=== PATIENT | female | born 1945 | race Hispanic/Latino ===

== ENCOUNTER 2020-03-24 08:03 | Inpatient (IN) | payer MEDICARE, OTHER ==
[~2020-03-24] VITALS: Ht 154.9 cm; Wt 83.5 kg
[2020-03-24 08:32] LABS: BASOPHILS % 0.2 % (0.0-1.0); HEMATOCRIT 39.6 % (34.2-44.1); HEMOGLOBIN 13.4 g/dL (12.0-16.0); LYMPHOCYTES # (AUTO) 0.8 (1.0-3.2); MEAN CORPUSCULAR HEMOGLOBIN 28.6 pg (28-32); MEAN CORPUSCULAR HGB CONC 33.8 g/dL (31-35); MEAN CORPUSCULAR VOLUME 84.6 fL (81-99); MONOCYTES # (AUTO) 0.4 (0.2-0.8); MONOCYTES % 4.3 % (4.4-11.3); NEUTROPHILS # (AUTO) 7.2 (2.1-6.9); NEUTROPHILS % 85.5 % (38.7-80.0); PLATELET COUNT 304 x10e3/uL (140-360); RED BLOOD COUNT 4.68 x10e6/uL (3.6-5.1); RED CELL DISTRIBUTION WIDTH 14.4 % (11.7-14.4)
[2020-03-24 08:50] LABS: ALBUMIN 2.6 g/dL (3.5-5.0); ALBUMIN/GLOBULIN RATIO 0.5 (0.8-2.0); ANION GAP 22.3 mmol/L (8-16); CREATININE, SERUM 1.17 mg/dL (0.57-1.11); POTASSIUM 4.3 mmol/L (3.5-5.1)
[2020-03-24 08:56] LABS: CREATINE KINASE MB 1.5 ng/mL (0-5.0)
--- NOTE | 2020-03-24 09:05 | Diagnostic Imaging Report ---
EXAMINATION: CHEST SINGLE (PORTABLE) INDICATION: Chest pain COMPARISON: None FINDINGS: LINES/TUBES:EKG leads overlie the chest. LUNGS:The lungs are moderately inflated. Mild hazy bibasilar opacities PLEURA:No pleural effusion or pneumothorax. MEDIASTINUM:The cardiomediastinal silhouette appears normal in size and shape. BONES/SOFT TISSUES:No acute osseous injury. ABDOMEN:No free air under the diaphragm. IMPRESSION: Mild hazy bibasilar opacities. Atypical pneumonia should be excluded clinically. Signed by: Hernan Chew MD on 03/24/2020 9:02 AM
--- NOTE | 2020-03-24 09:40 | Emergency Department Note ---
History of Present Illnes History of Present Illness Chief Complaint: COVID PUI History of Present Illness This is a 74 year old female arrived to the ED with complaints of confusion and high blood sugar, tested + for covid . Chief Complaint Comment PER EMS, PATIENT IN FROM HOME FOR ALTERED MENTAL STATUS AND HIGH BLOOD SUGAR; PATIENT O2 SATS *90% ON 4 L/MIN NASAL CANNULA. PATIENT WITH DIFFICULTY ANSWERING QUESTIONS WITH THE CULTURAL LINK. 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 Any updates have been documented here. Past Medical History Recent Fever: No Clinical Suspicion of Infectio: Yes New/Unexplained Change in Ment: No Past Medical History: Hypertension, Diabetes, Hypothyroidism, Hyperlipedemia Past Surgical History: Cholecysctectomy Other Surgery: PATIENT UNABLE TO ANSWER Social History Smoking Cessation: Unknown if ever smoked Alcohol Use: None Any Illegal Drug Use: No Physically hurt or threatened: No Other Any Pre-Existing Lines (PICC,: No Review of Systems Review of Systems Constitutional: Reports no symptoms EENTM: Reports no symptoms Cardiovascular: Reports no symptoms Respiratory: Reports as per HPI Gastrointestinal: Reports no symptoms Genitourinary: Reports no symptoms Musculoskeletal: Reports no symptoms Integumentary: Reports no symptoms Neurological: Reports no symptoms Psychological: Reports no symptoms Endocrine: Reports as per HPI Hematological/Lymphatic: Reports no symptoms Review of other systems: All other systems negative Physical Exam Related Data Allergies: Coded Allergies: Penicillins (Verified Allergy, Severe, 03/24/20) Triage Vital Signs Vital Signs Date Time Temp Pulse Resp B/P (MAP) Pulse Ox O2 Delivery O2 Flow Rate FiO2 03/24/20 08:10 98.8 110 20 142/69 90 Nasal Cannula 5.0 Vital signs reviewed: Yes Physical Exam CONSTITUTIONAL Constitutional: Present well-developed, Present ill appearing HENT HENT: Present normocephalic, Present atraumatic, Present oropharynx clear/moist, Present nose normal HENT L/R: Present left ext ear normal, Present right ext ear normal EYES Eyes: Reports PERRL, Reports conjunctivae normal NECK Neck: Present ROM normal PULMONARY Pulmonary: Present effort normal, Present respiratory distress CARDIOVASCULAR Cardiovascular: Present regular rhythm, Present heart sounds normal, Present capillary refill normal, Present normal rate GASTROINTESTINAL Abdominal: Present soft, Present nontender, Present bowel sounds normal GENITOURINARY Genitourinary: Present exam deferred SKIN Skin: Present warm, Present dry MUSCULOSKELETAL Musculoskeletal: Present ROM normal NEUROLOGICAL Neurological: Present alert, Present no gross motor or sensory deficits PSYCHOLOGICAL Psychological: Present mood/affect normal, Present judgement normal Results Laboratory Result Diagram: 03/24/20 0810 03/24/20 0810 Laboratory Laboratory Tests Test 03/24/20 08:30 03/24/20 08:10 Lactic Acid Level 2.1 mmol/L (0.5-2.0) White Blood Count 8.40 x10e3/uL (4.8-10.8) Red Blood Count 4.68 x10e6/uL (3.6-5.1) Hemoglobin 13.4 g/dL (12.0-16.0) Hematocrit 39.6 % (34.2-44.1) Mean Corpuscular Volume 84.6 fL (81-99) Mean Corpuscular Hemoglobin 28.6 pg (28-32) Mean Corpuscular Hemoglobin Concent 33.8 g/dL (31-35) Red Cell Distribution Width 14.4 % (11.7-14.4) Platelet Count 304 x10e3/uL (140-360) Neutrophils (%) (Auto) 85.5 % (38.7-80.0) Lymphocytes (%) (Auto) 9.0 % (18.0-39.1) Monocytes (%) (Auto) 4.3 % (4.4-11.3) Eosinophils (%) (Auto) 0.0 % (0.0-6.0) Basophils (%) (Auto) 0.2 % (0.0-1.0) Neutrophils # (Auto) 7.2 (2.1-6.9) Lymphocytes # (Auto) 0.8 (1.0-3.2) Monocytes # (Auto) 0.4 (0.2-0.8) Eosinophils # (Auto) 0.0 (0.0-0.4) Basophils # (Auto) 0.0 (0.0-0.1) Absolute Immature Granulocyte (auto 0.08 x10e3/uL (0-0.1) Sodium Level 136 mmol/L (136-145) Potassium Level 4.3 mmol/L (3.5-5.1) Chloride Level 97 mmol/L (98-107) Carbon Dioxide Level 21 mmol/L (22-29) Anion Gap 22.3 mmol/L (8-16) Blood Urea Nitrogen 34 mg/dL (7-26) Creatinine 1.17 mg/dL (0.57-1.11) Estimat Glomerular Filtration Rate 45 ML/MIN (60-) BUN/Creatinine Ratio 29 (6-25) Glucose Level 405 mg/dL (74-118) Calcium Level 10.0 mg/dL (8.4-10.2) Total Bilirubin 0.6 mg/dL (0.2-1.2) Aspartate Amino Transf (AST/SGOT) 105 IU/L (5-34) Alanine Aminotransferase (ALT/SGPT) 88 IU/L (0-55) Alkaline Phosphatase 52 IU/L (40-150) Creatine Kinase 120 IU/L (29-168) Creatine Kinase MB 1.50 ng/mL (0-5.0) Troponin I 0.006 ng/mL (0-0.300) Total Protein 8.0 g/dL (6.5-8.1) Albumin 2.6 g/dL (3.5-5.0) Globulin 5.4 g/dL (2.3-3.5) Albumin/Globulin Ratio 0.5 (0.8-2.0) Lab results reviewed: Yes Imaging Imaging results reviewed: Yes Impressions IMPRESSION: Mild hazy bibasilar opacities. Atypical pneumonia should be excluded clinically. Critical Care Time Total Critical Care Time (min): 65 Critical care time exclusive o: separately billable procedures Critcal care necessary due to: endocrine crisis, respiratory failure Assessment & Plan Medical Decision Making MDM 74-year-old female arrived to the ED with change in mental status, recently tested positive for the coronavirus. Patient noted to be markedly hypoxic and required supplemental oxygen with a Vapotherm. Patient also noted to have an anion gap metabolic acidosis secondary to hyperglycemia due to diabetes. Patient given aggressive fluid resuscitation with IV insulin improvement of anion gap noted. Patient admitted to the inpatient unit on supplemental oxygen and tight hyperglycem hyperglycemic control. Patient stable at time of admission. Assessment & Plan Final Impression: (1) DKA (diabetic ketoacidoses) (2) COVID-19 (3) Acute respiratory distress Depart Disposition: ADMITTED Last Vital Signs Date Time Temp Pulse Resp B/P (MAP) Pulse Ox O2 Delivery O2 Flow Rate FiO2 03/24/20 08:18 15.0 03/24/20 08:10 98.8 110 20 142/69 90 Nasal Cannula Home Meds Reported Medications [No Stated Home Meds] No Conflict Check 03/24/20 Medications in the ED Insulin Human Regular 10 unit ONCE ONCE IV ; Start 03/24/20 at 09:45; Stop 03/24/20 at 09:46; Status UNV THALIA GOODMAN DO Mar 24, 2020 09:40
[2020-03-24] MEDS ORDERED: INSULIN REGULAR, HUMAN 100 UNIT/1 ML 3ML VIAL IV ONE (09:45)
[2020-03-24] MEDS ORDERED: SODIUM CHLORIDE 0.9% 1000ML 2,000 ML ONE (09:57)
[2020-03-24] MEDS ORDERED: SODIUM CHLORIDE 0.9% 1000ML 2,000 ML IV SCH (10:00)
[2020-03-24 12:38] LABS: ANION GAP 16.3 mmol/L (8-16); BLOOD UREA NITROGEN 27 mg/dL (7-26); BUN/CREATININE RATIO 33 (6-25); CALCIUM 7.2 mg/dL (8.4-10.2); CARBON DIOXIDE 17 mmol/L (22-29); CHLORIDE 111 mmol/L (98-107); CREATININE, SERUM 0.82 mg/dL (0.57-1.11); EST GLOMERULAR FILTRATION RATE > 60 ML/MIN (60-); GLUCOSE 255 mg/dL (74-118); POTASSIUM 3.3 mmol/L (3.5-5.1); SODIUM 141 mmol/L (136-145)
[2020-03-24] MEDS ORDERED: WATER STERILE 10 ML VIAL ONE (13:02)
[2020-03-24] MEDS ORDERED: VECURONIUM BROMIDE FOR INJ 20 MG VIAL ONE (13:02)
[2020-03-24] MEDS ORDERED: MIDAZOLAM HCL 2 MG/2 ML VIAL ONE (13:02)
[2020-03-24] MEDS ORDERED: SUCCINYLCHOLINE CHLORIDE 20 MG/ML 10ML VIAL ONE (13:02)
[2020-03-24] MEDS ORDERED: ETOMIDATE 2 MG/ML 10 ML INJ IV ONE (13:02)
--- NOTE | 2020-03-24 15:00 | NUR ---
PT TO THE FLOOR FROM ER. VITALS WNL. PT DENIES NEEDS AT THIS TIME.
[2020-03-24 15:14] VITALS: BP 132/82
[2020-03-24 15:15] VITALS: BP 132/82
[2020-03-24] MEDS ORDERED: ONDANSETRON HCL INJ 2MG/ML 2ML 2 MG/ML VIAL IV PRN (16:15)
[2020-03-24] MEDS ORDERED: DOCUSATE SODIUM 100 MG CAP PO PRN (16:15)
[2020-03-24] MEDS ORDERED: GUAIFENESIN/DEXTROMETHORPHAN LIQD 5 ML UDC NG PRN (16:15)
[2020-03-24] MEDS ORDERED: DEXTROSE 50% SYRINGE 50 ML IV PRN (16:15)
--- NOTE | 2020-03-24 16:20 | NUR ---
H&P cc: sob HIP: 74yoF, PCP , developed sob/cough for 1 week, suspected to have COVID19, test obtained. Pt required O2 support in ED. Pt denies positive COVID testing in past and denies family members testing positive.' PMH: DM2 PSHx; none Allergies; see emr FH/SH; no illicits; no cigs meds; see MAR ROS: no f/c/s/N/V/D/LING/cp/skin rash/confusion/dizziness/leg pain v/s revd PE tired appearing anicteric Oxygen canula in place ns1s2 reduced bs soft nt nd no e/t skin dry flat affect labs/med revd A/P: 74yoF Multifocal PNA- IV abx; O2; COVID testing Acute resp failure- O2 DKA- insulin; hab1c/lipids; insulin CHERI- f/u Obesity- 1/2 portion sizes; outpt BMI 37- as above Physical deconditioning- PT consult Prop; scd; lovenox Dispo: f/u COVID testing Gen TRAYLOR MD, PHD
[2020-03-24] MEDS: INSULIN REGULAR, HUMAN 100 UNIT/1 ML 3ML VIAL SQ SCH ×2 (16:58→21:00)
[2020-03-24] MEDS: FAMOTIDINE 20 MG TAB PO SCH (16:58)
[2020-03-24 17:02] LABS: CHOL/HDL RATIO 6.5 (3.0-3.6)
[2020-03-24] MEDS: ENOXAPARIN SOD INJ 40 MG/0.4 ML SYR SC SCH (17:16)
[2020-03-24] MEDS: ASCORBIC ACID 500 MG TAB PO SCH (17:16)
[2020-03-24] MEDS ORDERED: [UNRECOGNIZED DRUG - REMARK] (18:13)
--- NOTE | 2020-03-24 18:30 | NUR ---
PT HAS REMOVED OXYGEN TUBING 4 TIME IN THE LAST 3 HOURS AND FOUND WITH LOW O2. AT THIS TIME PT SET OFF BED ALARM AND WAS CAUGHT BEFORE FALLING, CONFUSED AND LOW O2 STATS AFTER PULLING O2 OFF AGAIN. PT SOILED, CLEANED AND CHANGED. PT WILL NEED A SITTER TO PREVENT POTENTIAL FALL.
[2020-03-24] MEDS ORDERED: CEFTRIAXONE SOD 1 GM/NS 50 ML 50 ML IV SCH (19:30)
[2020-03-24 20:00] VITALS: BP 124/77
[2020-03-24] MEDS ORDERED: SODIUM CHLORIDE 0.9% 250ML 250 ML ONE (20:33)
[2020-03-24] MEDS ORDERED: ZOLPIDEM TARTRATE 5 MG TAB PO PRN (21:00)
[2020-03-24] MEDS: BENZONATATE 100 MG CAP PO SCH (21:00)
[2020-03-24] MEDS: AZITHROMYCIN 500MG/NS 250 ML 250 ML IV SCH (21:10)
[2020-03-24 23:49] VITALS: BP 114/69
[2020-03-25] VITALS (7 sets, daily range): BP systolic 114–140; BP diastolic 57–74
[2020-03-25 05:26] LABS: BASOPHILS % 0.1 % (0.0-1.0); EOSINOPHILS % 0.1 % (0.0-6.0); HEMATOCRIT 35.7 % (34.2-44.1); HEMOGLOBIN 11.9 g/dL (12.0-16.0); LYMPHOCYTES # (AUTO) 0.8 (1.0-3.2); LYMPHOCYTES % 10.8 % (18.0-39.1); MEAN CORPUSCULAR HGB CONC 33.3 g/dL (31-35); MEAN CORPUSCULAR VOLUME 86.9 fL (81-99); MONOCYTES # (AUTO) 0.3 (0.2-0.8); NEUTROPHILS # (AUTO) 6.5 (2.1-6.9); NEUTROPHILS % 83.7 % (38.7-80.0); PLATELET COUNT 302 x10e3/uL (140-360); RED BLOOD COUNT 4.11 x10e6/uL (3.6-5.1); RED CELL DISTRIBUTION WIDTH 14.2 % (11.7-14.4)
[2020-03-25 05:54] LABS: ALANINE AMINOTRANSFERASE 100 IU/L (0-55); ALBUMIN 2.3 g/dL (3.5-5.0); ALBUMIN/GLOBULIN RATIO 0.5 (0.8-2.0); ALKALINE PHOSPHATASE 53 IU/L (40-150); ANION GAP 14.6 mmol/L (8-16); BLOOD UREA NITROGEN 24 mg/dL (7-26); BUN/CREATININE RATIO 30 (6-25); CALCIUM 8.9 mg/dL (8.4-10.2); CARBON DIOXIDE 25 mmol/L (22-29); CHLORIDE 104 mmol/L (98-107); EST GLOMERULAR FILTRATION RATE > 60 ML/MIN (60-); GLUCOSE 108 mg/dL (74-118); POTASSIUM 3.6 mmol/L (3.5-5.1); SODIUM 140 mmol/L (136-145)
--- NOTE | 2020-03-25 05:59 | NUR ---
IM- progress note O/N see below ROS: no f/c/s/N/V/D/LING/cp/skin rash/confusion/dizziness/leg pain v/s revd PE tired appearing anicteric Oxygen canula in place ns1s2 reduced bs soft nt nd no e/t skin dry flat affect labs/med revd A/P: 74yoF Multifocal PNA- IV abx; O2; COVID testing Acute resp failure- O2 DKA- insulin; hab1c/lipids; insulin CHERI- f/u Obesity- 1/2 portion sizes; outpt BMI 37- as above Physical deconditioning- PT consult Prop; scd; lovenox Dispo: f/u COVID testing 03-25-20 Hba1c/LDL .; f/u COVID tesing; Gen TRAYLOR MD, PHD
[2020-03-25 06:56] LABS: PLATELET ESTIMATE ADEQUATE; PLATELET MORPHOLOGY COMMENT NORMAL; RBC MORPHOLOGY COMMENT NORMAL
[2020-03-25] MEDS: INSULIN REGULAR, HUMAN 100 UNIT/1 ML 3ML VIAL SQ SCH ×4 (07:30→21:06)
[2020-03-25] MEDS: FAMOTIDINE 20 MG TAB PO SCH ×2 (08:52→16:14)
[2020-03-25] MEDS: ASCORBIC ACID 500 MG TAB PO SCH ×2 (08:52→16:14)
[2020-03-25] MEDS: LORATADINE 10 MG TAB PO SCH (08:52)
[2020-03-25] MEDS: BENZONATATE 100 MG CAP PO SCH ×3 (08:52→20:40)
[2020-03-25] MEDS: ZINC SULFATE 220 MG CAP PO SCH (08:52)
[2020-03-25] MEDS ORDERED: ZINC SULFATE 50 MG CAP PO SCH (09:00)
--- NOTE | 2020-03-25 10:14 | Consultation ---
DATE OF CONSULTATION: 03/25/2020 PULMONARY CRITICAL CARE CONSULTATION: CHIEF COMPLAINT: Dyspnea and shortness of breath for one week. HISTORY OF PRESENT ILLNESS: The patient is a 74-year-old woman. She is noted to have cough and difficulty breathing for one week. There is no report of chest pain. She seems unsure about fevers. There has been some intermittent confusion. PAST SURGICAL HISTORY: Status post cholecystectomy. PAST MEDICAL HISTORY: 1. Hypertension. 2. Type 2 diabetes. 3. Hypothyroidism. SOCIAL HISTORY: The patient is not an active smoker. She is not an active drinker. FAMILY HISTORY: Noncontributory. REVIEW OF SYSTEMS: The patient has had some intermittent confusion. She has no headache. She is not complaining of any fevers. She has some chest pain. She does have some dyspnea and cough. She has no abdominal pain. There is no nausea or vomiting. She has no leg edema. PHYSICAL EXAMINATION: VITAL SIGNS: Blood pressure is 118/57, saturation is 98% on an Airvo at 50 L with 85%. HEENT: No facial swelling or erythema. LYMPHATIC: No submandibular, cervical, or supraclavicular adenopathy. CARDIAC: Regular rate and rhythm with normal S1, S2. LUNGS: Auscultation of lungs reveals rhonchorous breath sounds bilaterally. There is no wheezing. ABDOMEN: Soft, nontender. There is no rebound or guarding. EXTREMITIES: No leg edema or calf tenderness. There is no cyanosis or clubbing. SKIN: No rashes. LABORATORY DATA: BUN to creatinine ratio is 24 to 0.8. The other electrolytes are within normal limits. The AST is 146 and the ALT is 100. Albumin is 2.3. White blood cell count is 7.78, and the hemoglobin is 11.9. The platelet count is 302. RADIOGRAPHIC DATA: Chest x-ray shows bibasilar opacities. IMPRESSION: 1. Coronavirus disease-19 and viral pneumonia. 2. Acute respiratory failure. 3. Diabetes. 4. Hypertension. PLAN: 1. Judicious use of IV fluids. 2. Continue antibiotics. 3. Continue Lovenox for DVT prophylaxis. 4. Monitor blood sugars and adjust insulin. 5. The patient would probably be a candidate for remdesivir. We discussed this with Infectious Disease. MD SEA Salomon/JOSIANEL /[id number]
[2020-03-25] MEDS: INSULIN GLARGINE 100 UNITS/ML VIAL SQ SCH (11:45)
[2020-03-25] MEDS: ACETAMINOPHEN 325 MG TAB PO PRN (11:56)
[2020-03-25] MEDS: ENOXAPARIN SOD INJ 40 MG/0.4 ML SYR SC SCH (16:14)
[2020-03-25] MEDS ORDERED: ASCORBIC ACID 500 MG TAB PO SCH (17:00)
[2020-03-25] MEDS: DEXAMETHASONE SOD PHOS INJ 4 MG/ML VIAL IV SCH (17:00)
[2020-03-25] MEDS ORDERED: REMDESIVIR 200MG/NS 100ML 200 MG IV ONE (18:00)
--- NOTE | 2020-03-25 19:02 | Consultation ---
DATE OF CONSULTATION: 03/25/2020 REASON FOR CONSULTATION: Pneumonia. HISTORY OF PRESENT ILLNESS: This patient who is a 74-year-old female comes in with shortness of breath. The patient tells me she has been sick for 7 to 8 days. She does have history of hypertension, diabetes mellitus, hypothyroidism. She is currently on nasal BiPAP. The patient apparently has been sick for at least a week ago with shortness of breath and cough. The patient came to the emergency room, where she was evaluated and admitted. PAST MEDICAL HISTORY: Diabetes mellitus and hypertension. PAST SURGICAL HISTORY: Denies. SOCIAL HISTORY: There is no smoking, drug abuse, or alcohol abuse. FAMILY HISTORY: Hypertension. ALLERGIES: PENICILLIN, BUT SHE DID WELL WITH CEPHALOSPORIN. LABORATORY DATA: COVID-19 is still pending. Her sodium 140, potassium 3.6 creatinine 0.8. Lactic acid 2.1. White count 7.78. MEDICATIONS: The patient is currently on vitamin C. She is on Tessalon Perles, Pepcid, Lovenox, Tylenol, Claritin, azithromycin, and Rocephin. PHYSICAL EXAMINATION: GENERAL: She is currently alert, oriented, does not seem in acute distress. VITAL SIGNS: Stable, currently afebrile. HEENT: She is not icteric. NECK: Supple. CHEST: Crackles bilateral. HEART: S1 and S2. ABDOMEN: Soft. Bowel sounds present. EXTREMITIES: No edema. SKIN: No rash. IMPRESSION: Respiratory failure, community-acquired pneumonia, concerned about coronavirus disease 2019, PCR is still pending. We will give her dexamethasone 6 mg daily, azithromycin for 3 days, ceftriaxone for 5 days, Lovenox for deep venous thrombosis prophylaxis. If her PCR comes back positive, we will give her remdesivir. The patient did agree to it. She is aware that it is still investigational, but it was approved recently. She knows she can stop it at any time. We also discussed the plasma. The patient is also interested. She is aware of the risk. We will follow. MD JONY Ramirez/NENA /[id number]
--- NOTE | 2020-03-25 19:25 | NUR ---
Bedside shift report received from day nurse. Pt semi fowlers in bed with eyes closed. Pt responds to verbal commands and responds appropriately. Pt has high flow O2 on via nasal cannula. O2 sats 94% at this time. Pt does not appear SOB and denies SOB at this time. Pt denies pain or discomfort at this time. Sitter at bedside. Instructed both sitter and pt to call for assistance. Call light within reach.
[2020-03-25] MEDS: AZITHROMYCIN 500MG/NS 250 ML 250 ML IV SCH (20:00)
[2020-03-25] MEDS: CEFTRIAXONE SOD 2 GM/NS 100 ML 100 ML IV SCH (20:00)
[2020-03-26] VITALS (17 sets, daily range): BP systolic 110–155; BP diastolic 73–126
--- NOTE | 2020-03-26 04:50 | NUR ---
Entered pt's room for hourly rounds. Pt had IV clenched in her right hand. Pt pulled IV from her left AC-Catheter intact. Left AC IV site was not bleeding. Covered Left AC IV site with gauze and bandaid. Pt remains confused and is alert and oriented only to self. Pt denies pain or discomfort.
[2020-03-26 05:15] LABS: BASOPHILS % 0.2 % (0.0-1.0); HEMATOCRIT 38.8 % (34.2-44.1); HEMOGLOBIN 12.9 g/dL (12.0-16.0); LYMPHOCYTES # (AUTO) 0.8 (1.0-3.2); LYMPHOCYTES % 8.2 % (18.0-39.1); MEAN CORPUSCULAR HEMOGLOBIN 28.7 pg (28-32); MEAN CORPUSCULAR HGB CONC 33.2 g/dL (31-35); MEAN CORPUSCULAR VOLUME 86.2 fL (81-99); MONOCYTES # (AUTO) 0.3 (0.2-0.8); MONOCYTES % 2.8 % (4.4-11.3); NEUTROPHILS # (AUTO) 8.8 (2.1-6.9); NEUTROPHILS % 87.9 % (38.7-80.0); PLATELET COUNT 324 x10e3/uL (140-360); RED CELL DISTRIBUTION WIDTH 14.3 % (11.7-14.4)
[2020-03-26 05:41] LABS: ALANINE AMINOTRANSFERASE 92 IU/L (0-55); ALBUMIN 2.3 g/dL (3.5-5.0); ALBUMIN/GLOBULIN RATIO 0.4 (0.8-2.0); ALKALINE PHOSPHATASE 65 IU/L (40-150); ANION GAP 19.1 mmol/L (8-16); BLOOD UREA NITROGEN 19 mg/dL (7-26); BUN/CREATININE RATIO 24 (6-25); CALCIUM 9.3 mg/dL (8.4-10.2); CARBON DIOXIDE 20 mmol/L (22-29); CHLORIDE 103 mmol/L (98-107); EST GLOMERULAR FILTRATION RATE > 60 ML/MIN (60-); GLUCOSE 282 mg/dL (74-118); POTASSIUM 4.1 mmol/L (3.5-5.1); SODIUM 138 mmol/L (136-145)
--- NOTE | 2020-03-26 06:40 | NUR ---
Attempt to start 22g IV to left wrist was unsuccessful. Pressure held to site until bleeding stopped. Left wrist puncture site covered with gauze and bandaid.
--- NOTE | 2020-03-26 07:30 | NUR ---
RECEIVED PATIENT RESTING IN BED. RESPIRATIONS EVEN AND BREATHING UNLABORED. NO DISTRESS NOTED. NO C/O PAIN VERBALIZED AT THIS TIME. TELE APPLIED. BED ALARM APPLIED. CALL LIGHT WITHIN REACH. WILL CONTINUE TO MONITOR.
[2020-03-26] MEDS: FAMOTIDINE 20 MG TAB PO SCH ×2 (08:25→16:05)
[2020-03-26] MEDS: LORATADINE 10 MG TAB PO SCH (08:30)
[2020-03-26] MEDS: BENZONATATE 100 MG CAP PO SCH ×3 (08:30→21:04)
[2020-03-26] MEDS: ASCORBIC ACID 500 MG TAB PO SCH ×2 (08:30→16:42)
--- NOTE | 2020-03-26 08:55 | NUR ---
IM- progress note O/N see below ROS: no f/c/s/N/V/D/LING/cp/skin rash/confusion/dizziness/leg pain v/s revd PE tired appearing anicteric Oxygen canula in place ns1s2 reduced bs soft nt nd no e/t skin dry flat affect labs/med revd A/P: 74yoF Multifocal PNA- IV abx; O2; COVID testing Acute resp failure- O2 DKA- insulin; hab1c/lipids; insulin CHERI- f/u Obesity- 1/2 portion sizes; outpt BMI 37- as above Physical deconditioning- PT consult Prop; scd; lovenox Dispo: f/u COVID testing 03-25-20 Hba1c/LDL .; f/u COVID tesing; 03-26-20 cont care; Gen TRAYLOR MD, PHD
[2020-03-26] MEDS ORDERED: ZINC SULFATE 50 MG CAP PO SCH (09:00)
[2020-03-26] MEDS: INSULIN GLARGINE 100 UNITS/ML VIAL SQ SCH (09:00)
[2020-03-26] MEDS ORDERED: AZITHROMYCIN 500MG/NS 250 ML 250 ML IV SCH (09:00)
[2020-03-26] MEDS: ZINC SULFATE 220 MG CAP PO SCH (09:14)
[2020-03-26] MEDS: INSULIN REGULAR, HUMAN 100 UNIT/1 ML 3ML VIAL SQ SCH ×4 (09:23→20:16)
--- NOTE | 2020-03-26 09:30 | Progress Note ---
DATE: 03/26/2020 SUBJECTIVE: The patient is currently afebrile. She remains on the Airvo with 55 L and 85%. PHYSICAL EXAMINATION: VITAL SIGNS: The blood pressure is 127/73 and the pulse is 93. The respiratory rate is 24. Saturation is 92%. HEENT: Shows no facial swelling or erythema. LYMPHATIC: Shows no submandibular, cervical, or supraclavicular adenopathy. CARDIAC: Reveals a regular rate and rhythm with normal S1 and S2. LUNGS: Auscultation of lungs reveals crackles at the bases. There is no wheezing. ABDOMEN: Soft and nontender. There is no rebound or guarding. EXTREMITIES: Show no leg edema or calf tenderness. There is no cyanosis or clubbing. SKIN: Shows no rashes. NEUROLOGICAL: Shows no focal abnormalities. LABORATORY DATA: White blood cell count is 10.04 and the hemoglobin is 12.9. The platelet count is 324. The BUN to creatinine ratio is 19 to 0.8 and the carbon dioxide is 20. The chloride is 103. The glucose is 282. AST is 89 and the ALT is 92. The albumin is 2.3. IMPRESSION: 1. Acute respiratory failure. 2. COVID-19 and viral pneumonia. 3. Diabetes. 4. Hypertension. PLAN: 1. Continue Airvo. 2. Monitor and control blood sugars. 3. The patient should be a candidate for remdesivir. 4. Continue azithromycin and Rocephin. 5. Complete course of dexamethasone. 6. Place PICC line. 7. Consider transfer to ICU if the patient continues to require high liter flow with Airvo. Pete Walsh MD [facility]/MODL /[id number]
--- NOTE | 2020-03-26 10:15 | NUR ---
CALLED AND SPOKE WITH DAUGHTER DAVE ON [employer], SHE STATES SHE HAS COVID AND TO CALL HER SISTER AND THE NURSE HAS THE NUMBER. CALLED KAREN MAC [phone] WHOM IS THE DECISION MAKER FOR THIS PATIENT, ASKED HER ABOUT PLACEMENT OPTIONS FOR THIS PATIENT. SPOKE WITH DOCTOR ABOUT PLAN, SNF IS THE PLAN AT [facility] IN [place], DAUGHTER GAVE PERMISSION TO SHARE CLINICALS. WILL FAX TO FACILITY.
--- NOTE | 2020-03-26 12:47 | Diagnostic Imaging Report ---
EXAMINATION: CHEST XRAY LINE PLACEMENT INDICATION: Line placement COMPARISON: Chest radiograph 03/24/2020 FINDINGS: LINES/TUBES:Interval placement of right PICC line which terminates at the superior cavoatrial junction. LUNGS:The lung volumes are low. Interval increase in bilateral interstitial and airspace opacities. PLEURA:No pleural effusion or pneumothorax. MEDIASTINUM:The cardiomediastinal silhouette appears normal in size and shape. BONES/SOFT TISSUES:No acute osseous injury. ABDOMEN:No free air under the diaphragm. IMPRESSION: Right PICC line terminates at the superior cavoatrial junction. Interval increase in bilateral interstitial and airspace opacities concerning for atypical pneumonia. Signed by: Hernan Chew MD on 03/26/2020 12:43 PM
--- NOTE | 2020-03-26 14:30 | NUR ---
PATIENT TRANSFERRED OFF OF UNIT BY WHEELCHAIR TO ICU ROOM 194 @ 1412. PT ACCOMPANIED BY NURSES AND RESPIRATORY. PT IN STABLE CONDITION.
[2020-03-26] MEDS: REMDESIVIR 100MG/NS 100ML 100 MG IV SCH (14:31)
--- NOTE | 2020-03-26 15:00 | NUR ---
Patient pull off oxygen and trying to get out of bed very confused and desats to 71% quickly placed back on airvo and in bed patient 02 sats recovered 88 to 90% reoriented patient placed on bedpan did not void.
--- NOTE | 2020-03-26 15:16 | NUR ---
REASON FOR CONSULTATION: Pneumonia. HISTORY OF PRESENT ILLNESS: This patient who is a 74-year-old female comes in with shortness of breath. The patient tells me she has been sick for 7 to 8 days. She does have history of hypertension, diabetes mellitus, hypothyroidism. She is currently on nasal BiPAP. The patient apparently has been sick for at least a week ago with shortness of breath and cough. The patient came to the emergency room, where she was evaluated and admitted. PAST MEDICAL HISTORY: Diabetes mellitus and hypertension. PAST SURGICAL HISTORY: Denies. SOCIAL HISTORY: There is no smoking, drug abuse, or alcohol abuse. FAMILY HISTORY: Hypertension. ALLERGIES: PENICILLIN, BUT SHE DID WELL WITH CEPHALOSPORIN. LABORATORY DATA: COVID-19 is still pending. Her sodium 140, potassium 3.6 creatinine 0.8. Lactic acid 2.1. White count 7.78. MEDICATIONS: The patient is currently on vitamin C. She is on Tessalon Perles, Pepcid, Lovenox, Tylenol, Claritin, azithromycin, and Rocephin. PHYSICAL EXAMINATION: GENERAL: She is currently alert, oriented, does not seem in acute distress. VITAL SIGNS: Stable, currently afebrile. HEENT: She is not icteric. NECK: Supple. no JVD CHEST: Crackles bilateral. HEART: S1 and S2. ABDOMEN: Soft. Bowel sounds present. EXTREMITIES: No edema. SKIN: No rash. IMPRESSION: Respiratory failure community-acquired pneumonia COVID 19 PLAN: COVID protocol on NRB RMSV get CTA guarded prognosis Tata Lino MSN, [employer] PRO[employer] MANAGER, AGACNP-BC d/w Fei Hernandez M.D.
[2020-03-26] MEDS ORDERED: DEXMEDETOMIDINE 200MCG/NS 50ML 50 ML IV PRN (16:15)
[2020-03-26] MEDS: DEXAMETHASONE SOD PHOS INJ 4 MG/ML VIAL IV SCH (16:42)
[2020-03-26] MEDS: ENOXAPARIN SOD INJ 40 MG/0.4 ML SYR SC SCH (16:42)
[2020-03-26] MEDS: CEFTRIAXONE SOD 2 GM/NS 100 ML 100 ML IV SCH (20:16)
[2020-03-26] MEDS ORDERED: SODIUM CHLORIDE 0.9% 250ML 250 ML ONE (20:42)
[2020-03-26] MEDS: AZITHROMYCIN 500MG/NS 250 ML 250 ML IV SCH (21:04)
[2020-03-27] VITALS (24 sets, daily range): BP systolic 103–173; BP diastolic 66–99
[2020-03-27 04:44] LABS: BASOPHILS % 0.1 % (0.0-1.0); HEMATOCRIT 32.5 % (34.2-44.1); HEMOGLOBIN 10.8 g/dL (12.0-16.0); LYMPHOCYTES # (AUTO) 0.6 (1.0-3.2); LYMPHOCYTES % 7.1 % (18.0-39.1); MEAN CORPUSCULAR HEMOGLOBIN 28.6 pg (28-32); MEAN CORPUSCULAR HGB CONC 33.2 g/dL (31-35); MEAN CORPUSCULAR VOLUME 86.2 fL (81-99); MONOCYTES # (AUTO) 0.2 (0.2-0.8); MONOCYTES % 2.4 % (4.4-11.3); NEUTROPHILS % 89.8 % (38.7-80.0); PLATELET COUNT 199 x10e3/uL (140-360); RED BLOOD COUNT 3.77 x10e6/uL (3.6-5.1); RED CELL DISTRIBUTION WIDTH 14.3 % (11.7-14.4)
[2020-03-27 05:03] LABS: ALANINE AMINOTRANSFERASE 59 IU/L (0-55); ALBUMIN 1.8 g/dL (3.5-5.0); ALBUMIN/GLOBULIN RATIO 0.4 (0.8-2.0); ALKALINE PHOSPHATASE 60 IU/L (40-150); ANION GAP 15.6 mmol/L (8-16); BLOOD UREA NITROGEN 25 mg/dL (7-26); BUN/CREATININE RATIO 32 (6-25); CALCIUM 8.4 mg/dL (8.4-10.2); CARBON DIOXIDE 23 mmol/L (22-29); CHLORIDE 107 mmol/L (98-107); CREATININE, SERUM 0.77 mg/dL (0.57-1.11); EST GLOMERULAR FILTRATION RATE > 60 ML/MIN (60-); GLUCOSE 259 mg/dL (74-118); POTASSIUM 3.6 mmol/L (3.5-5.1); SODIUM 142 mmol/L (136-145)
--- NOTE | 2020-03-27 06:30 | NUR ---
IM- progress note O/N see below ROS: no f/c/s/N/V/D/LING/cp/skin rash/confusion/dizziness/leg pain v/s revd PE tired appearing anicteric Oxygen canula in place ns1s2 reduced bs soft nt nd no e/t skin dry flat affect labs/med revd A/P: 74yoF Multifocal PNA- IV abx; O2; COVID testing Acute resp failure- O2 DKA- insulin; hab1c/lipids; insulin CHERI- f/u Obesity- 1/2 portion sizes; outpt BMI 37- as above Physical deconditioning- PT consult Prop; scd; lovenox Dispo: f/u COVID testing 03-25-20 Hba1c/LDL 10.; f/u COVID tesing; 03-26-20 cont care; - cont care in ICU; needing more O2; Continue decadron and remdesivir. Gen TRAYLOR MD, PHD
--- NOTE | 2020-03-27 07:11 | Progress Note ---
DATE: 03/27/2020 PULMONARY CRITICAL CARE PROGRESS NOTE: SUBJECTIVE: The patient was transferred to the intensive care unit last night. The patient remains on Airvo with 60 L and 95%. She also has a non-rebreather. The patient has some confusion. PHYSICAL EXAMINATION: VITAL SIGNS: The blood pressure is 134/70, saturation is 94%. She is currently on an Airvo at 60 L with 95% and a non-rebreather. She is also on Precedex. HEENT: Shows no facial swelling or erythema. LYMPHATIC: Shows no submandibular, cervical, or supraclavicular adenopathy. CARDIAC: Reveals regular rate and rhythm with normal S1, S2. There is a PICC line in place. ABDOMEN: Soft and nontender. There is no rebound or guarding. EXTREMITIES: Shows 1 to 2+ leg edema. LABORATORY DATA: White blood cell count is 7.8, hemoglobin is 10.8, and the platelet count is 199. The VNY-gx-kbvvpzkxij ratio is 25 to 0.77. The other electrolytes within normal limits, and the albumin is 1.8. The blood sugar is 260. IMPRESSION: 1. Acute respiratory failure. 2. Viral pneumonia and COVID-19 infection. 3. Diabetes. 4. Hypertension. 5. Metabolic encephalopathy. PLAN: 1. Continue Airvo and non-rebreather. 2. Place the patient in prone position if possible. 3. Echocardiogram pending today. 4. Continue remdesivir. 5. Continue dexamethasone. 6. DVT prophylaxis. 7. Continue to monitor and adjust insulin. Greater than 35 minutes in direct critical care time. Pete Walsh MD [facility]/MODL /[id number]
[2020-03-27] MEDS: INSULIN REGULAR, HUMAN 100 UNIT/1 ML 3ML VIAL SQ SCH ×4 (07:30→21:48)
[2020-03-27] MEDS: FAMOTIDINE 20 MG TAB PO SCH ×2 (07:30→16:30)
[2020-03-27] MEDS: BENZONATATE 100 MG CAP PO SCH ×3 (09:00→20:05)
[2020-03-27] MEDS: ZINC SULFATE 220 MG CAP PO SCH (09:00)
[2020-03-27] MEDS ORDERED: INSULIN GLARGINE 100 UNITS/ML VIAL SQ SCH (09:00)
[2020-03-27] MEDS: ASCORBIC ACID 500 MG TAB PO SCH ×2 (09:00→17:00)
--- NOTE | 2020-03-27 09:31 | NUR ---
Holding skilled PT services since patient is moved to higher level of care ( ICU). Please write new PT orders when appropriate. Thank you Addendum: 03/27/20 at 0931 by Praveen gibbs PT Amended: Links added.
--- NOTE | 2020-03-27 10:22 | NUR ---
ST NOTE: Order acknowledged for BSE. Pt currently on 60 L AIRVO with 95% FIO2 and NRB. Pt refusing PO medication, orders for prone position. RN stated pt not appropriate for ST evaluation at this time, re-attempt 03/28/20. Consider NG tube feeds for nutrition/hydration. Handoff to JOAN Ramires
[2020-03-27] MEDS ORDERED: ZIPRASIDONE 20 MG VIAL IM NR (12:00)
[2020-03-27] MEDS ORDERED: ZIPRASIDONE 20 MG VIAL IM ONE (12:08)
[2020-03-27] MEDS ORDERED: SODIUM CHLORIDE 0.9% 250ML 250 ML ONE (13:29)
[2020-03-27] MEDS: REMDESIVIR 100MG/NS 100ML 100 MG IV SCH (13:33)
[2020-03-27] MEDS: ENOXAPARIN SOD INJ 40 MG/0.4 ML SYR SC SCH (17:48)
[2020-03-27] MEDS: DEXAMETHASONE SOD PHOS INJ 4 MG/ML VIAL IV SCH (17:48)
--- OUTSIDE RECORDS SUMMARY | 2020-03-27 18:39 | XMS REPORT | Continuity of Care Document ---
Author Author [facility] t Organization [facility] Address [address] [place] [address] Phone Unavailable Care Team Providers Care Equipment Engineering Technician Name Role Phone AILYN GRANT Attphys Unavailable AILYN GRANT Admmaximinos Unavailable Payers Payer Name Policy Type Policy Number Effective Date Expiration Date S ource Problems This patient has no known problems. Allergies, Adverse Reactions, Alerts Allergy Name Allergy Type Status Severity Reaction(s) Onset Date Inacti ve Date Treating Clinician Comments Source Penicillins DA Active U 2018-05-21 00:00:00 [facility] Penicillins DA Active U 2014-12-12 00:00:00 [facility] Medications This patient has no known medications. Procedures This patient has no known procedures. Results Test Description Test Time Test Comments Results Result Comments Source CHEST XRAY LINE PLACEMENT 2020-03-26 12:42:00 [facility] : 1945 Sex: F [facility] [address] [address] Patient Name: ISAURO LE MR #: [id number] : 1945 Age/Sex: 74/F Req #: [id number] Adm Physician: AILYN GRANT MD Ordered by: TED MOSS MD Report #: [id number] Location: [facility] Room/Bed: [address] [address] Procedure: [id number] DX/CHEST XRAY LINE PLACEMENT Exam Date: Exam Time: REPORT STATUS: Signed EXAMINATION: CHEST XRAY LINE PLACEMENT INDICATION: Line placement COMPARISON: Chest radiograph 03/24/2020 FINDINGS: LINES/TUBES:Interval placement of right PICC line which terminates at the superior cavoatrial junction. LUNGS:The lung volumes are low. Interval increase in bilateral interstitial and airspace opacities. PLEURA:No pleural effusion or pneumothorax. MEDIASTINUM:The cardiomediastinal silhouette appears normal in size and shape. BONES/SOFT TISSUES:No acute osseous injury. ABDOMEN:No free air under the diaphragm. IMPRESSION: Right PICC line terminates at the superior cavoatrial junc tion. Interval increase in bilateral interstitial and airspace opacities concerning for atypical pneumonia. Signed by: Denisha Wilde MD on 03/26/2020 12:43 PM Dictated By: DENISHA WILDE MD 1243 Transcribed By: MATTHEW on 03/26/20 1243 COPY TO: TED MOSS MD CHEST SINGLE (PORTABLE) 2020-03-24 09:01:00 [facility] 1945 Sex: F [facility] [address] [address] Patient Name: ISAURO LE MR #: [id number] : 1945 Age/Sex: 74/F Req #: [id number] [facility] Physician: Ordered by: THALIA GOODMAN DO Report #: [id number] Location: ER Room/Bed: Procedure: [id number] DX/CHEST SINGLE (PORTABLE) Exam Date: 03/24/20 Exam Time: 0842 REPORT STATUS: Signed EXAMINATION: CHEST SINGLE (PORTABLE) INDICATION: Chest pain COMPARISON: None FINDINGS: LINES/TUBES:EKG leads overlie the chest. LUNGS:The lungs are moderately inflated. Mild hazy bibasilar opacities PLEURA:No pleural effusion or pneumothorax. MEDIASTINUM:The cardiomediastinal silhouette appears normal in size and shape. BONES/SOFT TISSUES:No acute osseous injury. ABDOMEN:No free air under the diaphragm. IMPRESSION: Mild hazy bibasilar opacities. Atypical pneumonia should be excluded clinically. Signed by: Denisha Wilde MD on 03/24/2020 9:02 AM Dictated By: DENISHA WILDE MD 0902 Transcribed By: MATTHEW on 03/24/20901 COPY TO: THALIA GOODMAN DO COMPREHENSIVE METABOLIC PANEL 2020-03-18 15:44:00 Test Item SODIUM (test code = NA) 131 mmol/L 134-147 L POTASSIUM (test code = K) 4.1 mmol/L 3.4-5.0 N CHLORIDE (test code = CL) 99 mmol/L 100-108 L CARBON DIOXIDE (test code = CO2) 27 mmol/L 21-32 N ANION GAP (test code = GAP) 5.0 GAP calc 4.0-15.0 N GLUCOSE (test code = GLU) 332 MG/DL 70-110 H BLOOD UREA NITROGEN (test code = BUN) 41 MG/DL 7-18 H GLOMERULAR FILTRATION RATE (test code = GFR) 39 estGFR >60 L CREATININE (test code = CREAT) 1.4 MG/DL 0.6-1.0 H TOTAL PROTEIN (test code = PROT) 7.8 G/DL 6.4-8.2 N ALBUMIN (test code = ALB) 3.3 G/DL 3.4-5.0 L GLOBULIN (test code = GLOB) 4.5 GM/dL ALBUMIN/GLOBULIN RATIO (test code = A/G) 0.7 RATIO 1.2-2.2 L CALCIUM (test code = CA) 8.7 MG/DL 8.5-10.1 N BILIRUBIN TOTAL (test code = BILT) 0.30 MG/DL 0.2-1.2 N SGOT/AST (test code = AST) 47 Unit/L 15-37 H SGPT/ALT (test code = ALT) 67 Unit/L 12-78 N ALKALINE PHOSPHATASE TOTAL (test code = ALKP) 43 Unit/L 45-117 L COVID 19 INHOUSE [id number] 15:31:00* Test Item Value Reference Range Interpretation Comments COVID 19 INHOUSE AG (test code = [id number]) POSITIVE Negative A UA RFLX MICR CULT IF [id number] 15:16:00* Test Item Value Reference Range Interpretation Comments UA COLOR (test code = COLU) YELLOW discript YEL/STRAW UA APPEARANCE (test code = APPU) CLEAR discript CLEAR UA GLUCOSE DIPSTICK (test code = DGLUU) 3+ mg/dL NEG UA BILIRUBIN DIPSTICK (test code = BILU) NEGATIVE mg/dL NEG UA KETONE DIPSTICK (test code = KETU) NEGATIVE mg/dL NEG UA SPECIFIC GRAVITY (test code = SGU) 1.020 SG 1.005-1.030 UA BLOOD DIPSTICK (test code = LINDA) TRACE mg/DL NEG A UA PH DIPSTICK (test code = MARYA) <=5.0 pH UNITS 5.0-7.0 UA PROTEIN DIPSTICK (test code = PROU) TRACE mg/dL NEG A UA UROBILINIOGEN DIPSTICK (test code = URO) 0.2 mg/dL <2.0 UA NITRITE DIPSTICK (test code = GLENIS) POSITIVE SCREEN NEG A UA LEUKOCYTE ESTERASE DIPSTICK (test code = LEUU) NEGATIVE Leuk/mcL NEGATIVE UA CULTURE NEEDED? (test code = UACULT) Criteria Culture CHK Indication for culture: RiskForSepsis-no oth srcUA RFLX MICR CULT IF [id number] 15:16:00* Test Item Value Reference Range Interpretation Comments UA COLOR (test code = COLU) YELLOW discript YEL/STRAW UA APPEARANCE (test code = APPU) CLEAR discript CLEAR UA GLUCOSE DIPSTICK (test code = DGLUU) 3+ mg/dL NEG UA BILIRUBIN DIPSTICK (test code = BILU) NEGATIVE mg/dL NEG UA KETONE DIPSTICK (test code = KETU) NEGATIVE mg/dL NEG UA SPECIFIC GRAVITY (test code = SGU) 1.020 SG 1.005-1.030 UA BLOOD DIPSTICK (test code = LINDA) TRACE mg/DL NEG A UA PH DIPSTICK (test code = MARYA) <=5.0 pH UNITS 5.0-7.0 UA PROTEIN DIPSTICK (test code = PROU) TRACE mg/dL NEG A UA UROBILINIOGEN DIPSTICK (test code = URO) 0.2 mg/dL <2.0 UA NITRITE DIPSTICK (test code = GLENIS) POSITIVE SCREEN NEG A UA LEUKOCYTE ESTERASE DIPSTICK (test code = LEUU) NEGATIVE Leuk/mcL NEGATIVE UA WBC (test code = WBCU) 0-1 #WBC/HPF 0-3 UA RBC (test code = RBCU) 1-3 #RBC/HPF 0-3 UA BACTERIA (test code = BACU) TRACE /HPF NONE-TRACE UA SQUAMOUS CELLS (test code = SQU) TRACE /HPF NONE UA CULTURE NEEDED? (test code = UACULT) NO, WBC<10 Criteria Culture CHK Indication for culture: RiskForSepsis-no oth src- XR CHEST 1 [id number] 15:12:00[facility] 1945 Sex: F Name: ISAURO HARO [facility] : 1945 Age/S: 74 / F [address] Unit #: [id number] Loc: [place] [address] Phys: Delano Hernandez MD Acct: [id number] Dis Date: Status: REG ER PHONE #: [phone] Exam Date: 03/18/2020 1500 FAX #: Reason: fever EXAMS: CPT: [id number] XR CHEST 1 V 79858 Fluoro Time: DAP (Gy m2): Air Kerma (mGy): EXAMINATION: - XR CHEST 1 V. LOCATION: S17. HISTORY: Fever. COMPARISON: 12/12/2014. FINDINGS: Examination is limited due to portable technique and patient body habitus. Cardiac silhouette/Mediastinal contour: Prominence of cardiac silhouette. Atherosclerotic calcification of aortic arch. Lungs: No focal consolidation. No large pleural effusion. Osseous Structures: Degenerative changes of thoracic spine. IMPRESSION: No focal consolidation. at 1512 Reported and signed by: Alexei Toney M.D. CC: Delano Hernandez MD PAGE 1 Signed Report Name: ISAURO HARO [facility] : 1945 Age/S: 74 / F [address] Unit #: [id number] Loc: [place] [address] Phys: Delano Hernandez MD Acct: [id number] Dis Date: Status: REG ER PHONE #: [phone] Exam Date: 03/18/2020 1500 FAX #: Reason: fever EXAMS: CPT: [id number] XR CHEST 1 V [id number] Fluoro Time: DAP (Gy m2): Air Kerma (mGy): <Continued> Technologist: Trupti Zurita, RT(R)(CT)(MRI) Trnscb Date/Time: 03/18/2020 (1511) [email or web address] Orig Print D/T: S: 03/18/2020 (759) PAGE 2 Signed Report CBC W/AUTO [id number] 15:07:00* Test Item Value Reference Range Interpretation Comments WHITE BLOOD CELL (test code = WBC) 4.4 K/mm3 3.5-11.0 N RED BLOOD CELL (test code = RBC) 4.02 M/mm3 4.70-6.10 L HEMOGLOBIN (test code = HGB) 11.8 G/DL 10.4-14.9 N HEMATOCRIT (test code = HCT) 34.9 % 31.5-44.1 N MEAN CELL VOLUME (test code = MCV) 86.8 Fl 84.5-98.6 N MEAN CELL HGB (test code = MCH) 29.4 pg 27.0-34.2 N MEAN CELL HGB CONCETRATION (test code = MCHC) 33.8 G/DL 31.5-34. 0 N RED CELL DISTRIBUTION WIDTH (test code = RDW) 14.5 SD 11.5-14. 5 N PLATELET COUNT (test code = PLT) 133 K/mm3 150-450 L MEAN PLATELET VOLUME (test code = MPV) 11.20 fL 7.0-10.5 H NEUTROPHIL % (test code = NT%) 61.6 % 40-76 N IMMATURE GRANULOCYTE % (test code = IG%) 0.5 % 0.0-5.0 N LYMPHOCYTE % (test code = LY%) 30.4 % 20.5-51.1 N MONOCYTE % (test code = MO%) 7.3 % 1.7-9.3 N EOSINOPHIL % (test code = EO%) 0.0 % 0.0-6.0 N BASOPHIL % (test code = BA%) 0.2 % 0.0-2.0 N NUCLEATED RBC % (test code = NRBC%) 0.0 /100WBC% 0.0-1.0 N NEUTROPHIL # (test code = NT#) 2.7 K/mm3 1.8-7.6 N IMMATURE GRANULOCYTE # (test code = IG#) 0.02 x10 3/uL 0.00-0.03 N LYMPHOCYTE # (test code = LY#) 1.3 K/mm3 0.6-3.2 N MONOCYTE # (test code = MO#) 0.3 K/mm3 0.3-1.1 N EOSINOPHIL # (test code = EO#) 0.0 K/mm3 0.0-0.4 N BASOPHIL # (test code = BA#) 0.0 K/mm3 0.0-0.1 N NUCLEATED RBC # (test code = NRBC#) 0.0 K/mm3 0.0-0.1 N MANUAL DIFF REQUIRED (test code = MDIFF) NO DIFF/SCN CRITERIA
--- OUTSIDE RECORDS SUMMARY | 2020-03-27 18:42 | XMS REPORT | Continuity of Care Document ---
Author Author [facility] t Organization [facility] Address [address] [place] [address] Phone Unavailable Care Team Providers Care Compounder Sterile Products Name Role Phone AILYN GRANT Attphys Unavailable AILYN GRANT Admmaximinos Unavailable Payers Payer Name Policy Type Policy Number Effective Date Expiration Date S ource Problems This patient has no known problems. Allergies, Adverse Reactions, Alerts Allergy Name Allergy Type Status Severity Reaction(s) Onset Date Inacti ve Date Treating Clinician Comments Source Penicillins DA Active U 2018-05-21 00:00:00 [facility] Penicillins DA Active U 2014-12-12 00:00:[address] [facility] Medications This patient has no known medications. Procedures This patient has no known procedures. Results Test Description Test Time Test Comments Results Result Comments Source CHEST XRAY LINE PLACEMENT 2020-03-26 12:42:00 [facility] : 1945 Sex: F [facility] [address] [address] Patient Name: ISAURO LE MR #: [id number] : 1945 Age/Sex: 74/F Req #: [id number] Adm Physician: AILYN GRANT MD Ordered by: TED MOSS MD Report #: [id number] Location: [facility] Room/Bed: [address] [address] Procedure: [id number] DX/CHEST XRAY LINE PLACEMENT Exam Date: Exam [...] MD CHEST SINGLE (PORTABLE) 2020-03-24 09:01:00 [facility] : 1945 Sex: F [facility] [address] [address] Patient Name: ISAURO LE MR #: [id number] : 1945 Age/Sex: 74/F Req #: [id number] [facility] Physician: Ordered by: THALIA GOODMAN DO Report #: [id number] Location: ER Room/Bed: Procedure: [id number] DX/CHEST SINGLE (PORTABLE) Exam Date: 03/24/20 Exam [...] 43 Unit/L 45-117 L COVID 19 INHOUSE [id number] 15:31:00* Test Item Value Reference Range Interpretation Comments COVID 19 INHOUSE AG (test code = [id number]) POSITIVE Negative A UA RFLX MICR CULT IF [id number] 15:16:00* Test Item Value Reference Range Interpretation [...] RiskForSepsis-no oth srcUA RFLX MICR CULT IF [id number] 15:16:00* Test Item Value Reference Range Interpretation [...] culture: RiskForSepsis-no oth src- XR CHEST 1 [id number] 15:12:00[facility] 1945 Sex: F Name: ISAURO HARO [facility] : 1945 Age/S: 74 / F [address] Unit #: [id number] Loc: [place] [address] Phys: Delano Hernandez MD Acct: [id number] Dis Date: Status: REG ER PHONE #: [phone] Exam Date: 03/18/2020 1500 FAX #: Reason: fever EXAMS: CPT: [id number] XR CHEST 1 V 95181 Fluoro Time: DAP (Gy m2): Air Kerma [...] PAGE 1 Signed Report Name: ISAURO HARO [facility] : 1945 Age/S: 74 / F [address] Unit #: [id number] Loc: [place] [address] Phys: Delano Hernandez MD Acct: [id number] Dis Date: Status: REG ER PHONE #: [phone] Exam Date: 03/18/2020 1500 FAX #: Reason: fever EXAMS: CPT: [id number] XR CHEST 1 V 58414 Fluoro Time: DAP (Gy m2): Air Kerma (mGy): <Continued> Technologist: Trupti Zurita, RT(R)(CT)(MRI) Trnscb Date/Time: 03/18/2020 (1511) [email or web address] Orig Print D/T: S: 03/18/2020 (391) PAGE 2 Signed Report CBC W/AUTO [id number] 15:07:00* Test Item Value Reference Range Interpretation [...]
[2020-03-27] MEDS: DEXMEDETOMIDINE 200MCG/NS 50ML 50 ML IV PRN (19:00)
[2020-03-27] MEDS: CEFTRIAXONE SOD 2 GM/NS 100 ML 100 ML IV SCH (20:05)
[2020-03-27] MEDS: AZITHROMYCIN 500MG/NS 250 ML 250 ML IV SCH (20:05)
[2020-03-27] MEDS ORDERED: ZIPRASIDONE 20 MG VIAL IM STA (22:46)
[2020-03-28] VITALS (26 sets, daily range): BP systolic 76–159; BP diastolic 52–109
[2020-03-28] MEDS: DEXMEDETOMIDINE 200MCG/NS 50ML 50 ML IV PRN (01:15)
--- NOTE | 2020-03-28 02:51 | Progress Note ---
DATE: 03/27/2020 SUBJECTIVE: Ms. Paz transferred to intensive care unit. She is currently on Airvo at 60 L and 95% oxygen. She is also on nonrebreather, confused. REVIEW OF SYSTEMS: Shortness of breath. PHYSICAL EXAMINATION: VITAL SIGNS: Blood pressure 134/70, heart rate 80. HEENT: She is not icteric. NECK: Supple. CHEST: Few crackles bilaterally. HEART: S1-S2. ABDOMEN: Soft. Bowel sounds present. EXTREMITIES: No edema. SKIN: No rash. LABORATORY DATA: Her white cell count is 7.8, hemoglobin 10.8, platelet 199,000. Blood glucose 160. MEDICATION LIST: She is on azithromycin, Rocephin, dexamethasone, Lovenox, remdesivir and vitamin C. IMPRESSION AND PLAN: COVID-19 respiratory failure, to finish course of antibiotic and to finish course of remdesivir. Continue with supportive care. Continue with DVT prophylaxis. Insulin as ordered. We will follow. MD JONY Ramirez/MODL /[id number]
[2020-03-28 05:28] LABS: BASOPHILS % 0.1 % (0.0-1.0); HEMATOCRIT 38.4 % (34.2-44.1); HEMOGLOBIN 12.9 g/dL (12.0-16.0); LYMPHOCYTES # (AUTO) 0.8 (1.0-3.2); LYMPHOCYTES % 5.7 % (18.0-39.1); MEAN CORPUSCULAR HEMOGLOBIN 29.5 pg (28-32); MEAN CORPUSCULAR HGB CONC 33.6 g/dL (31-35); MEAN CORPUSCULAR VOLUME 87.9 fL (81-99); MONOCYTES # (AUTO) 0.3 (0.2-0.8); MONOCYTES % 1.8 % (4.4-11.3); NEUTROPHILS % 91.4 % (38.7-80.0); PLATELET COUNT 137 x10e3/uL (140-360); RED BLOOD COUNT 4.37 x10e6/uL (3.6-5.1); RED CELL DISTRIBUTION WIDTH 14.6 % (11.7-14.4)
[2020-03-28 06:03] LABS: ALANINE AMINOTRANSFERASE 51 IU/L (0-55); ALBUMIN/GLOBULIN RATIO 0.4 (0.8-2.0); ALKALINE PHOSPHATASE 100 IU/L (40-150); ANION GAP 16.5 mmol/L (8-16); BLOOD UREA NITROGEN 37 mg/dL (7-26); BUN/CREATININE RATIO 45 (6-25); CALCIUM 8.8 mg/dL (8.4-10.2); CARBON DIOXIDE 23 mmol/L (22-29); CHLORIDE 112 mmol/L (98-107); CREATININE, SERUM 0.83 mg/dL (0.57-1.11); EST GLOMERULAR FILTRATION RATE > 60 ML/MIN (60-); GLUCOSE 201 mg/dL (74-118); POTASSIUM 3.5 mmol/L (3.5-5.1); SODIUM 148 mmol/L (136-145)
--- NOTE | 2020-03-28 06:23 | NUR ---
IM- progress note O/N see below ROS: no f/c/s/N/V/D/LING/cp/skin rash/confusion/dizziness/leg pain v/s revd PE tired appearing anicteric Oxygen canula in place ns1s2 reduced bs soft nt nd no e/t skin dry flat affect labs/med revd A/P: 74yoF Multifocal PNA- IV abx; O2; COVID testing Acute resp failure- O2 DKA- insulin; hab1c/lipids; insulin CHERI- f/u Obesity- 1/2 portion sizes; outpt BMI 37- as above Physical deconditioning- PT consult Prop; scd; lovenox Dispo: f/u COVID testing 03-25-20 Hba1c/LDL 10.; f/u COVID tesing; 03-26-20 cont care; - cont care in ICU; needing more O2; Continue decadron and remdesivir. -6 f/u echo; cont care in ICU Gen TRAYLOR MD, PHD
[2020-03-28] MEDS: FAMOTIDINE 20 MG TAB PO SCH ×2 (07:30→17:21)
[2020-03-28] MEDS: INSULIN REGULAR, HUMAN 100 UNIT/1 ML 3ML VIAL SQ SCH ×4 (07:30→21:00)
[2020-03-28] MEDS: FENTANYL 2000MCG/NS 250 250 ML IV PRN ×2 (08:45→22:26)
[2020-03-28] MEDS: MIDAZOLAM HCL 5MG/ML 10ML VIAL 100 ML IV PRN ×2 (08:45→22:25)
--- NOTE | 2020-03-28 08:55 | Diagnostic Imaging Report ---
EXAMINATION: CHEST SINGLE (PORTABLE) INDICATION: Respiratory failure COMPARISON: Chest radiograph of 03/26/2020 FINDINGS: LINES/TUBES:Right PICC line unchanged. EKG leads overlie the chest. LUNGS:The lung volumes remain low. Unchanged bilateral airspace and interstitial opacities. PLEURA:No pleural effusion or pneumothorax. MEDIASTINUM:The cardiomediastinal silhouette appears unchanged in size and shape. Atherosclerotic calcifications of the thoracic aorta. BONES/SOFT TISSUES:No acute osseous injury. ABDOMEN:No free air under the diaphragm. IMPRESSION: No significant interval change. Signed by: Hernan Chew MD on 03/28/2020 8:51 AM
[2020-03-28] MEDS: ASCORBIC ACID 500 MG TAB PO SCH ×2 (09:00→17:21)
[2020-03-28] MEDS: ZINC SULFATE 220 MG CAP PO SCH (09:00)
[2020-03-28] MEDS ORDERED: INSULIN GLARGINE 100 UNITS/ML VIAL SQ SCH (09:00)
--- NOTE | 2020-03-28 09:21 | Diagnostic Imaging Report ---
EXAMINATION: CHEST SINGLE (PORTABLE), ABDOMEN-1VIEW (KUB) INDICATION: Intubation COMPARISON: Multiple prior chest radiographs, most recently of 03/28/2020 FINDINGS: LINES/TUBES:Interval intubation. Tracheal tube terminates 2 cm above the km. Enteric tube projects below the diaphragm with tip and side-port in the stomach.. Right PICC line terminates in the SVC. EKG leads overlie the chest. LUNGS:The lungs are moderately inflated. Slight improvement in bilateral lower lung opacities. PLEURA:No pleural effusion or pneumothorax. MEDIASTINUM:The cardiomediastinal silhouette appears unchanged in size and shape. BONES/SOFT TISSUES:No acute osseous injury. ABDOMEN:No free air under the diaphragm. IMPRESSION: Endotracheal tube terminates 2 cm above the km. NG tube with tip and side-port in the stomach. Slight improvement in bilateral lower lung opacities. Signed by: Hernan Chew MD on 03/28/2020 9:18 AM
[2020-03-28] MEDS ORDERED: ALBUMIN 25% 25GM 100ML 0.25 GM/ML BTL IV STA (09:33)
[2020-03-28] MEDS: INSULIN GLARGINE 100 UNITS/ML VIAL SQ SCH (09:45)
[2020-03-28] MEDS ORDERED: NOREPINEPHRINE 8 MG/D5W 250 ML 250 ML ONE (09:46)
--- NOTE | 2020-03-28 09:57 | Operative Report ---
DATE OF PROCEDURE: 03/28/2020 SURGEON: Pete Walsh MD PROCEDURE: Endotracheal intubation with GlideScope. PREOPERATIVE DIAGNOSIS: Acute respiratory failure. POSTOPERATIVE DIAGNOSIS: Acute respiratory failure. CONSENT: Consent was deemed emergent due to low oxygen saturations and respiratory instability. MEDICATIONS: Versed 2 mg, etomidate 20 mg and succinylcholine 100 mg. DESCRIPTION OF PROCEDURE: The patient was placed in supine position. The patient was preoxygenated with 100% non-rebreather as well as Airvo set at liter flow of 60 with 95%. Despite this, she had saturations in the low 80s. The patient received Versed followed by etomidate and succinylcholine. A 3-0 Mac blade and GlideScope were used to visualize the glottis. A 7.5 endotracheal tube was passed on the first attempt. There was good CO2 return and equal breath sounds bilaterally. COMPLICATIONS: None. ESTIMATED BLOOD LOSS: None. Pete Walsh MD [facility]/JOSIANEL /[id number]
--- NOTE | 2020-03-28 10:02 | NUR ---
ST NOTE: Pt now requiring ventilation, will continue to follow pt status and re-request orders when clinically indicated.
[2020-03-28] MEDS: NOREPINEPHRINE 8 MG/D5W 250 ML 250 ML IV SCH (10:04)
--- NOTE | 2020-03-28 10:18 | Progress Note ---
DATE: 03/28/2020 PULMONARY CRITICAL CARE PROGRESS NOTE: SUBJECTIVE: The patient was agitated last night and required Geodon. This morning, she was still restless and had low oxygen saturations in the high 70s and low 80s despite being on Airvo at 60 L with 95% and a superimposed non-rebreather. She subsequently required mechanical ventilation. She is now intubated on a PRVC mode of ventilation. She is also on Versed at 5 mg and fentanyl at 150 mcg. OBJECTIVE: VITAL SIGNS: The blood pressure is 152/74 and the pulse is 57. The patient is afebrile. HEENT: Shows no facial swelling or erythema. LYMPHATIC: Shows no submandibular, cervical, or supraclavicular adenopathy. CARDIAC: Reveals regular rate and rhythm with normal S1 and S2. LUNGS: Auscultation of lungs reveals crackles at the bases. There is no wheezing. ABDOMEN: Soft and nontender. There is no rebound or guarding. EXTREMITIES: Show no leg edema or calf tenderness. LABORATORY DATA: Sodium is 148 and potassium is 3.8. The carbon dioxide is 23 and the chloride is 112. The BUN to creatinine ratio is 37 to 0.83. The glucose is 201. The AST is 37 and the albumin is 2.0. IMPRESSION: 1. Acute respiratory failure. 2. Viral pneumonia COVID-19 infection. 3. Diabetes. 4. Hypertension. 5. Metabolic encephalopathy. PLAN: 1. Continue mechanical ventilation and repeat ABG. 2. Versed and fentanyl for sedation. 3. Complete remdesivir. 4. Complete dexamethasone. 5. Continue to monitor and adjust insulin. 6. DVT prophylaxis. 7. Begin enteral feedings. Greater than 35 minutes in direct critical care time apart from any procedures performed. Pete Walsh MD [facility]/MODL /[id number]
[2020-03-28] MEDS ORDERED: SODIUM CHLORIDE 0.9% 1000ML 1,000 ML IV ONE (11:15)
--- NOTE | 2020-03-28 11:32 | Progress Note ---
DATE: 03/28/2020 SUBJECTIVE: Ms. Buitrago is currently in the Intensive Care Unit. She was agitated. She was given Geodon this morning, was restless, hypoxemic in the 70s while she is on Airvo at 60 L with 95%, on non-rebreather, so she was transferred to Intensive Care Unit, where she was intubated. She is currently on PRVC mode of ventilation. She is on Versed drip and fentanyl drip. OBJECTIVE: GENERAL: She is currently intubated, sedated. VITAL SIGNS: Her blood pressure 152/74 and afebrile. HEENT: Normocephalic. NECK: Supple. There is no lymphadenopathy. CHEST: Few crackles bilateral. HEART: S1, S2. ABDOMEN: Soft. Bowel sounds present. EXTREMITIES: No edema. SKIN: There is no rash. LABORATORY DATA: Her white count 14.18 today and hemoglobin 12.9. Sodium 148, potassium 3.8, and creatinine 0.83. IMPRESSION: 1. Respiratory failure, getting worse. 2. Hypernatremia. 3. COVID-19, concerned about superimposed bacterial pneumonia aspiration, diabetes mellitus, hypertension, and encephalopathy. PLAN: The patient is status post on remdesivir. We will put her on Zosyn to finish 10 days of dexamethasone. Continue anticoagulation. Obtain sputum for cultures. We will follow. MD JONY Ramirez/NENA /[id number]
[2020-03-28] MEDS: PIPER-TAZ 3.375 GM 50 ML IV SCH ×3 (12:19→22:24)
[2020-03-28] MEDS: REMDESIVIR 100MG/NS 100ML 100 MG IV SCH (14:05)
--- NOTE | 2020-03-28 16:34 | NUR ---
Nutrition Intervention Note RD Recommendation(s) for Physician: -Recommend modifying formula to Vital AF 1.2 @ goal rate of 40 mL/hr (provides 1152 kcal and 72 g protein) -Water/fluid management per MD Plan of Care: RD following, monitoring for tolerance and adequacy Nutrition reason for involvement: enteral nutrition RD Assessment (03/28/20) Pt is a 74 year old female admitted with acute respiratory distress and COVID-19. Pt was intubated this morning and tube feed order was placed. There are no reports of recent weight loss without trying and no reports of decreased appetite upon admission. Tube feed recommendations provided. RD to manage TF order per Dr. Walsh. Will continue to monitor. Principal Problems/Diagnoses: acute respiratory distress, COVID-19 PMH: type 2 diabetes I/O: 750/450 GI: flat/soft/non-tender abdomen, last recorded BM 03/26 Skin: intact Labs: (03/28/20) Na 148, K 3.5, BUN 37, Glu 201, Ca 8.8, AST 37 Meds: norepinpehrine, insulin,fentanyl, dexmethasone, zinc sulfate, vitamin C, pepcid, antibiotic, zofran Ht: 61 in Wt: 201.56 lbs BMI: 38.1 kg/m2 IBW: 105 lbs Malnutrition Evaluation (03/28/20) The patient does not meet criteria for a specified degree of malnutrition at this time. Will re-evaluate at follow-up as appropriate. Nutrition Prescription (Diet Order): Glucerna 1.2 @ 20 mL/hr Estimated Nutritional Needs: 7670-2640 calories/day (22-25 kcal/kg IBW) 70- 95 g protein/day (1.5-2 g pro/kg IBW) Diet Adequacy: unable to assess Tolerance: N/A Diet Education Needs Assessment: Diet education not indicated Nutrition Care Level: moderate Nutrition Diagnosis: Inadequate oral intake related to mechanical ventilation as evidenced by need for enteral nutrition. Goal: Patient will meet 75-100% of estimated needs by follow up Progress: N/A Interventions: - Composition, Rate, Route, Recommended Modifications, Collaboration with other providers Monitoring/Evaluation: -Total energy intake, Total protein intake, Formula/Solution, Weight change Signed: Angela Ackerman RD, LD
[2020-03-28 16:57] LABS: ABG HCO3 25 mmol/L (22-26); ABG PCO2 41 mmHg (35-45); ABG PO2 377 mmHg (80-105); ABG TCO2 27
[2020-03-28] MEDS: ENOXAPARIN SOD INJ 40 MG/0.4 ML SYR SC SCH (17:21)
[2020-03-28] MEDS: DEXAMETHASONE SOD PHOS INJ 4 MG/ML VIAL IV SCH (17:21)
[2020-03-28] MEDS ORDERED: HEPARIN SOD/SOD CHLORIDE 1,000 ML IV PRN (20:45)
[2020-03-28] MEDS ORDERED: HEPARIN SOD/SOD CHLORIDE 1,000 ML ONE (21:43)
[2020-03-28] MEDS: ACETAMINOPHEN 325 MG TAB PO PRN (22:26)
[2020-03-29] VITALS (24 sets, daily range): BP systolic 97–110; BP diastolic 46–70
--- NOTE | 2020-03-29 00:51 | NUR ---
Specialty bed ordered from [employer] as ordered per physician, low air rotation therapy bed Confirmation # [id number]
[2020-03-29 04:25] LABS: BASOPHILS % 0.1 % (0.0-1.0); HEMATOCRIT 34.3 % (34.2-44.1); HEMOGLOBIN 10.9 g/dL (12.0-16.0); LYMPHOCYTES # (AUTO) 0.5 (1.0-3.2); LYMPHOCYTES % 3.7 % (18.0-39.1); MEAN CORPUSCULAR HGB CONC 31.8 g/dL (31-35); MEAN CORPUSCULAR VOLUME 88.2 fL (81-99); MONOCYTES # (AUTO) 0.2 (0.2-0.8); MONOCYTES % 1.2 % (4.4-11.3); NEUTROPHILS # (AUTO) 12.1 (2.1-6.9); NEUTROPHILS % 94.3 % (38.7-80.0); PLATELET COUNT 107 x10e3/uL (140-360); RED BLOOD COUNT 3.89 x10e6/uL (3.6-5.1); RED CELL DISTRIBUTION WIDTH 15.3 % (11.7-14.4)
[2020-03-29 04:48] LABS: ALBUMIN 2.3 g/dL (3.5-5.0); ALBUMIN/GLOBULIN RATIO 0.6 (0.8-2.0); ANION GAP 15.4 mmol/L (8-16); CALCIUM 8.5 mg/dL (8.4-10.2); CREATININE, SERUM 1.12 mg/dL (0.57-1.11); POTASSIUM 3.4 mmol/L (3.5-5.1)
[2020-03-29] MEDS: PIPER-TAZ 3.375 GM 50 ML IV SCH ×4 (05:49→23:13)
--- NOTE | 2020-03-29 05:55 | Diagnostic Imaging Report ---
ADDENDUM #[address] with tip projecting over inferior SVC. Signed by: Dr. Connor Han MD on 03/29/2020 6:32 AM ORIGINAL REPORT EXAM: CT Chest WITH contrast (PE Protocol) INDICATION: ^[id number] ^0430 COMPARISON: Chest x-ray dated 03/28/2020 TECHNIQUE: Chest was scanned utilizing a multidetector helical scanner from the lung apex through the level of the diaphragm after administration of IV contrast. Thin section reconstructions were obtained with special concentration on the pulmonary arteries. Coronal and sagittal reformations were obtained. Dose modulation, iterative reconstruction, and/or weight based adjustment of the mA/kV was utilized to reduce the radiation dose to as low as reasonably achievable. Pulmonary embolism protocol was performed. IV CONTRAST: 100 mL of Isovue-370 COMPLICATIONS: None RADIATION DOSE: Total DLP: 501.6 mGy*cm Estimated effective dose: (DLP x 0.014 x size factor) mSv CTDIvol has been reviewed. It is below the limits set by the Radiation Protocol Committee (RPC). FINDINGS: LINES/ TUBES: Endotracheal tube with tip within mid trachea. Enteric tube with tip within first portion of duodenum. LUNGS AND AIRWAYS: Filling defect is visualized within left upper lobe pulmonary artery (series 2, image 39). Diffuse bilateral groundglass opacities with mild bronchiectasis. Mild dependent bilateral lower lobe atelectasis. Airways are normal. PLEURA: The pleural spaces are clear. HEART AND MEDIASTINUM: The thyroid gland is normal. No mediastinal, hilar or axillary lymphadenopathy. The heart is normal in size.. There is no pericardial effusion. . Main pulmonary artery measures 3 cm in diameter. UPPER ABDOMEN: Cholecystectomy. Partially seen right renal scarring. BONES: No acute osseous abnormalities. SOFT TISSUES: Unremarkable. IMPRESSION: Pulmonary embolism within left upper lobe segmental branches. Diffuse bilateral airspace opacities, consistent with history of atypical pneumonia. Findings discussed with in charge ICU nurse Zenobia at 5:49 AM, on 03/29/2020. Signed by: Dr. Connor Han MD on 03/29/2020 5:52 AM
[2020-03-29] MEDS: ENOXAPARIN SOD INJ 60 MG/0.6 ML SYR SC SCH ×3 (06:15→20:00)
--- NOTE | 2020-03-29 06:36 | Diagnostic Imaging Report ---
EXAMINATION: CHEST SINGLE (PORTABLE) INDICATION: ^resp failure ^[id number] ^0450 COMPARISON: Same day chest CT and x-ray dated 03/28/2020 FINDINGS: AP view TUBES and LINES: Stable endotracheal and enteric tubes. Stable right PICC. LUNGS: Lungs are well inflated. Redemonstration of diffuse bilateral airspace opacities. PLEURA: No pleural effusion or pneumothorax. HEART AND MEDIASTINUM: The cardiomediastinal silhouette is unremarkable. BONES AND SOFT TISSUES: No acute osseous lesion. Soft tissues are unremarkable. UPPER ABDOMEN: No free air under the diaphragm. IMPRESSION: Unchanged diffuse bilateral airspace opacities. Signed by: Dr. Connor Han MD on 03/29/2020 6:33 AM
[2020-03-29] MEDS ORDERED: IOPAMIDOL 370 MG/ML 200 ML INFUS..BTL INJ ONE (07:29)
[2020-03-29] MEDS ORDERED: SODIUM CHLORIDE 0.9% 50ML 50 ML ONE (07:29)
--- NOTE | 2020-03-29 07:41 | NUR ---
IM- progress note O/N see below ROS: no f/c/s/N/V/D/LING/cp/skin rash/confusion/dizziness/leg pain v/s revd PE tired appearing anicteric Oxygen canula in place ns1s2 reduced bs soft nt nd no e/t skin dry flat affect labs/med revd A/P: 74yoF Multifocal PNA- IV abx; O2; COVID testing Acute resp failure- O2 DKA- insulin; hab1c/lipids; insulin CHERI- f/u Obesity- 1/2 portion sizes; outpt BMI 37- as above Physical deconditioning- PT consult Prop; scd; lovenox Dispo: f/u COVID testing 03-25-20 Hba1c/LDL 10.; f/u COVID tesing; 03-26-20 cont care; - cont care in ICU; needing more O2; Continue decadron and remdesivir. 11-6 f/u echo; cont care in ICU 11-7 Hypernaremia and CHERI- give free water; Intubated overnight;cont vent support; monitor closely. d/w daughter by Telephone. Gen TRAYLOR MD, PHD
[2020-03-29] MEDS: INSULIN REGULAR, HUMAN 100 UNIT/1 ML 3ML VIAL SQ SCH ×4 (08:00→20:34)
[2020-03-29 08:20] LABS: ABG HCO3 22 mmol/L (22-26); ABG PCO2 35 mmHg (35-45); ABG PO2 99 mmHg (80-105); ABG TCO2 23
[2020-03-29] MEDS: ZINC SULFATE 220 MG CAP PO SCH (08:28)
[2020-03-29] MEDS: ASCORBIC ACID 500 MG TAB PO SCH ×2 (08:28→18:09)
[2020-03-29] MEDS: EYE LUBRICANT OPTH OINT 3.5GM TUBE OP SCH ×2 (08:28→18:09)
[2020-03-29] MEDS: FAMOTIDINE 20 MG TAB PO SCH ×2 (08:28→17:00)
[2020-03-29] MEDS: INSULIN GLARGINE 100 UNITS/ML VIAL SQ SCH (09:18)
[2020-03-29] MEDS: FENTANYL 2000MCG/NS 250 250 ML IV PRN (09:19)
[2020-03-29] MEDS: NOREPINEPHRINE 8 MG/D5W 250 ML 250 ML IV SCH (09:33)
[2020-03-29] MEDS: MIDAZOLAM HCL 5MG/ML 10ML VIAL 100 ML IV PRN ×2 (10:24→20:01)
--- NOTE | 2020-03-29 11:12 | Progress Note ---
DATE: 03/29/2020 SUBJECTIVE: The patient is currently on mechanical ventilation. She is on a PRVC at a rate of 28 with a tidal volume of 400 and PEEP of 10 and FiO2 of 55%. She remains on Versed and fentanyl. PHYSICAL EXAMINATION: VITAL SIGNS: The blood pressure is 102/64, saturation is 96%, and the pulse is 82. HEENT: Shows no facial swelling or erythema. LYMPHATIC: Shows no submandibular, cervical, supraclavicular adenopathy. CARDIAC: Reveals regular rate and rhythm. Normal S1, S2. LUNGS: Auscultation of lungs reveals crackles at the bases. There is no wheezing. ABDOMEN: Soft and nontender. There is no rebound or guarding. EXTREMITIES: Shows no leg edema or calf tenderness. There is no cyanosis or clubbing. SKIN: Shows no rashes. LABORATORY DATA: BUN to creatinine ratio is 52 to 1.12. Sodium is 150 and the potassium is 3.4. The chloride is 115. Carbon dioxide is 23 and the albumin is 2.3. The platelet count is 107. The white blood cell count is 12.8, hemoglobin is 10.9. IMPRESSION: 1. Acute respiratory failure. 2. Pulmonary embolism in the segmental left upper lobe branches. 3. COVID-19 and viral pneumonia. 4. Hypernatremia. 5. Diabetes. 6. Hypertension. 7. Metabolic encephalopathy. PLAN: 1. Continue current mechanical ventilation and repeat ABG. 2. Lovenox 1 mg/kg subcu q.12 for PE. 3. Remdesivir. 4. Complete dexamethasone. 5. Continue to monitor and adjust insulin. 6. Continue enteral feedings. 7. Greater than 35 minutes in direct critical care time apart from any procedures performed. Pete Walsh MD [facility]/MODL /[id number]
--- NOTE | 2020-03-29 11:27 | Operative Report ---
DATE OF PROCEDURE: 03/29/2020 SURGEON: Pete Walsh MD Arterial line placement under ultrasound guidance. The patient was prepped sterilely with chlorhexidine on the left wrist. Sterile drapes and sterile gowns were used. An ultrasound was used to locate the radial artery. The radial artery was cannulated under direct visualization. The wire did not thread well. The catheter was removed and pressure was applied. The patient was redraped on the right side. A sterile drape, gloves, and face mask were used. Ultrasound machine was then used to locate the cranial artery. The radial artery cannulated under direct visualization with a 20-gauge needle. A wire was passed through the needle and the catheter was passed over the wire by the Seldinger technique. COMPLICATIONS: None. ESTIMATED BLOOD LOSS: None. Pete Walsh MD [facility]/MODL /[id number]
[2020-03-29] MEDS: REMDESIVIR 100MG/NS 100ML 100 MG IV SCH (14:00)
[2020-03-29 15:45] LABS: ABG HCO3 24 mmol/L (22-26); ABG PCO2 36 mmHg (35-45); ABG PH 7.44 (7.35-7.45); ABG PO2 77 mmHg (80-105); ABG TCO2 26
[2020-03-29] MEDS: DEXAMETHASONE SOD PHOS INJ 4 MG/ML VIAL IV SCH (18:09)
--- NOTE | 2020-03-29 19:02 | NUR ---
INFECTIOUS DISEASE PROGRESS NOTE DR. LORIE KENNEY CC: COVID ROS: unable to obtain/intubated PAST MEDICAL HISTORY: Diabetes mellitus and hypertension. ALLERGIES: PENICILLIN, BUT SHE DID WELL WITH CEPHALOSPORIN. LABORATORY DATA: per chart MEDICATIONS: per chart PHYSICAL EXAMINATION: GENERAL: intubated sedated VITAL SIGNS: per chart HEENT: She is not icteric. NECK: Supple. no JVD CHEST: Crackles bilateral. HEART: S1 and S2. ABDOMEN: Soft. Bowel sounds present. EXTREMITIES: No edema. SKIN: No rash. IMPRESSION: Respiratory failure community-acquired pneumonia COVID 19 PLAN: supportive care vent support full dose lovenox guarded prognosis Tata Lino MSN, VP TREASURER, AGACNP-BC d/w Lorie Kenney M.D.
[2020-03-29] MEDS ORDERED: SODIUM CHLORIDE 0.9% 250ML 250 ML ONE (20:13)
[2020-03-30] VITALS (25 sets, daily range): BP systolic 103–142; BP diastolic 37–65
[2020-03-30] MEDS: PIPER-TAZ 3.375 GM 50 ML IV SCH ×3 (06:11→17:27)
[2020-03-30 06:13] LABS: BASOPHILS % 0.1 % (0.0-1.0); HEMATOCRIT 32.8 % (34.2-44.1); HEMOGLOBIN 10.2 g/dL (12.0-16.0); LYMPHOCYTES # (AUTO) 0.5 (1.0-3.2); LYMPHOCYTES % 3.9 % (18.0-39.1); MEAN CORPUSCULAR HEMOGLOBIN 28.1 pg (28-32); MEAN CORPUSCULAR HGB CONC 31.1 g/dL (31-35); MEAN CORPUSCULAR VOLUME 90.4 fL (81-99); MONOCYTES # (AUTO) 0.2 (0.2-0.8); MONOCYTES % 1.6 % (4.4-11.3); NEUTROPHILS # (AUTO) 11.5 (2.1-6.9); NEUTROPHILS % 93.3 % (38.7-80.0); PLATELET COUNT 128 x10e3/uL (140-360); RED BLOOD COUNT 3.63 x10e6/uL (3.6-5.1); RED CELL DISTRIBUTION WIDTH 15.6 % (11.7-14.4)
--- NOTE | 2020-03-30 06:21 | NUR ---
IM- progress note O/N see below ROS: no f/c/s/N/V/D/LING/cp/skin rash/confusion/dizziness/leg pain v/s revd PE tired appearing anicteric Oxygen canula in place ns1s2 reduced bs soft nt nd no e/t skin dry flat affect labs/med revd A/P: 74yoF Multifocal PNA- IV abx; O2; COVID testing Acute resp failure- O2 DKA- insulin; hab1c/lipids; insulin CHERI- f/u Obesity- 1/2 portion sizes; outpt BMI 37- as above Physical deconditioning- PT consult Prop; scd; lovenox Dispo: f/u COVID testing 03-25- Hba1c/LDL 10.; f/u COVID tesing; 03-26- cont care; 11-5 cont care in ICU; needing more O2; Continue decadron and remdesivir. 11-6 f/u echo; cont care in ICU 11-7 Hypernaremia and CHERI- give free water; Intubated overnight;cont vent support; monitor closely. d/w daughter by Telephone. 11-8 labs pending; titrate insulin up Gen TRAYLOR MD, PHD
[2020-03-30 06:36] LABS: ALBUMIN/GLOBULIN RATIO 0.5 (0.8-2.0); ANION GAP 13.6 mmol/L (8-16); CALCIUM 8.1 mg/dL (8.4-10.2); CREATININE, SERUM 1.21 mg/dL (0.57-1.11); POTASSIUM 3.6 mmol/L (3.5-5.1)
--- NOTE | 2020-03-30 07:29 | Diagnostic Imaging Report ---
EXAMINATION: CHEST SINGLE (PORTABLE) COMPARISON: Chest x-ray 03/29/2020 INDICATION: ^resp failure ^[id number] ^0547 DISCUSSION: Frontal view of the chest obtained at 0552 hours. HEART AND MEDIASTINUM: The cardiomediastinal silhouette is stable. LINES: Endotracheal tube terminates at the km. Right PICC line terminates in the SVC. Enteric tube extends past the diaphragm LUNGS/PLEURA: Bilateral hazy groundglass airspace opacities are redemonstrated. Increased airspace opacities in the left lung base. No interstitial edema. No large effusions. No pneumothorax. BONES AND SOFT TISSUES: No focal osseous lesion. The soft tissues are normal. IMPRESSION: 1. Increasing airspace opacity at the base of the left lung, either atelectasis or progression of infiltrates. Diffuse airspace disease is similar. 2. Support devices as described above. Signed by: Dr. Ruben Tam MD on 03/30/2020 7:26 AM
--- NOTE | 2020-03-30 07:32 | NUR ---
INFECTIOUS DISEASE PROGRESS NOTE DR. LORIE KENNEY CC: COVID ROS: unable to obtain/intubated PAST MEDICAL HISTORY: Diabetes mellitus and hypertension. ALLERGIES: PENICILLIN, BUT SHE DID WELL WITH CEPHALOSPORIN. LABORATORY DATA: per chart MEDICATIONS: per chart PHYSICAL EXAMINATION: GENERAL: intubated sedated VITAL SIGNS: per chart HEENT: She is not icteric. normocephalic atraumatic NECK: Supple. no JVD CHEST: Crackles bilateral. HEART: S1 and S2. no s3, s4 ABDOMEN: Soft. Bowel sounds present. EXTREMITIES: no joint swelling, no rash SKIN: No rash. IMPRESSION: Respiratory failure community-acquired pneumonia COVID 19 Pulmonary embolism in the segmental left upper lobe branches. PLAN: supportive care vent support full dose lovenox dexamethasone x5 days guarded prognosis Tata Lino MSN, TOOL AND DIE MAKER, AGACNP-BC d/w Lorie Kenney M.D.
[2020-03-30 08:00] LABS: ABG HCO3 24 mmol/L (22-26); ABG PCO2 36 mmHg (35-45); ABG PH 7.43 (7.35-7.45); ABG PO2 77 mmHg (80-105); ABG TCO2 25
[2020-03-30] MEDS: FENTANYL 2000MCG/NS 250 250 ML IV PRN ×2 (08:16→17:39)
[2020-03-30] MEDS: INSULIN REGULAR, HUMAN 100 UNIT/1 ML 3ML VIAL SQ SCH ×4 (08:28→21:00)
[2020-03-30] MEDS: EYE LUBRICANT OPTH OINT 3.5GM TUBE OP SCH ×2 (08:28→17:27)
[2020-03-30] MEDS: ASCORBIC ACID 500 MG TAB PO SCH ×2 (08:28→17:27)
[2020-03-30] MEDS: FAMOTIDINE 20 MG TAB PO SCH ×2 (08:28→17:27)
[2020-03-30] MEDS: ENOXAPARIN SOD INJ 60 MG/0.6 ML SYR SC SCH ×2 (08:30→21:00)
[2020-03-30] MEDS: ZINC SULFATE 220 MG CAP PO SCH (08:30)
[2020-03-30] MEDS: MIDAZOLAM HCL 5MG/ML 10ML VIAL 100 ML IV PRN (08:39)
[2020-03-30] MEDS ORDERED: INSULIN GLARGINE 100 UNITS/ML VIAL SQ SCH ×2 (09:00→21:00)
[2020-03-30] MEDS: NOREPINEPHRINE 8 MG/D5W 250 ML 250 ML IV SCH (09:33)
--- NOTE | 2020-03-30 11:15 | Progress Note ---
DATE: 03/30/2020 SUBJECTIVE: The patient is currently on a mechanical ventilator. She is on Levophed at 0.5 mcg. She is also on Versed and fentanyl. She is receiving enteral feedings. PHYSICAL EXAMINATION: VITAL SIGNS: The ventilator is set at tidal volume of 400 with a rate of 28 and a PEEP of 10. FiO2 is set at 50%. The blood pressure is 115/46 and the pulse is 53, respiratory rate is 28 and saturation is 97%. HEENT: Shows no facial swelling or erythema. LYMPHATIC: Shows no submandibular, cervical, or supraclavicular adenopathy. CARDIAC: Reveals regular rate and rhythm. Normal S1, S2. LUNGS: Auscultation of lungs reveals rhonchorous breath sounds bilaterally. There is no wheezing. ABDOMEN: Soft, nontender. There is no rebound or guarding. EXTREMITIES: Shows no leg edema or calf tenderness. There is no cyanosis or clubbing. SKIN: Shows no rashes. NEUROLOGICAL: Shows no focal abnormalities. LABORATORY DATA: White blood cell count 12.28, hemoglobin is 10.2, and the platelet count is 128. The BUN to creatinine ratio is 56 to 1.21. The sodium is 151. Other electrolytes are within normal limits. Glucose is 433. RADIOGRAPHIC DATA: Chest x-ray shows bilateral airspace disease. IMPRESSION: 1. Acute respiratory failure. 2. Pulmonary embolism in the segmental left upper lobe bronchus. 3. COVID-19 and viral pneumonia. 4. Hyponatremia. 5. Diabetes. 6. Hypertension. 7. Metabolic encephalopathy. PLAN: 1. Continue current ventilation. 2. Wean off Levophed. 3. Complete dexamethasone. 4. Continue antibiotics. 5. Continue enteral feedings. 6. Case discussed with family. Greater than 35 minutes in direct critical care time. Pete Walsh MD [facility]/MODL /[id number]
[2020-03-30] MEDS: FUROSEMIDE INJ 10 MG/ML 4 ML VIAL IV SCH ×2 (12:08→21:00)
[2020-03-30] MEDS: ALBUMIN 25% 25GM 100ML 0.25 GM/ML BTL IV SCH ×2 (12:08→17:27)
[2020-03-30] MEDS: DEXAMETHASONE SOD PHOS INJ 4 MG/ML VIAL IV SCH (17:27)
[2020-03-30] MEDS ORDERED: ATROPINE SULFATE 0.1 MG/ML 10ML SYR IV ONE (17:45)
[2020-03-30] MEDS ORDERED: ATROPINE SULFATE 1 MG/ML VIAL IV STA (17:53)
[2020-03-30] MEDS ORDERED: ATROPINE SULFATE 0.1 MG/ML 10ML SYR ONE (18:07)
--- NOTE | 2020-03-30 18:14 | NUR ---
SPOKE TO NOTIFIED OF NEW CONSULT AND PT HR, NEW ORDERS RECEIVED
[2020-03-30] MEDS ORDERED: NOREPINEPHRINE 8 MG/D5W 250 ML 250 ML IV PRN (20:30)
[2020-03-30] MEDS: ATROPINE SULFATE 1 MG/ML VIAL IV PRN (22:45)
[2020-03-31] VITALS (14 sets, daily range): BP systolic 122–148; BP diastolic 36–74
[2020-03-31] MEDS ORDERED: INSULIN REGULAR, HUMAN 100 UNIT/1 ML 3ML VIAL SQ SCH
[2020-03-31] MEDS: ALBUMIN 25% 25GM 100ML 0.25 GM/ML BTL IV SCH (00:30)
[2020-03-31] MEDS: INSULIN REGULAR, HUMAN 100 UNIT/1 ML 3ML VIAL SQ SCH ×2 (00:30→06:16)
[2020-03-31] MEDS: PIPER-TAZ 3.375 GM 50 ML IV SCH ×4 (00:30→18:07)
[2020-03-31] MEDS: ATROPINE SULFATE 1 MG/ML VIAL IV PRN ×2 (00:45→02:45)
--- NOTE | 2020-03-31 03:19 | NUR ---
IM- progress note O/N see below ROS: no f/c/s/N/V/D/LING/cp/skin rash/confusion/dizziness/leg pain v/s revd PE tired appearing anicteric Oxygen canula in place ns1s2 reduced bs soft nt nd no e/t skin dry flat affect labs/med revd A/P: 74yoF Multifocal PNA- IV abx; O2; COVID testing Acute resp failure- O2 DKA- insulin; hab1c/lipids; insulin CHERI- f/u Obesity- 1/2 portion sizes; outpt BMI 37- as above Physical deconditioning- PT consult Prop; scd; lovenox Dispo: f/u COVID testing 03-25-20 Hba1c/LDL 10.; f/u COVID tesing; 03-26- cont care; 11-5 cont care in ICU; needing more O2; Continue decadron and remdesivir. 11-6 f/u echo; cont care in ICU 11-7 Hypernaremia and CHERI- give free water; Intubated overnight;cont vent support; monitor closely. d/w daughter by Telephone. 11-8 labs pending; titrate insulin up 11-9 titrate insulin up further; give free water for Hypernatremia/CHERI. Nephr consult; Left Upper lobe PE- lovenox BID Gen TRAYLOR MD, PHD
[2020-03-31] MEDS: MIDAZOLAM HCL 5MG/ML 10ML VIAL 100 ML IV PRN (03:30)
[2020-03-31 05:39] LABS: BASOPHILS % 0.1 % (0.0-1.0); HEMATOCRIT 27.4 % (34.2-44.1); HEMOGLOBIN 8.6 g/dL (12.0-16.0); LYMPHOCYTES # (AUTO) 0.5 (1.0-3.2); LYMPHOCYTES % 5.2 % (18.0-39.1); MEAN CORPUSCULAR HEMOGLOBIN 28.3 pg (28-32); MEAN CORPUSCULAR HGB CONC 31.4 g/dL (31-35); MEAN CORPUSCULAR VOLUME 90.1 fL (81-99); MONOCYTES # (AUTO) 0.3 (0.2-0.8); MONOCYTES % 2.8 % (4.4-11.3); NEUTROPHILS # (AUTO) 8.1 (2.1-6.9); PLATELET COUNT 112 x10e3/uL (140-360); RED BLOOD COUNT 3.04 x10e6/uL (3.6-5.1); RED CELL DISTRIBUTION WIDTH 15.8 % (11.7-14.4)
[2020-03-31 06:04] LABS: ALBUMIN 3.2 g/dL (3.5-5.0); ALBUMIN/GLOBULIN RATIO 1.2 (0.8-2.0); CALCIUM 8.2 mg/dL (8.4-10.2); CREATININE, SERUM 1.07 mg/dL (0.57-1.11)
[2020-03-31] MEDS ORDERED: ATROPINE SULFATE 0.1 MG/ML 10ML SYR ONE (07:23)
[2020-03-31] MEDS: FAMOTIDINE 20 MG TAB PO SCH ×2 (08:29→18:07)
[2020-03-31] MEDS: ENOXAPARIN SOD INJ 60 MG/0.6 ML SYR SC SCH ×2 (08:29→21:45)
[2020-03-31] MEDS: EYE LUBRICANT OPTH OINT 3.5GM TUBE OP SCH ×2 (08:29→18:07)
[2020-03-31] MEDS: ASCORBIC ACID 500 MG TAB PO SCH ×2 (08:29→18:07)
[2020-03-31] MEDS: ZINC SULFATE 220 MG CAP PO SCH (08:29)
--- NOTE | 2020-03-31 08:39 | Diagnostic Imaging Report ---
TECHNIQUE: Frontal view of the chest. INDICATION: ^resp failure ^[id number] ^0620 COMPARISON: Prior day. DISCUSSION: Limited evaluation due to portable technique. Lines and hardware: Stable. Heart and mediastinum: Stable. Lungs and pleura: Stable bilateral lower lobe predominant interstitial airspace opacities. Stable trace left pleural effusion. Soft tissues and bones: No acute abnormality. IMPRESSION: Stable exam. Signed by: Nitin Tabor MD on 03/31/2020 8:36 AM
[2020-03-31] MEDS ORDERED: POTASSIUM CHLORIDE 20MEQ/100ML 300 ML IV ONE (09:00)
[2020-03-31] MEDS ORDERED: INSULIN GLARGINE 100 UNITS/ML VIAL SQ SCH ×2 (09:00→21:00)
--- NOTE | 2020-03-31 09:19 | Consultation ---
DATE OF CONSULTATION: 03/31/2020 RENAL CONSULTATION.: HISTORY OF PRESENT ILLNESS: Thank you Dr. Whittington for the consultation. Mrs. Paz is a pleasant 74-year-old female with past medical history significant for prior history of diabetes mellitus, hypertension, came in with apparently diabetic ketoacidosis based on insulin drip per ICU protocol. Also, found to be COVID-[address] chest was positive for pulmonary embolus. The patient's sodium has gradually been rising, sat at 157 today, creatinine is around 1.07. Potassium is low at 3 and bicarb is 27. The patient's blood sugar is still running high at 306. Renal consultation has been asked in the management of the patient's hypernatremia, acute kidney injury. The patient has been intubated now. The patient is nonoliguric, intubated, sedated, much of the history is obtained from the chart. PAST MEDICAL HISTORY: As outlined above. ALLERGIES: PENICILLIN. SOCIAL HISTORY: No tobacco. No alcohol use. FAMILY HISTORY: Noncontributory. REVIEW OF SYSTEMS: See HPI. Otherwise, all systems negative or not obtainable. PHYSICAL EXAMINATION: VITAL SIGNS: Blood pressure is 129/36, respirations 28, afebrile, on 55% FiO2, O2 sats are 98%. HEENT: No cervical lymphadenopathy. NECK: Supple without masses. No obvious JVD. Moist appearing oral mucosa. SKIN: Moist with good skin turgor. CHEST WALL: Good expansion. No chest wall tenderness. LUNGS: Clear to auscultation bilaterally. CARDIOVASCULAR: S1 and S2. No obvious gallop, rub, or murmur. ABDOMEN: Soft. Positive bowel sounds. Nontender. No organomegaly. EXTREMITIES: No evidence of lower extremity edema. No clubbing. No cyanosis. NEUROLOGIC: The patient is intubated, sedated, difficult to do full neuro exam. LABORATORY DATA: Sodium 157, potassium 3, chloride 118, carbon 27, BUN 53, creatinine is 1.07, glucose 306. ASSESSMENT AND PLAN: 1. Hypernatremia, likely cause for hypernatremia is free water deficit. We will place the patient on D5 water at 125 mL/h. We will place the patient on D5 water at 125 mL/h. Monitor for improvement in the sodium level. Also, recommend to titrate up the insulin drip to better control blood sugars. Check urine osmolality, serum osmolality, urine sodium level and repeat labs in the morning including basic metabolic panel, Mag, phos, CBC, and make further recommendations. 2. Acute kidney injury/renal insufficiency, probably from prerenal state. Continue with D5 water as outlined above. Once the sodium is trending downward, can switch the fluids over to half NS or normal saline depending on what the sodium level is. 3. We will check urine electrolytes also and repeat labs in the morning. 4. Hypertension, blood pressure is controlled. Continue to monitor. 5. Hypokalemia, we will replace with IV potassium chloride and make further recommendations. Check a magnesium level also. Thank you once again for the consultation. We will follow the patient closely along with you to make further recommendations. Time spent in this consultation is about 35 minutes. Dillan Sheridan MD /MODL /[id number] cc: Jose Cruz Whittington MD
--- NOTE | 2020-03-31 09:49 | Progress Note ---
DATE: 03/31/2020 SUBJECTIVE: The patient is afebrile. She remains on mechanical ventilation. She is currently on a PRVC mode of ventilation at a rate of 26 with a tidal volume of 400 and a PEEP of 10. FiO2 is set at 55%. She is on Versed at 3 mg an hour and fentanyl at 50 mcg. PHYSICAL EXAMINATION: VITAL SIGNS: Blood pressure is 129/36, saturation is 98% on the above-mentioned settings, respiratory rate is 26 and pulse is 41. HEENT: Shows no facial swelling or erythema. LYMPHATIC: Shows no submandibular, cervical, or supraclavicular adenopathy. CARDIAC: Reveals regular rate and rhythm with normal S1 and S2. LUNGS: Auscultation of lungs reveals crackles at the bases. There is no wheezing. ABDOMEN: Soft, nontender. There is no rebound or guarding. EXTREMITIES: Shows no leg edema or calf tenderness. There is no cyanosis or clubbing. SKIN: Shows no rashes. NEUROLOGICAL: Shows no focal abnormalities. LABORATORY DATA: White blood cell count is 8.8, hemoglobin is 8.6. The platelet count is 112. The BUN to creatinine ratio is 53 to 1.07. Potassium is 3.0 and the sodium is 153. Glucose is 272. Albumin is 3.2. IMPRESSION: 1. Acute respiratory failure. 2. Hypernatremia. 3. Acute kidney injury. 4. Hypokalemia. 5. Hyperglycemia. 6. Viral pneumonia and coronavirus disease-2019 infection. 7. Metabolic encephalopathy. PLAN: 1. Hold sedation today for a sedation vacation. 2. Decrease respiratory rate to 26 and continue PRVC mode of ventilation. 3. Start insulin drip. 4. Increase free water through feeding tube and intravenously. 5. Continue to monitor electrolytes, BUN and creatinine. 6. Hold enteral feedings. 7. Echocardiogram. EKG and evaluation by Cardiology regarding bradycardia. Pete Walsh MD [facility]/MODL /[id number]
[2020-03-31 10:30] LABS: ABG HCO3 28 mmol/L (22-26); ABG PCO2 37 mmHg (35-45); ABG PH 7.49 (7.35-7.45); ABG PO2 86 mmHg (80-105); ABG TCO2 29
[2020-03-31] MEDS ORDERED: DEXTROSE 50% SYRINGE 50 ML IV PRN (10:45)
--- NOTE | 2020-03-31 11:00 | NUR ---
Telephone order from Dr. Castillo to initiate lidocaine drip should patient's heart drop below 40 or sustain in 40's and patient becomes symptomatic as evidenced by a decrease in BP. New order to chart for prn lidocaine drip for bradycardia with a map <60. Addendum: 03/31/20 at 1420 by Lamar Rivers RN Order for dopamine drip. Error in previous note. See mar for appropriate order.
[2020-03-31] MEDS: INSULIN REGULAR, HUMAN 3ML VL 100 UNIT in SODIUM CHLORIDE 0.9% 99 ML IV SCH ×4 (12:00→14:03)
--- NOTE | 2020-03-31 12:05 | Consultation ---
DATE OF CONSULTATION: 03/31/2020 Cardiology Consultation REASON FOR CONSULTATION: Bradycardia. HISTORY OF PRESENT ILLNESS: A 74-year-old woman with a history of diabetes, presents with acute respiratory distress, noted to have pulmonary infiltrates and tested positive for COVID-19. Required endotracheal intubation and ventilatory support and admission to intensive care unit. She had transient need for pressors, which have since been discontinued. She is also getting coverage with IV antibiotics and being followed by Infectious Disease. She is noted to have bradycardia over the last 24 to 36 hours. Bradycardia has been into the mid 40s with normal blood pressures. On telemetry, sinus bradycardia is observed, so on EKG. Atropine was administered with transient increase in heart rate, however, it did return to the 40s afterwards. When the patient is stimulated per nursing report, she also brings her heart rate up, however, it trends down to the 40s afterwards. Decreasing sedation dosing has been discussed and has been attempted too at this point. REVIEW OF SYSTEMS: A 12-system review unable to assess given the patient's intubated and sedated state. PAST MEDICAL HISTORY: As per HPI. SOCIAL HISTORY: Negative x3. FAMILY HISTORY: Noncontributory. ALLERGIES: TO PENICILLINS. PHYSICAL EXAMINATION: VITAL SIGNS: Temperature 98.9, heart rate 41, blood pressure 143/42, respiratory rate 28, and O2 saturation 98%. BMI 30.7. GENERAL: Intubated and sedated. NECK: Supple. CHEST: With decreased breath sounds. CARDIOVASCULAR: Regular rate and rhythm. Normal S1 and S2. ABDOMEN: Soft. Bowel sounds positive. EXTREMITIES: No edema. CARDIOVASCULAR MEDICATIONS: Reviewed, on fentanyl, Versed sedation, Lovenox 60 mg subcutaneous q.12 hours, atropine 0.5 mg q.2 hours p.r.n., and dexamethasone 6 mg daily. STUDIES: Reviewed. Sodium 157, potassium 3, chloride 118, bicarbonate 27, BUN 53, creatinine 1.07, and glucose 206. White blood cells 8.8, hemoglobin 8.6, and platelets 112. AST 21, ALT 21, and alkaline phosphatase 43. ASSESSMENT AND PLAN: 1. A 74-year-old woman presents with COVID-19 infection and community-acquired pneumonia, present on admission. 2. Acute respiratory failure. 3. Diabetes mellitus. 4. Sinus bradycardia, marked. RECOMMEND: 1. Atropine p.r.n. 2. Discussed with nursing staff. Use dopamine if the patient develops symptomatic bradycardia or heart rate list in 40s with associated hypotension. 3. Decrease sedation to RASS -1. 4. Echocardiogram with preserved ventricular systolic function. MD SHANELLE Olivo/NENA /[id number] MTDD
--- NOTE | 2020-03-31 12:22 | NUR ---
INFECTIOUS DISEASE PROGRESS NOTE DR. LORIE KENNEY CC: COVID ROS: unable to obtain/intubated PAST MEDICAL HISTORY: Diabetes mellitus and hypertension. ALLERGIES: PENICILLIN, BUT SHE DID WELL WITH CEPHALOSPORIN. LABORATORY DATA: per chart MEDICATIONS: per chart PHYSICAL EXAMINATION: GENERAL: intubated sedated VITAL SIGNS: per chart HEENT: She is not icteric. normocephalic atraumatic NECK: Supple. no JVD CHEST: Crackles bilateral. HEART: S1 and S2. no s3, s4 ABDOMEN: Soft. Bowel sounds present. EXTREMITIES: no joint swelling, no rash SKIN: No rash. no edema IMPRESSION: Respiratory failure community-acquired pneumonia COVID 19 Pulmonary embolism in the segmental left upper lobe branches. PLAN: supportive care vent support full dose lovenox dexamethasone x10 days guarded prognosis Tata Lino MSN, ARCHIVES SPECIALIST, AGACNP-BC d/w Lorie Kenney M.D.
[2020-03-31] MEDS: DEXTROSE 5% 1,000 ML IV SCH ×2 (12:42→18:07)
[2020-03-31 13:40] LABS: BLOOD UREA NITROGEN 53 mg/dL (7-26); GLUCOSE 306 mg/dL (74-118); OSMOLALITY,SERUM 337 mOsm/kg (278-305); SODIUM 157 mmol/L (136-145)
[2020-03-31 14:12] LABS: CREATININE,URINE RANDOM 56.01 mg/dL (47-110); TOTAL PROTEIN, URINE 45.2 mg/dL (1-14)
[2020-03-31 14:31] LABS: BLOOD UREA NITROGEN 58 mg/dL (7-26); GLUCOSE 296 mg/dL (74-118); OSMOLALITY,SERUM 338 mOsm/kg (278-305); SODIUM 157 mmol/L (136-145)
--- NOTE | 2020-03-31 15:02 | NUR ---
WOUND CARE INITIAL CONSULT FOR YO MALE ADMITTED TO [facility] WITH A PRESENT HX OF ACUTE RESPIRATORY DISTRESS, COVID-19, HYPERNATREMIA, ACUTE KIDNEY INJURY, HYPOKALEMIA, HYPERGLYCEMIA AND METABOLIC ENCEPHALOPATHY.AND VENT SUPPORT. KEE Montoya ON STRICT PUP STATUS AND INTERVENTIONS SURFACE: LOW AIR LOSS MATTRESS. LABS: WBC- 8.88 HGB- 8.6 ALBUMIN: 3.2 GLUCOSE-272 MAP- 67 MICRO: BLOOD CULTURE: NO GROWTH. MEDS: PIPERACILLIN SOD\TAZOBACTAM SOD SEE E MAR FOR DOSAGE. LEVOPHED- SEE E MAR FOR DOSAGE- STARTING DATE - END DATE March 30, 2020 - CONSULT WITH CARDIOLOGY IN REGARDS OF BRADYCARDIA. -RENAL CONSULT FOR MANAGEMENT OF HYPERNATREMIA AND ACUTE KIDNEY INJURY. IMAGING: SKIN ASSESSMENT COMPLETE, PATIENT PRESENTS WITH 1)ACUTE SKIN FAILURE NOTED TO SACRUM RELATED TO VASOPRESSOR USE; MEASURING 8 CM X 6 CM X 0.1. PARTIAL THICKNESS WOUND WITH 95 % PINK GRANULATION AND 5% SLOUGH; PERIWOUND WITH A RED PARTIALLY BLANCHABLE AREA AND PURPLE NON BLANCHABLE DISCOLORATION AREA WITH A SEROUS FLUID FILLED BLISTER, PARTIALLY RUPTURED DRAINING MINIMAL SEROSANGUINEOUS DRAINAGE. RECOMMENDATIONS: NURSING TO CLEAN ACUTE SKIN FAILURE TO SACRUM WITH NORMAL SALINE, PAT DRY WITH 4X4 GAUZE, APPLY VENELEX, MAXORB AG AND COVER WITH LARGE ALLEVYN FOAM DAILY AND PRN. NURSING TO MONITOR BILATERAL BUTTOCK AND SACRAL AREA DAILY. NURSING TO CONTINUE TO MONITOR PATIENT AND KEEP SKIN CLEAN AND FREE FROM STOOL OR IRRITATING MOISTURE AND CONTINUE TO FOLLOW CONSERVATIVE PUP INTERVENTIONS DAILY. NURSING TO CONTINUE REPOSITION PT SIDE TO SIDE EVERY TWO HOURS AND NEEDED. NURSING TO APPLY LOW AIR LOSS MATTRESS. NURSING TO CONTINUE TO OFFLOAD FEET AND HEELS AT ALL TIMES WITH PILLOW SUSPENSION WHEN IN BED. NURSING TO APPLY BILATERAL HEEL PROTECTORS DAILY. NURSING TO CONTINUE TO ASSIST WITH PT NUTRITIONAL SUPPLEMENTS TO ENSURE PROPER REQUIREMENTS FOR HEALING. NURSING TO RE- CONSULT WOUND CARE NEEDED. Addendum: 03/31/20 at 1509 by Josi Alvares RN Amended: Links added. Addendum: 03/31/20 at 1538 by Josi Alvares RN WOUND CARE INITIAL CONSULT FOR 74 YO FEMALE.
[2020-03-31] MEDS: DEXAMETHASONE SOD PHOS INJ 4 MG/ML VIAL IV SCH (18:07)
[2020-04-01] VITALS (24 sets, daily range): BP systolic 102–142; BP diastolic 39–69
[2020-04-01] MEDS: PIPER-TAZ 3.375 GM 50 ML IV SCH ×4 (00:15→17:50)
[2020-04-01] MEDS: MIDAZOLAM HCL 5MG/ML 10ML VIAL 100 ML IV PRN (01:30)
[2020-04-01] MEDS: FENTANYL 2000MCG/NS 250 250 ML IV PRN ×2 (01:30→21:35)
[2020-04-01] MEDS: DEXTROSE 5% 1,000 ML IV SCH (02:30)
[2020-04-01 04:56] LABS: BASOPHILS % 0.1 % (0.0-1.0); HEMATOCRIT 28.3 % (34.2-44.1); HEMOGLOBIN 8.8 g/dL (12.0-16.0); LYMPHOCYTES # (AUTO) 0.4 (1.0-3.2); LYMPHOCYTES % 4.4 % (18.0-39.1); MEAN CORPUSCULAR HEMOGLOBIN 28.3 pg (28-32); MEAN CORPUSCULAR HGB CONC 31.1 g/dL (31-35); MONOCYTES # (AUTO) 0.2 (0.2-0.8); NEUTROPHILS # (AUTO) 8.1 (2.1-6.9); NEUTROPHILS % 91.6 % (38.7-80.0); PLATELET COUNT 126 x10e3/uL (140-360); RED BLOOD COUNT 3.11 x10e6/uL (3.6-5.1); RED CELL DISTRIBUTION WIDTH 15.5 % (11.7-14.4)
[2020-04-01 05:22] LABS: ALANINE AMINOTRANSFERASE 21 IU/L (0-55); ALBUMIN 2.3 g/dL (3.5-5.0); ALBUMIN/GLOBULIN RATIO 0.8 (0.8-2.0); ALKALINE PHOSPHATASE 48 IU/L (40-150); BLOOD UREA NITROGEN 37 mg/dL (7-26); BUN/CREATININE RATIO 47 (6-25); CALCIUM 7.7 mg/dL (8.4-10.2); CARBON DIOXIDE 27 mmol/L (22-29); CHLORIDE 111 mmol/L (98-107); CREATININE, SERUM 0.78 mg/dL (0.57-1.11); EST GLOMERULAR FILTRATION RATE > 60 ML/MIN (60-); GLUCOSE 397 mg/dL (74-118); MAGNESIUM 1.9 MG/DL (1.3-2.1); PHOSPHORUS 2.4 MG/DL (2.3-4.7); SODIUM 145 mmol/L (136-145)
--- NOTE | 2020-04-01 06:34 | NUR ---
IM- progress note O/N see below ROS: no f/c/s/N/V/D/LING/cp/skin rash/confusion/dizziness/leg pain v/s revd PE tired appearing anicteric Oxygen canula in place ns1s2 reduced bs soft nt nd no e/t skin dry flat affect labs/med revd A/P: 74yoF Multifocal PNA- IV abx; O2; COVID testing Acute resp failure- O2 DKA- insulin; hab1c/lipids; insulin CHERI- f/u Obesity- 1/2 portion sizes; outpt BMI 37- as above Physical deconditioning- PT consult Prop; scd; lovenox Dispo: f/u COVID testing 03-25-20 Hba1c/LDL 10.; f/u COVID tesing; 03-26- cont care; 11- cont care in ICU; needing more O2; Continue decadron and remdesivir. 11-6 f/u echo; cont care in ICU 11-7 Hypernaremia and CHERI- give free water; Intubated overnight;cont vent support; monitor closely. d/w daughter by Telephone. 11-8 labs pending; titrate insulin up 11-9 titrate insulin up further; give free water for Hypernatremia/CHERI. Nephr consult; Left Upper lobe PE- lovenox BID 11-10 uncontrolled glucose- titrate insulin up. Gen TRAYLOR MD, PHD
[2020-04-01] MEDS: EYE LUBRICANT OPTH OINT 3.5GM TUBE OP SCH ×2 (08:20→17:50)
[2020-04-01] MEDS: FAMOTIDINE 20 MG TAB PO SCH ×2 (08:20→17:50)
[2020-04-01] MEDS: ASCORBIC ACID 500 MG TAB PO SCH ×2 (08:21→17:50)
[2020-04-01] MEDS: ENOXAPARIN SOD INJ 60 MG/0.6 ML SYR SC SCH ×2 (08:22→21:35)
[2020-04-01] MEDS: ZINC SULFATE 220 MG CAP PO SCH (08:22)
[2020-04-01] MEDS: BALSAM PERU/CASTOR OIL 60 GM OINT...G. TP SCH (08:22)
--- NOTE | 2020-04-01 08:28 | Diagnostic Imaging Report ---
TECHNIQUE: Frontal view of the chest. INDICATION: ^resp failure ^[id number] ^0550 COMPARISON: Prior day. DISCUSSION: Limited evaluation due to portable technique. Lines and hardware: Stable. Heart and mediastinum: Stable. Lungs and pleura: Interval mild worsening of the bilateral lower lobe predominant interstitial airspace opacities. Stable small left pleural effusion. Negative for pneumothorax. Soft tissues and bones: No acute abnormality. IMPRESSION: Interval mild worsening of the lower lobe peripheral interstitial airspace opacities. Stable support structures. Signed by: Nitin Tabor MD on 04/01/2020 8:25 AM
--- NOTE | 2020-04-01 08:28 | Progress Note ---
DATE: 04/01/2020 HISTORY: The patient is currently on mechanical ventilation with a PRVC mode of ventilation at a rate of 16, PEEP of 12 and an FiO2 of 60%. She is on low-dose Versed and low-dose fentanyl. She is off pressors. She remains on an insulin drip at 4 units an hour. She is receiving enteral feedings. PHYSICAL EXAMINATION: VITAL SIGNS: The blood pressure is 119/42, saturation is 95% and the pulse is 54. HEENT: Shows no facial swelling or erythema. LYMPHATIC: Shows no submandibular, cervical, or supraclavicular adenopathy. CARDIAC: Reveals regular, rate and rhythm with normal S1, S2. LUNGS: Auscultation of lungs show decreased breath sounds at the bases. There is no wheezing. ABDOMEN: Soft and nontender. There is no rebound or guarding. EXTREMITIES: Show no leg edema or calf tenderness. There is no cyanosis or clubbing. SKIN: Shows no rashes. NEUROLOGIC: Shows no focal abnormalities. LABORATORY DATA: White blood cell count is 8.85 and hemoglobin is 8.8. The platelet count is 126. The BUN to creatinine ratio is 37 to 0.78, and the other electrolytes are within normal limits. The blood sugar is 392. Albumin is 2.3. IMPRESSION: 1. Acute respiratory failure. 2. Viral pneumonia and COVID-19 infection. 3. Diabetes, out of control. 4. Metabolic encephalopathy. 5. Anemia secondary to chronic blood loss. 6. Hypoalbuminemia. PLAN: 1. Continue enteral feedings. 2. Continue Lovenox. 3. Continue to wean ventilator as tolerated. 4. Continue insulin drip. 5. Continue free water through feeding tube. 6. Atropine p.r.n. for bradycardia. Greater than 35 minutes in direct critical care time. Pete Walsh MD [facility]/MODL /[id number]
[2020-04-01] MEDS ORDERED: INSULIN GLARGINE 100 UNITS/ML VIAL SQ SCH ×3 (09:00→21:00)
[2020-04-01] MEDS ORDERED: CHLOROTHIAZIDE SODIUM 500 MG VIAL IV ONE (09:45)
--- NOTE | 2020-04-01 10:05 | Progress Note ---
DATE: 04/01/2020 Renal Progress Note SUBJECTIVE: Followed for hypernatremia as well as azotemia. The patient has responded well to D5 water. The patient's sodium is down to 145 now. Chest x-ray is however consistent with some increased infiltrates, maybe some vascular congestion developing. Remains on the vent. OBJECTIVE: VITAL SIGNS: Have been noted and are stable. LUNGS: Rales bilaterally. CARDIOVASCULAR: S1, S2. No rub ABDOMEN: Soft and nontender. EXTREMITIES: No edema. LABORATORY DATA: Sodium 145, potassium 4, chloride is 111, BUN 37, creatinine 0.78, and glucose is 397. IMPRESSION AND PLAN: 1. Hypernatremia, resolved now. We will discontinue the D5 water to avoid fluid overload. 2. Hypokalemia has been replaced and resolved now. 3. Azotemia. We will discontinue the IV fluids now. The patient is on tube feeds. Recommend to add free water flushes to the tube feeds. Recommend at least 200 mL q.6 hours. Dillan Sheridan MD [facility]/MODL /[id number]
[2020-04-01 10:42] LABS: ABG PH 7.43 (7.35-7.45)
[2020-04-01 10:43] LABS: ABG HCO3 27 mmol/L (22-26); ABG PCO2 40 mmHg (35-45); ABG PO2 72 mmHg (80-105); ABG TCO2 28
--- NOTE | 2020-04-01 13:13 | NUR ---
INFECTIOUS DISEASE PROGRESS NOTE DR. LORIE KENNEY CC: COVID ROS: unable to obtain/intubated PAST MEDICAL HISTORY: Diabetes mellitus and hypertension. ALLERGIES: PENICILLIN, BUT SHE DID WELL WITH CEPHALOSPORIN. LABORATORY DATA: per chart MEDICATIONS: per chart PHYSICAL EXAMINATION: GENERAL: intubated sedated VITAL SIGNS: per chart HEENT: She is not icteric. normocephalic atraumatic NECK: Supple. no JVD CHEST: Crackles bilateral. vent with 60% fi02 and PEEP of 10 HEART: S1 and S2. no s3, s4 ABDOMEN: Soft. Bowel sounds present. EXTREMITIES: no joint swelling, no rash SKIN: No rash. no edema IMPRESSION: Respiratory failure community-acquired pneumonia COVID 19 Pulmonary embolism in the segmental left upper lobe branches. PLAN: supportive care vent support full dose lovenox dexamethasone x10 days off antibiotics guarded to poor prognosis Tata Lino MSN, INDUSTRIAL MACHINE OPERATOR, AGACNP-BC d/w Lorie Kenney M.D.
[2020-04-01] MEDS: DEXAMETHASONE SOD PHOS INJ 4 MG/ML VIAL IV SCH (17:50)
[2020-04-01] MEDS: INSULIN REGULAR, HUMAN 3ML VL 100 UNIT in SODIUM CHLORIDE 0.9% 99 ML IV SCH ×2 (18:06)
[2020-04-01] MEDS ORDERED: FUROSEMIDE INJ 10 MG/ML 4 ML VIAL IV ONE (21:00)
[2020-04-02] VITALS (24 sets, daily range): BP systolic 91–161; BP diastolic 39–70
--- NOTE | 2020-04-02 00:28 | Progress Note ---
DATE: 04/01/2020 Cardiology Progress Note SUBJECTIVE: The patient remains on the vent. Her FiO2 is 60%, with a PEEP of 12. She is sedated with low-dose Versed and low-dose fentanyl. The patient is no longer on vasopressors. She is receiving insulin drip at 4 units/hour. The patient is also receiving enteral feedings. PHYSICAL EXAMINATION: VITAL SIGNS: The blood pressure is 111/40 with a heart rate of 52, regular, her respiratory rate is 26. She is on the ventilator and her oxygen saturation is 95%. HEAD AND NECK: Normocephalic and atraumatic. Anicteric conjunctiva. LUNGS: Showed decreased breath sounds both lung wesley. CARDIAC: Regular rate and rhythm with normal S1 and S2. No murmurs heard. ABDOMEN: Soft, nondistended and no rebound. EXTREMITIES: Show no leg edema, clubbing, or cyanosis. SKIN: Intact. No rashes. NEUROLOGIC: The patient is sedated. LABORATORY DATA: The patient's CBC shows a white blood cell count of 8.8K, hemoglobin is 8.8, hematocrit is 28.3, platelet count is 126K from 112K yesterday. The sodium is 145, potassium is 4.0, chloride is 111, carbon dioxide is 27. The anion gap is 11. The BUN is 37, creatinine is 0.78, glucose is 397, calcium is 7.7 with an albumin of 2.3, phosphorus 2.4, magnesium is 1.9, liver tests are within reference range. ASSESSMENT AND PLAN: 1. Bradycardia. The patient has not received atropine in the last 24 to 36 hours. Heart rates have been high 40s to low 50s. She is not requiring dopamine to maintain heart rate above 40 bpm. Echocardiogram shows preserved left ventricular systolic function. 2. Acute respiratory failure secondary to COVID-19 infection and associated pneumonia. The patient is on mechanical ventilation with high settings. She is being followed by Critical Care Pulmonary Service. 3. Diabetes mellitus, not well controlled. The patient is on an insulin drip. MD MARIANNE Nuñez/MODL /[id number] JIGAR
[2020-04-02] MEDS: PIPER-TAZ 3.375 GM 50 ML IV SCH ×4 (00:30→17:57)
[2020-04-02] MEDS: MIDAZOLAM HCL 5MG/ML 10ML VIAL 100 ML IV PRN ×2 (04:30→15:20)
[2020-04-02 04:55] LABS: BASOPHILS % 0.1 % (0.0-1.0); HEMATOCRIT 31.5 % (34.2-44.1); HEMOGLOBIN 9.8 g/dL (12.0-16.0); LYMPHOCYTES # (AUTO) 0.6 (1.0-3.2); LYMPHOCYTES % 6.5 % (18.0-39.1); MEAN CORPUSCULAR HEMOGLOBIN 28.3 pg (28-32); MEAN CORPUSCULAR HGB CONC 31.1 g/dL (31-35); MONOCYTES # (AUTO) 0.2 (0.2-0.8); MONOCYTES % 2.5 % (4.4-11.3); NEUTROPHILS % 89.2 % (38.7-80.0); PLATELET COUNT 130 x10e3/uL (140-360); RED BLOOD COUNT 3.46 x10e6/uL (3.6-5.1); RED CELL DISTRIBUTION WIDTH 15.3 % (11.7-14.4)
[2020-04-02 05:23] LABS: ALANINE AMINOTRANSFERASE 25 IU/L (0-55); ALBUMIN 2.2 g/dL (3.5-5.0); ALBUMIN/GLOBULIN RATIO 0.7 (0.8-2.0); ALKALINE PHOSPHATASE 51 IU/L (40-150); ANION GAP 10.2 mmol/L (8-16); BLOOD UREA NITROGEN 35 mg/dL (7-26); BUN/CREATININE RATIO 51 (6-25); CALCIUM 8.1 mg/dL (8.4-10.2); CARBON DIOXIDE 28 mmol/L (22-29); CHLORIDE 109 mmol/L (98-107); CREATININE, SERUM 0.69 mg/dL (0.57-1.11); EST GLOMERULAR FILTRATION RATE > 60 ML/MIN (60-); GLUCOSE 276 mg/dL (74-118); POTASSIUM 4.2 mmol/L (3.5-5.1); SODIUM 143 mmol/L (136-145)
[2020-04-02 05:42] LABS: PHOSPHORUS 3.6 MG/DL (2.3-4.7)
[2020-04-02 08:07] LABS: ABG PCO2 40 mmHg (35-45); ABG PH 7.45 (7.35-7.45); ABG PO2 81 mmHg (80-105)
[2020-04-02 08:08] LABS: ABG HCO3 28 mmol/L (22-26); ABG TCO2 29
[2020-04-02] MEDS: EYE LUBRICANT OPTH OINT 3.5GM TUBE OP SCH ×2 (08:34→16:28)
[2020-04-02] MEDS: ZINC SULFATE 220 MG CAP PO SCH (08:34)
[2020-04-02] MEDS: ENOXAPARIN SOD INJ 60 MG/0.6 ML SYR SC SCH ×2 (08:34→21:30)
[2020-04-02] MEDS: FAMOTIDINE 20 MG TAB PO SCH ×2 (08:34→16:28)
[2020-04-02] MEDS: ASCORBIC ACID 500 MG TAB PO SCH ×2 (08:34→16:28)
--- NOTE | 2020-04-02 08:47 | Diagnostic Imaging Report ---
Chest, 1 view, 04/02/2020. History: Pneumonia. Comparison: 04/01/2020. Findings: The cardiomediastinal silhouette and pulmonary vasculature are within normal limits for a portable exam. Bilateral airspace opacities are unchanged. ET and NG tubes are unchanged in position. There are no acute osseous or soft tissue abnormalities. Impression: Bilateral pneumonia without significant change. Signed by: Harry Ramírez on 04/02/2020 8:44 AM
[2020-04-02] MEDS ORDERED: INSULIN GLARGINE 100 UNITS/ML VIAL SQ SCH (09:00)
--- NOTE | 2020-04-02 09:14 | Progress Note ---
DATE: 04/02/2020 SUBJECTIVE: The patient remains on mechanical ventilation. She is currently on a PRVC mode of ventilation at a rate of 24 with a tidal volume of 400 and PEEP of 10. FiO2 is 60%. She is off Levophed. She is off dopamine. She is receiving enteral feedings. PHYSICAL EXAMINATION: VITAL SIGNS: The blood pressure is 161/70, saturation is 92%. HEENT: Shows no facial swelling or erythema. LYMPHATIC: Shows no submandibular, cervical or supraclavicular adenopathy. CARDIAC: Reveals regular rate and rhythm with a normal S1 and S2. LUNGS: Auscultation of lungs shows decreased breath sounds at the bases. There is no wheezing. ABDOMEN: Soft and nontender. There is no rebound or guarding. EXTREMITIES: Shows no leg edema or calf tenderness. There is no cyanosis or clubbing. SKIN: Shows no rashes. NEUROLOGICAL: Shows the patient to be sedated on Versed and fentanyl. LABORATORY DATA: White blood cell count is 8.93, and hemoglobin is 9.8. The platelet count is 130. The BUN to creatinine ratio is 35 to 0.69. Other electrolytes are within normal limits. Albumin is 2.2. IMPRESSION: 1. Acute respiratory failure. 2. Viral pneumonia and COVID-19 infection. 3. Diabetes out of control. 4. Metabolic encephalopathy. 5. Anemia secondary to chronic blood loss. 6. Hypoalbuminemia. PLAN: 1. Continue enteral feedings. 2. Continue Lovenox. 3. Place the patient in prone position. 4. Continue insulin drip. 5. Continue free water. 6. Case discussed with nursing, Respiratory and Internal Medicine. Greater than 35 minutes in direct critical care time. Pete Walsh MD [facility]/MODL /[id number]
--- NOTE | 2020-04-02 09:30 | NUR ---
[employer] called pt's daughter, Josi Fiore ([phone]), to offer emotional / spiritual support and inquire about family request for prayer outside pt's window. No answer - commanding officer traffic division left message. Will follow as able. ANDRES Sandoval [facility] Department O: [phone]
[2020-04-02] MEDS: BALSAM PERU/CASTOR OIL 60 GM OINT...G. TP SCH (09:31)
--- NOTE | 2020-04-02 10:19 | NUR ---
IM- progress note O/N see below ROS: no f/c/s/N/V/D/LING/cp/skin rash/confusion/dizziness/leg pain v/s revd PE tired appearing anicteric Oxygen canula in place ns1s2 reduced bs soft nt nd no e/t skin dry flat affect labs/med revd A/P: 74yoF Multifocal PNA- IV abx; O2; COVID testing Acute resp failure- O2 DKA- insulin; hab1c/lipids; insulin CHERI- f/u Obesity- 1/2 portion sizes; outpt BMI 37- as above Physical deconditioning- PT consult Prop; scd; lovenox Dispo: f/u COVID testing 03-25-20 Hba1c/LDL .; f/u COVID tesing; 03-26-20 cont care; - cont care in ICU; needing more O2; Continue decadron and remdesivir. 11-6 f/u echo; cont care in ICU - Hypernaremia and CHERI- give free water; Intubated overnight;cont vent support; monitor closely. d/w daughter by Telephone. 11-8 labs pending; titrate insulin up -9 titrate insulin up further; give free water for Hypernatremia/CHERI. Nephr consult; Left Upper lobe PE- lovenox BID - uncontrolled glucose- titrate insulin up. 11- adjust insulin Gen TRAYLOR MD, PHD
--- NOTE | 2020-04-02 10:50 | Progress Note ---
DATE: 04/02/2020 Renal Progress Note SUBJECTIVE: The patient is followed for hypernatremia, which has resolved now. Sodium is down to 143. The patient has COVID-19 pneumonia. The patient remains on the vent. The patient is nonoliguric. Does not have any acute kidney injury at this time. Creatinine appears to be normal. Remains on the vent, has COVID-19 pneumonia. OBJECTIVE: VITAL SIGNS: Have been noted. Blood pressure is 161/70, 22 respirations, 78 pulse. The patient is on FiO2 of 60%. LUNGS: Have rhonchi bilaterally. CARDIOVASCULAR: S1 and S2. No rub. ABDOMEN: Soft. Positive bowel sounds. EXTREMITIES: No edema. LABORATORY DATA: Potassium is 4.2, sodium is now 143, BUN is 35, and creatinine 0.7. IMPRESSION AND PLAN: 1. Hypernatremia has resolved now, off D5 water. Continue to monitor her electrolytes closely. 2. Hypertension. Blood pressure is controlled more or less. Continue to monitor closely on current medications. 3. Azotemia, appearing to resolve. If continues to have a rise in BUN, can place back on IV fluids. Dillan Sheridan MD [facility]/MODL /[id number]
--- NOTE | 2020-04-02 12:56 | Progress Note ---
DATE: 04/02/2020 SUBJECTIVE: The patient remains intubated and sedated. She is off Levophed, off dopamine, on enteral feeding. REVIEW OF SYSTEMS: Could not be obtained. PHYSICAL EXAMINATION: GENERAL: She is intubated and sedated. VITAL SIGNS: Stable. Temperature 97.1, heart rate 46, blood pressure 109/41, and O2 saturation 98 on 60%. HEENT: Normocephalic. NECK: Supple. CHEST: Crackles bilateral. HEART: S1 and S2. ABDOMEN: Soft. Bowel sounds present. EXTREMITIES: No edema. SKIN: No rash. MEDICATIONS: The patient, who is currently on Lovenox, zinc, vitamin C, Pepcid, Zosyn started on March 28. IMPRESSION: Respiratory failure, COVID-19, concern superimposed aspiration pneumonia, pulmonary embolism. To finish 7 days of antibiotic as ordered. Supportive care. To wean as tolerated. Anticoagulation. We will follow. MD JONY Ramirez/NENA /[id number]
[2020-04-02] MEDS: FENTANYL 2000MCG/NS 250 250 ML IV PRN (13:31)
[2020-04-02] MEDS ORDERED: ALBUMIN 25% 25GM 100ML 0.25 GM/ML BTL IV STA (15:51)
--- NOTE | 2020-04-02 16:06 | NUR ---
Nutrition Intervention Note RD Recommendation(s) for Physician: -Recommend modifying formula to Vital AF 1.2 @ goal rate of 40 mL/hr (provides 1152 kcal and 72 g protein). Vital AF is appropriate for diabetic pts on vent, less CHO/L than Glucerna and provides adequate protein. Pt may be fed at goal rate in reverse Trendelenburg with HOB elevated 25 degrees. -Water/fluid management per MD. Plan of Care: RD following, monitoring for tolerance and adequacy. TF rec's. Nutrition reason for involvement: follow up RD Assessment 04/02: Follow up. Pt remains intubated and sedated with Versed and Fentanyl, no pressors. Pt tolerating trickle feeds while proned, recommend advancing to goal rate as pt currently in reverse Trendelenburg with HOB elevated- discussed with RN on unit. TF rec's remain appropriate, Dr. Whittington changed order to Glucerna 1.2 today. Chart reviewed. Will continue to monitor. (03/28/20) Pt is a 74 year old female admitted with acute respiratory distress and COVID-19. Pt was intubated this morning and tube feed order was placed. There are no reports of recent weight loss without trying and no reports of decreased appetite upon admission. Tube feed recommendations provided. RD to manage TF order per Dr. Walsh. Will continue to monitor. Principal Problems/Diagnoses: acute respiratory distress, COVID-19 PMH: type 2 diabetes GI: flat/soft/non-tender abdomen, last recorded BM 03/26 Skin: intact Labs: 04/02: Na 143, K 4.2, BUN 35, Cr 0.69, Gluc 276, Phos 3.6, Mg 2, POC Gluc 225-238 (03/28/20) Na 148, K 3.5, BUN 37, Glu 201, Ca 8.8, AST 37 Meds: abx, zinc sulfate, vitamin C, pepcid, decadron, lantus, zofran, colace Ht: 61 in Wt: 169.44 (04/02) 201.56 lbs BMI: 38.1 kg/m2 IBW: 105 lbs Malnutrition Evaluation (03/28/20) The patient does not meet criteria for a specified degree of malnutrition at this time. Will re-evaluate at follow-up as appropriate. Nutrition Prescription (Diet Order): Glucerna 1.2 at 40 ml/hr, trickle feeds Estimated Nutritional Needs: [id number] calories/day (22-25 kcal/kg IBW) 70- 95 g protein/day (1.5-2 g pro/kg IBW) Diet Adequacy: unable to assess Tolerance: tolerating TF Diet Education Needs Assessment: Diet education not indicated Nutrition Care Level: moderate Nutrition Diagnosis: Inadequate oral intake related to mechanical ventilation as evidenced by need for enteral nutrition. Goal: Patient will meet 75-100% of estimated needs by follow up Progress: progressing Interventions: - Composition, Rate, Route, Recommended Modifications, Collaboration with other providers Monitoring/Evaluation: -Total energy intake, Total protein intake, Formula/Solution, Weight change Signed: Verenice Rosenberg RD, LD, CNSC
[2020-04-02] MEDS: DEXAMETHASONE SOD PHOS INJ 4 MG/ML VIAL IV SCH (17:57)
[2020-04-02] MEDS: INSULIN GLARGINE 100 UNITS/ML VIAL SQ SCH (21:30)
[2020-04-02] MEDS: INSULIN REGULAR, HUMAN 3ML VL 100 UNIT in SODIUM CHLORIDE 0.9% 99 ML IV SCH ×2 (21:30)
--- NOTE | 2020-04-02 23:13 | Progress Note ---
DATE: 04/02/2020 Cardiology Progress Note SUBJECTIVE: No acute events overnight, in sinus rhythm on telemetry. OBJECTIVE: VITAL SIGNS: Temperature 97.8, heart rate 78, blood pressure 161/70, respiratory rate 22, and O2 saturation 92%, BMI 31. GENERAL: Intubated and sedated. NECK: Supple. CHEST: With decreased breath sounds. CARDIOVASCULAR: Regular rate and rhythm. Normal S1, S2. ABDOMEN: Soft. EXTREMITIES: With trace edema. CARDIOVASCULAR MEDICATIONS: Have been reviewed, on dexamethasone and Lovenox. STUDIES: Reviewed. Creatinine 0.8, hemoglobin 9.8, and platelets 130. ASSESSMENT AND PLAN: A 74-year-old patient with acute respiratory failure, bradycardia, COVID-19 infection, and pneumonia. RECOMMENDATIONS: Continue atropine p.r.n., heart rate recovering with tube man sedation. No hypotension reported so far. MD SHANELLE Olivo/NENA /[id number]
[2020-04-03] VITALS (22 sets, daily range): BP systolic 91–137; BP diastolic 37–58
[2020-04-03] MEDS: FENTANYL 2000MCG/NS 250 250 ML IV PRN (02:30)
[2020-04-03 04:50] LABS: BASOPHILS % 0.1 % (0.0-1.0); HEMATOCRIT 30.1 % (34.2-44.1); HEMOGLOBIN 9.2 g/dL (12.0-16.0); LYMPHOCYTES # (AUTO) 0.7 (1.0-3.2); LYMPHOCYTES % 6.5 % (18.0-39.1); MEAN CORPUSCULAR HEMOGLOBIN 28.1 pg (28-32); MEAN CORPUSCULAR HGB CONC 30.6 g/dL (31-35); MONOCYTES # (AUTO) 0.3 (0.2-0.8); MONOCYTES % 2.8 % (4.4-11.3); NEUTROPHILS # (AUTO) 9.1 (2.1-6.9); NEUTROPHILS % 88.8 % (38.7-80.0); PLATELET COUNT 131 x10e3/uL (140-360); RED BLOOD COUNT 3.27 x10e6/uL (3.6-5.1); RED CELL DISTRIBUTION WIDTH 15.6 % (11.7-14.4)
--- NOTE | 2020-04-03 05:03 | NUR ---
IM- progress note O/N see below ROS: no f/c/s/N/V/D/LING/cp/skin rash/confusion/dizziness/leg pain v/s revd PE tired appearing anicteric Oxygen canula in place ns1s2 reduced bs soft nt nd no e/t skin dry flat affect labs/med revd A/P: 74yoF Multifocal PNA- IV abx; O2; COVID testing Acute resp failure- O2 DKA- insulin; hab1c/lipids; insulin CHERI- f/u Obesity- 1/2 portion sizes; outpt BMI 37- as above Physical deconditioning- PT consult Prop; scd; lovenox Dispo: f/u COVID testing 03-25-20 Hba1c/LDL 10.; f/u COVID tesing; 03-26-20 cont care; 03-27 cont care in ICU; needing more O2; Continue decadron and remdesivir. 11-6 f/u echo; cont care in ICU 03-29 Hypernaremia and CHERI- give free water; Intubated overnight;cont vent support; monitor closely. d/w daughter by Telephone. -8 labs pending; titrate insulin up 03-31 titrate insulin up further; give free water for Hypernatremia/CHERI. Nephr consult; Left Upper lobe PE- lovenox BID 04-01 uncontrolled glucose- titrate insulin up. 04-02 adjust insulin - CXR no change; cont support; remains on 60% FiO2; Called family- left message. Gen TRAYLOR MD, PHD
[2020-04-03 05:17] LABS: ALANINE AMINOTRANSFERASE 25 IU/L (0-55); ALBUMIN 2.4 g/dL (3.5-5.0); ALBUMIN/GLOBULIN RATIO 0.9 (0.8-2.0); ALKALINE PHOSPHATASE 42 IU/L (40-150); ANION GAP 11.5 mmol/L (8-16); BLOOD UREA NITROGEN 34 mg/dL (7-26); BUN/CREATININE RATIO 50 (6-25); CALCIUM 8.1 mg/dL (8.4-10.2); CARBON DIOXIDE 30 mmol/L (22-29); CHLORIDE 112 mmol/L (98-107); CREATININE, SERUM 0.68 mg/dL (0.57-1.11); EST GLOMERULAR FILTRATION RATE > 60 ML/MIN (60-); GLUCOSE 84 mg/dL (74-118); POTASSIUM 4.5 mmol/L (3.5-5.1); SODIUM 149 mmol/L (136-145)
[2020-04-03] MEDS: PIPER-TAZ 3.375 GM 50 ML IV SCH ×4 (06:00→18:04)
--- NOTE | 2020-04-03 06:43 | NUR ---
PATIENT REMAINED PRONED THROUGHOUT SHIFT
[2020-04-03 06:46] LABS: ABG HCO3 31 mmol/L (22-26); ABG PCO2 45 mmHg (35-45); ABG PH 7.44 (7.35-7.45); ABG PO2 85 mmHg (80-105); ABG TCO2 32
[2020-04-03] MEDS: ASCORBIC ACID 500 MG TAB PO SCH ×2 (08:26→16:25)
[2020-04-03] MEDS: ZINC SULFATE 220 MG CAP PO SCH (08:26)
[2020-04-03] MEDS: EYE LUBRICANT OPTH OINT 3.5GM TUBE OP SCH ×2 (08:26→16:25)
[2020-04-03] MEDS: ENOXAPARIN SOD INJ 60 MG/0.6 ML SYR SC SCH ×2 (08:26→21:15)
[2020-04-03] MEDS: FAMOTIDINE 20 MG TAB PO SCH ×2 (08:26→16:25)
[2020-04-03] MEDS: BALSAM PERU/CASTOR OIL 60 GM OINT...G. TP SCH (08:28)
[2020-04-03] MEDS: INSULIN GLARGINE 100 UNITS/ML VIAL SQ SCH ×2 (08:30→22:30)
--- NOTE | 2020-04-03 08:41 | Progress Note ---
DATE: 04/03/2020 SUBJECTIVE: The patient is now in the prone position. She remains on mechanical ventilation. She is currently on PRVC at a rate of 24 with a tidal volume of 400, PEEP of 10 and FiO2 of 60%. PHYSICAL EXAMINATION: VITAL SIGNS: T-max is 99.8. The blood pressure is 112/45, saturation is 100%. HEENT: Shows no facial swelling or erythema. LYMPHATIC: Shows no submandibular, cervical, or supraclavicular adenopathy. CARDIAC: Reveals regular rate and rhythm with normal S1 and S2. LUNGS: Auscultation of lungs reveals crackles in the bases. There is no wheezing. ABDOMEN: Soft and nontender. There is no rebound or guarding. EXTREMITIES: Shows no leg edema or calf tenderness. There is no cyanosis or clubbing. SKIN: Shows no rashes. NEUROLOGICAL: Shows no focal abnormalities. LABORATORY DATA: Sodium is 149. BUN to creatinine ratio is 34 to 0.68. Sodium is 149 and chloride is 112. Carbon dioxide is 30 and the potassium is 4.5. Albumin is 2.4. IMPRESSION: 1. Viral pneumonia and COVID-19 infection. 2. Diabetes, out of control. 3. Metabolic encephalopathy. 4. Anemia secondary to chronic blood loss. PLAN: 1. Continue enteral feedings. 2. Continue Lovenox. 3. Turn patient back to the supine position. 4. Continue insulin drip 1 unit. 5. Continue free water. 6. Continue to monitor sodium and other electrolytes. Greater than 35 minutes in direct critical care time. Pete Walsh MD [facility]/MODL /[id number]
--- NOTE | 2020-04-03 08:46 | Diagnostic Imaging Report ---
TECHNIQUE: Frontal view of the chest. INDICATION: ^resp failure ^20200403 ^0530 COMPARISON: Prior day. DISCUSSION: Limited evaluation due to portable technique. Lines and hardware: Stable. Heart and mediastinum: Stable. Lungs and pleura: Interval worsening of bilateral airspace opacities and decrease in aeration. No large effusion or pneumothorax. Soft tissues and bones: No acute abnormality. IMPRESSION: Mild worsening of bilateral diffuse airspace opacities. Signed by: Nitin Tabor MD on 04/03/2020 8:42 AM
[2020-04-03] MEDS: DEXTROSE 5% 1,000 ML IV SCH (11:29)
--- NOTE | 2020-04-03 12:45 | NUR ---
INFECTIOUS DISEASE PROGRESS NOTE DR. LORIE KENNEY CC: COVID ROS: unable to obtain/intubated PAST MEDICAL HISTORY: Diabetes mellitus and hypertension. ALLERGIES: PENICILLIN, BUT SHE DID WELL WITH CEPHALOSPORIN. LABORATORY DATA: per chart MEDICATIONS: per chart PHYSICAL EXAMINATION: GENERAL: intubated sedated VITAL SIGNS: per chart HEENT: She is not icteric. normocephalic atraumatic NECK: Supple. no JVD CHEST: Crackles bilateral. vent with 60% fi02 and PEEP of 10 HEART: S1 and S2. no s3, s4 ABDOMEN: Soft. Bowel sounds present. EXTREMITIES: no joint swelling, no rash SKIN: No rash. no edema IMPRESSION: Respiratory failure community-acquired pneumonia COVID 19 Pulmonary embolism in the segmental left upper lobe branches. PLAN: supportive care vent support full dose lovenox dexamethasone x10 days Zosyn x7 days guarded to poor prognosis Tata Lino MSN, COSMETICIAN, AGACNP-BC d/w Lorie Kenney M.D.
--- NOTE | 2020-04-03 14:02 | Progress Note ---
DATE: 04/03/2020 Renal Progress Note. SUBJECTIVE: Followed for hypernatremia and azotemia. Sodium has gone up to 149. Patient is also slightly more azotemic today. Has COVID-19 pneumonia, on prone positioning. Remains on the vent. Overall prognosis is grim. OBJECTIVE: VITAL SIGNS: Have been noted and are stable. LUNGS: Rhonchi bilaterally. CARDIOVASCULAR: S1, S2. No rub. ABDOMEN: Soft and nontender. EXTREMITIES: No edema. LABORATORY DATA: Sodium 149. BUN is in the 37 range. Creatinine is normal. Her electrolytes are within range. IMPRESSION AND PLAN: 1. Hypernatremia, we will resume D5 water at 75 mL/h. If tube feeds are on board, we will also recommend to replace with free water flushes at least 150-200 mL q.6 hours. 2. Azotemia, continue D5 water at 75 mL/hour. 3. Hypertension, blood pressure is stable. 4. COVID-19 pneumonia, plan would be as per critical care. Dillan Sheridan MD [facility]/MODL /[id number]
[2020-04-03] MEDS: DEXAMETHASONE SOD PHOS INJ 4 MG/ML VIAL IV SCH (18:04)
--- NOTE | 2020-04-03 19:23 | Progress Note ---
DATE: 04/03/2020 Cardiology Progress Note SUBJECTIVE: Ms. Paz is in prone position, intubated and sedated. OBJECTIVE: VITAL SIGNS: Temperature 99.4, heart rate 48 and telemetry in sinus bradycardia, blood pressure 116/48, respiratory rate 24, O2 saturation 100%. GENERAL: Intubated and sedated, prone position. NECK: Supple. CHEST: With decreased breath sounds. CARDIOVASCULAR: Distant heart sounds. Regular rate and rhythm. ABDOMEN: Soft. Bowel sounds positive. EXTREMITIES: With trace edema. CARDIOVASCULAR MEDICATIONS: Reviewed. Lovenox 60 mg q.12 hours, atropine 0.5 mg q.12 hours. STUDIES: Reviewed. Sodium 149, potassium 4.5, chloride 112, bicarbonate 30, BUN 34, creatinine 0.68, glucose 84. White blood cells 10, hemoglobin 9.2, platelets 131, AST 27, ALT 25, alkaline phosphatase 42. ASSESSMENT AND PLAN: 1. A 74-year-old woman presents with COVID-19 infection, community-acquired pneumonia; sinus bradycardia, asymptomatic. 2. Acute respiratory failure. 3. Diabetes. RECOMMEND: 1. Continue current vent weaning as per Pulmonary Critical Care expertise. Remains in critical state on dexamethasone treatment. 2. On Lovenox, continue. 3. Atropine p.r.n., continue. 4. Continue telemetry monitoring. MD SHANELLE Olivo/NENA /[id number]
--- NOTE | 2020-04-03 23:56 | NUR ---
Notified Dr. Rain of patient O2 sats 83%. New orders received. Prone patient.
[2020-04-04] VITALS (19 sets, daily range): BP systolic 40–158; BP diastolic 26–56
[2020-04-04] MEDS: PIPER-TAZ 3.375 GM 50 ML IV SCH ×4 (00:52→17:49)
[2020-04-04] MEDS: DEXTROSE 5% 1,000 ML IV SCH ×2 (00:52→17:49)
[2020-04-04] MEDS: ATROPINE SULFATE 1 MG/ML VIAL IV PRN (02:37)
--- NOTE | 2020-04-04 02:38 | NUR ---
0.5mg Atropine given for sustained HR 38
[2020-04-04 05:00] LABS: BASOPHILS % 0.1 % (0.0-1.0); EOSINOPHILS % 0.1 % (0.0-6.0); HEMATOCRIT 28.7 % (34.2-44.1); LYMPHOCYTES # (AUTO) 0.4 (1.0-3.2); LYMPHOCYTES % 4.6 % (18.0-39.1); MEAN CORPUSCULAR HEMOGLOBIN 29.3 pg (28-32); MEAN CORPUSCULAR HGB CONC 31.4 g/dL (31-35); MEAN CORPUSCULAR VOLUME 93.5 fL (81-99); MONOCYTES # (AUTO) 0.2 (0.2-0.8); MONOCYTES % 1.9 % (4.4-11.3); NEUTROPHILS # (AUTO) 7.9 (2.1-6.9); NEUTROPHILS % 91.8 % (38.7-80.0); PLATELET COUNT 118 x10e3/uL (140-360); RED BLOOD COUNT 3.07 x10e6/uL (3.6-5.1); RED CELL DISTRIBUTION WIDTH 15.7 % (11.7-14.4)
[2020-04-04 05:29] LABS: ALANINE AMINOTRANSFERASE 28 IU/L (0-55); ALBUMIN/GLOBULIN RATIO 0.7 (0.8-2.0); ALKALINE PHOSPHATASE 47 IU/L (40-150); ANION GAP 10.2 mmol/L (8-16); BLOOD UREA NITROGEN 31 mg/dL (7-26); BUN/CREATININE RATIO 45 (6-25); CALCIUM 7.6 mg/dL (8.4-10.2); CARBON DIOXIDE 29 mmol/L (22-29); CHLORIDE 106 mmol/L (98-107); CREATININE, SERUM 0.69 mg/dL (0.57-1.11); EST GLOMERULAR FILTRATION RATE > 60 ML/MIN (60-); GLUCOSE 251 mg/dL (74-118); POTASSIUM 4.2 mmol/L (3.5-5.1); SODIUM 141 mmol/L (136-145)
[2020-04-04 05:48] LABS: MAGNESIUM 1.9 MG/DL (1.3-2.1)
[2020-04-04 07:17] LABS: ANISOCYTOSIS SLIGHT; LYMPHOCYTES % (MANUAL) 9 % (19-48); PLATELET ESTIMATE SLIGHTLY DECREASED; PLATELET MORPHOLOGY COMMENT NORMAL; RBC MORPHOLOGY COMMENT NORMAL
[2020-04-04 07:18] LABS: BAND NEUTROPHILS % (MANUAL) 1 %; NEUTROPHILS % (MANUAL) 90 % (40-74)
--- NOTE | 2020-04-04 07:44 | Diagnostic Imaging Report ---
EXAMINATION: CHEST SINGLE (PORTABLE) INDICATION: ^resp failure ^[id number] ^[id number] COMPARISON: Prior day chest x-ray FINDINGS: TUBES and LINES: ET tube tip 4.1 cm above km. Right upper extremity PICC tip terminates in the superior cavoatrial junction. Enteric tube courses into abdomen, tip at a field of view. LUNGS/PLEURA: Persistent reticular and hazy/consolidative opacities predominantly in the mid to lower lungs with obscured hemidiaphragms. Possible small bilateral pleural effusions. No pneumothorax. HEART AND MEDIASTINUM: The cardiomediastinal silhouette is within normal size limits. Aortic calcifications. BONES AND SOFT TISSUES: No acute osseous lesion. Soft tissues are unremarkable. UPPER ABDOMEN: No free air under the diaphragm. Cholecystectomy clips. IMPRESSION: Stable lines and tubes. Persistent diffuse airspace disease. Signed by: Romain Tejeda DO on 04/04/2020 7:41 AM
--- NOTE | 2020-04-04 08:22 | NUR ---
IM- progress note O/N see below ROS: no f/c/s/N/V/D/LING/cp/skin rash/confusion/dizziness/leg pain v/s revd PE tired appearing anicteric Oxygen canula in place ns1s2 reduced bs soft nt nd no e/t skin dry flat affect labs/med revd A/P: 74yoF Multifocal PNA- IV abx; O2; COVID testing Acute resp failure- O2 DKA- insulin; hab1c/lipids; insulin CHERI- f/u Obesity- 1/2 portion sizes; outpt BMI 37- as above Physical deconditioning- PT consult Prop; scd; lovenox Dispo: f/u COVID testing 03-25-20 Hba1c/LDL 10.; f/u COVID tesing; 03-26-20 cont care; 11- cont care in ICU; needing more O2; Continue decadron and remdesivir. 11-6 f/u echo; cont care in ICU 11- Hypernaremia and CHERI- give free water; Intubated overnight;cont vent support; monitor closely. d/w daughter by Telephone. 11-8 labs pending; titrate insulin up -9 titrate insulin up further; give free water for Hypernatremia/CHERI. Nephr consult; Left Upper lobe PE- lovenox BID - uncontrolled glucose- titrate insulin up. 11- adjust insulin 11-12 CXR no change; cont support; remains on 60% FiO2; Called family- left message. 11-13 No change; 60% FiO2; Left message for family at [phone] Gen TRAYLOR MD, PHD
[2020-04-04] MEDS: ENOXAPARIN SOD INJ 60 MG/0.6 ML SYR SC SCH ×2 (10:00→20:36)
[2020-04-04] MEDS: ZINC SULFATE 220 MG CAP PO SCH (10:00)
[2020-04-04] MEDS: ASCORBIC ACID 500 MG TAB PO SCH ×2 (10:00→17:49)
[2020-04-04] MEDS: FAMOTIDINE 20 MG TAB PO SCH ×2 (10:00→17:49)
[2020-04-04] MEDS: EYE LUBRICANT OPTH OINT 3.5GM TUBE OP SCH ×2 (10:00→17:49)
[2020-04-04] MEDS: INSULIN GLARGINE 100 UNITS/ML VIAL SQ SCH ×2 (10:03→20:36)
[2020-04-04] MEDS: BALSAM PERU/CASTOR OIL 60 GM OINT...G. TP SCH (10:03)
--- NOTE | 2020-04-04 11:36 | Progress Note ---
DATE: 04/04/2020 RENAL PROGRESS NOTE: SUBJECTIVE: Followed for azotemia, hypernatremia. The patient also has COVID-19 pneumonia. Remains on the vent in the ICU, nonoliguric. OBJECTIVE: VITAL SIGNS: As noted, blood pressure is 111/39, 41 pulse, 97.6 temperature, 96% on FiO2 of 60%, 96% O2 saturations. LUNGS: Rhonchi bilaterally. CARDIOVASCULAR: S1, S2. Bradycardic. ABDOMEN: Soft. Positive bowel sounds. EXTREMITIES: No edema. LABORATORY DATA: H and H 9 and 28.7. Chemistry; sodium 141, potassium is 4.2, chloride 106, carbon 29, BUN 31, creatinine is 0.6, and glucose is 251. IMPRESSION AND PLAN: 1. Azotemia is resolving. We will decrease D5 water to 50 mL/h, perhaps can discontinue the D5 water. 2. Hypernatremia, resolving with free water replacement. We will place on free water replacement of 150 mL q.6 hours with tube feeding and will decrease D5 water rate to 50 mL/h. May eventually stop the D5 water since the sodium is down to 141 now. 3. Hypertension. Blood pressure stable. 4. COVID-19 pneumonia. Plan would be as per critical care. Dillan Sheridan MD /MODL /[id number]
--- NOTE | 2020-04-04 14:53 | Progress Note ---
DATE: 04/04/2020 SUBJECTIVE: The patient remains on Versed 6 mg and fentanyl 150 mcg. The patient continued on mechanical ventilation with a PRVC mode of ventilation at a rate of 24. The FiO2 is 60% and the PEEP is 10. The tidal volume is 400. PHYSICAL EXAMINATION: HEENT: Shows no facial swelling or erythema. There is an oral endotracheal tube in place. CARDIAC: Reveals regular rate and rhythm with normal S1 and S2. LUNGS: Auscultation of lungs reveals decreased breath sounds at the bases. There is no wheezing. ABDOMEN: Soft and nontender. There is no rebound or guarding. EXTREMITIES: Show no leg edema or calf tenderness. LABORATORY DATA: White blood cell count is 8.63, hemoglobin is 9, and platelet count is 118. BUN to creatinine ratio is 31 to 0.69. Other electrolytes are within normal limits. Albumin is 2.0. Blood gases; 7.44, 45, 85, and 31. RADIOGRAPHIC DATA: Chest x-ray shows persistent bilateral airspace opacities. IMPRESSION: 1. Viral pneumonia and COVID-19 infection. 2. Diabetes out of control. 3. Metabolic encephalopathy. 4. Anemia secondary to chronic blood loss. PLAN: 1. Continue enteral feedings. 2. Lovenox. 3. Continue fentanyl and Versed. 4. Continue free water. 5. Complete antibiotics. Greater than 35 minutes in direct critical care time. Pete Walsh MD [facility]/MODL /[id number]
--- NOTE | 2020-04-04 19:44 | Progress Note ---
DATE: 04/04/2020 SUBJECTIVE: Ms. Paz remains on Versed and fentanyl, on a ventilator, FiO2 60%, PEEP of 10, tidal volume of 400. PHYSICAL EXAMINATION: GENERAL: The patient, who is intubated and sedated. HEENT: Not pale. Not icteric. NECK: Supple. CHEST: Crackles bilateral. HEART: S1 and S2. ABDOMEN: Soft. Bowel sounds present. EXTREMITIES: No edema. SKIN: No rash. LABORATORY DATA: White count 8.6 and hemoglobin of 9. MEDICATIONS: The patient, who is currently on Zosyn, Lovenox, and dexamethasone. IMPRESSION: COVID-19, respiratory failure, superimposed bacterial pneumonia, diabetes mellitus, metabolic encephalopathy, and anemia. The plan is to finish 10 days of dexamethasone and 7 days of Zosyn. Supportive care. Anticoagulation. Pulmonary embolism anticoagulation. We will follow. MD JONY Ramirez/MODL /[id number]
[2020-04-04] MEDS: INSULIN REGULAR, HUMAN 3ML VL 100 UNIT in SODIUM CHLORIDE 0.9% 99 ML IV SCH ×2 (20:26)
--- NOTE | 2020-04-04 21:15 | Progress Note ---
DATE: 04/04/2020 Cardiology Progress Note SUBJECTIVE: Remains intubated and sedated. OBJECTIVE: VITAL SIGNS: Telemetry, sinus bradycardia, 40s to 50s. Temperature 98.4, heart rate 49, blood pressure 91/41, respiratory rate 24, and O2 saturation 96%. GENERAL: Intubated and sedated. NECK: Supple. CHEST: With decreased breath sounds. CARDIOVASCULAR: Regular rate and rhythm. Bradycardic. ABDOMEN: Soft. EXTREMITIES: Trace edema. CARDIOVASCULAR MEDICATIONS: Reviewed. Dexamethasone 6 mg daily, fentanyl and Versed for sedation, and atropine 0.5 mg every 2 hours p.r.n. STUDIES: Reviewed. Creatinine 0.69 and glucose 251. White blood cells 8.6, hemoglobin 9, and platelets 118. AST 22, ALT 28, and alkaline phosphatase 47. ASSESSMENT AND PLAN: A 74-year-old woman presents with acute respiratory failure secondary to COVID-19 infection, community-acquired pneumonia, anemia, sinus bradycardia, and asymptomatic. RECOMMEND: Continue p.r.n. atropine. If hypotension ensues, can add dopamine. Continue telemetry monitoring while in-house. Alejandro Larkin MD [facility]/MODL /[id number]
[2020-04-05] VITALS (24 sets, daily range): BP systolic 97–203; BP diastolic 40–80
[2020-04-05] MEDS: PIPER-TAZ 3.375 GM 50 ML IV SCH ×3 (00:20→12:01)
[2020-04-05] MEDS: FENTANYL 2000MCG/NS 250 250 ML IV PRN (02:12)
[2020-04-05] MEDS: MIDAZOLAM HCL 5MG/ML 10ML VIAL 100 ML IV PRN ×2 (02:13→14:51)
--- NOTE | 2020-04-05 04:09 | NUR ---
IM- progress note O/N see below ROS: no f/c/s/N/V/D/LING/cp/skin rash/confusion/dizziness/leg pain v/s revd PE tired appearing anicteric Oxygen canula in place ns1s2 reduced bs soft nt nd no e/t skin dry flat affect labs/med revd A/P: 74yoF Multifocal PNA- IV abx; O2; COVID testing Acute resp failure- O2 DKA- insulin; hab1c/lipids; insulin CHERI- f/u Obesity- 1/2 portion sizes; outpt BMI 37- as above Physical deconditioning- PT consult Prop; scd; lovenox Dispo: f/u COVID testing 03-25-20 Hba1c/LDL .; f/u COVID tesing; 03-26-20 cont care; 11- cont care in ICU; needing more O2; Continue decadron and remdesivir. 11-6 f/u echo; cont care in ICU 03-29 Hypernaremia and CHERI- give free water; Intubated overnight;cont vent support; monitor closely. d/w daughter by Telephone. 11-8 labs pending; titrate insulin up -9 titrate insulin up further; give free water for Hypernatremia/CHERI. Nephr consult; Left Upper lobe PE- lovenox BID - uncontrolled glucose- titrate insulin up. 11 adjust insulin -12 CXR no change; cont support; remains on 60% FiO2; Called family- left message. -13 No change; 60% FiO2; Left message for family at [phone] -14 low grade fever overnight; Thrombocytopenia on AC; monitor; Remains on 60% FiO2; Gen TRAYLOR MD, PHD
[2020-04-05 05:05] LABS: BASOPHILS % 0.1 % (0.0-1.0); EOSINOPHILS # (AUTO) 0.1 (0.0-0.4); EOSINOPHILS % 0.9 % (0.0-6.0); HEMATOCRIT 31.1 % (34.2-44.1); HEMOGLOBIN 9.9 g/dL (12.0-16.0); LYMPHOCYTES # (AUTO) 0.6 (1.0-3.2); LYMPHOCYTES % 6.3 % (18.0-39.1); MEAN CORPUSCULAR HEMOGLOBIN 28.8 pg (28-32); MEAN CORPUSCULAR HGB CONC 31.8 g/dL (31-35); MEAN CORPUSCULAR VOLUME 90.4 fL (81-99); MONOCYTES # (AUTO) 0.2 (0.2-0.8); MONOCYTES % 2.4 % (4.4-11.3); NEUTROPHILS % 88.3 % (38.7-80.0); PLATELET COUNT 126 x10e3/uL (140-360); RED BLOOD COUNT 3.44 x10e6/uL (3.6-5.1); RED CELL DISTRIBUTION WIDTH 15.9 % (11.7-14.4)
[2020-04-05 05:27] LABS: ALANINE AMINOTRANSFERASE 31 IU/L (0-55); ALBUMIN 1.8 g/dL (3.5-5.0); ALBUMIN/GLOBULIN RATIO 0.5 (0.8-2.0); ALKALINE PHOSPHATASE 56 IU/L (40-150); BLOOD UREA NITROGEN 24 mg/dL (7-26); BUN/CREATININE RATIO 37 (6-25); CARBON DIOXIDE 27 mmol/L (22-29); CHLORIDE 103 mmol/L (98-107); CREATININE, SERUM 0.65 mg/dL (0.57-1.11); EST GLOMERULAR FILTRATION RATE > 60 ML/MIN (60-); GLUCOSE 121 mg/dL (74-118); SODIUM 138 mmol/L (136-145)
[2020-04-05] MEDS: ZINC SULFATE 220 MG CAP PO SCH (08:45)
[2020-04-05] MEDS: EYE LUBRICANT OPTH OINT 3.5GM TUBE OP SCH ×2 (08:45→17:30)
[2020-04-05] MEDS: FAMOTIDINE 20 MG TAB PO SCH ×2 (08:45→17:30)
[2020-04-05] MEDS: ASCORBIC ACID 500 MG TAB PO SCH ×2 (08:45→17:30)
[2020-04-05] MEDS: BALSAM PERU/CASTOR OIL 60 GM OINT...G. TP SCH (08:46)
[2020-04-05] MEDS: INSULIN GLARGINE 100 UNITS/ML VIAL SQ SCH ×2 (08:46→20:23)
[2020-04-05 09:20] LABS: ABG HCO3 28 mmol/L (22-26); ABG PCO2 38 mmHg (35-45); ABG PH 7.48 (7.35-7.45); ABG PO2 73 mmHg (80-105); ABG TCO2 29
--- NOTE | 2020-04-05 10:57 | Progress Note ---
DATE: 04/05/2020 SUBJECTIVE: The patient is still on mechanical ventilation. She remains on Levophed and Versed. She is receiving enteral feedings. PHYSICAL EXAMINATION: VITAL SIGNS: The blood pressure is 115/46, saturation is 97%. HEENT: Shows no facial swelling or erythema. LYMPHATIC: Shows no submandibular, cervical or supraclavicular adenopathy. CARDIAC: Reveals regular rate and rhythm with normal S1 and S2. LUNGS: Auscultation of lungs reveals crackles and rhonchi bilaterally. There is no wheezing. ABDOMEN: Soft and nontender. There is no rebound or guarding. EXTREMITIES: Shows no leg edema or calf tenderness. There is no cyanosis or clubbing. LABORATORY DATA: White blood cell count is 10.2, hemoglobin is 9.9. Platelet count is 126. BUN to creatinine ratio is 24 to 0.65. Other electrolytes are within normal limits. Albumin is 1.8. RADIOGRAPHIC DATA: Chest x-ray shows bilateral airspace disease. IMPRESSION: 1. Viral pneumonia and COVID-19 infection. 2. Acute respiratory failure. 3. Diabetes, out of control. 4. Metabolic encephalopathy. 5. Anemia secondary to chronic blood loss. PLAN: 1. Continue current ventilator settings and monitor ABG. 2. Continue Lovenox. 3. Continue fentanyl and Versed. 4. Complete antibiotics. Greater than 35 minutes in direct critical care time. Pete Walsh MD [facility]/MODL /[id number]
[2020-04-05] MEDS ORDERED: FUROSEMIDE INJ 10 MG/ML 2 ML VIAL IV NR (11:45)
--- NOTE | 2020-04-05 12:37 | Progress Note ---
DATE: 04/05/2020 Renal Progress Note SUBJECTIVE: Followed for azotemia, which is improving now with adequate hydration, also hypernatremia, which is resolved now. Sodium is now 138. BUN is 24 now. The patient is nonoliguric. The patient has COVID-19 pneumonia, remains on the vent. OBJECTIVE: VITAL SIGNS: Noted. Blood pressure is 115/46, pulse 74, 26 respirations, FiO2 60%. LUNGS: Bilateral rhonchi. CARDIOVASCULAR: S1 and S2. No rub. ABDOMEN: Soft and nontender. EXTREMITIES: 1+ edema. LABORATORY DATA: Potassium is 4, BUN is 24, and creatinine 0.65. IMPRESSION AND PLAN: 1. Azotemia has largely resolved now. We will discontinue D5 water. 2. Hypernatremia, resolved now. Discontinue D5 water. Continue free water flushes 150 mL q.6 hours along with the tube feeds. 3. Slight fluid overload. We will give one dose of Lasix. There are small bilateral effusions on chest x-ray. 4. Pneumonia. Plan would be as per Critical Care recommendation. Dillan Sheridan MD [facility]/MODL /[id number]
[2020-04-05] MEDS: ENOXAPARIN SOD INJ 60 MG/0.6 ML SYR SC SCH (17:30)
--- NOTE | 2020-04-05 17:32 | Progress Note ---
DATE: 04/05/2020 Ms. Paz is not on Lovenox. We will start her on Lovenox 40 q. 24h MD JONY Ramirez/NENA /[id number]
--- NOTE | 2020-04-05 18:02 | Progress Note ---
DATE: 04/05/2020 SUBJECTIVE: The patient remains in intensive care unit. The patient is on vasopressors, on ventilator. OBJECTIVE: VITAL SIGNS: Blood pressure 111/46 and saturation 97%. HEENT: Normocephalic. Not pale. Not icteric. NECK: Supple. CHEST: Few crackles. HEART: S1 and S2 normal. ABDOMEN: Soft. Bowel sounds present. EXTREMITIES: No edema. SKIN: No rash. LABORATORY DATA: Her blood cultures are negative. Her white count is 10. Her sodium 138, potassium 4.0, and creatinine 0.65. IMPRESSION: Respiratory failure, COVID-19, superimposed bacterial pneumonia, and metabolic encephalopathy. Currently on Zosyn, started on the . We will discontinue. Continue diabetic control. The patient to finish dexamethasone. Continue with Lovenox. We will follow. Fei Hernandez MD [facility]/MODL /[id number]
--- NOTE | 2020-04-05 19:49 | Progress Note ---
DATE: 04/05/2020 Cardiology Progress Note SUBJECTIVE: Ms. Paz remains intubated and sedated, on telemetry. With increased sedation, she remains in sinus rhythm with a heart rate in the 90s. OBJECTIVE: VITAL SIGNS: Temperature 100.1, heart rate 93, blood pressure 130/51, respiratory rate 21, O2 saturation 97%. GENERAL: Intubated and sedated. NECK: Supple. CHEST: With decreased breath sounds. CARDIOVASCULAR: Regular rate and rhythm. Normal S1 and S2. ABDOMEN: Soft. EXTREMITIES: Trace edema. CARDIOVASCULAR MEDICATIONS: Reviewed. Lovenox 40 mg subcu daily, atropine 0.5 mg q.2 hours p.r.n. bradycardia and heart rate less than 40. LABORATORY WORK: Potassium 4, bicarbonate 27, creatinine 0.8, glucose 121. White blood cells 10, hemoglobin 9.9, and platelets 126. ASSESSMENT: A 74-year-old woman with coronavirus disease 2019 infection, community-acquired pneumonia, acute respiratory failure, asymptomatic intermittent sinus bradycardia. RECOMMEND: 1. 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 2. Atropine p.r.n. 3. Keep on telemetry. MD SHANELLE Olivo/NENA /[id number]
[2020-04-05] MEDS: INSULIN REGULAR, HUMAN 3ML VL 100 UNIT in SODIUM CHLORIDE 0.9% 99 ML IV SCH ×2 (20:00)
[2020-04-06] VITALS (24 sets, daily range): BP systolic 86–185; BP diastolic 40–82
[2020-04-06] MEDS: INSULIN REGULAR, HUMAN 3ML VL 100 UNIT in SODIUM CHLORIDE 0.9% 99 ML IV SCH ×2
[2020-04-06] MEDS: MIDAZOLAM HCL 5MG/ML 10ML VIAL 100 ML IV PRN ×3 (01:13→19:49)
[2020-04-06] MEDS: FENTANYL 2000MCG/NS 250 250 ML IV PRN ×2 (01:15→13:51)
[2020-04-06 05:31] LABS: BASOPHILS % 0.1 % (0.0-1.0); EOSINOPHILS # (AUTO) 0.1 (0.0-0.4); EOSINOPHILS % 1.2 % (0.0-6.0); HEMATOCRIT 31.6 % (34.2-44.1); HEMOGLOBIN 10.3 g/dL (12.0-16.0); LYMPHOCYTES # (AUTO) 0.7 (1.0-3.2); LYMPHOCYTES % 7.6 % (18.0-39.1); MEAN CORPUSCULAR HEMOGLOBIN 29.3 pg (28-32); MEAN CORPUSCULAR HGB CONC 32.6 g/dL (31-35); MONOCYTES # (AUTO) 0.2 (0.2-0.8); MONOCYTES % 2.3 % (4.4-11.3); NEUTROPHILS # (AUTO) 7.8 (2.1-6.9); NEUTROPHILS % 86.5 % (38.7-80.0); PLATELET COUNT 128 x10e3/uL (140-360); RED BLOOD COUNT 3.51 x10e6/uL (3.6-5.1); RED CELL DISTRIBUTION WIDTH 15.9 % (11.7-14.4)
[2020-04-06 05:38] LABS: ALANINE AMINOTRANSFERASE 26 IU/L (0-55); ALBUMIN 1.7 g/dL (3.5-5.0); ALBUMIN/GLOBULIN RATIO 0.4 (0.8-2.0); ALKALINE PHOSPHATASE 53 IU/L (40-150); BLOOD UREA NITROGEN 17 mg/dL (7-26); BUN/CREATININE RATIO 30 (6-25); CALCIUM 8.5 mg/dL (8.4-10.2); CARBON DIOXIDE 29 mmol/L (22-29); CHLORIDE 102 mmol/L (98-107); CREATININE, SERUM 0.57 mg/dL (0.57-1.11); EST GLOMERULAR FILTRATION RATE > 60 ML/MIN (60-); GLUCOSE 103 mg/dL (74-118); MAGNESIUM 1.6 MG/DL (1.3-2.1); PHOSPHORUS 3.6 MG/DL (2.3-4.7); SODIUM 138 mmol/L (136-145)
--- NOTE | 2020-04-06 08:09 | Diagnostic Imaging Report ---
EXAMINATION: CHEST SINGLE (PORTABLE) INDICATION: resp failure COMPARISON: Multiple prior x-rays including most recent on 04/04/2020. FINDINGS: TUBES and LINES: ET tube tip 5.5 cm above km. Right upper extremity PICC tip terminates in the distal SVC. Subdiaphragmatic enteric tube courses into abdomen, tip at a field of view. LUNGS/PLEURA: Persistent reticular and hazy/consolidative opacities predominantly in the mid to lower lungs. Probable small bilateral pleural effusions. No pneumothorax. HEART AND MEDIASTINUM: The cardiomediastinal silhouette is within normal size limits. There are atherosclerotic calcifications within the aorta. BONES AND SOFT TISSUES: No acute osseous lesion. Soft tissues are unchanged. UPPER ABDOMEN: No free air under the diaphragm. Cholecystectomy clips. IMPRESSION: 1. Stable lines and tubes as above. 2. No interval changes in radiographic appearance of the lungs. Signed by: Stefania Murcia MD on 04/06/2020 8:06 AM
--- NOTE | 2020-04-06 08:35 | NUR ---
Assumed care report from Maryellen
[2020-04-06] MEDS: EYE LUBRICANT OPTH OINT 3.5GM TUBE OP SCH ×2 (08:43→17:10)
[2020-04-06] MEDS: ASCORBIC ACID 500 MG TAB PO SCH ×2 (08:43→17:10)
[2020-04-06] MEDS: ZINC SULFATE 220 MG CAP PO SCH (08:43)
[2020-04-06] MEDS: FAMOTIDINE 20 MG TAB PO SCH ×2 (08:43→17:10)
[2020-04-06] MEDS: INSULIN GLARGINE 100 UNITS/ML VIAL SQ SCH ×2 (08:44→20:51)
--- NOTE | 2020-04-06 09:03 | NUR ---
IM- progress note O/N see below ROS: no f/c/s/N/V/D/LING/cp/skin rash/confusion/dizziness/leg pain v/s revd PE tired appearing anicteric Oxygen canula in place ns1s2 reduced bs soft nt nd no e/t skin dry flat affect labs/med revd A/P: 74yoF Multifocal PNA- IV abx; O2; COVID testing Acute resp failure- O2 DKA- insulin; hab1c/lipids; insulin CHERI- f/u Obesity- 1/2 portion sizes; outpt BMI 37- as above Physical deconditioning- PT consult Prop; scd; lovenox Dispo: f/u COVID testing 03-25-20 Hba1c/LDL 10.; f/u COVID tesing; 03-26- cont care; - cont care in ICU; needing more O2; Continue decadron and remdesivir. 11-6 f/u echo; cont care in ICU 11-7 Hypernaremia and CHERI- give free water; Intubated overnight;cont vent support; monitor closely. d/w daughter by Telephone. 11-8 labs pending; titrate insulin up -9 titrate insulin up further; give free water for Hypernatremia/CHERI. Nephr consult; Left Upper lobe PE- lovenox BID - uncontrolled glucose- titrate insulin up. 11-11 adjust insulin 11-12 CXR no change; cont support; remains on 60% FiO2; Called family- left message. 11-13 No change; 60% FiO2; Left message for family at [phone] 11-14 low grade fever overnight; Thrombocytopenia on AC; monitor; Remains on 60% FiO2; 11-15 stable; cont vent support. continue free water; Hypernatremia- recheck BMP at 2pm; Gen TRAYLOR MD, PHD
--- NOTE | 2020-04-06 09:19 | NUR ---
Dr Whittington here phoned Daughter [phone] updated and questions answered
[2020-04-06] MEDS: BALSAM PERU/CASTOR OIL 60 GM OINT...G. TP SCH (09:24)
--- NOTE | 2020-04-06 10:40 | NUR ---
Dr Walsh at bedside update given see notes and new orders
--- NOTE | 2020-04-06 11:35 | Progress Note ---
DATE: 04/06/2020 SUBJECTIVE: The patient remains on mechanical ventilation. She is on Versed at 5 mg and fentanyl. The patient is currently on a mechanical ventilator. PHYSICAL EXAMINATION: VITAL SIGNS: On a PRVC mode ventilation, rate of 24 with a tidal volume of 400. PEEP is 10, and FiO2 of 60%. HEENT: No facial swelling or erythema. LYMPHATIC: No submandibular, cervical, or supraclavicular adenopathy. CARDIAC: Regular rate and rhythm with normal S1, S2. LUNGS: Auscultation of lungs reveals decreased breath sounds at the bases. There is no wheezing. ABDOMEN: Soft, nontender. There is no rebound or guarding. EXTREMITIES: No leg edema or calf tenderness. There is no cyanosis or clubbing. SKIN: No rashes. NEUROLOGICAL: No focal abnormalities. LABORATORY DATA: White blood cell count is 9, hemoglobin is 10.3, and the platelet count is 128. The BUN to creatinine ratio is 17 to 0.57. Other electrolytes are within normal limits and the albumin are 1.7. IMPRESSION: 1. Viral pneumonia and coronavirus disease-19 infection. 2. Acute respiratory failure. 3. Diabetes, out of control. 4. Metabolic encephalopathy. 5. Anemia secondary to chronic blood loss. PLAN: 1. Continue current ventilator settings and repeat ABG. 2. Continue Versed and fentanyl. 3. Continue Lovenox. 4. Complete antibiotics. 5. Continue to monitor and adjust blood sugars and insulin. Greater than 35 minutes in direct critical care time. Pete Walsh MD [facility]/MODL /[id number]
--- NOTE | 2020-04-06 11:52 | NUR ---
Dr Walsh in unit informed patient remains on insulin drip BS 103-110 today ok to dc drip now
[2020-04-06] MEDS: ENOXAPARIN SOD INJ 60 MG/0.6 ML SYR SC SCH (17:10)
--- NOTE | 2020-04-06 17:30 | NUR ---
Phoned Dr Whittington informed him rudd clogged or leaking ok to replace.
[2020-04-06 18:12] LABS: ABG HCO3 33 mmol/L (22-26); ABG PCO2 46 mmHg (35-45); ABG PH 7.47 (7.35-7.45); ABG PO2 70 mmHg (80-105); ABG TCO2 35
[2020-04-06] MEDS ORDERED: SODIUM CHLORIDE 0.9% 1000ML 1,000 ML ONE (18:38)
[2020-04-06] MEDS ORDERED: ALBUMIN 25% 25GM 100ML 0.25 GM/ML BTL IV ONE (18:45)
--- NOTE | 2020-04-06 18:45 | NUR ---
Phoned Dr Walsh informed I replaced patient rudd output 1L in 30min, placed Fent and Versed on hold blood pressure sbp 83/48 . Give 50gm Albumin IV now
[2020-04-06] MEDS ORDERED: ALBUMIN 25% 12.5GM 0.25 GM/ML BTL IV STA (19:12)
--- NOTE | 2020-04-06 22:03 | Progress Note ---
DATE: 04/06/2020 Cardiology Progress Note SUBJECTIVE: Remains intubated and sedated, on telemetry in sinus rhythm. OBJECTIVE: VITAL SIGNS: Temperature 99.4, heart rate 101, blood pressure 164/70, respiratory rate 24, O2 saturation 94%. GENERAL: Intubated and sedated. NECK: Supple. CHEST: With decreased breath sounds bilaterally. CARDIOVASCULAR: Regular rate and rhythm. Normal S1 and S2. No S3 or S4. ABDOMEN: Soft. Bowel sounds positive. EXTREMITIES: Trace edema. SKIN: Dry and intact. Normothermic CARDIOVASCULAR MEDICATIONS: Reviewed. Lovenox 40 mg subcu daily, atropine 0.5 mg every 2 hours p.r.n. STUDIES: Reviewed. Sodium 138, potassium 4, chloride 102, bicarbonate 29, BUN 17, creatinine 0.57, glucose 103. White blood cells 9.02, hemoglobin 10.3 platelets 128, AST 25, ALT 26, alkaline phosphatase 53, total bilirubin 0.4. ASSESSMENT AND PLAN: A 74-year-old woman presents with: 1. Acute respiratory failure in the setting of COVID-19 infection and community-acquired pneumonia. Sinus bradycardia, now improving with decreased sedation. 2. Diabetes mellitus. RECOMMEND: 1. Continue Lovenox. 2. Continue p.r.n. atropine. 3. Wean vent support as tolerated. Alejandro Larkin MD [facility]/MODL /[id number]
[2020-04-07] VITALS (25 sets, daily range): BP systolic 90–186; BP diastolic 37–67
[2020-04-07] MEDS ORDERED: INSULIN LISPRO 100 UNIT/1 ML 3ML VIAL SQ SCH
[2020-04-07] MEDS: FENTANYL 2000MCG/NS 250 250 ML IV PRN ×2 (02:14→15:47)
[2020-04-07] MEDS ORDERED: ROCURONIUM BROMIDE 10 MG/ML 5ML VIAL IV STA (02:24)
[2020-04-07] MEDS ORDERED: ROCURONIUM BROMIDE 1,250 MG in SODIUM CHLORIDE 0.9% 250ML 125 ML IV STA (02:24)
[2020-04-07] MEDS ORDERED: ROCURONIUM BROMIDE 2 ML IV ONE (02:35)
--- NOTE | 2020-04-07 03:30 | Diagnostic Imaging Report ---
EXAMINATION: CHEST SINGLE (PORTABLE) INDICATION: ^resp failure COMPARISON: Multiple prior x-rays including most recent on 04/04/2020. FINDINGS: TUBES and LINES: ET tube tip 3.9 cm above km. Right upper extremity PICC tip terminates in the distal SVC. Subdiaphragmatic enteric tube courses into abdomen, tip out of field of view. LUNGS/PLEURA: Persistent reticular and hazy/consolidative opacities predominantly in the mid to lower lungs. Probable small bilateral pleural effusions. No pneumothorax. HEART AND MEDIASTINUM: The cardiomediastinal silhouette is within normal size limits. There are atherosclerotic calcifications within the aorta. BONES AND SOFT TISSUES: No acute osseous lesion. Soft tissues are unchanged. UPPER ABDOMEN: No free air under the diaphragm. Cholecystectomy clips. IMPRESSION: 1. Stable lines and tubes as above. 2. Persistent extensive pulmonary disease. Signed by: Romain Tejeda DO on 04/07/2020 3:27 AM
[2020-04-07 03:47] LABS: BASOPHILS % 0.1 % (0.0-1.0); EOSINOPHILS # (AUTO) 0.2 (0.0-0.4); EOSINOPHILS % 1.8 % (0.0-6.0); HEMATOCRIT 28.9 % (34.2-44.1); HEMOGLOBIN 9.1 g/dL (12.0-16.0); LYMPHOCYTES # (AUTO) 0.5 (1.0-3.2); LYMPHOCYTES % 5.6 % (18.0-39.1); MEAN CORPUSCULAR HEMOGLOBIN 28.7 pg (28-32); MEAN CORPUSCULAR HGB CONC 31.5 g/dL (31-35); MEAN CORPUSCULAR VOLUME 91.2 fL (81-99); MONOCYTES # (AUTO) 0.2 (0.2-0.8); MONOCYTES % 2.5 % (4.4-11.3); NEUTROPHILS # (AUTO) 7.9 (2.1-6.9); NEUTROPHILS % 89.1 % (38.7-80.0); PLATELET COUNT 115 x10e3/uL (140-360); RED BLOOD COUNT 3.17 x10e6/uL (3.6-5.1); RED CELL DISTRIBUTION WIDTH 15.9 % (11.7-14.4)
[2020-04-07 03:59] LABS: ALANINE AMINOTRANSFERASE 17 IU/L (0-55); ALBUMIN 2.5 g/dL (3.5-5.0); ALBUMIN/GLOBULIN RATIO 0.8 (0.8-2.0); ALKALINE PHOSPHATASE 44 IU/L (40-150); ANION GAP 10.8 mmol/L (8-16); BLOOD UREA NITROGEN 16 mg/dL (7-26); BUN/CREATININE RATIO 27 (6-25); CALCIUM 8.8 mg/dL (8.4-10.2); CARBON DIOXIDE 33 mmol/L (22-29); CHLORIDE 107 mmol/L (98-107); EST GLOMERULAR FILTRATION RATE > 60 ML/MIN (60-); GLUCOSE 150 mg/dL (74-118); POTASSIUM 3.8 mmol/L (3.5-5.1); SODIUM 147 mmol/L (136-145)
--- NOTE | 2020-04-07 04:00 | NUR ---
Pt suddenly hypertensive and tachypneic at just after midnight. Respiratory at bedside to suction pt and do oral care. Afterward, pt continued with same pattern. Additional attempts made to suction pt and further sedate unsuccessful. Pt evaluated for possible mucous plug or pneumothorax, radiology called for stat chest x-ray as pt's saturations began to decline. No obvious pneumothorax on xray, no secretions to suction from ETT, minute ventilation more than adequate at 14-15L, insp/exp volumes equal. Pt breathing 45-50/min, SBP 190-200s HR 110s. MD Walsh called to request paralytic. Pt now synchronous with ventilator, NSR, no longer hypertensive.
[2020-04-07 04:18] LABS: MAGNESIUM 1.7 MG/DL (1.3-2.1); PHOSPHORUS 3.8 MG/DL (2.3-4.7)
[2020-04-07] MEDS ORDERED: SODIUM CHLORIDE 0.9% 1000ML 1,000 ML ONE (04:59)
[2020-04-07] MEDS: MIDAZOLAM HCL 5MG/ML 10ML VIAL 100 ML IV PRN ×2 (06:00→17:50)
[2020-04-07] MEDS: INSULIN GLARGINE 100 UNITS/ML VIAL SQ SCH ×2 (08:14→20:12)
[2020-04-07] MEDS: FAMOTIDINE 20 MG TAB PO SCH ×2 (08:14→16:02)
[2020-04-07] MEDS: ZINC SULFATE 220 MG CAP PO SCH (08:14)
[2020-04-07] MEDS: ASCORBIC ACID 500 MG TAB PO SCH ×2 (08:14→16:02)
[2020-04-07] MEDS: EYE LUBRICANT OPTH OINT 3.5GM TUBE OP SCH ×2 (08:14→16:02)
[2020-04-07] MEDS: BALSAM PERU/CASTOR OIL 60 GM OINT...G. TP SCH (08:15)
[2020-04-07 08:47] LABS: ABG PCO2 46 mmHg (35-45); ABG PH 7.45 (7.35-7.45)
[2020-04-07 08:48] LABS: ABG HCO3 32 mmol/L (22-26); ABG PO2 59 mmHg (80-105); ABG TCO2 34
--- NOTE | 2020-04-07 11:22 | NUR ---
INFECTIOUS DISEASE PROGRESS NOTE DR. LORIE KENNEY CC: COVID ROS: unable to obtain/intubated PAST MEDICAL HISTORY: Diabetes mellitus and hypertension. ALLERGIES: PENICILLIN, BUT SHE DID WELL WITH CEPHALOSPORIN. LABORATORY DATA: per chart MEDICATIONS: per chart PHYSICAL EXAMINATION: GENERAL: intubated sedated VITAL SIGNS: per chart HEENT: She is not icteric. normocephalic atraumatic NECK: Supple. no JVD CHEST: Crackles bilateral. vent with 60% fi02 and PEEP of 10 HEART: S1 and S2. no s3, s4 ABDOMEN: Soft. Bowel sounds present. EXTREMITIES: no joint swelling, no rash SKIN: No rash. no edema IMPRESSION: Respiratory failure community-acquired pneumonia COVID 19 Pulmonary embolism in the segmental left upper lobe branches. PLAN: supportive care vent support lovenox dexamethasone x10 days s/p IV ABT Guarded to poor prognosis Tata Lino MSN, BROADCAST NEWS PRODUCER, AGACNP-BC d/w Lorie Kenney M.D.
[2020-04-07] MEDS: INSULIN REGULAR, HUMAN 100 UNIT/1 ML 3ML VIAL SQ SCH ×3 (11:30→20:11)
[2020-04-07] MEDS: FUROSEMIDE INJ 10 MG/ML 4 ML VIAL IV SCH ×2 (12:19→21:17)
--- NOTE | 2020-04-07 12:32 | Progress Note ---
DATE: 04/07/2020 SUBJECTIVE: The patient had more tachypnea and low blood pressure. Her sedation was held in the middle of night and she required brief paralysis. Her Versed and fentanyl were subsequently restarted. PHYSICAL EXAMINATION: VITAL SIGNS: The blood pressure is 90/56, saturation is 94%. She is currently on a PRVC mode of ventilation, tidal volume of 400 with a rate of 24, PEEP of 10, and FiO2 of 60%. HEENT: No facial swelling or erythema. LYMPHATIC: No submandibular, cervical, or supraclavicular adenopathy. CARDIAC: Regular rate and rhythm with normal S1, S2. LUNGS: Auscultation of lungs reveals decreased breath sounds at the bases. There is no wheezing. ABDOMEN: Soft, nontender. There is no rebound or guarding. EXTREMITIES: 1 to 2+ leg edema. LABORATORY DATA: White blood cell count is 8.87, hemoglobin is 9.1, and the platelet count is 150. The BUN to creatinine ratio is 16 to 0.6. Sodium is 147. Albumin is 2.5. IMPRESSION: 1. Viral pneumonia and coronavirus disease-19 infection. 2. Acute respiratory failure. 3. Diabetes, out of control. 4. Metabolic encephalopathy. 5. Anemia secondary to chronic blood loss. PLAN: 1. Continue current ventilator settings. 2. Stop rocuronium. 3. Continue Versed and fentanyl. 4. Continue Lovenox. 5. Continue antibiotics. 6. Continue to monitor and adjust insulin. Greater than 35 minutes in direct critical care time. Pete Walsh MD [facility]/MODL /[id number]
--- NOTE | 2020-04-07 13:52 | Progress Note ---
DATE: 04/07/2020 Cardiology Progress Note SUBJECTIVE: Remains intubated and sedated. OBJECTIVE: VITAL SIGNS: Temperature 98.7, heart rate 63, blood pressure 90/56, respiratory rate 25, O2 saturation 94%. GENERAL: Intubated and sedated. NECK: Supple. CHEST: With decreased breath sounds. CARDIOVASCULAR: Regular rate and rhythm. Normal S1, S2. ABDOMEN: Soft. Bowel sounds positive. EXTREMITIES: Trace edema. CARDIOVASCULAR MEDICATIONS: Reviewed. Lovenox 40 mg subcu daily, atropine 0.5 mg every 2 hours p.r.n. LABORATORY DATA: Studies reviewed. Sodium 147, potassium 4.8, chloride 107, bicarbonate 33, BUN 16, creatinine 0.6, glucose 150. White blood cells 8.8, hemoglobin 9.1, platelet count 115. Telemetry in sinus rhythm. ASSESSMENT AND PLAN: 1. A 74-year-old woman with coronavirus disease-2019 infection, community acquired pneumonia, acute respiratory failure, sinus bradycardia. Recommend continue p.r.n. atropine. 2. Continue deep vein thrombosis prophylaxis. 3. Wean vent support as tolerated. 4. Keep on telemetry while in-house, maintain light sedation where as possible. Alejandro Larkin MD [facility]/NENA /[id number]
[2020-04-07 14:35] LABS: ANION GAP 10.7 mmol/L (8-16); BLOOD UREA NITROGEN 18 mg/dL (7-26); BUN/CREATININE RATIO 30 (6-25); CALCIUM 8.9 mg/dL (8.4-10.2); CARBON DIOXIDE 36 mmol/L (22-29); CHLORIDE 104 mmol/L (98-107); CREATININE, SERUM 0.61 mg/dL (0.57-1.11); EST GLOMERULAR FILTRATION RATE > 60 ML/MIN (60-); GLUCOSE 63 mg/dL (74-118); POTASSIUM 3.7 mmol/L (3.5-5.1); SODIUM 147 mmol/L (136-145)
[2020-04-07] MEDS: ENOXAPARIN SOD INJ 60 MG/0.6 ML SYR SC SCH (16:02)
--- NOTE | 2020-04-07 16:08 | Progress Note ---
DATE: 04/07/2020 Nephrology Progress Note SUBJECTIVE: Followup for azotemia secondary to dehydration and hypernatremia. The patient remains on ventilator. Sodium crept up to 147 this morning. On IV Lasix twice a day for pulmonary edema. OBJECTIVE: VITAL SIGNS: Blood pressure 92/48, pulse 61 per minute, afebrile. FiO2 60%. NECK: Without JVP. RESPIRATION: Bilateral air entry to ventilated breaths. CARDIOVASCULAR: Regular rate and rhythm. ABDOMEN: Soft, nondistended. EXTREMITIES: There is some pitting edema in the upper extremities. Chest x-ray reviewed showing persistent extensive pulmonary disease with possibility of some cardiogenic pulmonary edema. IMPRESSION: 1. Azotemia secondary to dehydration. Now resolved. 2. Hypernatremia, secondary to loop diuretics. On free water through NG tube. We will increase rate from 150-250 every 6 hours and monitor sodium level. 3. COVID-19 infection and pneumonitis, on IV Lasix for suspected cardiogenic pulmonary edema. Cristobal Valenzuela MD [facility]/MODL /[id number]
[2020-04-07] MEDS: DEXTROSE 50% SYRINGE 50 ML IV PRN (16:29)
--- NOTE | 2020-04-07 18:07 | NUR ---
Nutrition Intervention Note RD Recommendation(s) for Physician: -Recommend modifying formula to Vital AF 1.2 @ goal rate of 40 mL/hr (provides 1152 kcal and 72 g protein). Vital AF is appropriate for diabetic pts on vent, less CHO/L than Glucerna and provides adequate protein. Pt may be fed at goal rate in reverse Trendelenburg with HOB elevated 25 degrees. -Water/fluid management per MD. Plan of Care: RD following, monitoring for tolerance and adequacy. TF rec's. Nutrition reason for involvement: follow up RD Assessment 04/07: Follow up. Chart reviewed. Pt remains intubated and sedated. Pt is tolerating Glucerna TF @ 40 mL/hr at this time per RN. Recommend modifying TF to Vital AF 1.2 to better meet nutritional needs. Will continue to monitor 04/02: Follow up. Pt remains intubated and sedated with Versed and Fentanyl, no pressors. Pt tolerating trickle feeds while proned, recommend advancing to goal rate as pt currently in reverse Trendelenburg with HOB elevated- discussed with RN on unit. TF rec's remain appropriate, Dr. Whittington changed order to Glucerna 1.2 today. Chart reviewed. Will continue to monitor. (03/28/20) Pt is a 74 year old female admitted with acute respiratory distress and COVID-19. Pt was intubated this morning and tube feed order was placed. There are no reports of recent weight loss without trying and no reports of decreased appetite upon admission. Tube feed recommendations provided. RD to manage TF order per Dr. Walsh. Will continue to monitor. Principal Problems/Diagnoses: acute respiratory distress, COVID-19 PMH: type 2 diabetes GI: soft abdomen, last recorded BM 04/05 Skin: stage 3 sacral pressure ulcer documented 04/07 Labs: 04/07: Na 147, K 3.8, BUN 16, Cr 0.60, Glu 150, Ca 8.8 04/02: Na 143, K 4.2, BUN 35, Cr 0.69, Gluc 276, Phos 3.6, Mg 2, POC Gluc 225-238 (03/28/20) Na 148, K 3.5, BUN 37, Glu 201, Ca 8.8, AST 37 Meds: insulin, zinc sulfate, vitamin C, pepcid, fentanyl, insulin, zofran, colace Ht: 61 in Wt: 184 lbs (04/07) 169.44 (04/02) 201.56 lbs (03/24) weight fluctuations, Suspect possible weight error BMI: 38.1 kg/m2 - using wt of 201.56 lbs upon admisison IBW: 105 lbs Malnutrition Evaluation (03/28/20) The patient does not meet criteria for a specified degree of malnutrition at this time. Will re-evaluate at follow-up as appropriate. Nutrition Prescription (Diet Order): Glucerna 1.2 at 40 ml/hr (provides 1152 kcal and 58 g protein) Estimated Nutritional Needs: 2886-5303 calories/day (22-25 kcal/kg IBW) 70- 95 g protein/day (1.5-2 g pro/kg IBW) Diet Adequacy: meeting calorie needs, not meeting protein needs Tolerance: tolerating TF Diet Education Needs Assessment: Diet education not indicated Nutrition Care Level: moderate Nutrition Diagnosis: Inadequate oral intake related to mechanical ventilation as evidenced by need for enteral nutrition. Goal: Patient will meet 75-100% of estimated needs by follow up Progress: progressing Interventions: - Composition, Rate, Route, Recommended Modifications Monitoring/Evaluation: -Total energy intake, Total protein intake, Formula/Solution, Weight change Signed: Angela Ackerman RD, SUN
[2020-04-07] MEDS: ACETAMINOPHEN 325 MG TAB PO PRN (22:00)
[2020-04-08] VITALS (23 sets, daily range): BP systolic 85–203; BP diastolic 38–73
--- NOTE | 2020-04-08 02:40 | NUR ---
ARRANGED FOR CURRENT BED [id number] TO BE ASSIGNED TO PATIENT. CONFIRMATION#[id number] SPOKE TO ANDREW WITH [facility].
[2020-04-08 04:40] LABS: BASOPHILS % 0.1 % (0.0-1.0); EOSINOPHILS # (AUTO) 0.3 (0.0-0.4); EOSINOPHILS % 3.3 % (0.0-6.0); HEMATOCRIT 26.8 % (34.2-44.1); HEMOGLOBIN 8.4 g/dL (12.0-16.0); LYMPHOCYTES # (AUTO) 0.7 (1.0-3.2); LYMPHOCYTES % 9.3 % (18.0-39.1); MEAN CORPUSCULAR HEMOGLOBIN 29.1 pg (28-32); MEAN CORPUSCULAR HGB CONC 31.3 g/dL (31-35); MEAN CORPUSCULAR VOLUME 92.7 fL (81-99); MONOCYTES # (AUTO) 0.3 (0.2-0.8); MONOCYTES % 3.3 % (4.4-11.3); NEUTROPHILS # (AUTO) 6.3 (2.1-6.9); NEUTROPHILS % 83.2 % (38.7-80.0); PLATELET COUNT 130 x10e3/uL (140-360); RED BLOOD COUNT 2.89 x10e6/uL (3.6-5.1)
[2020-04-08 05:03] LABS: ALANINE AMINOTRANSFERASE 15 IU/L (0-55); ALBUMIN 2.1 g/dL (3.5-5.0); ALBUMIN/GLOBULIN RATIO 0.6 (0.8-2.0); ALKALINE PHOSPHATASE 47 IU/L (40-150); ANION GAP 10.5 mmol/L (8-16); BLOOD UREA NITROGEN 20 mg/dL (7-26); BUN/CREATININE RATIO 30 (6-25); CALCIUM 8.9 mg/dL (8.4-10.2); CARBON DIOXIDE 38 mmol/L (22-29); CHLORIDE 98 mmol/L (98-107); CREATININE, SERUM 0.67 mg/dL (0.57-1.11); EST GLOMERULAR FILTRATION RATE > 60 ML/MIN (60-); GLUCOSE 66 mg/dL (74-118); POTASSIUM 3.5 mmol/L (3.5-5.1); SODIUM 143 mmol/L (136-145)
--- NOTE | 2020-04-08 06:26 | NUR ---
IM- progress note O/N see below ROS: no f/c/s/N/V/D/LING/cp/skin rash/confusion/dizziness/leg pain v/s revd PE tired appearing anicteric Oxygen canula in place ns1s2 reduced bs soft nt nd no e/t skin dry flat affect labs/med revd A/P: 74yoF Multifocal PNA- IV abx; O2; COVID testing Acute resp failure- O2 DKA- insulin; hab1c/lipids; insulin CHERI- f/u Obesity- 1/2 portion sizes; outpt BMI 37- as above Physical deconditioning- PT consult Prop; scd; lovenox Dispo: f/u COVID testing 03-25-20 Hba1c/LDL 10.; f/u COVID tesing; 03-26- cont care; 11- cont care in ICU; needing more O2; Continue decadron and remdesivir. 11-6 f/u echo; cont care in ICU 11-7 Hypernaremia and CHERI- give free water; Intubated overnight;cont vent support; monitor closely. d/w daughter by Telephone. 11-8 labs pending; titrate insulin up 11-9 titrate insulin up further; give free water for Hypernatremia/CHERI. Nephr consult; Left Upper lobe PE- lovenox BID - uncontrolled glucose- titrate insulin up. 11-11 adjust insulin 11-12 CXR no change; cont support; remains on 60% FiO2; Called family- left message. 11-13 No change; 60% FiO2; Left message for family at [phone] 11-14 low grade fever overnight; Thrombocytopenia on AC; monitor; Remains on 60% FiO2; 11-15 stable; cont vent support. continue free water; Hypernatremia- recheck BMP at 2pm; 11-16 cont care; spoke with family Gen TRAYLOR MD, PHD
--- NOTE | 2020-04-08 06:27 | NUR ---
IM- progress note O/N see below ROS: no f/c/s/N/V/D/LING/cp/skin rash/confusion/dizziness/leg pain v/s revd PE tired appearing anicteric Oxygen canula in place ns1s2 reduced bs soft nt nd no e/t skin dry flat affect labs/med revd A/P: 74yoF Multifocal PNA- IV abx; O2; COVID testing Acute resp failure- O2 DKA- insulin; hab1c/lipids; insulin CHERI- f/u Obesity- 1/2 portion sizes; outpt BMI 37- as above Physical deconditioning- PT consult Prop; scd; lovenox Dispo: f/u COVID testing 03-25-20 Hba1c/LDL 10.; f/u COVID tesing; 03-26- cont care; 11- cont care in ICU; needing more O2; Continue decadron and remdesivir. 11-6 f/u echo; cont care in ICU -7 Hypernaremia and CHERI- give free water; Intubated overnight;cont vent support; monitor closely. d/w daughter by Telephone. 11-8 labs pending; titrate insulin up -9 titrate insulin up further; give free water for Hypernatremia/CHERI. Nephr consult; Left Upper lobe PE- lovenox BID - uncontrolled glucose- titrate insulin up. 11-11 adjust insulin 11-12 CXR no change; cont support; remains on 60% FiO2; Called family- left message. 11-13 No change; 60% FiO2; Left message for family at Ms Steven [phone] low grade fever overnight; Thrombocytopenia on AC; monitor; Remains on 60% FiO2; 11-15 stable; cont vent support. continue free water; Hypernatremia- recheck BMP at 2pm; 11-16 cont care; spoke with family 11-17 fever overnight; no leukocytosis or cultures positive; cont vent; cont support; renal fn stable; Spoke with Ms Steven, daughter. Gen TRAYLOR MD, PHD
[2020-04-08] MEDS: MIDAZOLAM HCL 5MG/ML 10ML VIAL 100 ML IV PRN ×2 (06:59→22:32)
[2020-04-08] MEDS: FENTANYL 2000MCG/NS 250 250 ML IV PRN ×2 (06:59→20:09)
[2020-04-08] MEDS: INSULIN REGULAR, HUMAN 100 UNIT/1 ML 3ML VIAL SQ SCH ×4 (07:30→20:20)
[2020-04-08] MEDS: ASCORBIC ACID 500 MG TAB PO SCH ×2 (07:53→16:34)
[2020-04-08] MEDS: FAMOTIDINE 20 MG TAB PO SCH ×2 (07:53→16:34)
[2020-04-08] MEDS: BALSAM PERU/CASTOR OIL 60 GM OINT...G. TP SCH (07:53)
[2020-04-08] MEDS: EYE LUBRICANT OPTH OINT 3.5GM TUBE OP SCH ×2 (07:53→16:34)
[2020-04-08] MEDS: FUROSEMIDE INJ 10 MG/ML 4 ML VIAL IV SCH (07:53)
[2020-04-08] MEDS: ZINC SULFATE 220 MG CAP PO SCH (07:53)
[2020-04-08] MEDS: INSULIN GLARGINE 100 UNITS/ML VIAL SQ SCH ×2 (08:09→20:20)
[2020-04-08 08:15] LABS: ABG HCO3 39 mmol/L (22-26); ABG PCO2 47 mmHg (35-45); ABG PH 7.51 (7.35-7.45); ABG PO2 68 mmHg (80-105)
[2020-04-08 08:16] LABS: ABG TCO2 40
--- NOTE | 2020-04-08 08:41 | Progress Note ---
DATE: 04/08/2020 SUBJECTIVE: The patient remains on mechanical ventilation. She had a temperature of 101.3. PHYSICAL EXAMINATION: VITAL SIGNS: Blood pressure is 103/51. The patient is currently on a PRVC at a rate of 20 with a tidal volume of 380. Her FiO2 is set at 70%, PEEP is set at 10. HEENT: Shows no facial, swelling, or erythema. LYMPHATIC: Shows no submandibular, cervical, or supraclavicular adenopathy. CARDIAC: Reveals regular rate and rhythm with normal S1, S2. LUNGS: Auscultation of lungs reveals rhonchorous breath sounds bilaterally. There is no wheezing. ABDOMEN: Soft, nontender. There is no rebound or guarding. EXTREMITIES: Shows no leg edema or calf tenderness. There is no cyanosis or clubbing. SKIN: Shows no rashes. NEUROLOGIC: Shows no focal abnormalities. LABORATORY DATA: White blood cell count is 7.56. The hemoglobin is 8.4. The platelet count is 130. BUN to creatinine ratio is normal. Other electrolytes are within normal limits. Albumin is 2.1. IMPRESSION: 1. Pneumonia and coronavirus disease -19 infection. 2. Acute respiratory failure. 3. Diabetes, out of control. 4. Metabolic encephalopathy. 5. Anemia secondary to chronic blood loss. PLAN: 1. Continue current ventilator settings. 2. Continue Versed and fentanyl. 3. Continue Lovenox. 4. Panculture the patient. 5. Escalate antibiotics to Merrem and vancomycin. 6. Continue to monitor and control blood sugars. Greater than 35 minutes in direct critical care time. Pete Walsh MD [facility]/MODL /[id number]
[2020-04-08] MEDS: VANCOMYCIN 1GM/NS 250 ML 250 ML IV SCH ×2 (09:31→20:08)
--- NOTE | 2020-04-08 09:53 | NUR ---
Clinical Partner called pt's daughter, Josi Fiore ([phone]), again to offer emotional / spiritual support and inquire about family request for prayer outside pt's window. No answer - left message. Will follow as able. ANDRES Sandoval Spiritual Care Department O: [phone]
[2020-04-08 09:58] LABS: BILIRUBIN,URINE NEGATIVE (NEGATIVE); CLARITY,URINE CLEAR (CLEAR); COLOR,URINE YELLOW (YELLOW); KETONES,URINE NEGATIVE (NEGATIVE); LEUKOCYTE ESTERASE ,URINE NEGATIVE (NEGATIVE); NITRITE,URINE NEGATIVE (NEGATIVE); PROTEIN,URINE DIPSTICK NEGATIVE (NEGATIVE); URINE UROBILINOGEN 0.2 mg/dL (0.2 - 1)
[2020-04-08 10:23] LABS: BACTERIA,URINE RARE /HPF; EPITHELIAL CELLS,URINE RARE /LPF; RBC,URINE 0-5 /HPF (0-5)
[2020-04-08 10:24] LABS: YEAST,URINE MANY
[2020-04-08] MEDS: MEROPENEM 1GM 100 ML IV SCH ×2 (11:00→18:04)
[2020-04-08] MEDS: ENOXAPARIN SOD INJ 60 MG/0.6 ML SYR SC SCH (16:34)
[2020-04-08] MEDS ORDERED: ACETAZOLAMIDE SODIUM 500 MG/VIAL IV ONE ×2 (16:45→17:45)
[2020-04-08 17:33] LABS: ABG HCO3 41 mmol/L (22-26); ABG PCO2 49 mmHg (35-45); ABG PH 7.53 (7.35-7.45); ABG PO2 66 mmHg (80-105); ABG TCO2 43
--- NOTE | 2020-04-08 18:25 | Progress Note ---
DATE: 04/08/2020 Nephrology Progress Note SUBJECTIVE: Followup for hypernatremia and dehydration on admission. The patient remains on ventilator, FiO2 70%. Receiving IV Lasix b.i.d., with urine output greater than 4 L. Blood pressure described as labile, but lowish at baseline. OBJECTIVE: VITAL SIGNS: Current blood pressure is high at 168/88, probably as a result of recent stimulation. NECK: Without JVP. RESPIRATION: Bilateral air entry to ventilator breaths. CARDIOVASCULAR: Regular rate and rhythm. ABDOMEN: Nondistended. EXTREMITIES: Edema, mostly in the upper extremities. LABORATORY DATA: Hemoglobin 8.4, normal white count. Platelet counts 130,000. Sodium was 143, which is improved since yesterday, bicarb 38 on IV Lasix. BUN and creatinine remain normal. Total calcium 8.9 with albumin of 2.1. IMPRESSION: 1. Dehydration and hypernatremia on admission, now staying resolved. 2. Hypernatremia, on IV Lasix. Corrected with free water administrations through NG tube. 3. Fluid overload, evidenced by chest x-ray findings. Continue IV Lasix as per pulmonary/ICU team. 4. Blood pressure, not on any vasopressors. Continue to monitor the patient. Cristobal Valenzuela MD [facility]/MODL /[id number]
--- NOTE | 2020-04-08 19:55 | Progress Note ---
DATE: 04/08/2020 Cardiology Progress Note CONSULTING PHYSICIAN: Dr. Danette Hightower. SUBJECTIVE: The patient remains intubated and sedated. REVIEW OF SYSTEMS: Cannot be obtained due to sedation and intubation. OBJECTIVE: VITAL SIGNS: Blood pressure 110/44, heart rate 87 beats per minute, temperature 100.8, and her oxygen saturation is 96% on FiO2 of 70%. NECK: Trachea midline. The patient has ET tube in good place. LUNGS: Decreased breath sounds in both lung wesley. CARDIOVASCULAR: Regular rate, rhythm, normal S1 and S2. No murmurs heard. ABDOMEN: Soft, without distention. EXTREMITIES: No pitting edema. CARDIOVASCULAR MEDICATIONS: Reviewed. LABORATORY DATA: Shows white blood cell count is 7.6, hemoglobin is 8.4, hematocrit is 26.8, and platelet count is 130,000. Sodium is 143, potassium is 3.5, chloride is 98, bicarb is 38, BUN is 20, creatinine 0.67, glucose is 66. The liver tests are all within normal reference range. Total protein is 5.6, albumin is 2.1. The patient is positive for coronavirus. The blood gas this afternoon showed a pH of 7.53, pCO2 of 49, PO2 of 66, the oxygen saturation is 94% on FiO2 of 70%. ASSESSMENT AND PLAN: A 74-year-old woman with Covid19 infection, associated pneumonia, acute respiratory failure, sinus bradycardia: 1. Sinus bradycardia resolved. Continue IV atropine as needed for heart rate less than 40. 2. Acute respiratory failure and coronavirus disease 2019 infection and associated pneumonia. The patient is being followed by the [facility]. 3. Continue deep vein thrombosis prophylaxis. 4. Keep on telemetry. MD MARIANNE Nuñez/NENA /[id number]
[2020-04-08] MEDS: ACETAMINOPHEN 325 MG TAB PO PRN (21:16)
[2020-04-09] VITALS (27 sets, daily range): BP systolic 74–180; BP diastolic 35–65
[2020-04-09] MEDS: MEROPENEM 1GM 100 ML IV SCH ×3 (01:12→17:01)
[2020-04-09 04:38] LABS: CALCIUM IONIZED 1.2 mmol/L (1.09-1.30)
[2020-04-09 04:40] LABS: BASOPHILS % 0.3 % (0.0-1.0); EOSINOPHILS # (AUTO) 0.3 (0.0-0.4); EOSINOPHILS % 3.9 % (0.0-6.0); HEMATOCRIT 27.2 % (34.2-44.1); HEMOGLOBIN 8.4 g/dL (12.0-16.0); LYMPHOCYTES # (AUTO) 0.7 (1.0-3.2); MEAN CORPUSCULAR HEMOGLOBIN 28.8 pg (28-32); MEAN CORPUSCULAR HGB CONC 30.9 g/dL (31-35); MEAN CORPUSCULAR VOLUME 93.2 fL (81-99); MONOCYTES # (AUTO) 0.3 (0.2-0.8); MONOCYTES % 3.9 % (4.4-11.3); NEUTROPHILS # (AUTO) 6.5 (2.1-6.9); NEUTROPHILS % 82.3 % (38.7-80.0); PLATELET COUNT 147 x10e3/uL (140-360); RED BLOOD COUNT 2.92 x10e6/uL (3.6-5.1); RED CELL DISTRIBUTION WIDTH 15.9 % (11.7-14.4)
[2020-04-09 05:04] LABS: ALANINE AMINOTRANSFERASE 14 IU/L (0-55); ALBUMIN 1.9 g/dL (3.5-5.0); ALBUMIN/GLOBULIN RATIO 0.5 (0.8-2.0); ALKALINE PHOSPHATASE 52 IU/L (40-150); ANION GAP 9.5 mmol/L (8-16); BLOOD UREA NITROGEN 19 mg/dL (7-26); BUN/CREATININE RATIO 28 (6-25); CALCIUM 8.7 mg/dL (8.4-10.2); CARBON DIOXIDE 35 mmol/L (22-29); CHLORIDE 100 mmol/L (98-107); CREATININE, SERUM 0.67 mg/dL (0.57-1.11); EST GLOMERULAR FILTRATION RATE > 60 ML/MIN (60-); GLUCOSE 97 mg/dL (74-118); POTASSIUM 3.5 mmol/L (3.5-5.1); SODIUM 141 mmol/L (136-145)
[2020-04-09 05:21] LABS: MAGNESIUM 1.5 MG/DL (1.3-2.1); PHOSPHORUS 4.3 MG/DL (2.3-4.7)
[2020-04-09] MEDS: FAMOTIDINE 20 MG TAB PO SCH ×2 (07:07→16:01)
[2020-04-09] MEDS: VANCOMYCIN 1GM/NS 250 ML 250 ML IV SCH ×2 (07:07→21:08)
[2020-04-09] MEDS: ACETAMINOPHEN 325 MG TAB PO PRN ×2 (07:12→16:11)
--- NOTE | 2020-04-09 08:18 | NUR ---
IM- progress note O/N see below ROS: no f/c/s/N/V/D/LING/cp/skin rash/confusion/dizziness/leg pain v/s revd PE tired appearing anicteric Oxygen canula in place ns1s2 reduced bs soft nt nd no e/t skin dry flat affect labs/med revd A/P: 74yoF Multifocal PNA- IV abx; O2; COVID testing Acute resp failure- O2 DKA- insulin; hab1c/lipids; insulin CHERI- f/u Obesity- 1/2 portion sizes; outpt BMI 37- as above Physical deconditioning- PT consult Prop; scd; lovenox Dispo: f/u COVID testing 03-25- Hba1c/LDL 10.; f/u COVID tesing; 03-26- cont care; 11- cont care in ICU; needing more O2; Continue decadron and remdesivir. 11-6 f/u echo; cont care in ICU 11-7 Hypernaremia and CHERI- give free water; Intubated overnight;cont vent support; monitor closely. d/w daughter by Telephone. 11-8 labs pending; titrate insulin up -9 titrate insulin up further; give free water for Hypernatremia/CHERI. Nephr consult; Left Upper lobe PE- lovenox BID - uncontrolled glucose- titrate insulin up. 11-11 adjust insulin 11-12 CXR no change; cont support; remains on 60% FiO2; Called family- left message. 11-13 No change; 60% FiO2; Left message for family at Ms Steven [phone] -[phone] low grade fever overnight; Thrombocytopenia on AC; monitor; Remains on 60% FiO2; 11-15 stable; cont vent support. continue free water; Hypernatremia- recheck BMP at 2pm; 11-16 cont care; spoke with family 11-17 fever overnight; no leukocytosis or cultures positive; cont vent; cont support; renal fn stable; Spoke with Ms Steven, daughter. -18 febrile overnight; left message for family; 600cc urine on dayshift; f/u I/O; Worsening resp status, not on 85% FiO2 vent suppport. Gen TRAYLOR MD, PHD
[2020-04-09] MEDS: EYE LUBRICANT OPTH OINT 3.5GM TUBE OP SCH ×2 (08:27→16:01)
[2020-04-09] MEDS: ZINC SULFATE 220 MG CAP PO SCH (08:27)
[2020-04-09] MEDS: ASCORBIC ACID 500 MG TAB PO SCH ×2 (08:27→16:01)
[2020-04-09] MEDS ORDERED: ACETAZOLAMIDE SODIUM 500 MG/VIAL IV ONE (08:30)
--- NOTE | 2020-04-09 08:48 | Diagnostic Imaging Report ---
X-ray chest frontal view History: Covid pneumonia Comparison: 04/07/2020 Findings: Lines and tubes: Endotracheal tube, nasogastric tube and right arm PICC line are stable. Central airways: Unremarkable Cardiac silhouette: No change Mediastinal silhouettes: No change Pleura: No pleural effusion, pneumothorax or thickening Diaphragms: No change Lungs: Possible slight worsening of the right lower left lower and mid lung infiltrates. Skeletal structures: No acute change Extrathoracic soft tissues: No acute change. Cholecystectomy clips in the right upper quadrant. Impression: Slight worsening of bilateral pulmonary infiltrates. Signed by: Larry Urbina MD on 04/09/2020 8:45 AM
[2020-04-09] MEDS ORDERED: SODIUM CHLORIDE 0.9% 500ML 500 ML IV ONE (09:00)
[2020-04-09] MEDS ORDERED: SODIUM CHLORIDE 0.9% 500ML 500 ML ONE (09:05)
--- NOTE | 2020-04-09 09:17 | Progress Note ---
DATE: 04/09/2020 PULMONARY CRITICAL CARE PROGRESS NOTE: SUBJECTIVE: The patient is having hemodynamic instability. She has low blood pressure at times and high blood pressure at other times. She remains on mechanical ventilator. PHYSICAL EXAMINATION: VITAL SIGNS: The blood pressure is now 84/37, saturation is 95% and the pulse is 84. T-max is 101.7. Her current ventilator settings are PRVC at a rate of 20 with a tidal volume of 380 and FiO2 of 70% and a PEEP of 10. Her respiratory rate is actually 23 slightly above the ventilator. HEENT: Shows no facial swelling or erythema. LYMPHATIC: Shows no submandibular, cervical, or supraclavicular adenopathy. CARDIAC: Reveals regular rate and rhythm with normal S1, S2. LUNGS: Auscultation of lungs reveals rhonchorous breath sounds bilaterally. There is no wheezing. ABDOMEN: Soft, nontender. There is no rebound or guarding. EXTREMITIES: Shows no leg edema or calf tenderness. There is no cyanosis or clubbing. SKIN: Shows no rashes. NEUROLOGICAL: Shows no focal abnormalities. LABORATORY DATA: White blood cell count is 7.93, hemoglobin is 8.4, and the platelet count is 147. BUN to creatinine ratio is 19 to 0.67 and the potassium is 3.5. Other electrolytes are within normal limits. The albumin is 1.9. IMPRESSION: 1. Pneumonia and coronavirus disease -19 infection. 2. Acute respiratory failure. 3. Diabetes, out of control. 4. Metabolic encephalopathy. 5. Anemia secondary to chronic blood loss. PLAN: 1. Continue current ventilator settings. 2. Continue Versed and fentanyl. 3. Continue Lovenox. 4. Monitor hemodynamics. Consider evaluation for autonomic neuropathy or some other cause of hemodynamic instability. 5. Check free cortisol level. 6. Continue Merrem and vancomycin. 7. Decrease the evening Lantus because of lower blood sugars. 8. Continue enteral feedings. Greater than 35 minutes in direct critical care time. Pete Walsh MD [facility]/MODL /[id number]
[2020-04-09 09:24] LABS: ABG HCO3 32 mmol/L (22-26); ABG PCO2 46 mmHg (35-45); ABG PH 7.45 (7.35-7.45); ABG PO2 74 mmHg (80-105); ABG TCO2 34
[2020-04-09] MEDS: BALSAM PERU/CASTOR OIL 60 GM OINT...G. TP SCH (09:32)
[2020-04-09] MEDS: INSULIN GLARGINE 100 UNITS/ML VIAL SQ SCH ×2 (09:58→21:09)
--- NOTE | 2020-04-09 10:07 | Progress Note ---
DATE: 04/09/2020 Cardiology Progress Note SUBJECTIVE: Ms. Paz remained intubated and sedated. OBJECTIVE: VITAL SIGNS: Temperature 101.5; heart rate 100; blood pressure 168/60, labile blood pressure fluctuated between systolics of 80s to 180s throughout the day; respiratory rate 31; and O2 saturation 94%. GENERAL: Intubated and sedated. NECK: Supple. CHEST: With decreased breath sounds. CARDIOVASCULAR: Regular rate and rhythm. Normal S1, S2. ABDOMEN: Soft. EXTREMITIES: Trace edema. CARDIOVASCULAR MEDICATIONS: Reviewed. Lovenox 40 mg subcu daily and atropine 0.5 mg every 2 hours p.r.n. LABORATORY STUDIES: Reviewed. Sodium 141, potassium 3.5, chloride 100, bicarbonate 35, BUN 19, creatinine 0.67, and glucose 97. White blood cell 7.9, hemoglobin 8.4, and platelets are 147. ASSESSMENT AND PLAN: A 74-year-old woman with COVID-19 infection, community-acquired pneumonia, acute respiratory failure, sinus bradycardia, labile blood pressure. Recommend continue atropine p.r.n. Given significant lability in blood pressure, limit treatment of hypertensive spells as they are usually follow with drops in blood pressure. Challenge of normal saline 250 this a.m., can repeat at x1 as needed if assist with improving blood pressure from the 80s to 90s when she drops. MD SHANELLE Olivo/JOSIANEL /[id number]
[2020-04-09] MEDS: FENTANYL 2000MCG/NS 250 250 ML IV PRN ×2 (10:22→21:09)
[2020-04-09] MEDS: INSULIN REGULAR, HUMAN 100 UNIT/1 ML 3ML VIAL SQ SCH ×3 (11:40→23:29)
--- NOTE | 2020-04-09 13:44 | Progress Note ---
DATE: 04/09/2020 Nephrology Progress Note SUBJECTIVE: Followup for dehydration and hypernatremia on admission, which has since resolved. Remains on ventilator, FiO2 70%. Output is 2.5 L negative, IV Lasix is on hold. She appears hypotensive with systolic blood pressure around 90. Received IV 500 mL normal saline for that. Excellent urine output. OBJECTIVE: VITAL SIGNS: Blood pressure currently is 93/49, pulse 68 per minute, FiO2 70%, and oxygen saturation 94%. PH is 7.45. NECK: Without JVP. RESPIRATION: Bilateral air entry to ventilator breaths. CARDIOVASCULAR: Shows normal regular rate and rhythm. ABDOMEN: Nondistended. EXTREMITIES: Some edema in the upper extremities. LABORATORY DATA: PH is 7.45, pCO2 46, and PO2 74. Sodium 143, potassium 3.5, bicarb 35, creatinine 0.6, BUN 28, calcium 8.7, and glucose 97. Albumin 1.9. IMPRESSION: 1. Hypernatremia, improved off IV Lasix. Also receiving free water through NG tube every 6 hours. May continue same for now, monitoring daily sodium levels. 2. Blood pressure, on the low side in the last 24 hours, possibly related to sepsis since she does have a fever of 102. The patient is sedated. 3. IV empiric antibiotics per primary team. Continue to hold loop diuretics. 4. Fluid status, although I could not actually see the film in the system, the report speaks of increased lower lobe infiltrates. Cristobal Valenzuela MD [facility]/MODL /[id number]
[2020-04-09] MEDS: MIDAZOLAM HCL 5MG/ML 10ML VIAL 100 ML IV PRN ×2 (15:23→21:10)
[2020-04-09] MEDS: ENOXAPARIN SOD INJ 60 MG/0.6 ML SYR SC SCH (16:03)
[2020-04-09] MEDS ORDERED: VECURONIUM BROMIDE FOR INJ 20 MG VIAL IV STA (16:49)
[2020-04-09] MEDS ORDERED: VECURONIUM BROMIDE FOR INJ 20 MG VIAL ONE (17:05)
--- NOTE | 2020-04-09 18:30 | NUR ---
Dr. Rom Walsh, Dr. Castillo and Dr. Valenzuela aware of patient's hypotensive and hypertensive episodes. 500ml bolus ordered for hypotension during shift. Patient does not withdraw to pain but does chew on ETT tube, have gag reflex and become hypertensive to stimuli. Dr. Rom walsh aware of ABG results. Patient breathing over ventilator 35-40 rpm, Dr. Rom Walsh made aware and gave orders for vecuronium one time order. Wound care done to sacral wound.
--- NOTE | 2020-04-09 18:45 | Progress Note ---
DATE: 04/09/2020 SUBJECTIVE: Ms. Paz remains in intensive care unit, not doing well. Discussed with the family, they are aware. They asked about convalescent plasma. She is not a candidate. OBJECTIVE: VITAL SIGNS: The patient with low blood pressure, O2 saturation 95%, heart rate 84, showing fever 101.7. HEENT: Normocephalic. NECK: Supple. CHEST: Few rhonchi. HEART: S1, S2. ABDOMEN: Soft. Bowel sounds present. EXTREMITIES: No edema. SKIN: No rash. IMPRESSION: Pneumonia, COVID-19, respiratory failure, diabetes mellitus, not controlled; metabolic encephalopathy, anemia. Her cultures are still negative. She is currently on Tylenol, Lovenox meropenem, and vancomycin. Prognosis is very poor. We will finish 5 days course of antibiotic. Continue with current choice. MD JONY Ramirez/MODRom /[id number]
[2020-04-09 19:50] LABS: ANION GAP 11.1 mmol/L (8-16); BLOOD UREA NITROGEN 21 mg/dL (7-26); BUN/CREATININE RATIO 31 (6-25); CALCIUM 8.5 mg/dL (8.4-10.2); CARBON DIOXIDE 30 mmol/L (22-29); CHLORIDE 102 mmol/L (98-107); CREATININE, SERUM 0.68 mg/dL (0.57-1.11); EST GLOMERULAR FILTRATION RATE > 60 ML/MIN (60-); GLUCOSE 196 mg/dL (74-118); POTASSIUM 4.1 mmol/L (3.5-5.1); SODIUM 139 mmol/L (136-145)
[2020-04-09] MEDS ORDERED: ALBUMIN 25% 25GM 100ML 0.25 GM/ML BTL IV ONE (22:15)
[2020-04-09] MEDS ORDERED: FUROSEMIDE INJ 10 MG/ML 4 ML VIAL IV ONE (22:15)
[2020-04-09] MEDS ORDERED: NOREPINEPHRINE 8 MG/D5W 250 ML 250 ML ONE (22:20)
[2020-04-09] MEDS: NOREPINEPHRINE INJ 4MG/4ML 8 MG in DEXTROSE 5% 250ML 250 ML IV SCH (22:26)
[2020-04-09] MEDS: ALBUMIN 25% 12.5GM 50ML 50 ML IV SCH ×2 (22:26→22:27)
[2020-04-10] VITALS (25 sets, daily range): BP systolic 90–156; BP diastolic 34–61
[2020-04-10] MEDS: MEROPENEM 1GM 100 ML IV SCH ×3 (01:20→17:10)
[2020-04-10 02:57] LABS: BASOPHILS % 0.3 % (0.0-1.0); EOSINOPHILS # (AUTO) 0.2 (0.0-0.4); EOSINOPHILS % 3.3 % (0.0-6.0); HEMATOCRIT 24.3 % (34.2-44.1); HEMOGLOBIN 7.7 g/dL (12.0-16.0); LYMPHOCYTES # (AUTO) 0.6 (1.0-3.2); LYMPHOCYTES % 8.7 % (18.0-39.1); MEAN CORPUSCULAR HEMOGLOBIN 29.3 pg (28-32); MEAN CORPUSCULAR HGB CONC 31.7 g/dL (31-35); MEAN CORPUSCULAR VOLUME 92.4 fL (81-99); MONOCYTES # (AUTO) 0.3 (0.2-0.8); MONOCYTES % 4.4 % (4.4-11.3); NEUTROPHILS % 82.6 % (38.7-80.0); PLATELET COUNT 150 x10e3/uL (140-360); RED BLOOD COUNT 2.63 x10e6/uL (3.6-5.1)
[2020-04-10 03:16] LABS: ALANINE AMINOTRANSFERASE 14 IU/L (0-55); ALBUMIN 2.4 g/dL (3.5-5.0); ALBUMIN/GLOBULIN RATIO 0.7 (0.8-2.0); ALKALINE PHOSPHATASE 59 IU/L (40-150); ANION GAP 10.7 mmol/L (8-16); BLOOD UREA NITROGEN 23 mg/dL (7-26); BUN/CREATININE RATIO 32 (6-25); CALCIUM 8.5 mg/dL (8.4-10.2); CARBON DIOXIDE 32 mmol/L (22-29); CHLORIDE 101 mmol/L (98-107); CREATININE, SERUM 0.73 mg/dL (0.57-1.11); EST GLOMERULAR FILTRATION RATE > 60 ML/MIN (60-); GLUCOSE 186 mg/dL (74-118); POTASSIUM 3.7 mmol/L (3.5-5.1); SODIUM 140 mmol/L (136-145)
--- NOTE | 2020-04-10 04:46 | NUR ---
IM- progress note O/N see below ROS: no f/c/s/N/V/D/LING/cp/skin rash/confusion/dizziness/leg pain v/s revd PE tired appearing anicteric Oxygen canula in place ns1s2 reduced bs soft nt nd no e/t skin dry flat affect labs/med revd A/P: 74yoF Multifocal PNA- IV abx; O2; COVID testing Acute resp failure- O2 DKA- insulin; hab1c/lipids; insulin CHERI- f/u Severe Sepsis- IV abx Septic shock- pressor PRN; abx Obesity- 1/2 portion sizes; outpt BMI 37- as above Physical deconditioning- PT consult Prop; scd; lovenox Dispo: f/u COVID testing 03-25-20 Hba1c/LDL 10.; f/u COVID tesing; 03-26- cont care; 11- cont care in ICU; needing more O2; Continue decadron and remdesivir. 11-6 f/u echo; cont care in ICU 11-7 Hypernaremia and CHERI- give free water; Intubated overnight;cont vent support; monitor closely. d/w daughter by Telephone. 11-8 labs pending; titrate insulin up 11-9 titrate insulin up further; give free water for Hypernatremia/CHERI. Nephr consult; Left Upper lobe PE- lovenox BID 11-10 uncontrolled glucose- titrate insulin up. 11-11 adjust insulin 11-12 CXR no change; cont support; remains on 60% FiO2; Called family- left message. 11-13 No change; 60% FiO2; Left message for family at Ms [facility] [phone] 11-14 low grade fever overnight; Thrombocytopenia on AC; monitor; Remains on 60% FiO2; 11-15 stable; cont vent support. continue free water; Hypernatremia- recheck BMP at 2pm; 11-16 cont care; spoke with family 11-17 fever overnight; no leukocytosis or cultures positive; cont vent; cont support; renal fn stable; Spoke with Ms Steven, daughter. 11-18 febrile overnight; left message for family; 600cc urine on dayshift; f/u I/O; Worsening resp status, not on 85% FiO2 vent suppport. 11-19 Septic shock- started on pressors; Anuric - treated with albumin/lasix, successful in getting 1500ml urine out; Worsened resp status- now on 1005 FiO2 vent support; vanco therapeutic; D/w both daughters by telephone; both aware of current status. Gen TRAYLOR MD, PHD
[2020-04-10] MEDS: INSULIN REGULAR, HUMAN 100 UNIT/1 ML 3ML VIAL SQ SCH ×3 (05:51→18:19)
[2020-04-10] MEDS: FAMOTIDINE 20 MG TAB PO SCH ×2 (07:30→16:21)
[2020-04-10] MEDS: VANCOMYCIN 1GM/NS 250 ML 250 ML IV SCH ×2 (07:30→21:25)
[2020-04-10] MEDS: BALSAM PERU/CASTOR OIL 60 GM OINT...G. TP SCH (08:00)
[2020-04-10] MEDS: EYE LUBRICANT OPTH OINT 3.5GM TUBE OP SCH ×2 (08:00→16:21)
[2020-04-10] MEDS: ZINC SULFATE 220 MG CAP PO SCH (08:00)
[2020-04-10] MEDS: ASCORBIC ACID 500 MG TAB PO SCH ×2 (08:00→16:21)
--- NOTE | 2020-04-10 08:38 | Diagnostic Imaging Report ---
TECHNIQUE: Frontal view of the chest. INDICATION: ^resp failure ^[id number] ^[id number] COMPARISON: Prior day. DISCUSSION: Limited evaluation due to portable technique. Lines and hardware: Stable. Heart and mediastinum: Stable. Lungs and pleura: Interval worsening of bilateral interstitial airspace opacities. Interval worsening in aeration. Soft tissues and bones: No acute abnormality. IMPRESSION: Interval worsening of aeration and bilateral diffuse interstitial airspace opacities. Signed by: Nitin Tabor MD on 04/10/2020 8:34 AM
--- NOTE | 2020-04-10 08:57 | Progress Note ---
DATE: 04/10/2020 SUBJECTIVE: The patient remains on Levophed at 1 mcg. She is currently on assist-control mode of ventilation at a rate of 20 with a tidal volume of 380 and FiO2 of 100%. Her PEEP is set at 12. PHYSICAL EXAMINATION: HEENT: Shows no facial swelling or erythema. LYMPHATIC: Shows no submandibular, cervical, or supraclavicular adenopathy. CARDIAC: Reveals regular rate and rhythm with normal S1 and S2. LUNGS: Auscultation of lungs reveals crackles at the bases. There is no wheezing. ABDOMEN: Soft and nontender. There is no rebound or guarding. EXTREMITIES: Shows 1 to 2+ leg edema. LABORATORY DATA: BUN to creatinine ratio is 23 to 0.73. Other electrolytes are within normal limits. Albumin is 2.7. IMPRESSION: 1. Pneumonia and COVID-19 infection. 2. Acute respiratory failure. 3. Diabetes, out of control. 4. Metabolic encephalopathy. 5. Anemia secondary to chronic blood loss. PLAN: 1. Continue current ventilator settings. 2. Continue Versed and fentanyl. 3. Continue Lovenox. 4. Continue Merrem and vancomycin. 5. Adjust insulin as needed. 6. Continue enteral feedings. Greater than 35 minutes in direct critical care time. Pete Walsh MD [facility]/MODL /[id number]
[2020-04-10] MEDS: MIDAZOLAM HCL 5MG/ML 10ML VIAL 100 ML IV PRN ×2 (09:00→15:10)
[2020-04-10 09:26] LABS: ABG HCO3 31 mmol/L (22-26); ABG PCO2 47 mmHg (35-45); ABG PH 7.43 (7.35-7.45); ABG PO2 55 mmHg (80-105); ABG TCO2 32
[2020-04-10] MEDS: INSULIN GLARGINE 100 UNITS/ML VIAL SQ SCH ×2 (09:54→21:25)
[2020-04-10] MEDS: ACETAMINOPHEN 325 MG TAB PO PRN (09:57)
[2020-04-10] MEDS ORDERED: VECURONIUM BROMIDE FOR INJ 20 MG VIAL IV STA (10:22)
[2020-04-10] MEDS ORDERED: VECURONIUM BROMIDE FOR INJ 20 MG VIAL ONE (10:32)
--- NOTE | 2020-04-10 10:38 | Progress Note ---
DATE: 04/10/2020 Cardiology Progress Note SUBJECTIVE: Remains intubated and sedated. Decrease in vent requirement with several episodes. Labile blood pressure rate continue to occur. Blood pressure ranging from 80 systolic to 180s systolic. OBJECTIVE: VITAL SIGNS: Temperature 103, heart rate 90, blood pressure 122/34, respiratory rate 20, O2 saturation 90% on 100% FiO2, Levophed 1 mcg/kg/minute. GENERAL: Intubated, sedated, chronically ill-appearing. NECK: Supple. CHEST: With decreased breath sounds at bilateral bases. CARDIOVASCULAR: Regular rate and rhythm. Normal S1 and S2. ABDOMEN: Soft. Bowel sounds positive. EXTREMITIES: Trace edema. CARDIOVASCULAR MEDICATIONS: Reviewed. Atropine 0.5 mg every 2 hours p.r.n. STUDIES: Reviewed. White blood cells 7.2, hemoglobin 7.7, and platelets 150. Sodium 140, potassium 3.7, chloride 101, bicarbonate 32, BUN 23, creatinine 0.7, glucose 110, and calcium 8.5. Total bilirubin 0.5, AST 17, ALT is 14, and alkaline phosphatase 59. Total protein 6 and albumin 2.4. Vancomycin 11.2. ASSESSMENT/PLAN: A 74-year-old woman with COVID-19 infection, community-acquired pneumonia, respiratory failure, episodes of sinus bradycardia, and labile blood pressure, now with recurrent fevers and increasing FiO2 requirements. RECOMMEND: Continue Lovenox for thromboembolic treatment. P.r.n. atropine. Wean Levophed for MAP 65 to 75. Antibiotics per ID. MD SHANELLE Olivo/NENA /[id number]
[2020-04-10] MEDS: ROCURONIUM BROMIDE 1,250 MG in SODIUM CHLORIDE 0.9% 250ML 125 ML IV SCH (11:59)
[2020-04-10] MEDS: FENTANYL 2000MCG/NS 250 250 ML IV PRN ×2 (12:01→18:32)
--- NOTE | 2020-04-10 15:34 | Progress Note ---
DATE: 04/10/2020 Nephrology Progress Note. SUBJECTIVE: Followed up for hypernatremia. Remains on free water per NG tube q.6 hours. Heavily sedated. Blood pressure, currently on no vasopressors. FiO2 increased to 100%. Intake and output about 2 L negative. Lasix on hold. OBJECTIVE: VITAL SIGNS: Blood pressure 99/49, pulse 100 per minute, afebrile. NECK: Without JVP. Respirations bilateral air entry to ventilator breaths. CARDIOVASCULAR: Regular rate and rhythm. ABDOMEN: Nondistended. EXTREMITIES: Without cyanosis. IMAGING: Chest x-ray today per report showed interval worsening of aeration and bilateral diffuse interstitial airspace opacities. IMPRESSION: 1. Hypernatremia, staying corrected with free water administration at 250 mL every 6 hours by NG tube. 2. We will continue the same for now. 3. Volume status, pulmonary infiltrates are worse, FiO2 need up to 100%. Difficult to assess contribution from cardiogenic pulmonary edema. We will defer use of Lasix to primary/ICU team. 4. Preserved renal function with good urine output. Continue to monitor. 5. Nutrition, on tube feedings, which seems to be tolerating. 6. Discussed with RN. Cristobal Valenzuela MD [facility]/MODL /[id number]
--- NOTE | 2020-04-10 15:51 | NUR ---
Nutrition Intervention Note RD Recommendation(s) for Physician: -Recommend modifying formula to Vital AF 1.2 @ goal rate of 40 mL/hr (provides 1152 kcal and 72 g protein). Vital AF is appropriate for diabetic pts on vent, less CHO/L than Glucerna and provides adequate protein -Water/fluid management per MD Pt may be fed at goal rate in reverse Trendelenburg with HOB elevated 25 degrees. Plan of Care: RD following, monitoring for tolerance and adequacy. TF rec's. Nutrition reason for involvement: follow up RD Assessment 04/10: Follow up. Chart reviewed. Pt remains intubated and sedated. Pt is on Levophed at 1 mcg per MD note. Pt was tolerating TF @ 40 mL/hr, but RN mentioned pts tube feeding is at 20 mL/hr at this time since pt was just proned. Informed RN of tube feed recommendations. Will continue to monitor. 04/07: Follow up. Chart reviewed. Pt remains intubated and sedated. Pt is tolerating Glucerna TF @ 40 mL/hr at this time per RN. Recommend modifying TF to Vital AF 1.2 to better meet nutritional needs. Will continue to monitor 04/02: Follow up. Pt remains intubated and sedated with Versed and Fentanyl, no pressors. Pt tolerating trickle feeds while proned, recommend advancing to goal rate as pt currently in reverse Trendelenburg with HOB elevated- discussed with RN on unit. TF rec's remain appropriate, Dr. Whittington changed order to Glucerna 1.2 today. Chart reviewed. Will continue to monitor. (03/28/20) Pt is a 74 year old female admitted with acute respiratory distress and COVID-19. Pt was intubated this morning and tube feed order was placed. There are no reports of recent weight loss without trying and no reports of decreased appetite upon admission. Tube feed recommendations provided. RD to manage TF order per Dr. Walsh. Will continue to monitor. Principal Problems/Diagnoses: acute respiratory distress, COVID-19 PMH: type 2 diabetes GI: soft abdomen, last recorded BM 04/05 Skin: stage 3 sacral pressure ulcer documented 04/07 Labs: 04/10: Na 140, K 3.7, BUN 23, Cr 0.73, Glu 186, Ca 8.5 04/07: Na 147, K 3.8, BUN 16, Cr 0.60, Glu 150, Ca 8.8 04/02: Na 143, K 4.2, BUN 35, Cr 0.69, Gluc 276, Phos 3.6, Mg 2, POC Gluc 225-238 (03/28/20) Na 148, K 3.5, BUN 37, Glu 201, Ca 8.8, AST 37 Meds: insulin, antibiotics, zinc sulfate, vitamin C, norepinephrine, fentanyl, zofran, colace Ht: 61 in Wt: 181 lbs (04/09) 184 lbs (04/07) 169.44 (04/02) 201.56 lbs (03/24) weight fluctuations, Suspect possible weight error BMI: 34.2 kg/m2 IBW: 105 lbs Malnutrition Evaluation (04/10/20) The patient does not meet criteria for a specified degree of malnutrition at this time. Will re-evaluate at follow-up as appropriate. Energy intake: TF was meeting energy needs prior to being proned today Weight loss: weight fluctuates noted Fat loss: unable to evaluate due to isolation precautions Muscle loss: unable to evaluate due to isolation precautions Supporting Evidence: Fluid accumulation: 1 to 2+ leg edema per MD note (04/10) Functional Status: unable to assess Nutrition Prescription (Diet Order): Glucerna 1.2 at 40 ml/hr (provides 1152 kcal and 58 g protein) currently infusing at 20 mL/hr, previously at 40 mL/hr prior to being proned today Estimated Nutritional Needs: 0952-6049 calories/day (22-25 kcal/kg IBW) 70- 95 g protein/day (1.5-2 g pro/kg IBW) Diet Adequacy: meeting calorie needs, not meeting protein needs Tolerance: tolerating TF Diet Education Needs Assessment: Diet education not indicated Nutrition Care Level: moderate Nutrition Diagnosis: Inadequate oral intake related to mechanical ventilation as evidenced by need for enteral nutrition. Goal: Patient will meet 75-100% of estimated needs by follow up Progress: progressing Interventions: - Composition, Rate, Route, Recommended Modifications Monitoring/Evaluation: -Total energy intake, Total protein intake, Formula/Solution, Weight change Signed: Angela Ackerman RD, LD
[2020-04-10] MEDS: ENOXAPARIN SOD INJ 60 MG/0.6 ML SYR SC SCH (16:22)
[2020-04-10 17:48] LABS: ABG HCO3 32 mmol/L (22-26); ABG PCO2 83 mmHg (35-45); ABG PH 7.19 (7.35-7.45); ABG PO2 118 mmHg (80-105); ABG TCO2 34
--- NOTE | 2020-04-10 18:43 | NUR ---
Levophed drip turned off this morning. Dr. Rom walsh informed of morning ABG results, MD gave orders to prone patient. Patient spiked [address] in prone position at 1030 and placed on cooling blanket, tylenol administered. Patient desaturating and breathing over ventilator settings, Dr. Rom Walsh aware and gave orders for rocuronium drip. ABG repeated later in shift, Dr. Rom Walsh aware of results and made ventilator changes. Wound care done to sacral wound as ordered by wound care.
--- NOTE | 2020-04-10 21:56 | NUR ---
INFECTIOUS DISEASE PROGRESS NOTE DR. LORIE KENNEY CC: COVID ROS: unable to obtain/intubated PAST MEDICAL HISTORY: Diabetes mellitus and hypertension. ALLERGIES: PENICILLIN, BUT SHE DID WELL WITH CEPHALOSPORIN. LABORATORY DATA: per chart MEDICATIONS: per chart PHYSICAL EXAMINATION: GENERAL: intubated sedated VITAL SIGNS: per chart HEENT: She is not icteric. normocephalic atraumatic NECK: Supple. no JVD CHEST: Crackles bilateral. vent with 60% fi02 and PEEP of 10 HEART: S1 and S2. no s3, s4 ABDOMEN: Soft. Bowel sounds present. EXTREMITIES: no joint swelling, no rash SKIN: No rash. no edema IMPRESSION: Respiratory failure community-acquired pneumonia COVID 19 Pulmonary embolism in the segmental left upper lobe branches. PLAN: supportive care vent support lovenox dexamethasone x10 days Vanc and Merrem x7 days Goals of care were discussed with family poor prognosis Tata Lino MSN, BANKING MANAGEMENT CONSULTING MANAGER, AGACNP-BC d/w Lorie Kenney M.D.
[2020-04-10] MEDS: NOREPINEPHRINE INJ 4MG/4ML 8 MG in DEXTROSE 5% 250ML 250 ML IV SCH (22:15)
[2020-04-10 23:49] LABS: ABG HCO3 32 mmol/L (22-26); ABG PCO2 69 mmHg (35-45); ABG PH 7.27 (7.35-7.45); ABG PO2 92 mmHg (80-105); ABG TCO2 33
[2020-04-11] VITALS (24 sets, daily range): BP systolic 79–165; BP diastolic 42–64
[2020-04-11] MEDS: INSULIN REGULAR, HUMAN 100 UNIT/1 ML 3ML VIAL SQ SCH ×4 (00:54→17:19)
[2020-04-11] MEDS: MEROPENEM 1GM 100 ML IV SCH ×3 (02:07→17:18)
[2020-04-11] MEDS: FENTANYL 2000MCG/NS 250 250 ML IV PRN ×3 (02:08→18:07)
[2020-04-11] MEDS: MIDAZOLAM HCL 5MG/ML 10ML VIAL 100 ML IV PRN ×4 (03:30→22:25)
[2020-04-11 06:06] LABS: BASOPHILS % 0.1 % (0.0-1.0); EOSINOPHILS # (AUTO) 0.1 (0.0-0.4); HEMATOCRIT 24.5 % (34.2-44.1); HEMOGLOBIN 7.6 g/dL (12.0-16.0); LYMPHOCYTES # (AUTO) 0.4 (1.0-3.2); MEAN CORPUSCULAR HEMOGLOBIN 28.8 pg (28-32); MEAN CORPUSCULAR VOLUME 92.8 fL (81-99); MONOCYTES # (AUTO) 0.3 (0.2-0.8); MONOCYTES % 4.1 % (4.4-11.3); NEUTROPHILS # (AUTO) 7.2 (2.1-6.9); NEUTROPHILS % 89.1 % (38.7-80.0); PLATELET COUNT 172 x10e3/uL (140-360); RED BLOOD COUNT 2.64 x10e6/uL (3.6-5.1); RED CELL DISTRIBUTION WIDTH 15.9 % (11.7-14.4)
[2020-04-11 06:28] LABS: ALANINE AMINOTRANSFERASE 16 IU/L (0-55); ALBUMIN 1.7 g/dL (3.5-5.0); ALBUMIN/GLOBULIN RATIO 0.4 (0.8-2.0); ALKALINE PHOSPHATASE 56 IU/L (40-150); ANION GAP 8.1 mmol/L (8-16); BLOOD UREA NITROGEN 26 mg/dL (7-26); BUN/CREATININE RATIO 40 (6-25); CALCIUM 7.9 mg/dL (8.4-10.2); CARBON DIOXIDE 31 mmol/L (22-29); CHLORIDE 104 mmol/L (98-107); CREATININE, SERUM 0.65 mg/dL (0.57-1.11); EST GLOMERULAR FILTRATION RATE > 60 ML/MIN (60-); GLUCOSE 170 mg/dL (74-118); POTASSIUM 4.1 mmol/L (3.5-5.1); SODIUM 139 mmol/L (136-145)
--- NOTE | 2020-04-11 06:33 | NUR ---
IM- progress note O/N see below ROS: no f/c/s/N/V/D/LING/cp/skin rash/confusion/dizziness/leg pain v/s revd PE tired appearing anicteric Oxygen canula in place ns1s2 reduced bs soft nt nd no e/t skin dry flat affect labs/med revd A/P: 74yoF Multifocal PNA- IV abx; O2; COVID testing Acute resp failure- O2 DKA- insulin; hab1c/lipids; insulin CHERI- f/u Severe Sepsis- IV abx Septic shock- pressor PRN; abx Obesity- 1/2 portion sizes; outpt BMI 37- as above Physical deconditioning- PT consult Prop; scd; lovenox Dispo: f/u COVID testing 03-25-20 Hba1c/LDL 10.; f/u COVID tesing; 03-26- cont care; 11- cont care in ICU; needing more O2; Continue decadron and remdesivir. 11-6 f/u echo; cont care in ICU 11-7 Hypernaremia and CHERI- give free water; Intubated overnight;cont vent support; monitor closely. d/w daughter by Telephone. 11-8 labs pending; titrate insulin up 11-9 titrate insulin up further; give free water for Hypernatremia/CHERI. Nephr consult; Left Upper lobe PE- lovenox BID 11-10 uncontrolled glucose- titrate insulin up. 11-11 adjust insulin 11-12 CXR no change; cont support; remains on 60% FiO2; Called family- left message. 11-13 No change; 60% FiO2; Left message for family at Ms [facility] [phone] 11-14 low grade fever overnight; Thrombocytopenia on AC; monitor; Remains on 60% FiO2; 11-15 stable; cont vent support. continue free water; Hypernatremia- recheck BMP at 2pm; 11-16 cont care; spoke with family 11-17 fever overnight; no leukocytosis or cultures positive; cont vent; cont support; renal fn stable; Spoke with Ms Steven, daughter. 11-18 febrile overnight; left message for family; 600cc urine on dayshift; f/u I/O; Worsening resp status, not on 85% FiO2 vent suppport. 11-19 Septic shock- started on pressors; Anuric - treated with albumin/lasix, successful in getting 1500ml urine out; Worsened resp status- now on 1005 FiO2 vent support; vanco therapeutic; D/w both daughters by telephone; both aware of current status. 11-20 Unstageable Sacral ulcer; Febrile; Septic shock; Prognosis poor; f/u labs; On Levophed pressor; cont care. Gen TRAYLOR MD, PHD
[2020-04-11] MEDS: NOREPINEPHRINE INJ 4MG/4ML 8 MG in DEXTROSE 5% 250ML 250 ML IV SCH (06:52)
--- NOTE | 2020-04-11 07:56 | Progress Note ---
DATE: 04/11/2020 SUBJECTIVE: The patient is currently on Levophed at 2 mcg. She is also on Versed and fentanyl as well as rocuronium at 0.07 mcg. PHYSICAL EXAMINATION: VITAL SIGNS: The blood pressure is 119/47 on low-dose Levophed. The pulse is 81 and the saturation is 96%. The patient is currently on a PRVC mode of ventilation at a rate of 26 with FiO2 of 80% and a PEEP of 12. Tidal volume is set at 360. HEENT: Shows no facial swelling or erythema. There is an oral endotracheal tube. LYMPHATIC: Shows no submandibular, cervical, or supraclavicular adenopathy. CARDIAC: Reveals regular rate and rhythm with normal S1 and S2. LUNGS: Auscultation of lungs reveals rhonchorous breath sounds bilaterally. There is no wheezing. ABDOMEN: Soft and nontender. There is no rebound or guarding. EXTREMITIES: Shows no leg edema or calf tenderness. There is no cyanosis or clubbing. SKIN: Shows no rashes. NEUROLOGICAL: Shows no focal abnormalities. LABORATORY DATA: BUN to creatinine ratio is 26 to 0.65. Other electrolytes are within normal limits. Albumin is 1.7, hemoglobin is 7.6, and the white blood cell count is 8.12. The platelet count is 172. IMPRESSION: 1. Acute respiratory failure. 2. Viral pneumonia and COVID-19 infection. 3. Diabetes, out of control. 4. Metabolic encephalopathy. 5. Anemia secondary to chronic blood loss. PLAN: 1. Continue current ventilator settings and repeat ABG. 2. Wean Levophed as tolerated. 3. Continue Versed, fentanyl and rocuronium. 4. Continue Lovenox. 5. Monitor and control of blood sugars. 6. Enteral feedings. Greater than 35 minutes in direct critical care time. Pete Walsh MD [facility]/MODL /[id number]
[2020-04-11] MEDS: FAMOTIDINE 20 MG TAB PO SCH ×2 (08:00→17:18)
--- NOTE | 2020-04-11 08:28 | Diagnostic Imaging Report ---
X-ray chest frontal view History: Pneumonia Comparison: 04/10/2020 Findings: Lines and tubes: There is no change to the endotracheal tube, nasogastric tube and right arm PICC line. Central airways: Unremarkable Cardiac silhouette: Partially obscured Mediastinal silhouettes: No change Pleura: No pleural effusion, pneumothorax or thickening Diaphragms: Unremarkable Lungs: Diffuse bilateral airspace and interstitial opacities especially dense consolidation in the left retrocardiac area. No change. Skeletal structures: No change Extrathoracic soft tissues: No change Impression: No significant change in the diffuse airspace and interstitial pulmonary infiltrates. Signed by: Larry Urbina MD on 04/11/2020 8:24 AM
[2020-04-11] MEDS: ASCORBIC ACID 500 MG TAB PO SCH ×2 (09:23→17:18)
[2020-04-11] MEDS: BALSAM PERU/CASTOR OIL 60 GM OINT...G. TP SCH (09:23)
[2020-04-11] MEDS: EYE LUBRICANT OPTH OINT 3.5GM TUBE OP SCH ×2 (09:23→17:18)
[2020-04-11] MEDS: VANCOMYCIN 1GM/NS 250 ML 250 ML IV SCH ×2 (09:23→21:45)
[2020-04-11] MEDS: ZINC SULFATE 220 MG CAP PO SCH (09:23)
[2020-04-11] MEDS ORDERED: FENTANYL 2000MCG/NS 250 250 ML ONE (09:25)
[2020-04-11] MEDS ORDERED: MIDAZOLAM HCL 5MG/ML 10ML VIAL 100 ML IV ONE (09:25)
[2020-04-11] MEDS: INSULIN GLARGINE 100 UNITS/ML VIAL SQ SCH ×2 (09:38→22:00)
[2020-04-11] MEDS ORDERED: FUROSEMIDE INJ 10 MG/ML 4 ML VIAL IV ONE (11:05)
[2020-04-11 11:38] LABS: ABG HCO3 30 mmol/L (22-26); ABG PCO2 52 mmHg (35-45); ABG PH 7.37 (7.35-7.45); ABG PO2 90 mmHg (80-105); ABG TCO2 31
[2020-04-11] MEDS: ACETAMINOPHEN 325 MG TAB PO PRN (15:59)
--- NOTE | 2020-04-11 16:44 | Progress Note ---
DATE: 04/11/2020 SUBJECTIVE: Ms. Paz remains in intensive care unit, intubated. She is on Levophed at 2 mcg, Versed, and rocuronium. The patient, who is intubated and sedated. OBJECTIVE: VITAL SIGNS: Stable, afebrile. HEENT: She is not icteric. NECK: Supple. CHEST: Few rhonchi. HEART: S1 and S2. ABDOMEN: Soft. Bowel sounds present. EXTREMITIES: No edema. The patient, who is on ventilator. PRVC mode, PEEP of 12, FiO2 80%, tidal volume 360. LABORATORY DATA: Reviewed. White count 8.1 and hemoglobin 7. Her sodium 139, potassium 4.1 with a creatinine 0.65. IMPRESSION: Respiratory failure and COVID-19. Continue supportive care as ordered. To finish 10 days of dexamethasone and 7 days of vancomycin and meropenem. MD JONY Ramirez/MODL /[id number]
[2020-04-11] MEDS: ENOXAPARIN SOD INJ 60 MG/0.6 ML SYR SC SCH (17:18)
[2020-04-12] VITALS (26 sets, daily range): BP systolic 82–118; BP diastolic 45–84
[2020-04-12] MEDS: ACETAMINOPHEN 325 MG TAB PO PRN (01:00)
[2020-04-12] MEDS: INSULIN REGULAR, HUMAN 100 UNIT/1 ML 3ML VIAL SQ SCH ×5 (01:08→23:44)
[2020-04-12] MEDS: MEROPENEM 1GM 100 ML IV SCH ×3 (02:02→18:14)
--- NOTE | 2020-04-12 02:10 | Progress Note ---
DATE: 04/11/2020 Cardiology Progress Note SUBJECTIVE: The patient remains intubated, sedated and also paralyzed. She had Levophed infusion turned off this morning. She has been prone part of the day. Her Tmax is 103 F. She received Tylenol and cooling blanket for high fever. The patient had wound care done to sacral wound. PHYSICAL EXAMINATION: VITAL SIGNS: Maximum temperature today was 103 F. The blood pressure 94/53 mmHg with a heart rate of 84 beats per minute. Her oxygen saturation was 99% on FiO2 of 80%. GENERAL: She is intubated, sedated and paralyzed. NECK: ET tube in place. CHEST: Decreased breath sounds anteriorly. CARDIOVASCULAR: Regular rate and rhythm, no murmurs herd. Normal S1 and, S2. No murmurs heard. ABDOMEN: Soft, not distended. EXTREMITIES: Trace leg edema. MEDICATIONS: Reviewed. LABORATORY DATA: Shows a white blood cell count of 8.1, hemoglobin is 7.6, hematocrit is 24.5, platelet count is 172,000. The basic metabolic profile shows a sodium of 139, potassium of 4.1, chloride of 104, bicarb 31, BUN is 26, creatinine is 0.65, glucose 170. Her liver tests are within reference range. Her albumin is 1.7 with a total protein of 5.6. Chest x-ray today: diffuse airspace and interstitial pulmonary infiltrates, no change from previous x-rays. ASSESSMENT AND PLAN: 74-year-old woman with COVID-19 infection and associated pneumonia, acute respiratory failure requiring mechanical ventilation, episodes of sinus bradycardia, persistent fever and and increasing FiO2 requirements: 1. No bradycardia 2. No vasopressors 3. Anemia: monitor closely 4. Sacral wound: wound care 5. Vent management as per Pulmonary service. 6. Antibiotics as per Infectious Disease service. MD MARIANNE Nuñez/NENA /[id number]
[2020-04-12] MEDS: ROCURONIUM BROMIDE 1,250 MG in SODIUM CHLORIDE 0.9% 250ML 125 ML IV SCH ×2 (02:32→10:30)
[2020-04-12] MEDS: FENTANYL 2000MCG/NS 250 250 ML IV PRN ×3 (02:45→18:20)
[2020-04-12] MEDS: MIDAZOLAM HCL 5MG/ML 10ML VIAL 100 ML IV PRN ×2 (04:32→11:31)
--- NOTE | 2020-04-12 05:13 | NUR ---
IM- progress note O/N see below ROS: no f/c/s/N/V/D/LING/cp/skin rash/confusion/dizziness/leg pain v/s revd PE tired appearing anicteric Oxygen canula in place ns1s2 reduced bs soft nt nd no e/t skin dry flat affect labs/med revd A/P: 74yoF Multifocal PNA- IV abx; O2; COVID testing Acute resp failure- O2 DKA- insulin; hab1c/lipids; insulin CHERI- f/u Severe Sepsis- IV abx Septic shock- pressor PRN; abx Obesity- 1/2 portion sizes; outpt BMI 37- as above Physical deconditioning- PT consult Prop; scd; lovenox Dispo: f/u COVID testing 03-25-20 Hba1c/LDL 10.; f/u COVID tesing; 03-26- cont care; 11- cont care in ICU; needing more O2; Continue decadron and remdesivir. 11-6 f/u echo; cont care in ICU 11-7 Hypernaremia and CHERI- give free water; Intubated overnight;cont vent support; monitor closely. d/w daughter by Telephone. 11-8 labs pending; titrate insulin up 11-9 titrate insulin up further; give free water for Hypernatremia/CHERI. Nephr consult; Left Upper lobe PE- lovenox BID 11-10 uncontrolled glucose- titrate insulin up. 11-11 adjust insulin 11-12 CXR no change; cont support; remains on 60% FiO2; Called family- left message. 11-13 No change; 60% FiO2; Left message for family at [facility] [phone] 11-14 low grade fever overnight; Thrombocytopenia on AC; monitor; Remains on 60% FiO2; 11-15 stable; cont vent support. continue free water; Hypernatremia- recheck BMP at 2pm; 11-16 cont care; spoke with family 11-17 fever overnight; no leukocytosis or cultures positive; cont vent; cont support; renal fn stable; Spoke with Ms Steven, daughter. 11-18 febrile overnight; left message for family; 600cc urine on dayshift; f/u I/O; Worsening resp status, not on 85% FiO2 vent suppport. 11-19 Septic shock- started on pressors; Anuric - treated with albumin/lasix, successful in getting 1500ml urine out; Worsened resp status- now on 1005 FiO2 vent support; vanco therapeutic; D/w both daughters by telephone; both aware of current status. 11-20 Unstageable Sacral ulcer; Febrile; Septic shock; Prognosis poor; f/u labs; On Levophed pressor; cont care. 11-21 continue supportive care with vent and medications. Gen TRAYLOR MD, PHD
[2020-04-12 06:19] LABS: BASOPHILS % 0.2 % (0.0-1.0); EOSINOPHILS # (AUTO) 0.4 (0.0-0.4); EOSINOPHILS % 4.4 % (0.0-6.0); HEMOGLOBIN 7.2 g/dL (12.0-16.0); LYMPHOCYTES # (AUTO) 0.7 (1.0-3.2); LYMPHOCYTES % 8.2 % (18.0-39.1); MEAN CORPUSCULAR HEMOGLOBIN 27.8 pg (28-32); MEAN CORPUSCULAR VOLUME 92.7 fL (81-99); MONOCYTES # (AUTO) 0.5 (0.2-0.8); MONOCYTES % 6.5 % (4.4-11.3); NEUTROPHILS # (AUTO) 6.5 (2.1-6.9); NEUTROPHILS % 79.8 % (38.7-80.0); PLATELET COUNT 215 x10e3/uL (140-360); RED BLOOD COUNT 2.59 x10e6/uL (3.6-5.1); RED CELL DISTRIBUTION WIDTH 15.9 % (11.7-14.4)
[2020-04-12 06:35] LABS: ALANINE AMINOTRANSFERASE 22 IU/L (0-55); ALBUMIN 1.6 g/dL (3.5-5.0); ALBUMIN/GLOBULIN RATIO 0.4 (0.8-2.0); ALKALINE PHOSPHATASE 65 IU/L (40-150); ANION GAP 11.4 mmol/L (8-16); BLOOD UREA NITROGEN 28 mg/dL (7-26); BUN/CREATININE RATIO 41 (6-25); CALCIUM 7.9 mg/dL (8.4-10.2); CARBON DIOXIDE 31 mmol/L (22-29); CHLORIDE 102 mmol/L (98-107); CREATININE, SERUM 0.69 mg/dL (0.57-1.11); EST GLOMERULAR FILTRATION RATE > 60 ML/MIN (60-); GLUCOSE 157 mg/dL (74-118); POTASSIUM 4.4 mmol/L (3.5-5.1); SODIUM 140 mmol/L (136-145)
[2020-04-12] MEDS: FAMOTIDINE 20 MG TAB PO SCH ×2 (09:00→17:00)
--- NOTE | 2020-04-12 09:15 | NUR ---
INFECTIOUS DISEASE PROGRESS NOTE DR. LORIE KENNEY CC: COVID ROS: unable to obtain/intubated PAST MEDICAL HISTORY: Diabetes mellitus and hypertension. ALLERGIES: PENICILLIN, BUT SHE DID WELL WITH CEPHALOSPORIN. LABORATORY DATA: per chart MEDICATIONS: per chart PHYSICAL EXAMINATION: GENERAL: intubated sedated VITAL SIGNS: per chart HEENT: She is not icteric. normocephalic atraumatic NECK: Supple. no JVD CHEST: Crackles bilateral. vent with 60% fi02 and PEEP of 10 HEART: S1 and S2. no s3, s4 ABDOMEN: Soft. Bowel sounds present. EXTREMITIES: no joint swelling, no rash SKIN: No rash. no edema IMPRESSION: Respiratory failure community-acquired pneumonia COVID 19 Pulmonary embolism in the segmental left upper lobe branches. PLAN: supportive care vent support lovenox IV ABT Goals of care were discussed with family poor prognosis Tata Lino MSN, HIGH SCHOOL SOCIAL SCIENCE TEACHER, AGACNP-BC d/w Lorie Keneny M.D.
[2020-04-12] MEDS: VANCOMYCIN 1GM/NS 250 ML 250 ML IV SCH ×3 (09:30→21:02)
[2020-04-12] MEDS: ZINC SULFATE 220 MG CAP PO SCH (10:32)
[2020-04-12] MEDS: EYE LUBRICANT OPTH OINT 3.5GM TUBE OP SCH ×2 (10:32→17:39)
[2020-04-12] MEDS: BALSAM PERU/CASTOR OIL 60 GM OINT...G. TP SCH (10:32)
[2020-04-12] MEDS: ASCORBIC ACID 500 MG TAB PO SCH ×2 (10:32→17:39)
[2020-04-12] MEDS: INSULIN GLARGINE 100 UNITS/ML VIAL SQ SCH ×2 (10:32→21:55)
--- NOTE | 2020-04-12 11:51 | Progress Note ---
DATE: 04/12/2020 Pulmonary Medicine Progress Note SUBJECTIVE: Ms. Paz was seen and examined at bedside. She continues on ventilator. 26/380/80/12. Minute ventilation 10, peak pressure 41, respiratory rate 26. Tube feeds at 35 mL/hour, water 250 mL every 6 hours. Chest x-ray noted slowly worsening over the last few days. Fentanyl 250, Versed 8. Urine output 450 mL over 12 hours, Rocuronium and Levophed drips. REVIEW OF SYSTEMS: Cannot get reliably, she is intubated, altered. LABORATORY DATA: A 31 bicarbonate, 0.7 creatinine. Eight white count, 24 hematocrit, 215 platelets. IMPRESSION: 1. Acute respiratory failure, hypoxemic. 2. Coronavirus disease pneumonia. 3. Diabetes. 4. Metabolic encephalopathy. 5. Anemia, partially due to chronic blood loss and chronic disease. PLAN: Continue ventilator state. Lung protective ventilation. sedation as needed. As her x-rays evolving in the last week, we will give a dose of steroids to see if there is steroid responsive component here. Continue tube feeds. Continue the patient, as her P/F ratio is 112 today. MD PEREZ Huber/MODL /[id number]
[2020-04-12] MEDS ORDERED: METHYLPREDNISOLONE SOD SUCC 125 MG/2ML VIAL IV SCH (12:00)
--- NOTE | 2020-04-12 15:18 | Progress Note ---
DATE: 04/12/2020 Nephrology Follow up Note. SUBJECTIVE: Followup for dehydration and hypernatremia, which has since resolved. Currently, she remains intubated and requiring high oxygen, and is sedated. OBJECTIVE: VITAL SIGNS: Blood pressure 99/55 on 2 mcg of Levophed, pulse 73 per minute, and afebrile. HEENT: Normocephalic and atraumatic. The patient is lying in a prone position. LUNGS: Bilateral air entry to ventilated breaths. EXTREMITIES: Have no significant edema or cyanosis. IMAGING: Chest x-ray from yesterday shows worsening of pulmonary infiltrates, more likely to be pneumonia than cardiogenic pulmonary edema. LABORATORY DATA: Most recent chemistry shows normal creatinine of 0.69, BUN of 28, sodium 140, bicarb 31, potassium 4.4, glucose 157, total calcium 7.9 with albumin of 1.6. Hemoglobin is 7.2 and normal white count and platelets. IMPRESSION: 1. Hypernatremia, remains corrected with administration of free water per NG tube. 2. Fluid status, looking at the chest x-ray, this is more pneumonic infiltrates than removal of fluid. Trial of IV Lasix 40 mg yesterday yielded not much output. 3. Nutrition, tolerating NG feeding. 4. COVID-19 pneumonia, treatment per ICU team. Cristobal Valenzuela MD [facility]/MODL /[id number]
[2020-04-12 17:14] LABS: ABG HCO3 32 mmol/L (22-26); ABG PCO2 61 mmHg (35-45); ABG PH 7.33 (7.35-7.45); ABG PO2 156 mmHg (80-105); ABG TCO2 34
--- NOTE | 2020-04-12 17:57 | Diagnostic Imaging Report ---
EXAMINATION: CHEST SINGLE (PORTABLE) INDICATION: ^resp failure ^20200412 ^1700 COMPARISON: Multiple prior x-rays including most recent on 04/11/2020. FINDINGS: TUBES and LINES: ET tube tip 4 cm above km. Right upper extremity PICC tip terminates in the distal SVC. Subdiaphragmatic enteric tube courses beyond the [id number]. LUNGS/PLEURA: No interval changes in diffuse interstitial and airspace opacities throughout both lungs. Probable small bilateral pleural effusions. No pneumothorax. HEART AND MEDIASTINUM: The cardiomediastinal silhouette is obscured and unchanged. There are atherosclerotic calcifications within the aorta. BONES AND SOFT TISSUES: No acute osseous lesion. Soft tissues are unchanged. UPPER ABDOMEN: No free air under the diaphragm. Cholecystectomy clips. IMPRESSION: 1. Stable lines and tubes as above. 2. No interval changes in diffuse interstitial and airspace opacity most compatible with multifocal pneumonia/ARDS. Signed by: Stefania Murcia MD on 04/12/2020 5:53 PM
--- NOTE | 2020-04-12 17:59 | Diagnostic Imaging Report ---
EXAM: Abdomen Radiograph 1 View(s) INDICATION: ^s/p ng tube placement ^20200412 ^1699 COMPARISON: Multiple prior chest radiographs including those obtained same day. FINDINGS: Enteric tube which terminates in the distal stomach, likely gastric pylorus. Nonobstructive bowel gas pattern. Status post cholecystectomy. Multilevel degenerative change of the thoracolumbar spine. Please see concurrently obtained chest radiograph for complete details. IMPRESSION: 1. Enteric tube terminates in the expected location of the gastric pylorus. 2. Nonobstructive bowel gas pattern. Signed by: Stefania Murcia MD on 04/12/2020 5:56 PM
--- NOTE | 2020-04-12 19:00 | NUR ---
Report received. Assumed care. Assessment done. See interventions. Orally intubated. Vent settings: TV 380, RR 26, Peep 12. OGT with glucerna @ 20ml/hr. IVs: Rocuronium @ .008 mg/kg/min or 7.7 ml/hr, levophed @ 2mg/min or 3.8ml/hr, Fentanyl @ 250 mcg/hr or 31.3 ml/hr, & Versed @ 8mg/hr or 16ml/hr. On Sizewise rotating bed.
[2020-04-12] MEDS ORDERED: SODIUM CHLORIDE 0.9% 1000ML 1,000 ML ONE (19:40)
[2020-04-12] MEDS ORDERED: HEPARIN SOD/SOD CHLORIDE 1,000 ML ONE (19:47)
--- NOTE | 2020-04-12 19:58 | NUR ---
Changed art line tubing & Heparin bag.
--- NOTE | 2020-04-12 21:18 | Progress Note ---
DATE: 04/12/2020 Cardiology Progress Note SUBJECTIVE: Remains on vent support in prone position. OBJECTIVE: VITAL SIGNS: Temperature 99.3, heart rate 81, blood pressure 102/47, respiratory rate 26, sat 100% on Levophed 10 mcg/minute and vent support, intubated, prone position. CHEST: With decreased breath sounds. CARDIOVASCULAR: Regular rate and rhythm. Normal S1, S2. ABDOMEN: With bowel sounds positive. EXTREMITIES: Trace edema. SKIN: Intact, normothermic. CARDIOVASCULAR MEDICATIONS: Reviewed Lovenox 40 mg subcu daily, atropine 0.5 mg 2 hours p.r.n. Levophed. LABORATORY DATA: Studies reviewed. Creatinine 0.6 glucose 157. White blood cells 8.1, hemoglobin 7.2, and platelets 215. ASSESSMENT AND PLAN: 1. A 74-year-old woman presents with coronavirus disease-19 infection, community acquired pneumonia, acute respiratory failure, severe sepsis with septic shock, sinus bradycardia, intermittent. Recommend continue DVT prophylaxis. 2. Continue pressors for MAP 65-75. 3. Atropine p.r.n. 4. Keep on telemetry. Alejandro Larkin MD [facility]/MODL /[id number]
--- NOTE | 2020-04-12 21:30 | NUR ---
Vanc trough 22.9. Attempts to call Dr. Hernandez without success. Vanc dose held.
[2020-04-13] VITALS (24 sets, daily range): BP systolic 93–158; BP diastolic 43–70
[2020-04-13] MEDS: MIDAZOLAM HCL 5MG/ML 10ML VIAL 100 ML IV PRN ×4 (00:27→20:49)
--- NOTE | 2020-04-13 00:54 | NUR ---
Increased Glucerna to 35 ml/hr. Tubing changed.
[2020-04-13] MEDS: FENTANYL 2000MCG/NS 250 250 ML IV PRN ×3 (02:19→18:30)
[2020-04-13] MEDS: MEROPENEM 1GM 100 ML IV SCH ×3 (02:37→17:48)
[2020-04-13] MEDS: NOREPINEPHRINE INJ 4MG/4ML 8 MG in DEXTROSE 5% 250ML 250 ML IV SCH ×2 (03:19→22:15)
[2020-04-13 06:09] LABS: ANION GAP 12.7 mmol/L (8-16); BLOOD UREA NITROGEN 30 mg/dL (7-26); BUN/CREATININE RATIO 42 (6-25); CALCIUM 8.2 mg/dL (8.4-10.2); CARBON DIOXIDE 29 mmol/L (22-29); CHLORIDE 102 mmol/L (98-107); CREATININE, SERUM 0.71 mg/dL (0.57-1.11); EST GLOMERULAR FILTRATION RATE > 60 ML/MIN (60-); GLUCOSE 236 mg/dL (74-118); MAGNESIUM 2.1 MG/DL (1.3-2.1); POTASSIUM 4.7 mmol/L (3.5-5.1); SODIUM 139 mmol/L (136-145)
[2020-04-13] MEDS: INSULIN REGULAR, HUMAN 100 UNIT/1 ML 3ML VIAL SQ SCH ×3 (06:29→17:48)
--- NOTE | 2020-04-13 06:39 | NUR ---
IM- progress note O/N see below ROS: no f/c/s/N/V/D/LING/cp/skin rash/confusion/dizziness/leg pain v/s revd PE tired appearing anicteric Oxygen canula in place ns1s2 reduced bs soft nt nd no e/t skin dry flat affect labs/med revd A/P: 74yoF Multifocal PNA- IV abx; O2; COVID testing Acute resp failure- O2 DKA- insulin; hab1c/lipids; insulin CHERI- f/u Severe Sepsis- IV abx Septic shock- pressor PRN; abx Obesity- 1/2 portion sizes; outpt BMI 37- as above Physical deconditioning- PT consult Prop; scd; lovenox Dispo: f/u COVID testing 03-25-20 Hba1c/LDL 10.; f/u COVID tesing; 03-26- cont care; 11- cont care in ICU; needing more O2; Continue decadron and remdesivir. 11-6 f/u echo; cont care in ICU 11-7 Hypernaremia and CHERI- give free water; Intubated overnight;cont vent support; monitor closely. d/w daughter by Telephone. 11-8 labs pending; titrate insulin up 11-9 titrate insulin up further; give free water for Hypernatremia/CHERI. Nephr consult; Left Upper lobe PE- lovenox BID 11-10 uncontrolled glucose- titrate insulin up. 11-11 adjust insulin 11-12 CXR no change; cont support; remains on 60% FiO2; Called family- left message. 11-13 No change; 60% FiO2; Left message for family at [facility] [phone] 11-14 low grade fever overnight; Thrombocytopenia on AC; monitor; Remains on 60% FiO2; 11-15 stable; cont vent support. continue free water; Hypernatremia- recheck BMP at 2pm; 11-16 cont care; spoke with family 11-17 fever overnight; no leukocytosis or cultures positive; cont vent; cont support; renal fn stable; Spoke with Ms Steven, daughter. 11-18 febrile overnight; left message for family; 600cc urine on dayshift; f/u I/O; Worsening resp status, not on 85% FiO2 vent suppport. 11-19 Septic shock- started on pressors; Anuric - treated with albumin/lasix, successful in getting 1500ml urine out; Worsened resp status- now on 1005 FiO2 vent support; vanco therapeutic; D/w both daughters by telephone; both aware of current status. 11-20 Unstageable Sacral ulcer; Febrile; Septic shock; Prognosis poor; f/u labs; On Levophed pressor; cont care. 11-21 continue supportive care with vent and medications. 11-22 Moderate ARDS; cont vent and pressors; vanco mildly supratherapeutic- hold dose. Gen TRAYLOR MD, PHD
--- NOTE | 2020-04-13 08:04 | Diagnostic Imaging Report ---
EXAMINATION: CHEST SINGLE (PORTABLE) INDICATION: ^covid pneumonia ^20200413 ^0537 COMPARISON: Multiple prior x-rays including most recent on 04/12/2020. FINDINGS: TUBES and LINES: ET tube tip 5 cm above km. Right upper extremity PICC tip terminates in the distal SVC. Subdiaphragmatic enteric tube terminates in the expected location of gastric pylorus. LUNGS/PLEURA: Accounting for lower lung volumes, no significant interval changes in diffuse interstitial and airspace opacities throughout both lungs. Probable small bilateral pleural effusions. No pneumothorax. HEART AND MEDIASTINUM: The cardiomediastinal silhouette is obscured and unchanged. There are atherosclerotic calcifications within the aorta. BONES AND SOFT TISSUES: No acute osseous lesion. Soft tissues are unchanged. UPPER ABDOMEN: No free air under the diaphragm. Cholecystectomy clips. IMPRESSION: 1. Accounting for differences in technique, no significant interval changes in diffuse interstitial and airspace opacity most compatible with multifocal pneumonia/ARDS. 2. Stable lines and tubes as above. Signed by: Stefania Murcia MD on 04/13/2020 8:01 AM
[2020-04-13 08:10] LABS: ABG PH 7.39 (7.35-7.45)
[2020-04-13 08:11] LABS: ABG HCO3 30 mmol/L (22-26); ABG PCO2 50 mmHg (35-45); ABG PO2 68 mmHg (80-105); ABG TCO2 31
[2020-04-13] MEDS: ASCORBIC ACID 500 MG TAB PO SCH ×2 (08:38→17:48)
[2020-04-13] MEDS: FAMOTIDINE 20 MG TAB PO SCH ×2 (08:38→17:48)
[2020-04-13] MEDS: EYE LUBRICANT OPTH OINT 3.5GM TUBE OP SCH ×2 (08:38→17:48)
[2020-04-13] MEDS: BALSAM PERU/CASTOR OIL 60 GM OINT...G. TP SCH (08:38)
[2020-04-13] MEDS: ZINC SULFATE 220 MG CAP PO SCH (08:38)
[2020-04-13] MEDS: INSULIN GLARGINE 100 UNITS/ML VIAL SQ SCH ×2 (08:38→20:43)
[2020-04-13] MEDS: ROCURONIUM BROMIDE 1,250 MG in SODIUM CHLORIDE 0.9% 250ML 125 ML IV SCH (10:27)
--- NOTE | 2020-04-13 10:32 | NUR ---
CC: COVID ROS: unable to obtain/intubated PAST MEDICAL HISTORY: Diabetes mellitus and hypertension. ALLERGIES: PENICILLIN, BUT SHE DID WELL WITH CEPHALOSPORIN. LABORATORY DATA: per chart MEDICATIONS: per chart PHYSICAL EXAMINATION: GENERAL: intubated sedated VITAL SIGNS: per chart HEENT: She is not icteric. normocephalic atraumatic NECK: Supple. no JVD CHEST: Crackles bilateral. vent with 60% fi02 and PEEP of 10 HEART: S1 and S2. no s3, s4 ABDOMEN: Soft. Bowel sounds present. EXTREMITIES: no joint swelling, no rash SKIN: No rash. no edema IMPRESSION: Respiratory failure community-acquired pneumonia COVID 19 Pulmonary embolism in the segmental left upper lobe branches. PLAN: supportive care vent support lovenox IV ABT Goals of care were discussed with family [phone]
[2020-04-13] MEDS: VANCOMYCIN 1GM/NS 250 ML 250 ML IV SCH ×2 (11:49→20:43)
--- NOTE | 2020-04-13 14:26 | Progress Note ---
DATE: 04/13/2020 Nephrology Progress Note SUBJECTIVE: Clinically, remains unimproved. On ventilator, FiO2 65%. Blood pressure the 90 systolic, on one mcg IV norepinephrine. Urine output remains adequate. OBJECTIVE: VITAL SIGNS: Blood pressure as above. Afebrile. Intake and output positive noted. NECK: Supple. RESPIRATION: Bilateral symmetrical air entry to mechanical breaths. CARDIOVASCULAR: Regular rate and rhythm. ABDOMEN: Nondistended. EXTREMITIES: Without significant edema. No cyanosis. NEUROLOGICAL: Sedated. LABORATORY DATA: Noted. Her serum chemistries are normal today. IMPRESSION: 1. Hypernatremia, treated with free water 250 every 6 hours through the feeding tube. Decreased amount to 150 q.6 of today. Continue to monitor sodium level. 2. Nutrition, tolerating tube feedings. We will continue same for now. 3. Blood pressure, remains tenuous, requiring IV Levophed. 4. Pulmonary status, being treated for COVID-19 pneumonia. Chest x-ray reflects pneumonic infiltrates more than cardiogenic pulmonary edema. 5. Her renal function remains preserved. Cristobal Valenzuela MD [facility]/MODL /[id number]
[2020-04-13] MEDS: FUROSEMIDE INJ 10 MG/ML 4 ML VIAL IV SCH ×2 (14:47→20:43)
--- NOTE | 2020-04-13 15:36 | Progress Note ---
DATE: 04/13/2020 SUBJECTIVE: Ms. Paz continued to be intubated. The patient does not really provide any meaningful information. OBJECTIVE: GENERAL: She is intubated, sedated. VITAL SIGNS: Stable, afebrile. She is on Levophed. HEENT: She is not icteric. NECK: Supple. CHEST: Crackles. HEART: S1, S2. ABDOMEN: Soft. Bowel sounds present. EXTREMITIES: No edema. SKIN: No rash. IMPRESSION: Respiratory failure, COVID-19. Prognosis remains very poor. Continue as ordered. MD JONY Ramirez/MODL /[id number]
--- NOTE | 2020-04-13 16:16 | Progress Note ---
DATE: 04/13/2020 Pulmonary Medicine Progress Note SUBJECTIVE: Ms. Paz was seen and examined at bedside. She continues to have critical state. 26/380/65/12 on ventilator. Respiratory rate 26, peak pressure 40, minute ventilation 10 L/minute. Rocuronium drip, fentanyl, Versed. Chest x-ray with bilateral ARDS slightly worse over the last few days. Feeds at 35 mL per hour, water at 250 mL q.6 hours. REVIEW OF SYSTEMS: Cannot get review of systems as the patient is intubated. OBJECTIVE: CBC stable, 7.39/50/68, PO2. Potassium 4.7, 30 BUN, and 0.7 creatinine. IMPRESSION AND PLAN: 1. Acute respiratory failure, intubated. 2. Coronavirus disease-19 pneumonitis, arterial line. 3. Diabetes. 4. Metabolic encephalopathy. 5. Anemia, mixed etiology. 6. Possible fluid overload component. 7. We will give more diuretics given the x-ray appearance. Decreased to free water. The patient to be slightly dry as tolerated. Continue intubated state with ventilator support. Lung protective settings. Continue paralysis and deep sedation. Nico Lovell MD [facility]/MODL /[id number]
--- NOTE | 2020-04-13 18:16 | Progress Note ---
DATE: 04/13/2020 Cardiology Progress Note SUBJECTIVE: Intubated, sedated, sinus rhythm on telemetry. OBJECTIVE: VITAL SIGNS: Temperature 97.8, heart rate 63, blood pressure 112/52, respiratory rate 26, O2 saturation 98% on vent support. GENERAL: Intubated, sedated. CHEST: Rales. Decreased breath sounds. CARDIOVASCULAR: Regular rate and rhythm. Normal S1, S2. ABDOMEN: Bowel sounds positive. EXTREMITIES: Trace edema. CARDIOVASCULAR MEDICATIONS: 1. Furosemide 40 mg IV every 12 hours. 2. Vancomycin. 3. Meropenem antibiotics. 4. Levophed. 5. Methylprednisolone 60 mg IV x1. 6. Atropine 0.5 mg q.2 hours p.r.n. STUDIES: Reviewed. White blood cells 8, hemoglobin 7.2, platelets 215. Sodium 139, potassium 4.7, chloride 102, bicarbonate 29, BUN 30, creatinine 0.7, glucose 217, calcium 8.2, and magnesium 2.1. ASSESSMENT/PLAN: 1. Acute respiratory failure, on vent support. 2. COVID-19 infection pneumonia. 3. Diabetes mellitus. 4. Anemia. 5. Sinus bradycardia, intermittent. 6. Volume overload. 7. Severe sepsis with septic shock, on pressors p.r.n. Recommend continue atropine p.r.n., continue telemetry monitoring, pressors as needed for MAP 65 to 75. Alejandro Larkin MD [facility]/MODL /[id number]
--- NOTE | 2020-04-13 22:00 | NUR ---
Morales catheter not draining, flushed multiple times. Bladder scan revealed 900+ mls. Upon removal, tip of catheter eroded and covered with sediment/yeast. Morales exchanged to [facility] with this RN and chargemaster analyst using sterile technique. 1100 mls drained upon insertion. Addendum: 04/13/20 at 2333 by Sherlyn Gonsales RN Rectal temp. probe inserted.
[2020-04-14] VITALS (25 sets, daily range): BP systolic 83–178; BP diastolic 34–60
[2020-04-14] MEDS: INSULIN REGULAR, HUMAN 100 UNIT/1 ML 3ML VIAL SQ SCH ×4 (00:59→17:16)
[2020-04-14] MEDS: MEROPENEM 1GM 100 ML IV SCH ×3 (01:58→17:15)
[2020-04-14] MEDS: MIDAZOLAM HCL 5MG/ML 10ML VIAL 100 ML IV PRN ×4 (02:57→22:40)
[2020-04-14] MEDS: FENTANYL 2000MCG/NS 250 250 ML IV PRN ×3 (02:57→17:17)
--- NOTE | 2020-04-14 05:00 | NUR ---
IM- progress note O/N see below ROS: no f/c/s/N/V/D/LING/cp/skin rash/confusion/dizziness/leg pain v/s revd PE tired appearing anicteric Oxygen canula in place ns1s2 reduced bs soft nt nd no e/t skin dry flat affect labs/med revd A/P: 74yoF Multifocal PNA- IV abx; O2; COVID testing Acute resp failure- O2 DKA- insulin; hab1c/lipids; insulin CHERI- f/u Severe Sepsis- IV abx Septic shock- pressor PRN; abx Obesity- 1/2 portion sizes; outpt BMI 37- as above Physical deconditioning- PT consult Prop; scd; lovenox Dispo: f/u COVID testing 03-25-20 Hba1c/LDL 10.; f/u COVID tesing; 03-26- cont care; 11- cont care in ICU; needing more O2; Continue decadron and remdesivir. 11-6 f/u echo; cont care in ICU 11-7 Hypernaremia and CHERI- give free water; Intubated overnight;cont vent support; monitor closely. d/w daughter by Telephone. 11-8 labs pending; titrate insulin up 11-9 titrate insulin up further; give free water for Hypernatremia/CHERI. Nephr consult; Left Upper lobe PE- lovenox BID 11-10 uncontrolled glucose- titrate insulin up. 11-11 adjust insulin 11-12 CXR no change; cont support; remains on 60% FiO2; Called family- left message. 11-13 No change; 60% FiO2; Left message for family at [facility] [phone] 11-14 low grade fever overnight; Thrombocytopenia on AC; monitor; Remains on 60% FiO2; 11-15 stable; cont vent support. continue free water; Hypernatremia- recheck BMP at 2pm; 11-16 cont care; spoke with family 11-17 fever overnight; no leukocytosis or cultures positive; cont vent; cont support; renal fn stable; Spoke with Ms Steven, daughter. 11-18 febrile overnight; left message for family; 600cc urine on dayshift; f/u I/O; Worsening resp status, not on 85% FiO2 vent suppport. 11-19 Septic shock- started on pressors; Anuric - treated with albumin/lasix, successful in getting 1500ml urine out; Worsened resp status- now on 1005 FiO2 vent support; vanco therapeutic; D/w both daughters by telephone; both aware of current status. 11-20 Unstageable Sacral ulcer; Febrile; Septic shock; Prognosis poor; f/u labs; On Levophed pressor; cont care. 11-21 continue supportive care with vent and medications. 11-22 Moderate ARDS; cont vent and pressors; vanco mildly supratherapeutic- hold dose. 11-23 cont care. I contacted family member; updated on status. AILYN GRANT. , PHD
[2020-04-14 06:00] LABS: BASOPHILS % 0.4 % (0.0-1.0); EOSINOPHILS # (AUTO) 0.4 (0.0-0.4); EOSINOPHILS % 5.2 % (0.0-6.0); HEMATOCRIT 23.7 % (34.2-44.1); HEMOGLOBIN 7.2 g/dL (12.0-16.0); LYMPHOCYTES # (AUTO) 1.1 (1.0-3.2); LYMPHOCYTES % 15.1 % (18.0-39.1); MEAN CORPUSCULAR HEMOGLOBIN 28.1 pg (28-32); MEAN CORPUSCULAR HGB CONC 30.4 g/dL (31-35); MEAN CORPUSCULAR VOLUME 92.6 fL (81-99); MONOCYTES # (AUTO) 0.6 (0.2-0.8); MONOCYTES % 8.7 % (4.4-11.3); NEUTROPHILS # (AUTO) 4.7 (2.1-6.9); NEUTROPHILS % 66.5 % (38.7-80.0); PLATELET COUNT 269 x10e3/uL (140-360); RED BLOOD COUNT 2.56 x10e6/uL (3.6-5.1); RED CELL DISTRIBUTION WIDTH 16.5 % (11.7-14.4)
[2020-04-14 06:18] LABS: ANION GAP 12.1 mmol/L (8-16); BLOOD UREA NITROGEN 33 mg/dL (7-26); BUN/CREATININE RATIO 48 (6-25); CALCIUM 7.6 mg/dL (8.4-10.2); CARBON DIOXIDE 30 mmol/L (22-29); CHLORIDE 103 mmol/L (98-107); CREATININE, SERUM 0.69 mg/dL (0.57-1.11); EST GLOMERULAR FILTRATION RATE > 60 ML/MIN (60-); GLUCOSE 156 mg/dL (74-118); MAGNESIUM 1.9 MG/DL (1.3-2.1); POTASSIUM 4.1 mmol/L (3.5-5.1); SODIUM 141 mmol/L (136-145)
--- NOTE | 2020-04-14 08:09 | Progress Note ---
DATE: 04/14/2020 PULMONARY CRITICAL CARE PROGRESS NOTE: SUBJECTIVE: The patient remains on Levophed at 1.5 mcg. She is also on Versed and fentanyl as well as rocuronium. She is currently on a PRVC mode of ventilation, rate of 26 with a tidal volume of 380. Her FiO2 is set at 65%, PEEP is set at 10. PHYSICAL EXAMINATION: VITAL SIGNS: Blood pressure is 111/46, saturation is 99%, pulse is 65. HEENT: Shows no facial swelling or erythema. LYMPHATIC: Shows no submandibular, cervical, supraclavicular adenopathy. CARDIAC: Reveals regular rate and rhythm. Normal S1, S2. LUNGS: Auscultation of lungs reveals crackles at the bases. There is no wheezing. ABDOMEN: Soft, nontender. There is no rebound or guarding. EXTREMITIES: Shows no leg edema or calf tenderness. There is no cyanosis or clubbing. SKIN: Shows no rashes. LABORATORY DATA: White blood cell count is 7.1, hemoglobin 7.2, and platelet count is 269. The BUN to creatinine ratio is 33 to 0.69 and the other electrolytes are within normal limits. Magnesium is 1.9. IMPRESSION: 1. Acute respiratory failure. 2. Viral pneumonia and COVID-19 infection. 3. Diabetes. 4. Anemia secondary to chronic blood loss. PLAN: 1. Await repeat ABG and adjust ventilator. 2. Stop rocuronium. 3. Wean Levophed as tolerated. 4. Continue Versed and fentanyl. 5. Lovenox. 6. Continue to monitor control blood sugars. 7. Continue enteral feedings. Greater than 35 minutes in direct critical care time. Pete Walsh MD [facility]/MODL /[id number]
[2020-04-14 08:23] LABS: ABG HCO3 32 mmol/L (22-26); ABG PCO2 52 mmHg (35-45); ABG PO2 91 mmHg (80-105); ABG TCO2 33
[2020-04-14] MEDS: ASCORBIC ACID 500 MG TAB PO SCH ×2 (08:33→16:20)
[2020-04-14] MEDS: ENOXAPARIN SOD INJ 40 MG/0.4 ML SYR SC SCH ×2 (08:33→21:40)
[2020-04-14] MEDS: FUROSEMIDE INJ 10 MG/ML 4 ML VIAL IV SCH ×2 (08:33→21:40)
[2020-04-14] MEDS: ZINC SULFATE 220 MG CAP PO SCH (08:33)
[2020-04-14] MEDS: BALSAM PERU/CASTOR OIL 60 GM OINT...G. TP SCH (08:33)
[2020-04-14] MEDS: EYE LUBRICANT OPTH OINT 3.5GM TUBE OP SCH ×2 (08:33→16:20)
[2020-04-14] MEDS: FAMOTIDINE 20 MG TAB PO SCH ×2 (08:33→16:20)
[2020-04-14] MEDS: VANCOMYCIN 1GM/NS 250 ML 250 ML IV SCH ×2 (08:34→21:40)
--- NOTE | 2020-04-14 08:37 | Diagnostic Imaging Report ---
X-ray chest frontal view History: Covid pneumonia Comparison: 04/13/2020 Findings: Lines and tubes: Endotracheal tube, right arm PICC line and nasogastric tube show no major change. The abdominal part of the nasogastric tube is not imaged entirely. Central airways: Unremarkable Cardiac silhouette: Unremarkable Mediastinal silhouettes: Unremarkable Pleura: No pleural effusion, pneumothorax or thickening Diaphragms: Unremarkable Lungs: Overall improved aeration of both lungs with decreased infiltrates noticeable in the right lung base in the left lung base. Skeletal structures: Unremarkable Extrathoracic soft tissues: Unremarkable Impression: Improved aeration of both lungs. Signed by: Larry Urbina MD on 04/14/2020 8:33 AM
[2020-04-14] MEDS: INSULIN GLARGINE 100 UNITS/ML VIAL SQ SCH ×2 (09:10→21:00)
--- NOTE | 2020-04-14 13:09 | NUR ---
called pt's daughter, Kristen Fiore ([phone]), again to offer emotional / spiritual support and inquire about family request for prayer outside pt's window. Still no answer - left message. Will follow as able. ANDRES Sandoval [facility] Department O: [phone]
--- NOTE | 2020-04-14 15:45 | Progress Note ---
DATE: 04/14/2020 Renal Progress Note SUBJECTIVE: Followed for hypernatremia, which is resolved. The patient also has COVID-19 pneumonia. The patient is intubated. OBJECTIVE: VITAL SIGNS: Have been noted and stable. LUNGS: Rhonchi bilaterally. CARDIOVASCULAR: S1 and S2. No rub. ABDOMEN: Soft. Positive bowel sounds. EXTREMITIES: No edema. LABORATORY DATA: Have been reviewed. Sodium is within range. IMPRESSION AND PLAN: 1. Hypernatremia, suspect resolved. 2. Hypertension, stable. 3. COVID-19 pneumonia, plan per primary MD. Dillan Sheridan MD [facility]/MODL /[id number]
--- NOTE | 2020-04-14 16:11 | NUR ---
Nutrition Intervention Note RD Recommendation(s) for Physician: -Recommend modifying formula to Vital AF 1.2 @ goal rate of 40 mL/hr (provides 1152 kcal and 72 g protein). Vital AF is appropriate for diabetic pts on vent, less CHO/L than Glucerna and provides adequate protein -Water/fluid management per MD Pt may be fed at goal rate in reverse Trendelenburg with HOB elevated 25 degrees. Plan of Care: RD following, monitoring for tolerance and adequacy. TF rec's. Nutrition reason for involvement: follow up RD Assessment 04/14: Follow up. Pt remains intubated and sedated. Pt is off paralytic per RN. Pt is tolerating TF @ 40 mL/hr. Current recommendations remain appropriate. Will continue to monitor. 04/10: Follow up. Chart reviewed. Pt remains intubated and sedated. Pt is on Levophed at 1 mcg per MD note. Pt was tolerating TF @ 40 mL/hr, but RN mentioned pts tube feeding is at 20 mL/hr at this time since pt was just proned. Informed RN of tube feed recommendations. Will continue to monitor. 04/07: Follow up. Chart reviewed. Pt remains intubated and sedated. Pt is tolerating Glucerna TF @ 40 mL/hr at this time per RN. Recommend modifying TF to Vital AF 1.2 to better meet nutritional needs. Will continue to monitor 04/02: Follow up. Pt remains intubated and sedated with Versed and Fentanyl, no pressors. Pt tolerating trickle feeds while proned, recommend advancing to goal rate as pt currently in reverse Trendelenburg with HOB elevated- discussed with RN on unit. TF rec's remain appropriate, Dr. Whittington changed order to Glucerna 1.2 today. Chart reviewed. Will continue to monitor. (03/28/20) Pt is a 74 year old female admitted with acute respiratory distress and COVID-19. Pt was intubated this morning and tube feed order was placed. There are no reports of recent weight loss without trying and no reports of decreased appetite upon admission. Tube feed recommendations provided. RD to manage TF order per Dr. Walsh. Will continue to monitor. Principal Problems/Diagnoses: acute respiratory distress, COVID-19 PMH: type 2 diabetes GI: soft abdomen, last recorded BM 04/05 Skin: stage 3 sacral pressure ulcer documented 11/16 Labs: 04/14: Na 141, K 4.1, BUN 33, Cr 0.69, Glu 156, Ca 7.6 04/10: Na 140, K 3.7, BUN 23, Cr 0.73, Glu 186, Ca 8.5 04/07: Na 147, K 3.8, BUN 16, Cr 0.60, Glu 150, Ca 8.8 04/02: Na 143, K 4.2, BUN 35, Cr 0.69, Gluc 276, Phos 3.6, Mg 2, POC Gluc 225-238 (03/28/20) Na 148, K 3.5, BUN 37, Glu 201, Ca 8.8, AST 37 Meds: insulin, fentanyl, antibiotics, lasix, zinc sulfate, vitamin C, pepcid, methylprrednisolone, norepinephrine, zofran, colace Ht: 61 in Wt: 195 lbs(04/13) 181 lbs (04/09) 184 lbs (04/07) 169.44 (04/02) 201.56 lbs (03/24) weight fluctuations noted, Suspect possible weight error BMI: 36.8 kg/m2 IBW: 105 lbs Malnutrition Evaluation (04/10/20) The patient does not meet criteria for a specified degree of malnutrition at this time. Will re-evaluate at follow-up as appropriate. Energy intake: TF was meeting energy needs prior to being proned today Weight loss: weight fluctuates noted Fat loss: unable to evaluate due to isolation precautions Muscle loss: unable to evaluate due to isolation precautions Supporting Evidence: Fluid accumulation: 1 to 2+ leg edema per MD note (04/10) Functional Status: unable to assess Nutrition Prescription (Diet Order): Glucerna 1.2 at 40 ml/hr (provides 1152 kcal and 58 g protein) currently infusing at 20 mL/hr, previously at 40 mL/hr prior to being proned today Estimated Nutritional Needs: 9223-8313 calories/day (22-25 kcal/kg IBW) 70- 95 g protein/day (1.5-2 g pro/kg IBW) Diet Adequacy: TF rate is meeting 100% of estimated calorie needs and 83% of estimated protein needs Tolerance: tolerating TF Diet Education Needs Assessment: Diet education not indicated Nutrition Care Level: moderate Nutrition Diagnosis: Inadequate oral intake related to mechanical ventilation as evidenced by need for enteral nutrition. Goal: Patient will meet 75-100% of estimated needs by follow up Progress: progressing Interventions: - Composition, Rate, Route, Recommended Modifications Monitoring/Evaluation: -Total energy intake, Total protein intake, Formula/Solution, Weight change Signed: Angela Ackerman RD, LD
--- NOTE | 2020-04-14 17:05 | NUR ---
INFECTIOUS DISEASE PROGRESS NOTE DR. LORIE KENNEY CC: COVID ROS: unable to obtain/intubated PAST MEDICAL HISTORY: Diabetes mellitus and hypertension. ALLERGIES: PENICILLIN, BUT SHE DID WELL WITH CEPHALOSPORIN. LABORATORY DATA: per chart MEDICATIONS: per chart PHYSICAL EXAMINATION: GENERAL: intubated sedated VITAL SIGNS: per chart HEENT: She is not icteric. normocephalic atraumatic NECK: Supple. no JVD CHEST: Crackles bilateral. vent with 60% fi02 and PEEP of 10 HEART: S1 and S2. no s3, s4 ABDOMEN: Soft. Bowel sounds present. EXTREMITIES: no joint swelling, no rash SKIN: No rash. no edema IMPRESSION: Respiratory failure community-acquired pneumonia COVID 19 Pulmonary embolism in the segmental left upper lobe branches. PLAN: supportive care vent support lovenox poor prognosis Tata Lino MSN, SENIOR SECURITY ARCHITECT, AGACNP-BC d/w Lorie Kenney M.D.
--- NOTE | 2020-04-14 18:11 | Consultation ---
DATE OF CONSULTATION: 04/14/2020 HISTORY OF PRESENT ILLNESS: The patient is a 74-year-old female, who is in the ICU on a ventilator secondary to COVID pneumonia and respiratory failure. Request is made for tracheostomy. The patient has been on the ventilator now for more than 2 weeks. PAST MEDICAL HISTORY: Significant for hypertension, type 2 diabetes, and hypothyroidism. PHYSICAL EXAMINATION: GENERAL: The patient is in the ICU on the ventilator. She is on tube feedings. HEENT: Unremarkable. NECK: Has no masses. LUNGS: Equal breath sounds are clear. CARDIAC: Regular rate and rhythm. ABDOMEN: Nontender. EXTREMITIES: Slight edema. ASSESSMENT: A 74-year-old female, respiratory failure secondary to COVID pneumonia. She may benefit from tracheostomy. Thank you for asking me to see Ms. Paz. MD SAJI Dill/MODL /[id number]
[2020-04-14] MEDS: NOREPINEPHRINE INJ 4MG/4ML 8 MG in DEXTROSE 5% 250ML 250 ML IV SCH (22:15)
[2020-04-15] VITALS (25 sets, daily range): BP systolic 84–190; BP diastolic 33–69
[2020-04-15] MEDS: FENTANYL 2000MCG/NS 250 250 ML IV PRN ×4 (00:07→19:30)
--- NOTE | 2020-04-15 01:38 | Progress Note ---
DATE: 04/14/2020 Cardiology Progress Note SUBJECTIVE: She remains intubated, sedated. OBJECTIVE: VITAL SIGNS: Temperature 97.9, heart rate 54, blood pressure 116/47, respiratory rate 26, O2 saturation 98%. GENERAL: Intubated, sedated. NECK: Supple. CHEST: With decreased breath sounds and rales. CARDIOVASCULAR: Regular rate and rhythm. Normal S1, S2. ABDOMEN: Soft. Bowel sounds positive. EXTREMITIES: Trace edema. CARDIOVASCULAR MEDICATIONS: Reviewed, Levophed IV, furosemide 40 mg IV every 12 hours, Lovenox 40 mg every 12 hours subcu, atropine 0.5 mg q.2 hours as needed, methylprednisolone 60 mg x1. STUDIES: Reviewed, creatinine 0.6. White blood cells 7, hemoglobin 7.2, platelets 269. ASSESSMENT AND PLAN: 1. A 74-year-old woman with acute respiratory failure, COVID-19 infection, community-acquired pneumonia, sinus bradycardia, intermittent. 2. Labile blood pressure with severe sepsis and septic shock, on Levophed. 3. Anemia. RECOMMENDATIONS: 1. Continue to monitor H and H, transfuse as needed for hemoglobin less than 7. 2. Continue atropine p.r.n. and telemetry monitoring. 3. Wean Levophed to maintain MAP 65 to 75. Alejandro Larkin MD [facility]/NENA /[id number]
[2020-04-15] MEDS: MEROPENEM 1GM 100 ML IV SCH (02:59)
[2020-04-15] MEDS: ACETAMINOPHEN 325 MG TAB PO PRN (03:50)
[2020-04-15] MEDS: MIDAZOLAM HCL 5MG/ML 10ML VIAL 100 ML IV PRN ×4 (04:15→23:26)
[2020-04-15 05:25] LABS: BASOPHILS % 0.4 % (0.0-1.0); EOSINOPHILS # (AUTO) 0.4 (0.0-0.4); HEMATOCRIT 25.7 % (34.2-44.1); LYMPHOCYTES # (AUTO) 0.8 (1.0-3.2); LYMPHOCYTES % 10.6 % (18.0-39.1); MEAN CORPUSCULAR HGB CONC 31.1 g/dL (31-35); MEAN CORPUSCULAR VOLUME 93.1 fL (81-99); MONOCYTES # (AUTO) 0.6 (0.2-0.8); MONOCYTES % 7.9 % (4.4-11.3); NEUTROPHILS # (AUTO) 5.3 (2.1-6.9); NEUTROPHILS % 71.9 % (38.7-80.0); PLATELET COUNT 276 x10e3/uL (140-360); RED BLOOD COUNT 2.76 x10e6/uL (3.6-5.1); RED CELL DISTRIBUTION WIDTH 16.8 % (11.7-14.4)
[2020-04-15 05:33] LABS: MAGNESIUM 1.6 MG/DL (1.3-2.1); PHOSPHORUS 2.8 MG/DL (2.3-4.7)
[2020-04-15] MEDS: INSULIN REGULAR, HUMAN 100 UNIT/1 ML 3ML VIAL SQ SCH ×5 (06:00→23:23)
[2020-04-15 06:11] LABS: ALANINE AMINOTRANSFERASE 46 IU/L (0-55); ALBUMIN 1.8 g/dL (3.5-5.0); ALBUMIN/GLOBULIN RATIO 0.4 (0.8-2.0); ALKALINE PHOSPHATASE 72 IU/L (40-150); ANION GAP 11.8 mmol/L (8-16); BLOOD UREA NITROGEN 30 mg/dL (7-26); BUN/CREATININE RATIO 48 (6-25); CALCIUM 8.2 mg/dL (8.4-10.2); CARBON DIOXIDE 35 mmol/L (22-29); CHLORIDE 100 mmol/L (98-107); CREATININE, SERUM 0.62 mg/dL (0.57-1.11); EST GLOMERULAR FILTRATION RATE > 60 ML/MIN (60-); GLUCOSE 110 mg/dL (74-118); POTASSIUM 3.8 mmol/L (3.5-5.1); SODIUM 143 mmol/L (136-145)
--- NOTE | 2020-04-15 06:37 | NUR ---
IM- progress note O/N see below ROS: no f/c/s/N/V/D/LING/cp/skin rash/confusion/dizziness/leg pain v/s revd PE tired appearing anicteric Oxygen canula in place ns1s2 reduced bs soft nt nd no e/t skin dry flat affect labs/med revd A/P: 74yoF Multifocal PNA- IV abx; O2; COVID testing Acute resp failure- O2 DKA- insulin; hab1c/lipids; insulin CHERI- f/u Severe Sepsis- IV abx Septic shock- pressor PRN; abx Obesity- 1/2 portion sizes; outpt BMI 37- as above Physical deconditioning- PT consult Prop; scd; lovenox Dispo: f/u COVID testing 03-25-20 Hba1c/LDL 10.; f/u COVID tesing; 03-26- cont care; 11- cont care in ICU; needing more O2; Continue decadron and remdesivir. 11-6 f/u echo; cont care in ICU 11-7 Hypernaremia and CHERI- give free water; Intubated overnight;cont vent support; monitor closely. d/w daughter by Telephone. 11-8 labs pending; titrate insulin up 11-9 titrate insulin up further; give free water for Hypernatremia/CHERI. Nephr consult; Left Upper lobe PE- lovenox BID 11-10 uncontrolled glucose- titrate insulin up. 11-11 adjust insulin 11-12 CXR no change; cont support; remains on 60% FiO2; Called family- left message. 11-13 No change; 60% FiO2; Left message for family at [facility] [phone] 11-14 low grade fever overnight; Thrombocytopenia on AC; monitor; Remains on 60% FiO2; 11-15 stable; cont vent support. continue free water; Hypernatremia- recheck BMP at 2pm; 11-16 cont care; spoke with family 11-17 fever overnight; no leukocytosis or cultures positive; cont vent; cont support; renal fn stable; Spoke with Ms Steven, daughter. 11-18 febrile overnight; left message for family; 600cc urine on dayshift; f/u I/O; Worsening resp status, not on 85% FiO2 vent suppport. 11-19 Septic shock- started on pressors; Anuric - treated with albumin/lasix, successful in getting 1500ml urine out; Worsened resp status- now on 1005 FiO2 vent support; vanco therapeutic; D/w both daughters by telephone; both aware of current status. 11-20 Unstageable Sacral ulcer; Febrile; Septic shock; Prognosis poor; f/u labs; On Levophed pressor; cont care. 11-21 continue supportive care with vent and medications. 11-22 Moderate ARDS; cont vent and pressors; vanco mildly supratherapeutic- hold dose. 11-23 cont care. I contacted family member; updated on status. 11-24 febrile overnight; discussed with daughter; remains intubated; will benefit from trach if remains off pressor; will discuss with pulmonary. Gen TRAYLOR MD, PHD
[2020-04-15] MEDS: VANCOMYCIN 1GM/NS 250 ML 250 ML IV SCH (08:10)
--- NOTE | 2020-04-15 08:24 | NUR ---
INFECTIOUS DISEASE PROGRESS NOTE CC: COVID ROS: unable to obtain/intubated PAST MEDICAL HISTORY: Diabetes mellitus and hypertension. ALLERGIES: PENICILLIN, BUT SHE DID WELL WITH CEPHALOSPORIN. LABORATORY DATA: per chart MEDICATIONS: per chart PHYSICAL EXAMINATION: GENERAL: intubated sedated VITAL SIGNS: per chart HEENT: She is not icteric. normocephalic atraumatic NECK: Supple. no JVD CHEST: Crackles bilateral. vent with 60% fi02 and PEEP of 10 HEART: S1 and S2. no s3, s4 ABDOMEN: Soft. Bowel sounds present. EXTREMITIES: no joint swelling, no rash SKIN: No rash. no edema IMPRESSION: Respiratory failure community-acquired pneumonia COVID 19 Pulmonary embolism in the segmental left upper lobe branches. [id number]
[2020-04-15] MEDS: FAMOTIDINE 20 MG TAB PO SCH ×2 (08:30→16:21)
--- NOTE | 2020-04-15 08:35 | Diagnostic Imaging Report ---
TECHNIQUE: Frontal view of the chest. INDICATION: ^resp failure ^20200415 ^0450 COMPARISON: Prior day. DISCUSSION: Limited evaluation due to portable technique. Lines and hardware: Stable. Heart and mediastinum: Stable. Lungs and pleura: Stable bilateral interstitial and patchy airspace opacities with a perihilar and lower lobe peripheral predominance. Negative for new large effusion or pneumothorax. Stable aeration. Soft tissues and bones: No acute abnormality. IMPRESSION: Stable exam. Signed by: Nitin Tabor MD on 04/15/2020 8:31 AM
[2020-04-15] MEDS: ZINC SULFATE 220 MG CAP PO SCH (08:51)
[2020-04-15] MEDS: FUROSEMIDE INJ 10 MG/ML 4 ML VIAL IV SCH (08:51)
[2020-04-15] MEDS: ENOXAPARIN SOD INJ 40 MG/0.4 ML SYR SC SCH ×2 (08:51→20:36)
[2020-04-15] MEDS: ASCORBIC ACID 500 MG TAB PO SCH ×2 (08:51→16:21)
[2020-04-15] MEDS: EYE LUBRICANT OPTH OINT 3.5GM TUBE OP SCH ×2 (08:51→16:21)
[2020-04-15] MEDS: BALSAM PERU/CASTOR OIL 60 GM OINT...G. TP SCH (08:51)
[2020-04-15 09:25] LABS: ABG HCO3 38 mmol/L (22-26); ABG PCO2 51 mmHg (35-45); ABG PH 7.48 (7.35-7.45); ABG PO2 61 mmHg (80-105); ABG TCO2 39
--- NOTE | 2020-04-15 09:39 | Progress Note ---
DATE: 04/15/2020 PULMONARY CRITICAL CARE PROGRESS NOTE: SUBJECTIVE: The patient is still on mechanical ventilation. She is on Versed and fentanyl. She is off Levophed. PHYSICAL EXAMINATION: VITAL SIGNS: Blood pressure is 136/50, saturation is 95%. She is currently on a PRVC mode of ventilation at a rate of 26 with a tidal volume of 380 and a PEEP of 12. FiO2 is set at 75%. HEENT: Shows no facial swelling or erythema. LYMPHATIC: Shows no submandibular, cervical, or supraclavicular adenopathy. CARDIAC: Reveals regular rate and rhythm with normal S1, S2. LUNGS: Auscultation of lungs reveals rhonchorous breath sounds bilaterally. There is no wheezing. ABDOMEN: Soft and nontender. There is no rebound or guarding. EXTREMITIES: Shows no leg edema or calf tenderness. There is no cyanosis or clubbing. SKIN: Shows no rashes. NEUROLOGICAL: Shows no focal abnormalities. LABORATORY DATA: White blood cell count is 7.37, hemoglobin is 8 and the platelet count is 276. The WJP-jo-frmbrbggyx ratio is 30 to 0.62. The other electrolytes are within normal limits. Albumin is 1.8. IMPRESSION: 1. Acute respiratory failure. 2. Viral pneumonia and COVID-19 infection. 3. Anemia secondary to chronic blood loss. 4. Diabetes. PLAN: 1. Continue mechanical ventilation. 2. Place the patient in prone position later today. 3. Versed and fentanyl. 4. Lovenox. 5. Consultation for tracheostomy. 6. Continue enteral feedings. 7. Continue to monitor and control blood sugars. Greater than 35 minutes in direct critical care time. Pete Walsh MD [facility]/MODL /[id number]
--- NOTE | 2020-04-15 09:54 | Progress Note ---
DATE: 04/15/2020 SUBJECTIVE: Ms. Paz remains in intensive care unit, intubated, sedated. I called the daughter. She is aware of her grim prognosis. 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 The patient was intubated, sedated. REVIEW OF SYSTEMS: Could not be obtained. next week if she continues to be stable. Her blood cultures are negative. Her white count is 7.3, hemoglobin of 8. Her vancomycin level was 30. IMPRESSION: COVID-19, respiratory failure, acute kidney injury. discontinue vancomycin. Continue with supportive care. Discussed with the family. We will . They understand. We will follow. MD JONY Ramirez/MODL /[id number]
[2020-04-15] MEDS: INSULIN GLARGINE 100 UNITS/ML VIAL SQ SCH ×2 (10:00→21:00)
--- NOTE | 2020-04-15 10:00 | NUR ---
Dr. Hernandez informed of vancomycin trough, orders given to discontinue all antibiotics.
--- NOTE | 2020-04-15 10:34 | Progress Note ---
DATE: 04/15/2020 Renal Progress Note SUBJECTIVE: Followed for renal insufficiency, which is resolved. The patient is on the azotemic side. Bicarb is 35 and sodium 143. The patient remains on the vent, has COVID-19 pneumonia. OBJECTIVE: VITAL SIGNS: Have been noted and are stable. LUNGS: Clear to auscultation bilaterally. CARDIOVASCULAR: S1 and S2. No rub. ABDOMEN: Soft. Positive bowel sounds. EXTREMITIES: No edema. LABORATORY DATA: Potassium 3.8, sodium 143, BUN 30, and creatinine 0.6. IMPRESSION AND PLAN: 1. Azotemia, likely secondary to intravascular volume contraction. Agree to stop IV Lasix. 2. Hypernatremia, resolved now. 3. Hypertension/hypotension. Blood pressure is on the low side. We will continue off IV Lasix. May or may not require vasopressor support. 4. COVID-19 pneumonia. Plan would be as per primary recommendations. Dillan Sheridan MD TH/MODL /[id number]
--- NOTE | 2020-04-15 11:45 | NUR ---
Patients daughter was updated on patient's status by Dr. Hernandez. Daughter asked RN if Dr. Hernandez could talk to her brother Lew. Dr. Hernandez called Lew on speakerphone with primary RN. Dr. Hernandez explained that the patient has a poor prognosis and is dependent on ventilator. Lew was adamant about patient having Plaquenil and convalescent plasma. Dr. Hernandez explained that FDA has not approved either as treatments for covid. Family member seemed very unwilling to listen and stated that if Plaquenil and convalescent plasma are not given to his mother he will shayna and do what he has to do.
--- NOTE | 2020-04-15 15:20 | NUR ---
RECEIVED CALL STATING BROTHER RAVIN JIMENEZ HAS CALLED AND IS UPSET BECAUSE HE WANTS HIS MOTHER PUT ON A CERTAIN MEDICATION AND IF NOT THEN HE WANTS HER TRANSFERRED TO THE DOCTOR THAT TREATED HIS FRIENDS MOTHER. I CALLED AND SPOKE WITH LYNDSEY THE DAUGHTER I HAVE BEEN SPEAKING WITH SINCE THE BEGINNING, SHE STATES THAT NO HE IS NOT THE DECISION MAKER OF THE FAMILY, IT IS PILAR FIRST THEN HER. SPOKE WITH RISK AND RECOMMENDED A FAMILY MEETING TO DETERMINE WHOM IS THE POINT OF CONTACT AND DECISION MAKER DUE TO OPPOSING OPINIONS. WILL UPDATE WHEN ABLE.
[2020-04-15] MEDS ORDERED: VECURONIUM BROMIDE FOR INJ 20 MG VIAL IV STA ×2 (16:36→18:15)
[2020-04-15] MEDS ORDERED: VECURONIUM BROMIDE FOR INJ 20 MG VIAL ONE (18:26)
--- NOTE | 2020-04-15 18:34 | NUR ---
Dr. Rom Walsh gave orders to prone patient. Patient placed in prone position at 1600. Rocoronium drip started. Patient breathing over ventilator at rate of 35, settings set to 26 on ventilator, rocuronium and sedation drips already infusing at maximum dose. Dr. Rom walsh informed orders given for vecuronium push. Patient still breathing over ventilator half an hour later. Patient suctioned and arms were repositioned. MD notified and gave a second order for vecuronium.
[2020-04-15] MEDS: NOREPINEPHRINE INJ 4MG/4ML 8 MG in DEXTROSE 5% 250ML 250 ML IV SCH (22:15)
[2020-04-16] VITALS (24 sets, daily range): BP systolic 97–165; BP diastolic 46–70
--- NOTE | 2020-04-16 03:33 | Progress Note ---
DATE: 04/15/2020 SUBJECTIVE: Remains intubated, sedated. OBJECTIVE: VITAL SIGNS: Temperature 99, heart rate 63, blood pressure 84/34, respiratory rate 26, O2 saturation 96%. GENERAL: Intubated, sedated. NECK: Supple. CHEST: Decreased breath sounds and rales. CARDIOVASCULAR: Regular rate and rhythm. S1, S2. ABDOMEN: Soft. EXTREMITIES: Trace edema. Normal tone. CARDIOVASCULAR MEDICATIONS: Reviewed. Atorvastatin 0.5 mg every 2 hours, Levophed as needed to maintain MAP 65 to 75 being titrated, Lovenox 40 mg subcu q.12 hours. STUDIES: Reviewed. Creatinine 0.6, glucose 110. White blood cell 7.3, hemoglobin 8, platelets 276. ASSESSMENT AND PLAN: 1. A 74-year-old woman with acute respiratory failure, COVID-19 infection, community-acquired pneumonia, diabetes, hypertension, sinus bradycardia, intermittent. 2. Severe sepsis or septic shock, on pressors. RECOMMENDATIONS: Continue current cardiovascular medications. Monitor on telemetry. MD SHANELLE Olivo/NENA /[id number]
[2020-04-16] MEDS: MIDAZOLAM HCL 5MG/ML 10ML VIAL 100 ML IV PRN ×4 (04:59→20:15)
[2020-04-16] MEDS: INSULIN REGULAR, HUMAN 100 UNIT/1 ML 3ML VIAL SQ SCH ×3 (05:44→16:58)
[2020-04-16 06:09] LABS: BASOPHILS % 0.3 % (0.0-1.0); EOSINOPHILS # (AUTO) 0.5 (0.0-0.4); EOSINOPHILS % 8.3 % (0.0-6.0); HEMATOCRIT 25.2 % (34.2-44.1); HEMOGLOBIN 7.7 g/dL (12.0-16.0); LYMPHOCYTES # (AUTO) 0.6 (1.0-3.2); LYMPHOCYTES % 9.2 % (18.0-39.1); MEAN CORPUSCULAR HEMOGLOBIN 28.9 pg (28-32); MEAN CORPUSCULAR HGB CONC 30.6 g/dL (31-35); MEAN CORPUSCULAR VOLUME 94.7 fL (81-99); MONOCYTES # (AUTO) 0.4 (0.2-0.8); NEUTROPHILS # (AUTO) 4.3 (2.1-6.9); PLATELET COUNT 292 x10e3/uL (140-360); RED BLOOD COUNT 2.66 x10e6/uL (3.6-5.1); RED CELL DISTRIBUTION WIDTH 17.2 % (11.7-14.4)
[2020-04-16 06:31] LABS: ALANINE AMINOTRANSFERASE 37 IU/L (0-55); ALBUMIN 1.6 g/dL (3.5-5.0); ALBUMIN/GLOBULIN RATIO 0.4 (0.8-2.0); ALKALINE PHOSPHATASE 71 IU/L (40-150); ANION GAP 14.1 mmol/L (8-16); BLOOD UREA NITROGEN 26 mg/dL (7-26); BUN/CREATININE RATIO 46 (6-25); CALCIUM 7.8 mg/dL (8.4-10.2); CARBON DIOXIDE 34 mmol/L (22-29); CHLORIDE 100 mmol/L (98-107); CREATININE, SERUM 0.56 mg/dL (0.57-1.11); EST GLOMERULAR FILTRATION RATE > 60 ML/MIN (60-); GLUCOSE 171 mg/dL (74-118); POTASSIUM 4.1 mmol/L (3.5-5.1); SODIUM 144 mmol/L (136-145)
--- NOTE | 2020-04-16 07:04 | NUR ---
IM- progress note O/N see below ROS: no f/c/s/N/V/D/LING/cp/skin rash/confusion/dizziness/leg pain v/s revd PE tired appearing anicteric Oxygen canula in place ns1s2 reduced bs soft nt nd no e/t skin dry flat affect labs/med revd A/P: 74yoF Multifocal PNA- IV abx; O2; COVID testing Acute resp failure- O2 DKA- insulin; hab1c/lipids; insulin CHERI- f/u Severe Sepsis- IV abx Septic shock- pressor PRN; abx Obesity- 1/2 portion sizes; outpt BMI 37- as above Physical deconditioning- PT consult Prop; scd; lovenox Dispo: f/u COVID testing 03-25-20 Hba1c/LDL 10.; f/u COVID tesing; 03-26- cont care; 11- cont care in ICU; needing more O2; Continue decadron and remdesivir. 11-6 f/u echo; cont care in ICU 11-7 Hypernaremia and CHERI- give free water; Intubated overnight;cont vent support; monitor closely. d/w daughter by Telephone. 11-8 labs pending; titrate insulin up 11-9 titrate insulin up further; give free water for Hypernatremia/CHERI. Nephr consult; Left Upper lobe PE- lovenox BID 11-10 uncontrolled glucose- titrate insulin up. 11-11 adjust insulin 11-12 CXR no change; cont support; remains on 60% FiO2; Called family- left message. 11-13 No change; 60% FiO2; Left message for family at [facility] [phone] 11-14 low grade fever overnight; Thrombocytopenia on AC; monitor; Remains on 60% FiO2; 11-15 stable; cont vent support. continue free water; Hypernatremia- recheck BMP at 2pm; 11-16 cont care; spoke with family 11-17 fever overnight; no leukocytosis or cultures positive; cont vent; cont support; renal fn stable; Spoke with Ms Steven, daughter. 11-18 febrile overnight; left message for family; 600cc urine on dayshift; f/u I/O; Worsening resp status, not on 85% FiO2 vent suppport. 11-19 Septic shock- started on pressors; Anuric - treated with albumin/lasix, successful in getting 1500ml urine out; Worsened resp status- now on 1005 FiO2 vent support; vanco therapeutic; D/w both daughters by telephone; both aware of current status. 11-20 Unstageable Sacral ulcer; Febrile; Septic shock; Prognosis poor; f/u labs; On Levophed pressor; cont care. - continue supportive care with vent and medications. - Moderate ARDS; cont vent and pressors; vanco mildly supratherapeutic- hold dose. 04-14 cont care. I contacted family member; updated on status. 04-15 febrile overnight; discussed with daughter; remains intubated; will benefit from trach if remains off pressor; will discuss with pulmonary. 04-16 Trach pending Tuesday; PEG per GI; left message with daughter Serafindelonte. Gen TRAYLOR MD, PHD
[2020-04-16] MEDS: ENOXAPARIN SOD INJ 40 MG/0.4 ML SYR SC SCH ×2 (08:11→22:14)
[2020-04-16] MEDS: ASCORBIC ACID 500 MG TAB PO SCH ×2 (08:11→16:48)
[2020-04-16] MEDS: EYE LUBRICANT OPTH OINT 3.5GM TUBE OP SCH ×2 (08:11→16:48)
[2020-04-16] MEDS: BALSAM PERU/CASTOR OIL 60 GM OINT...G. TP SCH (08:11)
[2020-04-16] MEDS: ZINC SULFATE 220 MG CAP PO SCH (08:11)
[2020-04-16] MEDS: INSULIN GLARGINE 100 UNITS/ML VIAL SQ SCH ×2 (08:11→22:15)
[2020-04-16] MEDS: FAMOTIDINE 20 MG TAB PO SCH ×2 (08:11→16:48)
[2020-04-16 08:19] LABS: ABG HCO3 39 mmol/L (22-26); ABG PCO2 70 mmHg (35-45); ABG PH 7.35 (7.35-7.45); ABG PO2 103 mmHg (80-105); ABG TCO2 41
--- NOTE | 2020-04-16 08:54 | Progress Note ---
DATE: 04/16/2020 Renal progress note SUBJECTIVE: Followed for azotemia which is improving now after the Lasix was discontinued. The patient has COVID-19 pneumonia, remains on the vent, appears to be stable. Hypernatremia has resolved. OBJECTIVE: VITAL SIGNS: Blood pressure is one teens to 130s/50s, 77 pulse, afebrile. LUNGS: Rhonchi bilaterally. CARDIOVASCULAR: S1, S2. No rub. ABDOMEN: Soft. Positive bowel sounds. EXTREMITIES: No edema. LABORATORY DATA: Sodium 144, potassium 4.1, bicarb is 34 better, BUN 26 better, and creatinine 0.56. IMPRESSION AND PLAN: 1. Azotemia, largely resolved now after discontinuing the Lasix. Can use Lasix p.r.n. if required for extra volume removal. 2. Hypertension. Blood pressure is stable. 3. Hypernatremia, resolved now. 4. Metabolic alkalosis, improving off IV Lasix, likely was due to volume contraction. Dillan Sheridan MD TH/MODL /[id number]
[2020-04-16 09:37] LABS: BAND NEUTROPHILS % (MANUAL) 7 %; EOSINOPHILS % (MANUAL) 2 % (0-7); LYMPHOCYTES % (MANUAL) 6 % (19-48); METAMYELOCYTES % (MANUAL) 2 % (0-0); MONOCYTES % (MANUAL) 3 % (3.4-9.0); NEUTROPHILS % (MANUAL) 80 % (40-74)
[2020-04-16 09:38] LABS: ANISOCYTOSIS FEW; PLATELET ESTIMATE ADEQUATE; PLATELET MORPHOLOGY COMMENT NORMAL; POLYCHROMASIA FEW; RBC MORPHOLOGY COMMENT ABNORMAL
--- NOTE | 2020-04-16 10:15 | Progress Note ---
DATE: 04/16/2020 PULMONARY CRITICAL CARE PROGRESS NOTE: SUBJECTIVE: The patient remains on mechanical ventilation. She is off Levophed. She is on rocuronium at 0.01. She is also on Versed at 8 mg and fentanyl 275. PHYSICAL EXAMINATION: VITAL SIGNS: Blood pressure is 156/65, pulse is 77, saturation is 97%. She is currently on a PRVC mode of ventilation at a rate of 26 with a tidal volume of 380, PEEP of 10 and FiO2 of 65%. HEENT: Shows no facial swelling or erythema. There is no nasogastric tube. The patient also has an arterial line and a PICC line. CARDIAC: Reveals regular rate and rhythm with normal S1, S2. LUNGS: Auscultation of lungs shows decreased breath sounds at the bases. There is no wheezing. ABDOMEN: Soft, nontender. There is no rebound or guarding. EXTREMITIES: Shows no leg edema or calf tenderness. There is no cyanosis or clubbing. SKIN: Shows no rashes. NEUROLOGICAL: Shows no focal abnormalities. LABORATORY DATA: White blood cell count is 6, hemoglobin is 7.7, the platelet count is 292. The BUN to creatinine ratio is 26 to 0.56, and the other electrolytes within normal limits. The albumin is 1.6. Blood gases; 7.35, CO2 of 70, O2 of 103 and total bicarb of 39. RADIOGRAPHIC DATA: Chest x-ray shows bilateral pulmonary infiltrates. IMPRESSION: 1. Acute respiratory failure. 2. Viral pneumonia and COVID-19 infection. 3. Anemia secondary to chronic blood loss. 4. Diabetes. PLAN: 1. Continue to wean PEEP as tolerated as well as FiO2. 2. Place patient back in the prone position today. 3. Probable tracheostomy on Tuesday. 4. Continue enteral feedings. 5. Continue to monitor and control blood sugars. 6. Continue Lovenox for DVT prophylaxis. 7. Case discussed with Infectious Disease, Internal Medicine, nursing, Respiratory, and family. Greater than 35 minutes in direct critical care time. Pete Walsh MD [facility]/NENA /[id number]
[2020-04-16] MEDS: FENTANYL 2000MCG/NS 250 250 ML IV PRN ×3 (10:33→16:58)
[2020-04-16] MEDS: ROCURONIUM BROMIDE 1,250 MG in SODIUM CHLORIDE 0.9% 250ML 125 ML IV PRN (10:34)
--- NOTE | 2020-04-16 16:42 | Progress Note ---
DATE: 04/16/2020 SUBJECTIVE: I had several discussion with her son, who seems unreasonable. He wants me to give hydroxychloroquine even though I told him it is against recommendation under all medical authority to give it since it has no benefit whatsoever and there was couple incidence, in which the patient as a result of it. Also, it has high association with arrhythmia. The patient, who had finish remdesivir. Also on supportive care. We will give her Decadron. She is on a ventilator. The patient is not responding. Her prognosis is poor. While the daughter understand all that, who is going to medical school. The son is in total denial and he was quite rude on the phone. I tried to call him again today, it went to the voicemail. PHYSICAL EXAMINATION: GENERAL: The patient is intubated and sedated. VITAL SIGNS: Blood pressure 156/65 and heart rate 75. HEENT: Normocephalic. NECK: Supple. CHEST: Few rhonchi. HEART: S1 and S2. ABDOMEN: Soft. Bowel sounds present. EXTREMITIES: No edema. SKIN: No rash. IMPRESSION: Respiratory failure, COVID-19, anemia, and diabetes mellitus. The patient remains extremely ill. Prognosis is poor. Mortality rate is extremely high. She is currently on Lovenox 40 b.i.d. Methylprednisolone was given once. She finished course of antibiotic. Continue supportive care. The patient is not a candidate for plasma and actually if anything could be detrimental to her case, because probably fluid overload. We will follow. MD JONY Ramirez/MODL /[id number]
--- NOTE | 2020-04-16 16:57 | Progress Note ---
DATE: 04/16/2020 Cardiology Progress Note SUBJECTIVE: The patient remains intubated, sedated with Versed and fentanyl, paralyzed with rocuronium. There have been no new events in the last 24 hours. OBJECTIVE: VITAL SIGNS: Blood pressure 122/55, heart rate 80, pulse oximetry 99% on FiO2 of 65%; she is afebrile. GENERAL: Intubated, sedated, and paralyzed. The patient is in prone position. LUNGS: Coarse breath sounds posteriorly, equal in both lung wesley. CARDIOVASCULAR: Regular rate by telemetry. ABDOMEN: Unable to examine. EXTREMITIES: No significant edema. CARDIOVASCULAR MEDICATIONS: Reviewed. LABORATORY DATA: Show white blood cell count of 6, the hemoglobin7 .7, hematocrit 25.2, platelet count 292,000. The sodium is 144, potassium is 4.1, chloride is 100, carbon dioxide is 34. BUN is 26, creatinine is 0.56, glucose is 171. Liver tests are within reference range and her albumin is 1.6. Her blood gas this morning showed a pH of 7.35, pCO2 of 70, PO2 of 103, bicarb 39, oxygen saturation 97%. FiO2 was 75% at that time. ASSESSMENT AND PLAN: A 74-year-old woman with acute respiratory failure, coronavirus disease 2019 infection and associated pneumonia, diabetes type 2, hypertension, sinus bradycardia. RECOMMENDATIONS: 1. No significant bradycardia last 24 hours. 2. Continue telemetry. 3. Continue current cardiovascular medications. MD MARIANNE Nuñez/NENA /[id number]
--- NOTE | 2020-04-16 19:00 | NUR ---
Report received. Assumed care. Orally intubated. Vent settings: TV 380, 70%, PRVC 26 & PEEP 10. IVs: Fentanyl @ 275 mcg/hr or 34.1ml/hr, Versed @ 10mg/hr or 20ml/hr, & Hung @ 0.008 mcg/kg/min or 8.6ml/hr.
--- NOTE | 2020-04-16 19:36 | NUR ---
Nutrition Intervention Note RD Recommendation(s) for Physician: -Recommend modifying formula to Vital AF 1.2 @ goal rate of 40 mL/hr (provides 1152 kcal and 72 g protein). Vital AF is appropriate for diabetic pts on vent, less CHO/L than Glucerna and provides adequate protein -Water/fluid management per MD Pt may be fed at goal rate in reverse Trendelenburg with HOB elevated 25 degrees. Plan of Care: RD following, monitoring for tolerance and adequacy. TF rec's. Nutrition reason for involvement: follow up RD Assessment 04/16: Follow up. Pt remains on mechanical ventilation and is off Levophed. Trach is possibly planned for Tuesday per chart. Pt continues to tolerate TF @ 40 mL/hr. Current recommendations remain appropriate and informed RN of RDs TF recommendation. Will continue to monitor. 04/14: Follow up. Pt remains intubated and sedated. Pt is off paralytic per RN. Pt is tolerating TF @ 40 mL/hr. Current recommendations remain appropriate. Will continue to monitor. 04/10: Follow up. Chart reviewed. Pt remains intubated and sedated. Pt is on Levophed at 1 mcg per MD note. Pt was tolerating TF @ 40 mL/hr, but RN mentioned pts tube feeding is at 20 mL/hr at this time since pt was just proned. Informed RN of tube feed recommendations. Will continue to monitor. 04/07: Follow up. Chart reviewed. Pt remains intubated and sedated. Pt is tolerating Glucerna TF @ 40 mL/hr at this time per RN. Recommend modifying TF to Vital AF 1.2 to better meet nutritional needs. Will continue to monitor 04/02: Follow up. Pt remains intubated and sedated with Versed and Fentanyl, no pressors. Pt tolerating trickle feeds while proned, recommend advancing to goal rate as pt currently in reverse Trendelenburg with HOB elevated- discussed with RN on unit. TF rec's remain appropriate, Dr. Whittington changed order to Glucerna 1.2 today. Chart reviewed. Will continue to monitor. (03/28/20) Pt is a 74 year old female admitted with acute respiratory distress and COVID-19. Pt was intubated this morning and tube feed order was placed. There are no reports of recent weight loss without trying and no reports of decreased appetite upon admission. Tube feed recommendations provided. RD to manage TF order per Dr. Walsh. Will continue to monitor. Principal Problems/Diagnoses: acute respiratory distress, COVID-19 PMH: type 2 diabetes GI: soft abdomen, last recorded BM 04/05, flatus present Skin: stage 3 sacral pressure ulcer Labs: 04/16: Na 141, K 4.1, BUN 26, Cr 0.56, Glu 171, Ca 7.8 04/14: Na 141, K 4.1, BUN 33, Cr 0.69, Glu 156, Ca 7.6 04/10: Na 140, K 3.7, BUN 23, Cr 0.73, Glu 186, Ca 8.5 04/07: Na 147, K 3.8, BUN 16, Cr 0.60, Glu 150, Ca 8.8 04/02: Na 143, K 4.2, BUN 35, Cr 0.69, Gluc 276, Phos 3.6, Mg 2, POC Gluc 225-238 (03/28/20) Na 148, K 3.5, BUN 37, Glu 201, Ca 8.8, AST 37 Meds: fentanyl. Insulin, pepcid, rocuronium, insulin, methylprednisolone, insulin, zofran, colace Ht: 61 in Wt: 184 lbs (04/16) 195 lbs(04/13) 181 lbs (04/09) 184 lbs (04/07) 169.44 (04/02) 201.56 lbs (03/24) weight fluctuations noted, Suspect possible weight error BMI: 34.8 kg/m2 IBW: 105 lbs Malnutrition Evaluation (04/10/20) The patient does not meet criteria for a specified degree of malnutrition at this time. Will re-evaluate at follow-up as appropriate. Energy intake: TF was meeting energy needs prior to being proned today Weight loss: weight fluctuates noted Fat loss: unable to evaluate due to isolation precautions Muscle loss: unable to evaluate due to isolation precautions Supporting Evidence: Fluid accumulation: 1 to 2+ leg edema per MD note (04/10) Functional Status: unable to assess Nutrition Prescription (Diet Order): Glucerna 1.2 at 40 ml/hr (provides 1152 kcal and 58 g protein) Estimated Nutritional Needs: 9182-2576 calories/day (22-25 kcal/kg IBW) 70- 95 g protein/day (1.5-2 g pro/kg IBW) Diet Adequacy: TF rate is meeting 100% of estimated calorie needs and 83% of estimated protein needs Tolerance: tolerating TF Diet Education Needs Assessment: Diet education not indicated Nutrition Care Level: moderate Nutrition Diagnosis: Inadequate oral intake related to mechanical ventilation as evidenced by need for enteral nutrition. Goal: Patient will meet 75-100% of estimated needs by follow up Progress: progressing Interventions: - Composition, Rate, Route, Recommended Modifications Monitoring/Evaluation: -Total energy intake, Total protein intake, Formula/Solution, Weight change Signed: Angela Ackerman RD, LD
[2020-04-17] VITALS (25 sets, daily range): BP systolic 72–184; BP diastolic 43–78
[2020-04-17] MEDS: INSULIN REGULAR, HUMAN 100 UNIT/1 ML 3ML VIAL SQ SCH ×4 (00:20→17:41)
[2020-04-17] MEDS: FENTANYL 2000MCG/NS 250 250 ML IV PRN ×3 (00:44→20:25)
--- NOTE | 2020-04-17 00:51 | NUR ---
BP 190s systolic. Increased Fentanyl to 300mcg/hr.
[2020-04-17] MEDS: MIDAZOLAM HCL 5MG/ML 10ML VIAL 100 ML IV PRN ×4 (00:56→18:59)
--- NOTE | 2020-04-17 02:11 | NUR ---
BP 97/47. Decreased Fentanyl to 275 mcg/hr.
--- NOTE | 2020-04-17 03:06 | NUR ---
BP 70's systolic. Decreased Fentanyl to 225 mcg/hr.
--- NOTE | 2020-04-17 03:34 | NUR ---
SBP 70s. Decreased Fentanyl to 200mcg/hr.
--- NOTE | 2020-04-17 03:53 | NUR ---
SBP 70s. Decreased Fentanyl to 175 mcg/hr.
[2020-04-17 05:26] LABS: BASOPHILS % 0.2 % (0.0-1.0); EOSINOPHILS # (AUTO) 0.4 (0.0-0.4); EOSINOPHILS % 5.6 % (0.0-6.0); LYMPHOCYTES # (AUTO) 0.7 (1.0-3.2); LYMPHOCYTES % 10.9 % (18.0-39.1); MEAN CORPUSCULAR HEMOGLOBIN 27.6 pg (28-32); MEAN CORPUSCULAR HGB CONC 29.6 g/dL (31-35); MEAN CORPUSCULAR VOLUME 93.5 fL (81-99); MONOCYTES # (AUTO) 0.6 (0.2-0.8); MONOCYTES % 8.9 % (4.4-11.3); NEUTROPHILS # (AUTO) 4.6 (2.1-6.9); NEUTROPHILS % 71.4 % (38.7-80.0); PLATELET COUNT 291 x10e3/uL (140-360); RED BLOOD COUNT 2.46 x10e6/uL (3.6-5.1); RED CELL DISTRIBUTION WIDTH 17.5 % (11.7-14.4)
[2020-04-17 06:01] LABS: ALANINE AMINOTRANSFERASE 25 IU/L (0-55); ALBUMIN 1.4 g/dL (3.5-5.0); ALBUMIN/GLOBULIN RATIO 0.4 (0.8-2.0); ALKALINE PHOSPHATASE 68 IU/L (40-150); ANION GAP 9.4 mmol/L (8-16); BLOOD UREA NITROGEN 26 mg/dL (7-26); BUN/CREATININE RATIO 45 (6-25); CALCIUM 7.9 mg/dL (8.4-10.2); CARBON DIOXIDE 37 mmol/L (22-29); CHLORIDE 99 mmol/L (98-107); CREATININE, SERUM 0.58 mg/dL (0.57-1.11); EST GLOMERULAR FILTRATION RATE > 60 ML/MIN (60-); GLUCOSE 124 mg/dL (74-118); MAGNESIUM 1.8 MG/DL (1.3-2.1); POTASSIUM 4.4 mmol/L (3.5-5.1); SODIUM 141 mmol/L (136-145)
[2020-04-17 06:12] LABS: HEMOGLOBIN 6.8 g/dL (12.0-16.0)
--- NOTE | 2020-04-17 06:43 | NUR ---
Call to Dr. Walsh re: Hg 6.8. Orders given to transfuse one unit.
[2020-04-17] MEDS ORDERED: SODIUM CHLORIDE 0.9% 250ML 250 ML IV ONE (06:45)
[2020-04-17] MEDS ORDERED: FUROSEMIDE INJ 10 MG/ML 2 ML VIAL IV ONE (06:45)
--- NOTE | 2020-04-17 06:51 | Diagnostic Imaging Report ---
EXAMINATION: CHEST SINGLE (PORTABLE) INDICATION: ^resp failure ^[id number] ^[id number] COMPARISON: 04/15/2020 FINDINGS: AP view TUBES and LINES: Stable endotracheal tube, enteric tube, and right PICC. LUNGS: Lungs are well inflated. Again seen diffuse bilateral airspace opacities. PLEURA: No pneumothorax. Small bilateral pleural effusions, suspected. HEART AND MEDIASTINUM: The cardiomediastinal silhouette is unremarkable. BONES AND SOFT TISSUES: No acute osseous lesion. Soft tissues are unremarkable. UPPER ABDOMEN: No free air under the diaphragm. IMPRESSION: Diffuse bilateral airspace opacities, representing edema and/or pneumonia, unchanged from prior x-ray. Signed by: Dr. Connor Han MD on 04/17/2020 6:48 AM
[2020-04-17 07:44] LABS: ABG HCO3 38 mmol/L (22-26); ABG PCO2 64 mmHg (35-45); ABG PH 7.38 (7.35-7.45); ABG PO2 54 mmHg (80-105); ABG TCO2 39
--- NOTE | 2020-04-17 08:05 | Progress Note ---
DATE: 04/17/2020 SUBJECTIVE: The patient is seen and evaluated. Available labs and notes reviewed. Discussed with staff. Uneventful night. Remains on vent with a FiO2 of 70%, tidal volume at 380, PEEP of 10, and rate of 26. The patient is also on Versed, rocuronium, fentanyl, and nasogastric tube. REVIEW OF SYSTEMS: Unable to obtain due to the patient being intubated. PHYSICAL EXAMINATION: VITAL SIGNS: Temperature of 99.5, pulse 107. I have reviewed the pulse, the patient runs occasionally to low 100s, respirations 26 on a vent with oral intubation with the blood pressure of 167/71. HEENT: Oral intubation. Vent setting as above. No significant change per my discussion with staff, the patient also sedated with nasogastric tube. CVS: S1-S2. CHEST: Equal expansion. Decreased breath sounds with rales. ABDOMEN: Soft, nondistended. HEENT: Moist. No pallor. EXTREMITIES: No significant edema. MEDICATIONS: Reviewed from an ID point of view, the patient is on Lovenox, vitamin C, zinc sulfate, methylprednisolone, the patient is status post antibiotics. LABORATORY STUDIES: White count of 6.41, hemoglobin of 6.8, platelet 291. Sodium 141, potassium 4.4, creatinine 0.58. Vancomycin trough was 30 yesterday; however, the patient is off antibiotics. Microbiology, blood culture 04/08 and 03/24 are negative. RADIOLOGY STUDIES: Chest x-ray is pending. ASSESSMENT AND PLAN: 1. COVID-19 infection. 2. Respiratory failure. 3. Anemia. 4. Diabetes mellitus. 5. Occasional tachycardia. 6. The patient is status post remdesivir. Overall, with poor prognosis. Continue as planned. Please refer to Dr. Hernandez's note on 04/16/2020. Please refer to chart for more information. Dictated by Bahman Magallon PA-C (Al) Fei Hernandez MD /MODL /[id number]
[2020-04-17] MEDS: ACETAMINOPHEN 325 MG TAB PO PRN (08:45)
[2020-04-17] MEDS: FAMOTIDINE 20 MG TAB PO SCH ×2 (08:56→16:58)
[2020-04-17] MEDS: EYE LUBRICANT OPTH OINT 3.5GM TUBE OP SCH ×2 (08:56→16:58)
[2020-04-17] MEDS: ASCORBIC ACID 500 MG TAB PO SCH ×2 (08:57→16:58)
[2020-04-17] MEDS: ZINC SULFATE 220 MG CAP PO SCH (08:57)
[2020-04-17] MEDS: ENOXAPARIN SOD INJ 40 MG/0.4 ML SYR SC SCH (08:57)
[2020-04-17] MEDS: BALSAM PERU/CASTOR OIL 60 GM OINT...G. TP SCH (09:07)
[2020-04-17] MEDS: INSULIN GLARGINE 100 UNITS/ML VIAL SQ SCH ×2 (09:08→21:03)
--- NOTE | 2020-04-17 09:46 | NUR ---
IM- progress note O/N see below ROS: no f/c/s/N/V/D/LING/cp/skin rash/confusion/dizziness/leg pain v/s revd PE tired appearing anicteric Oxygen canula in place ns1s2 reduced bs soft nt nd no e/t skin dry flat affect labs/med revd A/P: 74yoF Multifocal PNA- IV abx; O2; COVID testing Acute resp failure- O2 DKA- insulin; hab1c/lipids; insulin CHERI- f/u Severe Sepsis- IV abx Septic shock- pressor PRN; abx Obesity- 1/2 portion sizes; outpt BMI 37- as above Physical deconditioning- PT consult Prop; scd; lovenox Dispo: f/u COVID testing 03-25-20 Hba1c/LDL 10.; f/u COVID tesing; 03-26- cont care; 11- cont care in ICU; needing more O2; Continue decadron and remdesivir. 11-6 f/u echo; cont care in ICU 11-7 Hypernaremia and CHERI- give free water; Intubated overnight;cont vent support; monitor closely. d/w daughter by Telephone. 11-8 labs pending; titrate insulin up 11-9 titrate insulin up further; give free water for Hypernatremia/CHERI. Nephr consult; Left Upper lobe PE- lovenox BID 11-10 uncontrolled glucose- titrate insulin up. 11-11 adjust insulin 11-12 CXR no change; cont support; remains on 60% FiO2; Called family- left message. 11-13 No change; 60% FiO2; Left message for family at [facility] [phone] 11-14 low grade fever overnight; Thrombocytopenia on AC; monitor; Remains on 60% FiO2; 11-15 stable; cont vent support. continue free water; Hypernatremia- recheck BMP at 2pm; 11-16 cont care; spoke with family 11-17 fever overnight; no leukocytosis or cultures positive; cont vent; cont support; renal fn stable; Spoke with Ms Steven, daughter. 11-18 febrile overnight; left message for family; 600cc urine on dayshift; f/u I/O; Worsening resp status, not on 85% FiO2 vent suppport. 11-19 Septic shock- started on pressors; Anuric - treated with albumin/lasix, successful in getting 1500ml urine out; Worsened resp status- now on 1005 FiO2 vent support; vanco therapeutic; D/w both daughters by telephone; both aware of current status. 04-11 Unstageable Sacral ulcer; Febrile; Septic shock; Prognosis poor; f/u labs; On Levophed pressor; cont care. 04-12 continue supportive care with vent and medications. 04-13 Moderate ARDS; cont vent and pressors; vanco mildly supratherapeutic- hold dose. 04-14 cont care. I contacted family member; updated on status. 04-15 febrile overnight; discussed with daughter; remains intubated; will benefit from trach if remains off pressor; will discuss with pulmonary. 04-16 Trach pending Tuesday; PEG per GI; left message with daughter Tenisha. 04-17 supratherapeutic vanco; stopped; Worsened anemia- transfuse 1 unit PRBC. Trach/PEG pending; Gen TRAYLOR MD, PHD
[2020-04-17] MEDS ORDERED: NOREPINEPHRINE INJ 4MG/4ML 8 MG in DEXTROSE 5% 250ML 250 ML IV SCH (10:15)
[2020-04-17] MEDS ORDERED: NOREPINEPHRINE 8 MG/D5W 250 ML 250 ML IV PRN (10:15)
[2020-04-17] MEDS ORDERED: NOREPINEPHRINE 8 MG/D5W 250 ML 250 ML ONE (10:16)
[2020-04-17] MEDS ORDERED: ALBUMIN 25% 12.5GM 50ML 100 ML IV ONE ×2 (10:17→22:37)
--- NOTE | 2020-04-17 10:35 | Progress Note ---
DATE: 04/17/2020 PULMONARY CRITICAL CARE PROGRESS NOTE: SUBJECTIVE: The patient is afebrile. She is still on mechanical ventilation. She is now in the supine position. PHYSICAL EXAMINATION: VITAL SIGNS: Blood pressure has been fluctuating, but is now 80/40 with a heart rate of 107. The T-max is 99.5. Current ventilator settings are PRVC at a rate of 26 with FiO2 of 75% and the PEEP of 10. HEENT: No facial swelling or erythema. LYMPHATIC: No submandibular, cervical, or supraclavicular adenopathy. CARDIAC: Regular rate and rhythm with normal S1, S2. LUNGS: Auscultation of lungs shows decreased breath sounds at the bases. There is no wheezing. ABDOMEN: Soft, nontender. There is no rebound or guarding. EXTREMITIES: No leg edema or calf tenderness. There is no cyanosis or clubbing. SKIN: No rashes. NEUROLOGICAL: No focal abnormalities. LABORATORY DATA: White blood cell count is 6.4, hemoglobin is 6.8, and the platelet count is 291. The BUN to creatinine ratio is 26 to 0.59. The other electrolytes are within normal limits. Albumin is 1.4. RADIOGRAPHIC DATA: Chest x-ray shows bilateral airspace opacities. IMPRESSION: 1. Acute respiratory failure. 2. Viral pneumonia and coronavirus disease-19 infection. 3. Anemia secondary to chronic blood loss. 4. Diabetes. PLAN: 1. The patient received packed red blood cells today. 2. Begin Levophed. 3. Continue Lovenox. 4. Continue enteral feedings. 5. Lasix and albumin today. 6. Possible tracheostomy tomorrow. Case is discussed with General Surgery, Internal Medicine, Nursing, Respiratory, and family. Greater than 35 minutes in direct critical care time. MD SEA Salomon/NENA /[id number]
[2020-04-17] MEDS ORDERED: SODIUM CHLORIDE 0.9% 250ML 250 ML ONE ×2 (13:26→20:07)
[2020-04-17] MEDS ORDERED: ALBUMIN 25% 25GM 100ML 0.25 GM/ML BTL IV SCH (14:00)
[2020-04-17] MEDS: ALBUMIN 25% 25GM 100ML 100 ML IV SCH ×2 (14:14→22:00)
--- NOTE | 2020-04-17 14:30 | NUR ---
SPOKE TO KAREN RICARDO OKAY TO RECEIVED CONSENT FROM BROTHER.
--- NOTE | 2020-04-17 19:00 | NUR ---
Report received. Assumed care. Assessment done. See interventions. Orally intubated. Vent settings: TV 380, FIO2 75%, PRVC 26 & PEEP 10cm. Right NGT with Glucerna TF @ 40ml/hr. IVs: Fentanyl @ 200mcg/hr or 25ml/hr, Versed @ 8mg/hr or 16ml/hr & Hung @ 0.008 mcg/kg/min or 8.6ml/hr.
--- NOTE | 2020-04-17 20:00 | NUR ---
Convalescent plasma transfusion started.
--- NOTE | 2020-04-17 20:00 | NUR ---
Convalescent plasma started per orders.
[2020-04-17] MEDS: ROCURONIUM BROMIDE 1,250 MG in SODIUM CHLORIDE 0.9% 250ML 125 ML IV PRN (20:26)
[2020-04-17] MEDS: FUROSEMIDE INJ 10 MG/ML 4 ML VIAL IV SCH (21:02)
--- NOTE | 2020-04-17 22:30 | NUR ---
Plasma complete. Line flushed with saline.
[2020-04-18] VITALS (30 sets, daily range): BP systolic 88–188; BP diastolic 43–84
[2020-04-18] MEDS: INSULIN REGULAR, HUMAN 100 UNIT/1 ML 3ML VIAL SQ SCH ×5 (00:15→23:45)
--- NOTE | 2020-04-18 00:23 | Progress Note ---
DATE: 04/17/2020 Cardiology Progress Note SUBJECTIVE: The patient remains intubated, sedated, and paralyzed. She is in the supine position today. Her blood pressure has been low. Blood pressure has improved after she received albumin and PRBC transfusion. OBJECTIVE: VITAL SIGNS: The blood pressure is 98/60 with a heart rate of 88 beats per minute. FiO2 is 65% and the saturation is 94%. HEAD AND NECK: Endotracheal intubation on mechanical ventilation, ET tube in good place. LUNGS: Coarse breath sounds anteriorly. CARDIAC: Regular rate. Normal S1 and S2. No murmurs heard. ABDOMEN: Soft, nontender. EXTREMITIES: Trace leg edema. LABORATORY DATA: Shows white blood cell count 6.4, hemoglobin is 6.8 prior to transfusion, hematocrit 23, platelet count 291,000. Chemistry profile shows a sodium of 141, potassium of 4.4, chloride 99, carbon dioxide 37, BUN is 26, creatinine is 0.58, glucose is 124. Liver tests are within reference range. Medications were reviewed. IMPRESSION: 74 y/o woman with acute respiratory failure with hypoxemia and hypercapnea due to COVID-19 infection and associated pneumonia, anemia, diabetes mellitus. Plan: 1. Tracheostomy and PEG placement scheduled for tomorrow. 2. Hypotension improved after albumin and PRBC; IV levophed as needed 3. s/p PRBC transfusion 4. Continue supportive measures. MD MARIANNE Nuñez/NENA /[id number] MTDSona
[2020-04-18 05:22] LABS: ALANINE AMINOTRANSFERASE 18 IU/L (0-55); ALBUMIN 2.8 g/dL (3.5-5.0); ALBUMIN/GLOBULIN RATIO -1.4 (0.8-2.0); ALKALINE PHOSPHATASE 54 IU/L (40-150); ANION GAP 11.6 mmol/L (8-16); BLOOD UREA NITROGEN 23 mg/dL (7-26); BUN/CREATININE RATIO 35 (6-25); CALCIUM 8.5 mg/dL (8.4-10.2); CHLORIDE 92 mmol/L (98-107); CREATININE, SERUM 0.66 mg/dL (0.57-1.11); EST GLOMERULAR FILTRATION RATE > 60 ML/MIN (60-); GLUCOSE 65 mg/dL (74-118); POTASSIUM 3.6 mmol/L (3.5-5.1); SODIUM 145 mmol/L (136-145)
[2020-04-18 05:28] LABS: CARBON DIOXIDE 45 mmol/L (22-29)
[2020-04-18] MEDS: DEXTROSE 50% SYRINGE 50 ML IV PRN (06:09)
[2020-04-18 06:12] LABS: BASOPHILS % 0.2 % (0.0-1.0); EOSINOPHILS # (AUTO) 0.4 (0.0-0.4); EOSINOPHILS % 6.6 % (0.0-6.0); HEMATOCRIT 23.1 % (34.2-44.1); HEMOGLOBIN 7.1 g/dL (12.0-16.0); LYMPHOCYTES # (AUTO) 0.8 (1.0-3.2); LYMPHOCYTES % 14.2 % (18.0-39.1); MEAN CORPUSCULAR HEMOGLOBIN 28.5 pg (28-32); MEAN CORPUSCULAR HGB CONC 30.7 g/dL (31-35); MEAN CORPUSCULAR VOLUME 92.8 fL (81-99); MONOCYTES # (AUTO) 0.7 (0.2-0.8); MONOCYTES % 12.7 % (4.4-11.3); NEUTROPHILS # (AUTO) 3.4 (2.1-6.9); NEUTROPHILS % 64.2 % (38.7-80.0); PLATELET COUNT 288 x10e3/uL (140-360); RED BLOOD COUNT 2.49 x10e6/uL (3.6-5.1); RED CELL DISTRIBUTION WIDTH 16.8 % (11.7-14.4)
--- NOTE | 2020-04-18 06:24 | Diagnostic Imaging Report ---
EXAMINATION: CHEST SINGLE (PORTABLE) INDICATION: ^resp failure COMPARISON: 04/17/2020 FINDINGS: AP view TUBES and LINES: Stable endotracheal tube, enteric tube, and right PICC. LUNGS: Lungs are well inflated. Diffuse bilateral airspace opacities. PLEURA: No significant pleural effusion or pneumothorax. HEART AND MEDIASTINUM: The cardiomediastinal silhouette is partially obscured and appears enlarged. BONES AND SOFT TISSUES: No acute osseous lesion. Soft tissues are unremarkable. UPPER ABDOMEN: No free air under the diaphragm. IMPRESSION: No significant interval change from prior exam. Signed by: Dr. Connor Han MD on 04/18/2020 6:21 AM
[2020-04-18] MEDS: ALBUMIN 25% 25GM 100ML 100 ML IV SCH (06:46)
[2020-04-18] MEDS: FAMOTIDINE 20 MG TAB PO SCH ×2 (07:30→15:47)
[2020-04-18] MEDS: FENTANYL 2000MCG/NS 250 250 ML IV PRN ×3 (07:40→22:00)
[2020-04-18] MEDS: MIDAZOLAM HCL 5MG/ML 10ML VIAL 100 ML IV PRN ×3 (07:41→21:24)
[2020-04-18] MEDS: EYE LUBRICANT OPTH OINT 3.5GM TUBE OP SCH ×2 (08:17→16:10)
[2020-04-18] MEDS: BALSAM PERU/CASTOR OIL 60 GM OINT...G. TP SCH (08:18)
[2020-04-18] MEDS: ZINC SULFATE 220 MG CAP PO SCH (08:18)
[2020-04-18] MEDS: INSULIN GLARGINE 100 UNITS/ML VIAL SQ SCH ×2 (08:18→21:00)
[2020-04-18] MEDS: ASCORBIC ACID 500 MG TAB PO SCH ×2 (08:18→16:10)
[2020-04-18] MEDS ORDERED: ACETAZOLAMIDE SODIUM 500 MG/VIAL IV ONE (08:30)
--- NOTE | 2020-04-18 09:04 | Progress Note ---
DATE: 04/18/2020 SUBJECTIVE: The patient remains on mechanical ventilation. She is on Versed and fentanyl as well as low-dose rocuronium. PHYSICAL EXAMINATION: VITAL SIGNS: The blood pressure is 179/64, saturation is 92%, and the pulse is 67. She is currently on a PRVC at a rate of 26 with a tidal volume of 380 and FiO2 of 75%. Her PEEP is set at 10. HEENT: Shows no facial swelling or erythema. LYMPHATIC: Shows no submandibular, cervical, or supraclavicular adenopathy. CARDIAC: Reveals a regular rate and rhythm with normal S1 and S2. LUNGS: Auscultation of lungs reveals crackles and rhonchi bilaterally. There is no wheezing. ABDOMEN: Soft and nontender. There is no rebound or guarding. Exam is extremities shows no leg edema or calf tenderness. There is no cyanosis or clubbing. SKIN: Shows no rashes. NEUROLOGICAL: Shows no focal abnormalities. LABORATORY DATA: White blood cell count is 5.3, hemoglobin is 7.1. The platelet count is 288. BUN to creatinine ratio is normal. Carbon dioxide is 45 and the potassium is 3.6. RADIOGRAPHIC DATA: Chest x-ray shows no interval change with bilateral infiltrates. IMPRESSION: 1. Acute respiratory failure. 2. Viral pneumonia and COVID-19 infection. 3. Anemia secondary to chronic blood loss. 4. Diabetes. PLAN: 1. Continue current ventilator settings. 2. Lovenox is on hold for tracheostomy. 3. Enteral feedings are on hold since midnight for tracheostomy. 4. Plan for tracheostomy today. 5. Case discussed with son. He is agreeable to tracheostomy. We will also speak with Anesthesia regarding consent for anesthesia. Greater than 35 minutes in direct critical care time apart from any procedures performed. Pete Walsh MD [facility]/MODL /[id number]
[2020-04-18] MEDS: FUROSEMIDE INJ 10 MG/ML 4 ML VIAL IV SCH (09:17)
--- NOTE | 2020-04-18 09:19 | Progress Note ---
DATE: 04/18/2020 INFECTIOUS DISEASE PROGRESS NOTE: SUBJECTIVE: The patient was seen and evaluated, available labs and notes reviewed. The patient remains with a vent support at 75% FiO2 and PEEP of 10. Overall, no significant change as far as the vent setting from yesterday, seems to be comfortable in bed. REVIEW OF SYSTEMS: Unable to obtain due to the patient's medical status. MEDICATIONS: List reviewed from ID point of view; currently off antibiotics, remains as zinc sulfate, Lasix, Lovenox is on hold for PEG tube placement. PHYSICAL EXAMINATION: VITAL SIGNS: Temperature 98.7, pulse 80, respirations 26, and blood pressure 109/58. GENERAL: Vent dependent with FiO2 of 75% with a PEEP of 10. HEENT: Moist. CV: S1 and S2. CHEST: Equal expansion, decreased breath sounds with rales. ABDOMEN: Soft. Positive bowel sounds. EXTREMITIES: With at least 1+ edema. LABORATORY STUDIES: White blood cells 5.29, hemoglobin 7.1, and platelet 288. Sodium 145, potassium 3.6, creatinine 0.66. No new microbiology studies available. RADIOLOGY STUDIES: Chest x-ray from today so it showed no significant interval change from prior exam. ASSESSMENT AND PLAN: 1. COVID-19 infection. 2. Respiratory failure. 3. Dysphagia. 4. Diabetes. 5. Tachycardia. 6. Anemia. The patient is status post on remdesivir. The patient remains on supplements through the feeding tube, on Lasix 80 mg twice a day for edema. Also, Lovenox is on hold for PEG tube placement. Hopefully today, elevate the back of the bed at least 30 degrees, decrease the chance of aspiration. Further management of this patient is based on laboratory and physical examination. Monitor off antibiotics at this point. Discussed with Dr. Hernandez in detail. Please refer to chart for more information. Dictated by Bahman Magallon PA-C (Al) Fei Hernandez MD /MODL /[id number]
[2020-04-18 09:24] LABS: ABG HCO3 47 mmol/L (22-26); ABG PCO2 62 mmHg (35-45); ABG PH 7.49 (7.35-7.45); ABG PO2 57 mmHg (80-105); ABG TCO2 49
[2020-04-18] MEDS ORDERED: FENTANYL CITRATE/PF 100MCG/2 ML INJ ONE (11:27)
--- NOTE | 2020-04-18 12:37 | NUR ---
EGD AND PEG TODAY TRACH TODAY SEDATION X 3 WILL ATTEMPT TO WEAN SEDATION AND GET LTAC EVAL EARLY NEXT WEEK
--- NOTE | 2020-04-18 12:45 | Operative Report ---
DATE OF PROCEDURE: 04/18/2020 SURGEON: Marvin Simons MD PREOPERATIVE DIAGNOSIS: Respiratory failure. POSTOPERATIVE DIAGNOSIS: Respiratory failure. PROCEDURE: Tracheostomy. [employer] CLAIM EXAMINER: None. ANESTHESIA: General. INDICATIONS AND FINDINGS: The patient is a 74-year-old female with COVID pneumonia, who has had prolonged ventilation requiring tracheostomy surgery, there are no abnormalities area of the tracheostomy placement. TECHNIQUE: After adequate anesthesia via the endotracheal tube, the neck was prepped and draped in sterile fashion with Betadine solution. Transverse incision was made approximately 2 cm above the sternal notch, carried down through the subcutaneous tissue and platysma. Subplatysmal flaps raised superiorly, inferiorly. Strap muscles were divided in the midline. The isthmus of the thyroid divided between clamps, suture ligated with 2-0 Vicryl, exposing the trachea. Longitudinal incision was made in the trachea through the 2nd and 3rd tracheal rings. This was spread. The trachea was elevated. Endotracheal tube was pulled back and a #8 Shiley tracheostomy tube was placed without difficulty. The balloon was inflated and connected to the ventilator and the patient was found to be ventilating well. Hemostasis was seen to be adequate. Tracheostomy tube was then sutured to the skin using interrupted sutures of 2-0 nylon. A sterile dressing was placed around the tube and a tracheostomy strap placed around the patient's neck. The patient tolerated the procedure well. Estimated blood loss was less than 5 mL. There were no complications. All counts were correct. The patient was taken to the recovery room in satisfactory condition. MD SAJI Dill/MODL /[id number]
--- NOTE | 2020-04-18 13:35 | Operative Report ---
DATE OF PROCEDURE: 04/18/2020 SURGEON: Kobe Rodriguez MD PROCEDURE: EGD with PEG tube placement. INDICATIONS FOR PROCEDURE: The patient is status post tracheostomy, NG-tube feeds dependent. MEDICATIONS: The patient was done under general endotracheal anesthesia, please see anesthesiologist's note. PROCEDURE IN DETAIL: With the patient in the supine position, after adequate induction of general endotracheal anesthesia, the flexible fiberoptic Olympus gastroscope was introduced into the esophagus under direct visualization without any difficulty. There was some patchy erythema noted in distal esophagus. The scope was then advanced with ease into the stomach. Mucosa overlying the antrum and the body revealed some patchy intense erythema. The pylorus was of normal contour and shape, it was intubated with ease and the scope was advanced all the way to the second portion of the duodenum. The scope was then withdrawn slowly, mucosa overlying the proximal second portion and the duodenal bulb appeared to be within normal limits. The scope was then withdrawn back into the stomach and retroflexed, mucosa overlying the fundus and cardia appeared to be within normal limits. The scope was then straightened out and after delineation of a safe entry point per external digital palpation and transabdominal illumination, PEG tube insertion was carried out in the usual fashion. The scope was subsequently withdrawn after endoscopically documenting a good positioning of the intragastric bumper. The patient tolerated the procedure well. IMPRESSION: 1. Distal esophagitis. 2. Gastritis. 3. PEG tube placement carried out in the usual fashion. The patient tolerated the procedure well. PLAN: G-tube to drain to gravity x24 hours in a Morales bag then can use. Kobe Rodriguez MD [facility] [place] [place][id number] cc: Jose Cruz Whittington MD
--- NOTE | 2020-04-18 18:36 | NUR ---
Dr. Rom Walsh aware of ABG results. Patient s/p tracheostomy and peg tube placement this afternoon. Dressings clean dry and intact around peg tube and tracheostomy. Per Dr. Jorge mcelroy leave rudd to gravity and let drain for 24 hours post op. Wound care done. Pt has stage II bilateral wounds to cheeks where ETT tab galicia was. Will continue to monitor.
[2020-04-18] MEDS ORDERED: FUROSEMIDE INJ 10 MG/ML 4 ML VIAL IV SCH (21:00)
--- NOTE | 2020-04-18 23:41 | Progress Note ---
DATE: 04/18/2020 Cardiology Progress Note SUBJECTIVE: The patient remains on mechanical ventilation. She is sedated with Versed and fentanyl, and paralyzed with rocuronium. The patient is status post tracheostomy and PEG placement. She had these procedures without problems. Her blood pressure has been labile with low and high blood pressures. OBJECTIVE: VITAL SIGNS: Her blood pressure at this time is 115/63 mmHg with a heart rate of 82 beats per minute. Pulse oximetry is 97% percent on FiO2 of 75% and PEEP of 10. GENERAL: The patient is in the supine position. HEAD AND NECK: No facial swelling. Tracheostomy is in good place. LUNG EXAM: Coarse breath sounds anteriorly. CARDIAC EXAMINATION: Regular rate and rhythm, normal S1 and S2. No murmurs heard. ABDOMEN: Soft, not distended. EXTREMITIES: Trace leg edema. NEUROLOGICAL: The patient is sedated and paralyzed. LAB DATA: White blood cell count is 5.3, hemoglobin is 7.1, hematocrit is 23, platelet count is 288,000. Sodium is 145, potassium is 3.6, chloride is 92, bicarb is 45, BUN is 23, creatinine is 0.66, glucose is 65. Calcium is 8.5. Liver tests are within reference range. Her albumin is 2.8. Medications reviewed. ASSESSMENT: 74 y/o woman with history of acute respiratory failure with hypoxemia and hypercapnea due to coronavirus 2019 infection and associated pneumonia, anemia, diabetes. Plan: 1. s/p trachestomy and PEG placement 2. Labile blood pressure, continue to monitor 3. Continue supportive measures. Danette Hightower MD [facility]/MODL /[id number] JIGAR
[2020-04-19] VITALS (25 sets, daily range): BP systolic 71–189; BP diastolic 32–90
[2020-04-19] MEDS: MIDAZOLAM HCL 5MG/ML 10ML VIAL 100 ML IV PRN ×3 (02:34→15:55)
[2020-04-19 05:47] LABS: BASOPHILS % 0.3 % (0.0-1.0); EOSINOPHILS # (AUTO) 0.3 (0.0-0.4); EOSINOPHILS % 3.8 % (0.0-6.0); HEMATOCRIT 29.5 % (34.2-44.1); HEMOGLOBIN 8.9 g/dL (12.0-16.0); LYMPHOCYTES # (AUTO) 0.9 (1.0-3.2); LYMPHOCYTES % 13.2 % (18.0-39.1); MEAN CORPUSCULAR HEMOGLOBIN 27.9 pg (28-32); MEAN CORPUSCULAR HGB CONC 30.2 g/dL (31-35); MEAN CORPUSCULAR VOLUME 92.5 fL (81-99); MONOCYTES % 14.6 % (4.4-11.3); NEUTROPHILS # (AUTO) 4.3 (2.1-6.9); NEUTROPHILS % 66.3 % (38.7-80.0); PLATELET COUNT 354 x10e3/uL (140-360); RED BLOOD COUNT 3.19 x10e6/uL (3.6-5.1); RED CELL DISTRIBUTION WIDTH 16.8 % (11.7-14.4)
[2020-04-19] MEDS: INSULIN REGULAR, HUMAN 100 UNIT/1 ML 3ML VIAL SQ SCH ×3 (05:54→18:00)
[2020-04-19 06:06] LABS: ALANINE AMINOTRANSFERASE 19 IU/L (0-55); ALBUMIN 2.7 g/dL (3.5-5.0); ALBUMIN/GLOBULIN RATIO 0.7 (0.8-2.0); ALKALINE PHOSPHATASE 62 IU/L (40-150); ANION GAP 13.1 mmol/L (8-16); BLOOD UREA NITROGEN 19 mg/dL (7-26); BUN/CREATININE RATIO 30 (6-25); CALCIUM 8.4 mg/dL (8.4-10.2); CHLORIDE 90 mmol/L (98-107); CREATININE, SERUM 0.64 mg/dL (0.57-1.11); EST GLOMERULAR FILTRATION RATE > 60 ML/MIN (60-); GLUCOSE 69 mg/dL (74-118); POTASSIUM 3.1 mmol/L (3.5-5.1); SODIUM 146 mmol/L (136-145)
[2020-04-19 06:10] LABS: CARBON DIOXIDE 46 mmol/L (22-29)
[2020-04-19 06:17] LABS: MAGNESIUM 1.6 MG/DL (1.3-2.1); PHOSPHORUS 4.4 MG/DL (2.3-4.7)
--- NOTE | 2020-04-19 06:51 | Diagnostic Imaging Report ---
EXAMINATION: CHEST SINGLE (PORTABLE) INDICATION: ^resp failure ^[id number] ^[id number] COMPARISON: 04/18/2020 FINDINGS: AP view TUBES and LINES: Endotracheal tube is replaced by a tracheostomy tube with tip at the level of the clavicles. Interval removal of enteric tube. Stable right PICC. LUNGS: Lungs are well inflated. Diffuse bilateral airspace opacities, unchanged. PLEURA: No pneumothorax. Suspected small bilateral pleural effusions. HEART AND MEDIASTINUM: The cardiomediastinal silhouette is unremarkable. BONES AND SOFT TISSUES: No acute osseous lesion. Soft tissues are unremarkable. UPPER ABDOMEN: No free air under the diaphragm. IMPRESSION: Endotracheal tube is replaced by a tracheostomy tube. Interval removal of enteric tube. Otherwise, no interval change from prior exam. Signed by: Dr. Connor Han MD on 04/19/2020 6:48 AM
[2020-04-19] MEDS: FAMOTIDINE 20 MG TAB PO SCH ×2 (07:30→16:28)
[2020-04-19] MEDS: INSULIN GLARGINE 100 UNITS/ML VIAL SQ SCH ×2 (08:02→21:00)
[2020-04-19] MEDS: ZINC SULFATE 220 MG CAP PO SCH (08:02)
[2020-04-19] MEDS: EYE LUBRICANT OPTH OINT 3.5GM TUBE OP SCH ×2 (08:02→16:28)
[2020-04-19] MEDS: ASCORBIC ACID 500 MG TAB PO SCH ×2 (08:02→16:28)
[2020-04-19] MEDS: BALSAM PERU/CASTOR OIL 60 GM OINT...G. TP SCH (08:03)
[2020-04-19] MEDS: FENTANYL 2000MCG/NS 250 250 ML IV PRN ×2 (08:52→18:08)
--- NOTE | 2020-04-19 09:47 | Progress Note ---
DATE: 04/19/2020 SUBJECTIVE: The patient had tracheostomy yesterday. The patient also had a PEG placement. Lovenox is restarted today. The patient is off Levophed. The patient remains on fentanyl 225 mcg and Versed at 8 mg. The patient is also on rocuronium at 0.08. PHYSICAL EXAMINATION: VITAL SIGNS: Blood pressure is 142/86, saturation is 94%. The patient is on a PRVC mode of ventilation at a rate of 26 with a tidal volume of 380 and FiO2 of 75%. The PEEP is set at 10. HEENT: Shows no facial swelling or erythema. LYMPHATIC: Shows no submandibular, cervical, or supraclavicular adenopathy. CARDIAC: Reveals regular rate and rhythm with normal S1, S2. LUNGS: Auscultation of lungs reveals crackles and rhonchi bilaterally. There is no wheezing. ABDOMEN: Soft, nontender. There is no rebound or guarding. EXTREMITIES: Shows no leg edema or calf tenderness. There is no cyanosis or clubbing. SKIN: Shows no rashes. NEUROLOGICAL: Shows no focal abnormalities. LABORATORY DATA: The BUN to creatinine ratio is 19 to 0.64. Carbon dioxide is 46 and the potassium is 3.1. The sodium is 146. Albumin is 2.7. White blood cell count is 6.5 and hemoglobin is 8.9. The platelet count is 354. RADIOGRAPHIC DATA: Shows endotracheal tube was replaced by a tracheostomy tube. There is an enteric feeding tube in place. IMPRESSION: 1. Viral pneumonia and COVID-19 infection. 2. Anemia, secondary to chronic blood loss. 3. Diabetes. 4. Metabolic alkalosis. 5. Hypokalemia. PLAN: 1. Continue Diamox. 2. Continue current ventilator settings. 3. Restart Lovenox. 4. Restart enteral feedings later today. 5. Continue Versed and fentanyl. 6. Continue to monitor blood sugars and adjust insulin as necessary. Greater than 35 minutes in direct critical care time. Pete Walsh MD [facility]/MODL /[id number]
[2020-04-19 10:07] LABS: ABG HCO3 46 mmol/L (22-26); ABG PCO2 67 mmHg (35-45); ABG PH 7.45 (7.35-7.45); ABG PO2 69 mmHg (80-105); ABG TCO2 48
[2020-04-19] MEDS ORDERED: POTASSIUM CHLORIDE 20MEQ/15ML UDC NG NR (11:30)
--- NOTE | 2020-04-19 12:16 | NUR ---
IM- progress note O/N see below ROS: no f/c/s/N/V/D/LING/cp/skin rash/confusion/dizziness/leg pain v/s revd PE tired appearing anicteric Oxygen canula in place ns1s2 reduced bs soft nt nd no e/t skin dry flat affect labs/med revd A/P: 74yoF Multifocal PNA- IV abx; O2; COVID testing Acute resp failure- O2 DKA- insulin; hab1c/lipids; insulin CHERI- f/u Severe Sepsis- IV abx Septic shock- pressor PRN; abx Obesity- 1/2 portion sizes; outpt BMI 37- as above Physical deconditioning- PT consult Prop; scd; lovenox Dispo: f/u COVID testing 03-25-20 Hba1c/LDL 10.; f/u COVID tesing; 03-26- cont care; 11- cont care in ICU; needing more O2; Continue decadron and remdesivir. 11-6 f/u echo; cont care in ICU 11-7 Hypernaremia and CHERI- give free water; Intubated overnight;cont vent support; monitor closely. d/w daughter by Telephone. 11-8 labs pending; titrate insulin up 11-9 titrate insulin up further; give free water for Hypernatremia/CHERI. Nephr consult; Left Upper lobe PE- lovenox BID 11-10 uncontrolled glucose- titrate insulin up. 11-11 adjust insulin 11-12 CXR no change; cont support; remains on 60% FiO2; Called family- left message. 11-13 No change; 60% FiO2; Left message for family at Ms [facility] [phone] 11-14 low grade fever overnight; Thrombocytopenia on AC; monitor; Remains on 60% FiO2; 11-15 stable; cont vent support. continue free water; Hypernatremia- recheck BMP at 2pm; 11-16 cont care; spoke with family 11-17 fever overnight; no leukocytosis or cultures positive; cont vent; cont support; renal fn stable; Spoke with Ms Steven, daughter. 11-18 febrile overnight; left message for family; 600cc urine on dayshift; f/u I/O; Worsening resp status, not on 85% FiO2 vent suppport. 11-19 Septic shock- started on pressors; Anuric - treated with albumin/lasix, successful in getting 1500ml urine out; Worsened resp status- now on 1005 FiO2 vent support; vanco therapeutic; D/w both daughters by telephone; both aware of current status. 04-11 Unstageable Sacral ulcer; Febrile; Septic shock; Prognosis poor; f/u labs; On Levophed pressor; cont care. 04-12 continue supportive care with vent and medications. 04-13 Moderate ARDS; cont vent and pressors; vanco mildly supratherapeutic- hold dose. 04-14 cont care. I contacted family member; updated on status. 04-15 febrile overnight; discussed with daughter; remains intubated; will benefit from trach if remains off pressor; will discuss with pulmonary. 04-16 Trach pending Tuesday; PEG per GI; left message with daughter Serafinar. 04-17 supratherapeutic vanco; stopped; Worsened anemia- transfuse 1 unit PRBC. Trach/PEG pending; 04-18 Hb 7.1 cont vent; renal fn stable; s/p trach and PEG; PT; LTAC eval. 04-19 cont care; replaceK; give free water; Gen TRAYLOR MD, PHD
[2020-04-19] MEDS: ACETAZOLAMIDE 250 MG TAB PO SCH ×2 (13:00→21:00)
--- NOTE | 2020-04-19 17:00 | NUR ---
PT Assessment: Pt not a good candidate for PT services at this time. Pt is deeply sedated. Will re-eval when more alert. All major jts are WNL at this time. Nursing staff to continue with PROM ex at least 2-3x/wk. Addendum: 04/19/20 at 1843 by Ted Greer PT Amended: Links added.
--- NOTE | 2020-04-19 17:56 | NUR ---
INFECTIOUS DISEASE PROGRESS NOTE DR. LORIE KENNEY SUBJECTIVE: The patient is seen and evaluated. Available labs and notes reviewed. Discussed with staff. REVIEW OF SYSTEMS: Unable to obtain due to the patient being intubated. PHYSICAL EXAMINATION: VITAL SIGNS: HEENT: Oral intubation. Vent setting as above. No significant change per my discussion with staff, the patient also sedated with nasogastric tube. CVS: S1-S2. no s3, s4 CHEST: Equal expansion. Decreased breath sounds with rales. ABDOMEN: Soft, nondistended. HEENT: Moist. No pallor. EXTREMITIES: No significant edema. MEDICATIONS: Reviewed from an ID point of view, the patient is on Lovenox, vitamin C, zinc sulfate, methylprednisolone, the patient is status post antibiotics. LABORATORY STUDIES: per chart RADIOLOGY STUDIES: Chest x-ray is pending. ASSESSMENT AND PLAN: 1. COVID-19 infection. 2. Respiratory failure. 3. Anemia. 4. Diabetes mellitus. 5. Occasional tachycardia. The patient is status post remdesivir. Overall, with poor prognosis. Continue as planned. Lorie Kenney M.D.
[2020-04-19] MEDS: ENOXAPARIN SOD INJ 40 MG/0.4 ML SYR SC SCH (22:01)
[2020-04-20] VITALS (24 sets, daily range): BP systolic 73–182; BP diastolic 37–71
--- NOTE | 2020-04-20 01:50 | Progress Note ---
DATE: 04/19/2020 Cardiology Progress Note SUBJECTIVE: The patient remains on mechanical ventilation. She is sedated with Versed and fentanyl and paralyzed with rocuronium. The patient is status post tracheostomy and PEG placement. OBJECTIVE: VITAL SIGNS: Her blood pressure is 80/50 with a mean of 60, heart rate is 76, pulse oximetry shows 99% saturation on 75% FiO2 and she is afebrile. GENERAL: She is sedated and paralyzed. NECK: Tracheostomy is in place. LUNGS: Coarse breath sounds in both lung wesley. CARDIAC: Regular rate and rhythm. Normal S1, S2. No murmurs heard. ABDOMEN: Soft, not distended. PEG noted. EXTREMITIES: 1+ leg edema. NEUROLOGIC: The patient is sedated and paralyzed. LABORATORY DATA: Her white blood cell count is 6.5. The hemoglobin is 8.9, hematocrit is 29.5, platelet count is 354,000. Her sodium is 146, potassium 3.1, chloride is 90, carbon dioxide is 46. BUN is 19, creatinine is 0.64. The liver tests are within reference range. Her albumin is 2.5. Blood gas this morning showed a pH of 7.45, pCO2 of 67, PO2 of 69, bicarb is 46, oxygen saturation is 93% on FiO2 of 75%. Medications reviewed. ROS: Unable to obtain because of altered mental status. ASSESSMENT AND PLAN: 74 y/o woman has history of acute respiratory failure with hypoxemia and hypercapnea due to coronavirus 2019 infection and associated pneumonia, anemia, and diabetes. 1. Acute respiratory failure requiring mechanical ventilation, managed by pulmonary service. 2. Furosemide changed to Diamox because of contraction metabolic alkalosis. 3. Labile blood pressure, hypotension: The patient's blood pressure has been low today, at times, requiring vasopressors. 4. No bradycardia. 5. Anemia, stable. 6. Continue supportive care. MD MARIANNE Nuñez/MODL /[id number] MTDD
[2020-04-20] MEDS: FENTANYL 2000MCG/NS 250 250 ML IV PRN ×5 (01:54→18:43)
[2020-04-20 05:51] LABS: BASOPHILS % 0.3 % (0.0-1.0); EOSINOPHILS # (AUTO) 0.3 (0.0-0.4); EOSINOPHILS % 4.7 % (0.0-6.0); HEMATOCRIT 27.6 % (34.2-44.1); HEMOGLOBIN 8.4 g/dL (12.0-16.0); LYMPHOCYTES # (AUTO) 0.7 (1.0-3.2); LYMPHOCYTES % 9.6 % (18.0-39.1); MEAN CORPUSCULAR HEMOGLOBIN 28.7 pg (28-32); MEAN CORPUSCULAR HGB CONC 30.4 g/dL (31-35); MEAN CORPUSCULAR VOLUME 94.2 fL (81-99); MONOCYTES # (AUTO) 1.2 (0.2-0.8); NEUTROPHILS # (AUTO) 4.6 (2.1-6.9); NEUTROPHILS % 67.2 % (38.7-80.0); PLATELET COUNT 332 x10e3/uL (140-360); RED BLOOD COUNT 2.93 x10e6/uL (3.6-5.1); RED CELL DISTRIBUTION WIDTH 16.5 % (11.7-14.4)
[2020-04-20] MEDS: INSULIN REGULAR, HUMAN 100 UNIT/1 ML 3ML VIAL SQ SCH ×4 (06:00→17:17)
[2020-04-20 06:09] LABS: ALANINE AMINOTRANSFERASE 19 IU/L (0-55); ALBUMIN 2.3 g/dL (3.5-5.0); ALBUMIN/GLOBULIN RATIO 0.7 (0.8-2.0); ALKALINE PHOSPHATASE 63 IU/L (40-150); ANION GAP 12.6 mmol/L (8-16); BLOOD UREA NITROGEN 20 mg/dL (7-26); BUN/CREATININE RATIO 33 (6-25); CALCIUM 8.4 mg/dL (8.4-10.2); CARBON DIOXIDE 38 mmol/L (22-29); CHLORIDE 95 mmol/L (98-107); CREATININE, SERUM 0.61 mg/dL (0.57-1.11); EST GLOMERULAR FILTRATION RATE > 60 ML/MIN (60-); GLUCOSE 107 mg/dL (74-118); POTASSIUM 3.6 mmol/L (3.5-5.1); SODIUM 142 mmol/L (136-145)
--- NOTE | 2020-04-20 06:21 | Diagnostic Imaging Report ---
EXAMINATION: CHEST SINGLE (PORTABLE) INDICATION: ^resp failure ^[id number] ^[id number] COMPARISON: 04/19/2020 FINDINGS: AP view TUBES and LINES: Stable tracheostomy tube and right PICC. LUNGS: Lungs are well inflated. Again seen diffuse bilateral airspace opacities. PLEURA: No pneumothorax. Not significantly changed bilateral small pleural effusions. HEART AND MEDIASTINUM: The cardiomediastinal silhouette is obscured. BONES AND SOFT TISSUES: No acute osseous lesion. Soft tissues are unremarkable. UPPER ABDOMEN: No free air under the diaphragm. IMPRESSION: No significant interval change from prior exam. Signed by: Dr. Connor Han MD on 04/20/2020 6:18 AM
[2020-04-20 06:58] LABS: FERRITIN 1100.08 ng/mL (4.63-204.00)
[2020-04-20] MEDS: BALSAM PERU/CASTOR OIL 60 GM OINT...G. TP SCH (08:28)
[2020-04-20] MEDS: FAMOTIDINE 20 MG TAB PO SCH ×2 (08:28→16:15)
[2020-04-20] MEDS: ZINC SULFATE 220 MG CAP PO SCH (08:28)
[2020-04-20] MEDS: EYE LUBRICANT OPTH OINT 3.5GM TUBE OP SCH ×2 (08:28→16:15)
[2020-04-20] MEDS: ASCORBIC ACID 500 MG TAB PO SCH ×2 (08:28→16:15)
[2020-04-20] MEDS: ENOXAPARIN SOD INJ 40 MG/0.4 ML SYR SC SCH ×2 (08:28→20:55)
[2020-04-20] MEDS: ACETAZOLAMIDE 250 MG TAB PO SCH ×2 (08:28→20:55)
--- NOTE | 2020-04-20 08:35 | NUR ---
IM- progress note O/N see below ROS: no f/c/s/N/V/D/LING/cp/skin rash/confusion/dizziness/leg pain v/s revd PE tired appearing anicteric Oxygen canula in place ns1s2 reduced bs soft nt nd no e/t skin dry flat affect labs/med revd A/P: 74yoF Multifocal PNA- IV abx; O2; COVID testing Acute resp failure- O2 DKA- insulin; hab1c/lipids; insulin CHERI- improved; monitor Septic shock- pressor PRN; abx Obesity- 1/2 portion sizes; outpt BMI 37- as above Physical deconditioning- PT consult Hba1c/LDL 10.1/63; Rec'd decadron and remdesivir. Hypernaremia and CHERI- free water Left Upper lobe PE- lovenox BID Spoke with daughter Ms Steven [phone] Anuric - treated with albumin/lasix, improved Unstageable Sacral ulcer- IV abx and LWC Moderate ARDS- cont supportive care s/p trach/PEG Worsened anemia- s/p 1 unit PRBC 11-29 Hb 8.4. vented via trach; nutrition via PEG Gen TRAYLOR MD, PHD
[2020-04-20] MEDS: INSULIN GLARGINE 100 UNITS/ML VIAL SQ SCH ×2 (10:00→20:56)
--- NOTE | 2020-04-20 10:36 | Progress Note ---
DATE: 04/20/2020 SUBJECTIVE: The patient is currently on a PRVC mode of ventilation. She is off Levophed. She is afebrile. PHYSICAL EXAMINATION: VITAL SIGNS: The blood pressure is 112/56, saturation is 95% and the pulse is 105. Respiratory rate is 26. Temperature is 99.7. HEENT: Shows no facial swelling or erythema. LYMPHATIC: Shows no submandibular, cervical, or supraclavicular adenopathy. CARDIAC: Reveals regular rate and rhythm with normal S1 and S2. LUNGS: Auscultation of lungs shows decreased breath sounds at the bases. There is no wheezing. ABDOMEN: Soft and nontender. There is no rebound or guarding. EXTREMITIES: Shows no leg edema or calf tenderness. There is no cyanosis or clubbing. SKIN: Shows no rashes. NEUROLOGICAL: Shows no focal abnormalities. LABORATORY DATA: White blood cell count is 6.87, hemoglobin is 8.4 and the platelet count is 332. The BUN to creatinine ratio is 20 to 0.61. Other electrolytes are within normal limits. Saturation is %, and the albumin is 2.3. RADIOGRAPHIC DATA: Chest x-ray shows no significant interval change or bilateral infiltrates. IMPRESSION: 1. Viral pneumonia and COVID-19 infection. 2. Acute respiratory failure. 3. Anemia secondary to chronic blood loss. 4. Diabetes. 5. Metabolic alkalosis. 6. Hypokalemia. PLAN: 1. Continue current enteral feedings. 2. Continue Versed and fentanyl. 3. Continue antibiotics. 4. Stop rocuronium. 5. Continue Diamox. 6. Increase minute ventilation and repeat ABG later today. Greater than 35 minutes in direct critical care time. Pete Walsh MD [facility]/MODL /[id number]
[2020-04-20] MEDS: MIDAZOLAM HCL 5MG/ML 10ML VIAL 100 ML IV PRN ×2 (11:14→18:39)
[2020-04-20] MEDS ORDERED: NOREPINEPHRINE INJ 4MG/4ML 8 MG in DEXTROSE 5% 250ML 250 ML IV PRN (11:30)
[2020-04-20] MEDS ORDERED: ALBUMIN 25% 25GM 100ML 0.25 GM/ML BTL IV NR (11:30)
[2020-04-20] MEDS ORDERED: LACTULOSE SYRUP 20 GM/30 ML UDC PO NR (11:45)
[2020-04-20] MEDS: DOCUSATE SODIUM LIQD 100 MG/10 ML UDC NG SCH (16:15)
[2020-04-20 16:46] LABS: MAGNESIUM 1.8 MG/DL (1.3-2.1); PHOSPHORUS 4.2 MG/DL (2.3-4.7)
[2020-04-20 16:56] LABS: ABG HCO3 43 mmol/L (22-26); ABG PCO2 88 mmHg (35-45); ABG PO2 76 mmHg (80-105); ABG TCO2 46
[2020-04-20 16:58] LABS: ABG HCO3 33 mmol/L (22-26); ABG PCO2 64 mmHg (35-45); ABG PH 7.32 (7.35-7.45); ABG PO2 69 mmHg (80-105); ABG TCO2 35
--- NOTE | 2020-04-20 17:47 | NUR ---
Dr. Rom Arellanoer aware of AM blood gas and afternoon blood gas. MD made aware that patient has not had bowel movement in awhile. Dr. Castillo's HANDLE FINISHER made aware of frequent pvcs and abnormal ekg.
--- NOTE | 2020-04-20 21:10 | NUR ---
INFECTIOUS DISEASE PROGRESS NOTE DR. LORIE KENNEY SUBJECTIVE: The patient is seen and evaluated. Available labs and notes reviewed. Discussed with staff. REVIEW OF SYSTEMS: Unable to obtain due to the patient being intubated. PHYSICAL EXAMINATION: VITAL SIGNS: HEENT: Oral intubation. Vent setting as above. No significant change per my discussion with staff, the patient also sedated with nasogastric tube. CVS: S1-S2. no s3, s4 CHEST: Equal expansion. Decreased breath sounds with rales. ABDOMEN: Soft, nondistended. HEENT: Moist. No pallor. EXTREMITIES: No significant edema. MEDICATIONS: Reviewed from an ID point of view, the patient is on Lovenox, vitamin C, zinc sulfate, methylprednisolone, the patient is status post antibiotics. LABORATORY STUDIES: per chart RADIOLOGY STUDIES: Chest x-ray is pending. ASSESSMENT AND PLAN: 1. COVID-19 infection. 2. Respiratory failure. 3. Anemia. 4. Diabetes mellitus. 5. Occasional tachycardia. The patient is status post remdesivir diamox, metabolic acidosis supportive care Lorie Kenney M.D.
--- NOTE | 2020-04-20 23:18 | Progress Note ---
DATE: 04/20/2020 Cardiology Progress Note SUBJECTIVE: The patient remains on mechanical ventilation. She is sedated with Versed and fentanyl. The paralytic rocuronium has been discontinued. The patient is status post tracheostomy and PEG placement. The patient is being fed via the PEG tube. OBJECTIVE: VITAL SIGNS: Blood pressure is 142/63 mmHg with a heart rate of 97 beats per minute, the patient's temperature was 99.7, pulse oximetry shows 92% oxygen saturation and FiO2 of 75%. Review of the patient's blood pressure during the day has shown blood pressure as low as 77/42 mmHg. GENERAL: She is sedated. NECK: Tracheostomy is in good place. LUNGS: Very coarse breath sounds both lung wesley anteriorly. The patient is in the supine position. CARDIAC: Regular rate and rhythm. Normal S1 and S2. No murmurs heard. ABDOMEN: Soft, not distended. PEG is noted. EXTREMITIES: 1+ leg edema. NEUROLOGIC: She is sedated. LABORATORY DATA: Shows a white blood cell count of 6.87, hemoglobin is 8.4, hematocrit is 27.6, and platelet count is 332,000. Her sodium is 142, potassium is 3.6, chloride is 95, bicarb is 38, BUN is 20, creatinine is 0.61, glucose is 107. Her liver tests are within reference range. Her latest blood gas shows a pH of 7.32, pCO2 of 64, PO2 of 69, bicarb 33, O2 saturation 91% on FiO2 of 75%. Telemetry shows frequent PACs and PVCs. MEDICATIONS: Reviewed. REVIEW OF SYSTEMS: Unable to obtain because of altered mental status. ASSESSMENT AND PLAN: 74-year-old woman has history of acute respiratory failure with hypoxemia and hypercapnia due to coronavirus 2019 infection and associated pneumonia, anemia, and diabetes. 1. Acute respiratory failure requiring mechanical ventilation, managed by Pulmonary Service. 2. Furosemide changed to Diamox because of contraction metabolic alkalosis. 3. Labile blood pressure: hyper, normo and hypotension. IV Levophed used to support blood pressure for short periods of time. 4. Increased ectopy, but no sustained arrhythmias. Magnesium level sent. Keep potassium level 4 to 5. 5. Anemia, stable. 6. Continue supportive care. MD MARIANNE Nuñez/MODL /[id number] JIGAR
[2020-04-21] VITALS (25 sets, daily range): BP systolic 100–188; BP diastolic 39–61
[2020-04-21] MEDS: INSULIN REGULAR, HUMAN 100 UNIT/1 ML 3ML VIAL SQ SCH ×4 (00:23→18:05)
[2020-04-21] MEDS: MIDAZOLAM HCL 5MG/ML 10ML VIAL 100 ML IV PRN ×4 (00:24→17:13)
[2020-04-21] MEDS: FENTANYL 2000MCG/NS 250 250 ML IV PRN (04:14)
[2020-04-21 05:11] LABS: BASOPHILS % 0.3 % (0.0-1.0); EOSINOPHILS # (AUTO) 0.2 (0.0-0.4); EOSINOPHILS % 2.3 % (0.0-6.0); HEMATOCRIT 26.9 % (34.2-44.1); HEMOGLOBIN 8.2 g/dL (12.0-16.0); LYMPHOCYTES # (AUTO) 0.8 (1.0-3.2); LYMPHOCYTES % 8.7 % (18.0-39.1); MEAN CORPUSCULAR HEMOGLOBIN 28.2 pg (28-32); MEAN CORPUSCULAR HGB CONC 30.5 g/dL (31-35); MEAN CORPUSCULAR VOLUME 92.4 fL (81-99); MONOCYTES # (AUTO) 1.4 (0.2-0.8); MONOCYTES % 16.2 % (4.4-11.3); NEUTROPHILS # (AUTO) 6.3 (2.1-6.9); NEUTROPHILS % 71.5 % (38.7-80.0); PLATELET COUNT 323 x10e3/uL (140-360); RED BLOOD COUNT 2.91 x10e6/uL (3.6-5.1); RED CELL DISTRIBUTION WIDTH 16.2 % (11.7-14.4)
[2020-04-21 05:38] LABS: ALANINE AMINOTRANSFERASE 24 IU/L (0-55); ALBUMIN 2.4 g/dL (3.5-5.0); ALBUMIN/GLOBULIN RATIO 0.7 (0.8-2.0); ALKALINE PHOSPHATASE 77 IU/L (40-150); ANION GAP 11.1 mmol/L (8-16); BLOOD UREA NITROGEN 15 mg/dL (7-26); BUN/CREATININE RATIO 28 (6-25); CALCIUM 8.2 mg/dL (8.4-10.2); CARBON DIOXIDE 34 mmol/L (22-29); CHLORIDE 99 mmol/L (98-107); CREATININE, SERUM 0.54 mg/dL (0.57-1.11); EST GLOMERULAR FILTRATION RATE > 60 ML/MIN (60-); GLUCOSE 193 mg/dL (74-118); POTASSIUM 3.1 mmol/L (3.5-5.1); SODIUM 141 mmol/L (136-145)
--- NOTE | 2020-04-21 06:32 | NUR ---
IM- progress note O/N see below ROS: no f/c/s/N/V/D/LING/cp/skin rash/confusion/dizziness/leg pain v/s revd PE tired appearing anicteric Oxygen canula in place ns1s2 reduced bs soft nt nd no e/t skin dry flat affect labs/med revd A/P: 74yoF Multifocal PNA- IV abx; O2; COVID testing Acute resp failure- O2 DKA- insulin; hab1c/lipids; insulin CHERI- improved; monitor Septic shock- pressor PRN; abx Obesity- 1/2 portion sizes; outpt BMI 37- as above Physical deconditioning- PT consult Hba1c/LDL 10.1/63; Rec'd decadron and remdesivir. Hypernaremia and CHERI- free water Left Upper lobe PE- lovenox BID Spoke with daughter Ms Steven [phone] Anuric - treated with albumin/lasix, improved Unstageable Sacral ulcer- IV abx and LWC Moderate ARDS- cont supportive care s/p trach/PEG Worsened anemia- s/p 1 unit PRBC 11-29 Hb 8.4. vented via trach; nutrition via PEG 11-30 cont care; Gen TRAYLOR MD, PHD
[2020-04-21] MEDS: FAMOTIDINE 20 MG TAB PO SCH ×2 (07:53→16:02)
[2020-04-21] MEDS: ASCORBIC ACID 500 MG TAB PO SCH ×2 (07:54→16:02)
[2020-04-21] MEDS: ACETAZOLAMIDE 250 MG TAB PO SCH (07:54)
[2020-04-21] MEDS: ZINC SULFATE 220 MG CAP PO SCH (07:54)
[2020-04-21] MEDS: INSULIN GLARGINE 100 UNITS/ML VIAL SQ SCH ×2 (07:54→21:33)
[2020-04-21] MEDS: ENOXAPARIN SOD INJ 40 MG/0.4 ML SYR SC SCH ×2 (07:54→21:30)
[2020-04-21] MEDS: IRON SUCROSE 100 MG in SODIUM CHLORIDE 0.9% 100 ML 100 ML IV SCH (07:54)
[2020-04-21] MEDS: EYE LUBRICANT OPTH OINT 3.5GM TUBE OP SCH ×2 (07:54→16:02)
[2020-04-21] MEDS: DOCUSATE SODIUM LIQD 100 MG/10 ML UDC NG SCH ×2 (07:54→16:02)
--- NOTE | 2020-04-21 08:34 | Diagnostic Imaging Report ---
EXAMINATION: CHEST SINGLE (PORTABLE) INDICATION: Respiratory failure COMPARISON: Multiple prior chest radiographs, most recently 04/20/2020 FINDINGS: LINES/TUBES:Tracheostomy tube unchanged. Right PICC line unchanged. EKG leads overlie the chest. LUNGS:Unchanged bilateral airspace opacities. PLEURA:No pleural effusion or pneumothorax. MEDIASTINUM:The cardiomediastinal silhouette appears unchanged in size and shape. Atherosclerotic calcifications of the thoracic aorta. BONES/SOFT TISSUES:No acute osseous injury. ABDOMEN:No free air under the diaphragm. IMPRESSION: No significant interval change. Signed by: Hernan Chew MD on 04/21/2020 8:31 AM
[2020-04-21] MEDS: BALSAM PERU/CASTOR OIL 60 GM OINT...G. TP SCH (09:07)
--- NOTE | 2020-04-21 10:34 | Progress Note ---
DATE: 04/21/2020 PULMONARY CRITICAL CARE PROGRESS NOTE: SUBJECTIVE: The patient remains on Levophed at 1.5 mcg. She is off rocuronium, but remains on fentanyl at 225 mcg and Versed at 10. PHYSICAL EXAMINATION: VITAL SIGNS: The blood pressure is 128/44 and saturation is 97%. She is currently on a PRVC at a rate of 30 with a tidal volume of 380 and FiO2 of 75%. PEEP is set at 10. HEENT: Shows no facial swelling or erythema. LYMPHATIC: Shows no submandibular, cervical, or supraclavicular adenopathy. CARDIAC: Reveals regular rate and rhythm with normal S1 and S2. LUNGS: Auscultation of lungs reveals decreased breath sounds at the bases. There is no wheezing. ABDOMEN: Soft and nontender. There is no rebound or guarding. EXTREMITIES: Show no leg edema or calf tenderness. There is no cyanosis or clubbing. SKIN: Shows no rashes. NEUROLOGICAL: Shows no focal abnormalities. LABORATORY DATA: White blood cell count is 8.87, hemoglobin is 8.2, and the platelet count is 323. The BUN to creatinine ratio is 15 to 0.54. Potassium is 3.1. Other electrolytes are within normal limits. Albumin is 2.4. RADIOGRAPHIC DATA: Chest x-ray shows no significant change of bilateral airspace opacities. IMPRESSION: 1. Acute respiratory failure. 2. Viral pneumonia and COVID-19 infection. 3. Anemia secondary to chronic blood loss. 4. Diabetes. 5. Metabolic alkalosis. 6. Hypokalemia. PLAN: 1. Wean Levophed. 2. Continue to decrease Versed and fentanyl, and work towards a sedation vacation. 3. Continue current ventilator settings. 4. Continue to monitor and control blood sugars. 5. Continue enteral feedings. 6. Replace potassium. Greater than 35 minutes in direct critical care time. Pete Walsh MD [facility]/MODL /[id number]
--- NOTE | 2020-04-21 11:09 | Progress Note ---
DATE: 04/21/2020 Cardiology Progress Note SUBJECTIVE: On vent support, sedated. OBJECTIVE: VITAL SIGNS: Temperature 100.6, heart rate 89, blood pressure 133/52, respiratory rate 28, and O2 saturation 93%. HEENT: Pale and dry mucosa. NECK: With trach in place, connected to vent. CHEST: With decreased breath sounds. CARDIOVASCULAR: Regular rate and rhythm. Normal S1, S2. ABDOMEN: Soft. Bowel sounds positive. EXTREMITIES: Trace edema to all four extremities. SKIN: Dry. CARDIOVASCULAR MEDICATIONS: Reviewed. Atropine p.r.n. 0.5 mg every 2 hours, Lovenox 40 mg subcu q.12 hours. LABORATORY DATA: Sodium 141, potassium 3.1, chloride 99, bicarbonate 34, BUN 15, creatinine 0.54, and glucose 193. White blood cells 8.8, hemoglobin 8.2, and platelets 223. AST 19, ALT 24, and alkaline phosphatase 77. ASSESSMENT AND PLAN: 1. A 74-year-old woman, presents with acute respiratory failure, coronavirus disease-19 pneumonia, sinus bradycardia, intermittent anemia, diabetes, and labile blood pressure. Recommend currently off pressors. Continue to monitor. 2. Normal sinus rhythm on telemetry. No recurrent bradycardia spells observed recently. Continue with p.r.n. atropine as needed. 3. Continue volume optimization and deep venous thrombosis prophylaxis. 4. Wean vent per Pulmonary Critical Care. Alejandro Larkin MD [facility]/NENA /[id number]
[2020-04-21 12:05] LABS: ABG HCO3 31 mmol/L (22-26); ABG PCO2 57 mmHg (35-45); ABG PH 7.35 (7.35-7.45); ABG PO2 75 mmHg (80-105); ABG TCO2 33
--- NOTE | 2020-04-21 12:15 | Progress Note ---
DATE: 04/18/2020 RENAL PROGRESS NOTE: SUBJECTIVE: Followed for azotemia which has largely resolved. However, the patient is starting to develop a primary metabolic alkalosis likely from volume contraction from the furosemide. The patient was placed in the furosemide again and has had worsening metabolic alkalosis and it is a primary metabolic alkalosis likely from volume contraction. PH today is 7.49, bicarb is 47 on the ABG. The patient remains on the vent. The patient is scheduled to have a PEG tube and a trach placed, has COVID-19 pneumonia. OBJECTIVE: VITAL SIGNS: Have been noted. Blood pressure is in the 100s/50s, pulse 80, and afebrile. LUNGS: Rhonchi bilaterally. CARDIOVASCULAR: S1 and S2. No rub. ABDOMEN: Soft. Positive bowel sounds. EXTREMITIES: 1+ edema. LABORATORY DATA: PH 7.49, bicarb of 47, pCO2 is 49, potassium 3.6. BUN 22, creatinine 0.66, carbon dioxide is 45 on the BMP, sodium 145. IMPRESSION AND PLAN: 1. Azotemia, resolved. 2. Hypertension. 3. Blood pressure appears to be stable at times requiring Levophed support. 4. Metabolic alkalosis as a primary metabolic alkalosis from volume contraction. Recommend to decrease the Lasix dose. The patient is supposed to be getting total of 3 doses, one more dose today. We would rather prefer if diuresis is require to give Diamox. I will place the patient on Diamox 250 mg q.12 hours and then evaluate for improvement in the metabolic alkalosis. MD JESUS Rivera/MODL /[id number]
--- NOTE | 2020-04-21 13:32 | NUR ---
WOUND CARE CONSULT 74 FEMALE HX OF COVID ACUTE RESP DISTRESS KEE 9 0N CONSERVATIVE STRICT PUP STATUS AND INTERVENTIONS ALTERNATING PRESSURE SURFACE LABS: WBC- 8.87 HGB- 8.3 GLUCOSE-198 HEAD TO TOE SKIN ASSESSMENT COMPLETE PATIENT PRESENTS WITH PARTIAL THICKNESS WOUNDS TO BILATERAL CHEEKS R/T RUBBING SECUREMENT DEVICE TO FACE WHICH IS NOW REMOVED AND TRACH IN PLACE RECOMMENDATIONS: NURSING TO CONTINUE TO MONITOR PATIENT AND KEEP SKIN CLEAN AND FREE FROM LOOSE STOOL OR IRRITATING MOISTURE AND CONTINUE TO FOLLOW STRICT PUP STATUS INTERVENTIONS NURSING TO CONTINUE TO MAINTAIN PATIENT NUTRITION TO PROMOTE HEALING NURSING TO CLEAN BILATERAL CHEEK PARTIAL THICKNESS WOUNDS WITH NORMAL SALINE DAILY AND APPLY VENELEX OINTMENT AND LEAVE OPEN TO AIR Addendum: 04/21/20 at 1339 by Oracio Boyd RN Amended: Links added.
--- NOTE | 2020-04-21 14:11 | NUR ---
Nutrition Intervention Note RD Recommendation(s) for Physician: -Continue TF of Vital AF 1.2 with goal rate of 40 mL/hr (provides 1152 kcal and 72 g protein). Vital AF is appropriate for diabetic pts on vent, less CHO/L than Glucerna and provides adequate protein -Water/fluid management per MD Pt may be fed at goal rate in reverse Trendelenburg with HOB elevated 25 degrees. Plan of Care: RD following, monitoring for tolerance and adequacy. TF rec's. Nutrition reason for involvement: follow up RD Assessment 04/21: Follow up. Pt remains intubated and sedated. Pt off Levophed this am, previously on 3 mcg/min. Pt tolerating TF at 35 ml/hr per RN, RN to advance to 40 ml/hr. No BM per RN, pt now on colace BID. Current TF remains appropriate. Chart reviewed. Will continue to monitor. 04/16: Follow up. Pt remains on mechanical ventilation and is off Levophed. Trach is possibly planned for Tuesday per chart. Pt continues to tolerate TF @ 40 mL/hr. Current recommendations remain appropriate and informed RN of RDs TF recommendation. Will continue to monitor. 04/14: Follow up. Pt remains intubated and sedated. Pt is off paralytic per RN. Pt is tolerating TF @ 40 mL/hr. Current recommendations remain appropriate. Will continue to monitor. 04/10: Follow up. Chart reviewed. Pt remains intubated and sedated. Pt is on Levophed at 1 mcg per MD note. Pt was tolerating TF @ 40 mL/hr, but RN mentioned pts tube feeding is at 20 mL/hr at this time since pt was just proned. Informed RN of tube feed recommendations. Will continue to monitor. 04/07: Follow up. Chart reviewed. Pt remains intubated and sedated. Pt is tolerating Glucerna TF @ 40 mL/hr at this time per RN. Recommend modifying TF to Vital AF 1.2 to better meet nutritional needs. Will continue to monitor 04/02: Follow up. Pt remains intubated and sedated with Versed and Fentanyl, no pressors. Pt tolerating trickle feeds while proned, recommend advancing to goal rate as pt currently in reverse Trendelenburg with HOB elevated- discussed with RN on unit. TF rec's remain appropriate, Dr. Whittington changed order to Glucerna 1.2 today. Chart reviewed. Will continue to monitor. (03/28/20) Pt is a 74 year old female admitted with acute respiratory distress and COVID-19. Pt was intubated this morning and tube feed order was placed. There are no reports of recent weight loss without trying and no reports of decreased appetite upon admission. Tube feed recommendations provided. RD to manage TF order per Dr. Walsh. Will continue to monitor. Principal Problems/Diagnoses: acute respiratory distress, COVID-19 PMH: type 2 diabetes GI: soft abdomen, last recorded BM 04/05, flatus present Skin: stage 3 sacral pressure ulcer Labs: 04/21: Na 141, K 3.1, BUN 15, Cr 0.54, Gluc 193, Ca 8.2 04/16: Na 141, K 4.1, BUN 26, Cr 0.56, Glu 171, Ca 7.8 04/14: Na 141, K 4.1, BUN 33, Cr 0.69, Glu 156, Ca 7.6 04/10: Na 140, K 3.7, BUN 23, Cr 0.73, Glu 186, Ca 8.5 04/07: Na 147, K 3.8, BUN 16, Cr 0.60, Glu 150, Ca 8.8 04/02: Na 143, K 4.2, BUN 35, Cr 0.69, Gluc 276, Phos 3.6, Mg 2, POC Gluc 225-238 (03/28/20) Na 148, K 3.5, BUN 37, Glu 201, Ca 8.8, AST 37 Meds: insulin, colace BID, lantus, zinc sulfate, vitamin C, pepcid, zofran IVF/Drips: Levophed- off, Fentanyl drip, Versed drip Ht: 61 in Wt: 194 lbs (04/21) 184 lbs (04/16) 195 lbs(04/13) 181 lbs (04/09) 184 lbs (04/07) 169.44 (04/02) 201.56 lbs (03/24) weight fluctuations noted, Suspect possible weight error BMI: 34.8 kg/m2 IBW: 105 lbs Malnutrition Evaluation (04/10/20) The patient does not meet criteria for a specified degree of malnutrition at this time. Will re-evaluate at follow-up as appropriate. Energy intake: TF was meeting energy needs prior to being proned today Weight loss: weight fluctuates noted Fat loss: unable to evaluate due to isolation precautions Muscle loss: unable to evaluate due to isolation precautions Supporting Evidence: Fluid accumulation: 1 to 2+ leg edema per MD note (04/10) Functional Status: unable to assess Nutrition Prescription (Diet Order): Vital AF at 35 ml/hr (1008 kcal and 63 gm protein) Estimated Nutritional Needs: 2526-3830 calories/day (22-25 kcal/kg IBW) 70- 95 g protein/day (1.5-2 g pro/kg IBW) Diet Adequacy: TF rate is meeting 96% of estimated calorie needs and 90% of estimated protein needs Tolerance: tolerating TF Diet Education Needs Assessment: Diet education not indicated Nutrition Care Level: moderate Nutrition Diagnosis: Inadequate oral intake related to mechanical ventilation as evidenced by need for enteral nutrition. Goal: Patient will meet 75-100% of estimated needs by follow up Progress: progressing Interventions: - Composition, Rate, Route, Recommended Modifications, Collaboration with other providers Monitoring/Evaluation: -Total energy intake, Total protein intake, Formula/Solution, Weight change Signed: Verenice Rosenberg RD, LD, CNSC
[2020-04-21] MEDS ORDERED: POTASSIUM CHLORIDE 20MEQ/15ML UDC NG ONE (15:00)
[2020-04-21] MEDS ORDERED: KCL 20 MEQ PACKET/ ORAL SOLN NG ONE (15:30)
--- NOTE | 2020-04-21 15:40 | NUR ---
SANTY called and spoke to pt's daughter Tenisha [phone] regarding LTAC order. She gave choice for [facility] location. CM was informed by Khushboo with [facility] that only their [place] location is taking COVID pts. SANTY called Tenisha back and informed her. She states ok to send referral to [facility]. Choice letter placed in chart. Referral sent to [facility]. Khushboo was notified of referral.
[2020-04-21] MEDS ORDERED: POTASSIUM CHLORIDE 10MEQ/100ML 400 ML IV ONE (16:00)
--- NOTE | 2020-04-21 17:37 | Progress Note ---
DATE: 04/21/2020 Renal Progress Note SUBJECTIVE: Followed for azotemia, which is improved and also followed for metabolic alkalosis, which is improved with Diamox. The patient did have some degree of volume depletion, which is resolved now. The patient's blood pressure is better. She has a PEG tube in place and a trach in place. Has COVID-19 pneumonia. OBJECTIVE: VITAL SIGNS: Have been noted and are stable. Last blood pressure is 110/47, 79 pulse, afebrile. LUNGS: Rhonchi bilaterally. CARDIOVASCULAR: S1 and S2. No rub. ABDOMEN: Soft. Positive bowel sounds. EXTREMITIES: No edema. LABORATORY DATA: Sodium 141, potassium 3.1, chloride 99, bicarb 34, BUN 15, and creatinine 0.5. IMPRESSION AND PLAN: 1. Azotemia is largely resolved. 2. Metabolic alkalosis, improved. We will discontinue the Diamox. 3. Hypokalemia. We will replace if not already done so far. 4. Hypernatremia has resolved now. 5. COVID-19 pneumonia, plan per primary MD and Critical Care. Dillan Sheridan MD [facility]/MODL /[id number]
--- NOTE | 2020-04-21 18:07 | Progress Note ---
DATE: 04/21/2020 SUBJECTIVE: Ms. Paz remains in intensive care unit. The patient is status post trach, status post PEG on a vent. PHYSICAL EXAMINATION: GENERAL: The patient is noncommunicative. HEENT: She is not icteric. NECK: Supple. CHEST: Crackles. HEART: S1 and S2. ABDOMEN: Soft. Bowel sounds present. EXTREMITIES: +1 edema. LABORATORY DATA: Reviewed. Chart reviewed. IMPRESSION: Respiratory failure, hypertension, status post COVID-19. Family with unrealistic expectation. Anemia, diabetes mellitus. Continue supportive care. Continue as ordered. Medication list reviewed. Laboratory data reviewed. Continue with Lovenox for deep venous thrombosis prophylaxis. Continue supportive care. Anemia of chronic disease, diabetes mellitus. We will follow. MD JONY Ramirez/MODL /[id number]
[2020-04-22] VITALS (24 sets, daily range): BP systolic 102–165; BP diastolic 41–67
[2020-04-22] MEDS: INSULIN REGULAR, HUMAN 100 UNIT/1 ML 3ML VIAL SQ SCH ×5 (00:30→23:54)
[2020-04-22] MEDS: MIDAZOLAM HCL 5MG/ML 10ML VIAL 100 ML IV PRN ×4 (00:47→20:50)
[2020-04-22] MEDS: FENTANYL 2000MCG/NS 250 250 ML IV PRN ×2 (02:30→15:38)
[2020-04-22 05:57] LABS: BASOPHILS # (AUTO) 0.1 (0.0-0.1); BASOPHILS % 0.5 % (0.0-1.0); EOSINOPHILS # (AUTO) 0.3 (0.0-0.4); EOSINOPHILS % 2.4 % (0.0-6.0); HEMATOCRIT 27.9 % (34.2-44.1); HEMOGLOBIN 8.4 g/dL (12.0-16.0); LYMPHOCYTES # (AUTO) 0.8 (1.0-3.2); LYMPHOCYTES % 6.9 % (18.0-39.1); MEAN CORPUSCULAR HGB CONC 30.1 g/dL (31-35); MONOCYTES # (AUTO) 1.7 (0.2-0.8); MONOCYTES % 14.8 % (4.4-11.3); NEUTROPHILS # (AUTO) 8.7 (2.1-6.9); NEUTROPHILS % 73.4 % (38.7-80.0); PLATELET COUNT 381 x10e3/uL (140-360); RED CELL DISTRIBUTION WIDTH 16.6 % (11.7-14.4)
[2020-04-22 06:13] LABS: ALANINE AMINOTRANSFERASE 23 IU/L (0-55); ALBUMIN 2.3 g/dL (3.5-5.0); ALKALINE PHOSPHATASE 86 IU/L (40-150); ANION GAP 12.9 mmol/L (8-16); BLOOD UREA NITROGEN 15 mg/dL (7-26); BUN/CREATININE RATIO 26 (6-25); CALCIUM 8.6 mg/dL (8.4-10.2); CARBON DIOXIDE 30 mmol/L (22-29); CHLORIDE 101 mmol/L (98-107); CREATININE, SERUM 0.58 mg/dL (0.57-1.11); EST GLOMERULAR FILTRATION RATE > 60 ML/MIN (60-); GLUCOSE 192 mg/dL (74-118); POTASSIUM 3.9 mmol/L (3.5-5.1); SODIUM 140 mmol/L (136-145)
[2020-04-22 06:32] LABS: ALBUMIN/GLOBULIN RATIO 0.5 (0.8-2.0)
--- NOTE | 2020-04-22 06:46 | NUR ---
IM- progress note O/N see below ROS: no f/c/s/N/V/D/LING/cp/skin rash/confusion/dizziness/leg pain v/s revd PE tired appearing anicteric Oxygen canula in place ns1s2 reduced bs soft nt nd no e/t skin dry flat affect labs/med revd A/P: 74yoF Multifocal PNA- IV abx; O2; COVID testing Acute resp failure- O2 DKA- insulin; hab1c/lipids; insulin CHERI- improved; monitor Septic shock- pressor PRN; abx Obesity- 1/2 portion sizes; outpt BMI 37- as above Physical deconditioning- PT consult Hba1c/LDL 10.1/63; Rec'd decadron and remdesivir. Hypernaremia and CHERI- free water Left Upper lobe PE- lovenox BID Spoke with daughter Ms Steven [phone] Anuric - treated with albumin/lasix, improved Unstageable Sacral ulcer- IV abx and LWC Moderate ARDS- cont supportive care s/p trach/PEG Worsened anemia- s/p 1 unit PRBC 11-29 Hb 8.4. vented via trach; nutrition via PEG 11-30 cont care; 12-1 LTAC pending; remains on 75% FiO2 vent; Good urine output; will need wound care for Unstageable sacral ulcer; called memoer- left message. Gen TRAYLOR MD, PHD
[2020-04-22 06:51] LABS: MAGNESIUM 1.6 MG/DL (1.3-2.1); PHOSPHORUS 2.9 MG/DL (2.3-4.7)
[2020-04-22 07:29] LABS: ABG PCO2 56 mmHg (35-45); ABG PH 7.35 (7.35-7.45); ABG PO2 69 mmHg (80-105)
[2020-04-22 07:30] LABS: ABG HCO3 31 mmol/L (22-26); ABG TCO2 32
[2020-04-22] MEDS ORDERED: FUROSEMIDE INJ 10 MG/ML 4 ML VIAL IV NR (07:45)
[2020-04-22] MEDS ORDERED: CITRATE OF MAGNESIA 300ML BOTTLE PO NR (08:00)
[2020-04-22] MEDS ORDERED: GLYCERIN ADULT 3 GM SUPP PR NR (08:00)
[2020-04-22] MEDS: IRON SUCROSE 100 MG in SODIUM CHLORIDE 0.9% 100 ML 100 ML IV SCH (08:08)
[2020-04-22] MEDS: ASCORBIC ACID 500 MG TAB PO SCH ×2 (08:08→18:05)
[2020-04-22] MEDS: ENOXAPARIN SOD INJ 40 MG/0.4 ML SYR SC SCH ×2 (08:08→20:50)
[2020-04-22] MEDS: DOCUSATE SODIUM LIQD 100 MG/10 ML UDC NG SCH ×2 (08:08→18:05)
[2020-04-22] MEDS: FAMOTIDINE 20 MG TAB PO SCH ×2 (08:08→17:00)
[2020-04-22] MEDS: ZINC SULFATE 220 MG CAP PO SCH (08:08)
[2020-04-22] MEDS: BALSAM PERU/CASTOR OIL 60 GM OINT...G. TP SCH ×2 (08:08)
[2020-04-22] MEDS: EYE LUBRICANT OPTH OINT 3.5GM TUBE OP SCH ×2 (08:08→18:05)
--- NOTE | 2020-04-22 08:14 | Progress Note ---
DATE: 04/22/2020 SUBJECTIVE: The patient is still on mechanical ventilation. She is off Levophed. Her Versed is set at 7 mg and fentanyl is at 150 mcg. PHYSICAL EXAMINATION: VITAL SIGNS: The blood pressure is 137/52, saturation is 95% and the respiratory rate is 30. T-max is 99.5. Current ventilator settings are PRVC at a rate of 30 with a FiO2 of 70%, PEEP of 8 and tidal volume of 380. HEENT: Shows no facial swelling or erythema. LYMPHATIC: Shows no submandibular, cervical, or supraclavicular adenopathy. CARDIAC: Reveals a regular rate and rhythm with normal S1 and S2. LUNGS: Auscultation of lungs reveals clear breath sounds bilaterally. There is no wheezing. ABDOMEN: Soft and nontender. There is no rebound or guarding. EXTREMITIES: Shows no leg edema or calf tenderness. There is no cyanosis or clubbing. SKIN: Shows no rashes. NEUROLOGICAL: Shows no focal abnormalities. LABORATORY DATA: BUN to creatinine ratio is 15 to 0.58. Other electrolytes are within normal limits. Blood sugar is 172 to 192 and the albumin is 2.3. Hemoglobin is 8.4 and the white blood cell count is 11.78. The platelet count is 381. IMPRESSION: 1. Acute respiratory failure. 2. Viral pneumonia and COVID-19 infection. 3. Hypertension. 4. Anemia secondary to chronic blood loss. 5. Diabetes. 6. Hypokalemia. PLAN: 1. Continue to adjust ventilator as tolerated. 2. Additional Lasix today. 3. Enteral feedings. 4. Magnesium citrate for bowel movement. 5. Continue Lovenox for DVT prophylaxis. 6. Continue to monitor and adjust insulin. Greater than 35 minutes in direct critical care time. Pete Walsh MD [facility]/MODL /[id number]
[2020-04-22] MEDS: INSULIN GLARGINE 100 UNITS/ML VIAL SQ SCH ×2 (08:23→20:50)
--- NOTE | 2020-04-22 08:49 | Progress Note ---
DATE: 04/22/2020 Renal Progress Note SUBJECTIVE: Followed for azotemia which is largely resolved now. Also followed for metabolic alkalosis, which is resolved after giving Diamox. I have stopped the Diamox now. The patient has COVID-19 pneumonia, getting p.r.n. doses of Lasix to keep her euvolemic to slightly on a negative fluid balance side. Remains on the vent via trach. Also has a PEG tube in place. OBJECTIVE: VITAL SIGNS: Noted. Blood pressure 127/50, pulse 95, afebrile. LUNGS: Rhonchi bilaterally. CARDIOVASCULAR: S1, S2. No rub. ABDOMEN: Soft. Positive bowel sounds. Nontender. EXTREMITIES: No edema. LABORATORY DATA: Potassium 3.9, creatinine is 0.58, phosphorus is 2.9, magnesium 1.6. IMPRESSION AND PLAN: 1. Azotemia, resolved. The patient is off scheduled Lasix. We will continue to monitor. 2. Hypertension. Blood pressure is stable at present. We will continue to monitor. 3. Hypokalemia has been replaced. Potassium is normal now. 4. Hypernatremia, resolved now. 5. Metabolic alkalosis, improved. Diamox has been stopped. Can give p.r.n. doses of Lasix now. 6. COVID-19 pneumonia. Plan would be as per critical care and primary. MD JESUS Rivera/MODL /[id number]
--- NOTE | 2020-04-22 13:24 | NUR ---
Spoke to Khushboo with [facility], still pending auth
--- NOTE | 2020-04-22 16:14 | NUR ---
Received message from Khushboo with [facility] with request for CM to call insurance SANTY Perez at [phone] regarding meds and weaning attempts. Spoke to Ana with [facility], bedside RN. Ana states will send to medical specialist and expects to have a decision by tomorrow morning. MOT initiated and placed with packet on chart.
--- NOTE | 2020-04-22 17:52 | Progress Note ---
DATE: 04/22/2020 Cardiology Progress Note SUBJECTIVE: No new complaints. OBJECTIVE: VITAL SIGNS: Temperature 99.5, heart rate 95, blood pressure 127/50, respiratory rate 30, and O2 saturation 93%. GENERAL: On vent support, sedated. Trach in place. CHEST: With decreased breath sounds. CARDIOVASCULAR: Regular rate and rhythm. Normal S1 and S2. ABDOMEN: Soft. Bowel sounds positive. EXTREMITIES: Trace edema. CARDIOVASCULAR MEDICATIONS: Reviewed. Lovenox 40 mg subcutaneous q.12 hours, furosemide 40 mg daily, and atropine 0.5 mg every 2 hours. STUDIES: Reviewed. Creatinine 0.5. White blood cells 11.7, hemoglobin 8.4, and platelets 281. AST 20, ALT 23, and alkaline phosphatase 86. Sodium 140. ASSESSMENT/PLAN: 1. A 74-year-old woman presents with COVID-19 infection, community-acquired pneumonia, acute respiratory failure, requiring trach. 2. Diabetes and hypertension. 3. Intermittent sinus bradycardia. 4. Anemia. RECOMMEND: Continue current cardiovascular medications. Atropine p.r.n. Plans for transfer to SNF. Alejandro Larkin MD [facility]/MODL /[id number]
[2020-04-23] VITALS (25 sets, daily range): BP systolic 90–175; BP diastolic 22–59
[2020-04-23] MEDS: FENTANYL 2000MCG/NS 250 250 ML IV PRN ×2 (03:45→14:03)
[2020-04-23] MEDS: MIDAZOLAM HCL 5MG/ML 10ML VIAL 100 ML IV PRN ×4 (03:45→22:01)
--- NOTE | 2020-04-23 05:29 | Diagnostic Imaging Report ---
EXAMINATION: CHEST SINGLE (PORTABLE) INDICATION: ^resp failure ^[id number] ^0435 COMPARISON: Chest x-ray 04/21/2020 FINDINGS: TUBES and LINES: Stable right upper extremity PICC, tip in the mid SVC. Tracheostomy tube tip in the mid intrathoracic trachea. LUNGS/PLEURA: Normal lung volumes. Diffuse patchy haziness. Obscured hemidiaphragms. No pneumothorax. HEART AND MEDIASTINUM: The cardiomediastinal silhouette is unremarkable. There are atherosclerotic calcifications within the aorta. BONES AND SOFT TISSUES: No acute osseous lesion. Soft tissues are unremarkable. UPPER ABDOMEN: No free air under the diaphragm. There are cholecystectomy clips. IMPRESSION: Stable right upper extremity PICC, tip in the mid SVC. Tracheostomy tube tip in the mid intrathoracic trachea. Diffuse airspace disease. Possible small pleural effusions. Signed by: Romain Tejeda DO on 04/23/2020 5:25 AM
[2020-04-23 05:47] LABS: BASOPHILS # (AUTO) 0.1 (0.0-0.1); BASOPHILS % 0.5 % (0.0-1.0); EOSINOPHILS # (AUTO) 0.2 (0.0-0.4); EOSINOPHILS % 2.5 % (0.0-6.0); HEMATOCRIT 27.4 % (34.2-44.1); HEMOGLOBIN 8.3 g/dL (12.0-16.0); LYMPHOCYTES # (AUTO) 0.9 (1.0-3.2); LYMPHOCYTES % 9.3 % (18.0-39.1); MEAN CORPUSCULAR HEMOGLOBIN 28.2 pg (28-32); MEAN CORPUSCULAR HGB CONC 30.3 g/dL (31-35); MEAN CORPUSCULAR VOLUME 93.2 fL (81-99); MONOCYTES # (AUTO) 1.2 (0.2-0.8); NEUTROPHILS # (AUTO) 6.9 (2.1-6.9); NEUTROPHILS % 72.4 % (38.7-80.0); PLATELET COUNT 396 x10e3/uL (140-360); RED BLOOD COUNT 2.94 x10e6/uL (3.6-5.1); RED CELL DISTRIBUTION WIDTH 16.6 % (11.7-14.4)
[2020-04-23 06:00] LABS: ABG HCO3 34 mmol/L (22-26); ABG PCO2 59 mmHg (35-45); ABG PH 7.37 (7.35-7.45); ABG PO2 57 mmHg (80-105); ABG TCO2 36
[2020-04-23 06:14] LABS: ALANINE AMINOTRANSFERASE 34 IU/L (0-55); ALBUMIN 2.1 g/dL (3.5-5.0); ANION GAP 13.4 mmol/L (8-16); BLOOD UREA NITROGEN 17 mg/dL (7-26); BUN/CREATININE RATIO 31 (6-25); CALCIUM 8.7 mg/dL (8.4-10.2); CARBON DIOXIDE 32 mmol/L (22-29); CHLORIDE 101 mmol/L (98-107); CREATININE, SERUM 0.55 mg/dL (0.57-1.11); EST GLOMERULAR FILTRATION RATE > 60 ML/MIN (60-); GLUCOSE 149 mg/dL (74-118); POTASSIUM 3.4 mmol/L (3.5-5.1); SODIUM 143 mmol/L (136-145)
[2020-04-23 06:15] LABS: ALBUMIN/GLOBULIN RATIO 0.5 (0.8-2.0); ALKALINE PHOSPHATASE 88 IU/L (40-150)
[2020-04-23] MEDS: INSULIN REGULAR, HUMAN 100 UNIT/1 ML 3ML VIAL SQ SCH ×4 (06:47→23:55)
--- NOTE | 2020-04-23 07:23 | NUR ---
AT APPROXIMATELY 2029 ON 04/22 PT SISTER CALLED ASKING IF PT WAS OK D/T AN ADDITIONAL SISTER WHOM WAS STANDING OUTSIDE PT WINDOW FROM OUTSIDE THE BUILDING REPORTING THAT THERE WERE " SEVERAL DOCTORS AND NURSES IN THE ROOM BECAUSE THE PT WAS DYING AND SHE WAS BEING CODED" THE SISTER WHO CALLED UP TO THE NURSES STATION WAS SLURRING WORDS BUT ASSURED THAT THERE WAS ONLY ONE RN AT BEDSIDE WHOM WAS PERFORMING ORAL CARE AT THAT TIME. SATISFIED WITH THE UPDATE THE PT SISTER RESPONDED "OH MY GOD MY SISTER RETARDED AND PROCEEDED TO HANG UP.
[2020-04-23] MEDS: DOCUSATE SODIUM LIQD 100 MG/10 ML UDC NG SCH ×2 (08:24→16:17)
[2020-04-23] MEDS: IRON SUCROSE 100 MG in SODIUM CHLORIDE 0.9% 100 ML 100 ML IV SCH (08:24)
[2020-04-23] MEDS: ZINC SULFATE 220 MG CAP PO SCH (08:24)
[2020-04-23] MEDS: ENOXAPARIN SOD INJ 40 MG/0.4 ML SYR SC SCH ×2 (08:24→20:50)
[2020-04-23] MEDS: BALSAM PERU/CASTOR OIL 60 GM OINT...G. TP SCH ×2 (08:24)
[2020-04-23] MEDS: EYE LUBRICANT OPTH OINT 3.5GM TUBE OP SCH ×2 (08:24→16:17)
[2020-04-23] MEDS: FAMOTIDINE 20 MG TAB PO SCH (08:24)
[2020-04-23] MEDS: ASCORBIC ACID 500 MG TAB PO SCH (08:24)
[2020-04-23] MEDS: INSULIN GLARGINE 100 UNITS/ML VIAL SQ SCH ×2 (08:25→20:50)
--- NOTE | 2020-04-23 08:44 | Progress Note ---
DATE: 04/23/2020 SUBJECTIVE: The patient remains on mechanical ventilation. She is on a PRVC mode of ventilation. She is off paralytics and remains on fentanyl at 200 mcg and Versed at 8 mg. She is receiving enteral feedings. PHYSICAL EXAMINATION: VITAL SIGNS: The patient is afebrile. Blood pressure is 102/41, saturation is currently 90%. She is on a PRVC at a rate of 30 with a FiO2 of 75% and PEEP of 10. Her tidal volume is set at 380. She is breathing about 33 times a minute. HEENT: Shows no facial swelling or erythema. There is tracheostomy site in good position. There is a PEG tube in place as well as an A-line. CARDIAC: Reveals regular rate and rhythm with normal S1 and S2. LUNGS: Auscultation of lungs reveals rhonchorous breath sounds bilaterally. There is no wheezing. ABDOMEN: Soft and nontender. There is no rebound or guarding. EXTREMITIES: Shows no leg edema or calf tenderness. There is no cyanosis or clubbing. SKIN: Shows no rashes. NEUROLOGICAL: Shows no focal abnormalities. LABORATORY DATA: Blood gases; 7.37, CO2 is 69, O2 is 57. HC03 is 34. BUN to creatinine ratio is 17 to 0.55 and the potassium is 3.4. Albumin is 2.1. Hemoglobin is 8.3, and the white blood cell count 9.56. The platelet count is 396. RADIOGRAPHIC DATA: Chest x-ray shows persistent bilateral infiltrates. IMPRESSION: 1. Acute respiratory failure. 2. Viral pneumonia and COVID-19 infection. 3. Anemia secondary to chronic blood loss. 4. Diabetes. 5. Hypertension. 6. Hypokalemia. PLAN: 1. Continue current ventilator settings. 2. Continue enteral feedings. 3. Continue Lovenox. 4. Wean sedation as tolerated. 5. Continue to monitor and adjust insulin. 6. Awaiting possible transfer to LTAC. We will discuss with Case Management and Dr. Whittington. Greater than 35 minutes in direct critical care time. Pete Walsh MD [facility]/MODL /[id number]
[2020-04-23] MEDS ORDERED: KCL 20 MEQ PACKET/ ORAL SOLN NG ONE (09:00)
--- NOTE | 2020-04-23 09:35 | NUR ---
IM- progress note O/N see below ROS: no f/c/s/N/V/D/LING/cp/skin rash/confusion/dizziness/leg pain v/s revd PE tired appearing anicteric Oxygen canula in place ns1s2 reduced bs soft nt nd no e/t skin dry flat affect labs/med revd A/P: 74yoF Multifocal PNA- IV abx; O2; COVID testing Acute resp failure- O2 DKA- insulin; hab1c/lipids; insulin CHERI- improved; monitor Septic shock- pressor PRN; abx Obesity- 1/2 portion sizes; outpt BMI 37- as above Physical deconditioning- PT consult Hba1c/LDL 10.1/63; Rec'd decadron and remdesivir. Hypernaremia and CHERI- free water Left Upper lobe PE- lovenox BID Spoke with daughter Ms Steven [phone] Anuric - treated with albumin/lasix, improved Unstageable Sacral ulcer- IV abx and LWC Moderate ARDS- cont supportive care s/p trach/PEG Worsened anemia- s/p 1 unit PRBC - Hb 8.4. vented via trach; nutrition via PEG - cont care; 12-1 LTAC pending; remains on 75% FiO2 vent; Good urine output; will need wound care for Unstageable sacral ulcer; called memoer- left message. 04-23 replace K; LTAC pending; Gen TRAYLOR MD, PHD
--- NOTE | 2020-04-23 10:13 | NUR ---
CM WITH [facility] JUST CALLED TO NOTIFY US THAT SHE HAS AUTH FOR THIS PT TO TRANSFER TO [facility] STATES SHE GAVE AUTH # ([id number]) TO WILL AT [place] AUTH EXPIRES IN 48 HRS PLAN DC TODAY
--- NOTE | 2020-04-23 10:15 | Progress Note ---
DATE: 04/23/2020 Cardiology Progress Note SUBJECTIVE: No new complaints, sedated, on vent support. OBJECTIVE: VITAL SIGNS: Temperature 99.1, heart rate 88, blood pressure 102/41, respiratory rate 35, and O2 saturation 93%. GENERAL: Sedated, chronically ill-appearing. NECK: Trach connected to vent. CHEST: Decreased breath sounds. CARDIOVASCULAR: Regular rate and rhythm. Normal S1, S2. No S3 or S4. ABDOMEN: Soft. EXTREMITIES: Trace edema. Normal tone. CARDIOVASCULAR MEDICATIONS: Reviewed. 1. KCl 30 mEq once. 2. Lovenox 40 mg subcu q.12 hours. 3. Atropine 0.5 mg every 2 hours. LABORATORY STUDIES: Reviewed. Creatinine 0.5 and glucose 149. White blood cells 9.5, hemoglobin 8.3, and platelets 396. AST 33, ALT 34, and alkaline phosphatase 88. ASSESSMENT AND PLAN: 1. A 74-year-old woman presents with acute respiratory failure, COVID-19 infection, community-acquired pneumonia, diabetes, hypertension, sinus bradycardia, intermittent. 2. Anemia, recommend, continue Lovenox. 3. Continue p.r.n. atropine. 4. Dispo planning ongoing. Continue to wean vent as tolerated at the direction of Pulmonary Critical Care. MD SHANELLE Olivo/NENA /[id number]
--- NOTE | 2020-04-23 11:24 | NUR ---
INFECTIOUS DISEASE PROGRESS NOTE DR. LORIE KENNEY SUBJECTIVE: The patient is seen and evaluated. Available labs and notes reviewed. Discussed with staff. REVIEW OF SYSTEMS: Unable to obtain due to the patient being intubated. PHYSICAL EXAMINATION: VITAL SIGNS: per chart HEENT: Oral intubation. Vent setting as above. No significant change per my discussion with staff, the patient also sedated with nasogastric tube. CVS: S1-S2. no s3, s4 CHEST: Equal expansion. Decreased breath sounds with rales. ABDOMEN: Soft, nondistended. HEENT: Moist. No pallor. EXTREMITIES: No significant edema. MEDICATIONS: Reviewed from an ID point of view, the patient is on Lovenox, vitamin C, zinc sulfate, methylprednisolone, the patient is status post antibiotics. LABORATORY STUDIES: per chart RADIOLOGY STUDIES: Chest x-ray is pending. ASSESSMENT AND PLAN: 1. COVID-19 infection. 2. Respiratory failure. 3. Anemia. 4. Diabetes mellitus. 5. Occasional tachycardia. The patient is status post remdesivir s/p diamox remains off antibiotics overall prognosis is poor LTAC plans supportive care Lorie Kenney M.D.
--- NOTE | 2020-04-23 11:41 | NUR ---
Per Khushboo with [facility], pt has been approved, but they have a bed wait right now. CM received note from nurse yesterday evening, stating family changed their mind and wants [facility] now. CM placed call to pt's daughter Tenisha and left a message for callback.
--- NOTE | 2020-04-23 12:39 | NUR ---
Received call back from daughter Tenisha. She states she wanted to change facilities due to visiting policy. Notified her of visiting policy for both [facility] and [facility]. [facility]'s visiting policy is either 12-1 or 5-6 and [facility]'s is M-F 4-7 for 1 hr during that time and visitors cannot go into COVID pt's rooms. Tenisha asked about [facility]. CM was told by Nela with [facility] that facility is full. Informed Tenisha of this. She states to continue with [facility]. Pt currently on bed wait list at [facility].
[2020-04-24] VITALS (16 sets, daily range): BP systolic 96–146; BP diastolic 40–62
[2020-04-24] MEDS: FENTANYL 2000MCG/NS 250 250 ML IV PRN (00:25)
[2020-04-24 05:51] LABS: BASOPHILS # (AUTO) 0.1 (0.0-0.1); BASOPHILS % 0.5 % (0.0-1.0); EOSINOPHILS # (AUTO) 0.2 (0.0-0.4); HEMATOCRIT 25.9 % (34.2-44.1); LYMPHOCYTES # (AUTO) 1.1 (1.0-3.2); LYMPHOCYTES % 11.4 % (18.0-39.1); MEAN CORPUSCULAR HEMOGLOBIN 28.7 pg (28-32); MEAN CORPUSCULAR HGB CONC 30.1 g/dL (31-35); MEAN CORPUSCULAR VOLUME 95.2 fL (81-99); MONOCYTES # (AUTO) 1.1 (0.2-0.8); MONOCYTES % 11.9 % (4.4-11.3); NEUTROPHILS # (AUTO) 6.6 (2.1-6.9); NEUTROPHILS % 71.6 % (38.7-80.0); PLATELET COUNT 394 x10e3/uL (140-360); RED BLOOD COUNT 2.72 x10e6/uL (3.6-5.1)
[2020-04-24 05:58] LABS: HEMOGLOBIN 7.8 g/dL (12.0-16.0)
[2020-04-24 06:13] LABS: ALANINE AMINOTRANSFERASE 29 IU/L (0-55); ALBUMIN 1.9 g/dL (3.5-5.0); ALBUMIN/GLOBULIN RATIO 0.5 (0.8-2.0); ALKALINE PHOSPHATASE 77 IU/L (40-150); ANION GAP 10.2 mmol/L (8-16); BLOOD UREA NITROGEN 20 mg/dL (7-26); BUN/CREATININE RATIO 35 (6-25); CALCIUM 8.3 mg/dL (8.4-10.2); CARBON DIOXIDE 33 mmol/L (22-29); CHLORIDE 103 mmol/L (98-107); CREATININE, SERUM 0.57 mg/dL (0.57-1.11); EST GLOMERULAR FILTRATION RATE > 60 ML/MIN (60-); GLUCOSE 145 mg/dL (74-118); POTASSIUM 4.2 mmol/L (3.5-5.1); SODIUM 142 mmol/L (136-145)
[2020-04-24] MEDS: INSULIN REGULAR, HUMAN 100 UNIT/1 ML 3ML VIAL SQ SCH ×2 (06:26→11:25)
[2020-04-24] MEDS ORDERED: SODIUM CHLORIDE 0.9% 500ML 500 ML IV SCH ×2 (06:31→06:45)
[2020-04-24] MEDS: MIDAZOLAM HCL 5MG/ML 10ML VIAL 100 ML IV PRN (06:54)
--- NOTE | 2020-04-24 07:38 | Diagnostic Imaging Report ---
EXAMINATION: CHEST SINGLE (PORTABLE) INDICATION: ^resp failure ^[id number] ^0420 COMPARISON: Chest x-ray 04/21/2020 FINDINGS: TUBES and LINES: Stable right upper extremity PICC, tip in the mid SVC. Tracheostomy tube tip in the mid intrathoracic trachea. LUNGS/PLEURA: Normal lung volumes. Worsening diffuse patchy haziness. Obscured hemidiaphragms. No pneumothorax. HEART AND MEDIASTINUM: The cardiomediastinal silhouette is unremarkable. There are atherosclerotic calcifications within the aorta. BONES AND SOFT TISSUES: No acute osseous lesion. Soft tissues are unremarkable. UPPER ABDOMEN: No free air under the diaphragm. There are cholecystectomy clips. IMPRESSION: Stable right upper extremity PICC, tip in the mid SVC. Tracheostomy tube tip in the mid intrathoracic trachea. Worsening airspace disease. Possible small pleural effusions. Signed by: Romain Tejeda DO on 04/24/2020 7:35 AM
[2020-04-24] MEDS: ENOXAPARIN SOD INJ 40 MG/0.4 ML SYR SC SCH (08:05)
[2020-04-24] MEDS: IRON SUCROSE 100 MG in SODIUM CHLORIDE 0.9% 100 ML 100 ML IV SCH (08:05)
[2020-04-24] MEDS: EYE LUBRICANT OPTH OINT 3.5GM TUBE OP SCH (08:05)
[2020-04-24] MEDS: DOCUSATE SODIUM LIQD 100 MG/10 ML UDC NG SCH (08:05)
[2020-04-24] MEDS: BALSAM PERU/CASTOR OIL 60 GM OINT...G. TP SCH ×2 (08:05)
[2020-04-24] MEDS: INSULIN GLARGINE 100 UNITS/ML VIAL SQ SCH (08:06)
[2020-04-24] MEDS ORDERED: ACETAZOLAMIDE SODIUM 500 MG/VIAL IV ONE (08:45)
[2020-04-24] MEDS ORDERED: ACETAZOLAMIDE 250 MG TAB PO ONE (08:45)
[2020-04-24] MEDS ORDERED: FUROSEMIDE INJ 10 MG/ML 4 ML VIAL IV SCH (09:00)
[2020-04-24 09:11] LABS: ABG HCO3 33 mmol/L (22-26); ABG PCO2 60 mmHg (35-45); ABG PH 7.34 (7.35-7.45); ABG PO2 72 mmHg (80-105); ABG TCO2 34
--- NOTE | 2020-04-24 09:11 | Progress Note ---
DATE: 04/24/2020 Renal Progress Note SUBJECTIVE: Followed for azotemia which is resolved. However, it is ongoing depending on the patient's diuresis. The patient does respond to Lasix and Diamox. Diamox was given to allow for diuresis without worsening the metabolic alkalosis. The patient remains on the vent via trach. She also has a PEG in place. She has COVID-19 pneumonia, FiO2 is 85%, remains on the vent. Off Levophed, blood pressures are stable. OBJECTIVE: VITAL SIGNS: 120s to 140s/50s blood pressure, pulse in the 90s. Afebrile. LUNGS: Rhonchi bilaterally. CARDIOVASCULAR: S1, S2. No rub. ABDOMEN: Soft. Positive bowel sounds. EXTREMITIES: No edema. LABORATORY DATA: Potassium is 4.2, BUN 20, creatinine is 0.57, and bicarb is 33. IMPRESSION AND PLAN: 1. Azotemia is largely resolved. We will continue to monitor. It would be fine to diurese the patient. 2. Slight fluid overload. Chest x-ray is consistent with bilateral pleural effusions that are increasing. Recommend to give Lasix 40 mg IV x1 and also Diamox has been given. Case has been discussed with Dr. Walsh. We will continue to monitor closely. 3. Hypertension, resolved. Hypotensive episodes, off Levophed now. 4. Hypokalemia, has been replaced and potassium is normal now. 5. Coronavirus disease-19 pneumonia. Plan will be as per primary and Critical Care. Dillan Sheridan MD [facility]/MODL /[id number]
[2020-04-24] MEDS: ALBUMIN 25% 25GM 100ML 100 ML IV SCH ×2 (09:17→14:06)
--- NOTE | 2020-04-24 10:11 | Progress Note ---
DATE: 04/24/2020 PULMONARY CRITICAL CARE PROGRESS NOTE: SUBJECTIVE: The patient is still on mechanical ventilation. FiO2 was increased to 85% last night. She remains off paralytics. She is on some Versed as well as fentanyl. PHYSICAL EXAMINATION: VITAL SIGNS: The blood pressure is 146/52 and the pulse is 91. She is on a PRVC set at a rate of 30, but she is breathing 37 times a minute. Her FiO2 is set at 85% and her PEEP is set at 10. Her tidal volume is set at 380. HEENT: No facial swelling or erythema. LYMPHATIC: No submandibular, cervical, or supraclavicular adenopathy. There is a tracheostomy, in good position. The site looks clean. She has a PICC line in place as well as an arterial line. CARDIAC: Regular rate and rhythm with normal S1, S2. LUNGS: Auscultation of lungs reveals crackles and rhonchi bilaterally. There is no wheezing. ABDOMEN: Soft, nontender. There is no rebound or guarding. EXTREMITIES: No leg edema or calf tenderness. There is no cyanosis or clubbing. SKIN: No rashes. NEUROLOGICAL: No focal abnormalities. LABORATORY DATA: White blood cell count is 9.2 and hemoglobin is 7.8 and the platelet count is 394. The BUN to creatinine ratio is normal. Other electrolytes are within normal limits. The albumin is 1.9. RADIOGRAPHIC DATA: Bilateral airspace opacities. IMPRESSION: 1. Acute respiratory failure. 2. Viral pneumonia and coronavirus disease-19 infection. 3. Anemia secondary to chronic blood loss. 4. Diabetes. 5. Hypertension. PLAN: 1. Continue current ventilator settings and wean as tolerated. 2. The patient to receive Lasix today as well as Diamox. 3. The patient received supplemental albumin. 4. Continue Lovenox. 5. Continue sedation. 6. Continue enteral feedings. Greater than 35 minutes in direct critical care time. Pete Walsh MD [facility]/MODL /[id number]
--- NOTE | 2020-04-24 11:30 | NUR ---
LONG-TERM ACUTE CARE DISCHARGE INFORMATION PATIENT HAS BEEN ACCEPTED TO: [address] [address] ACCEPTING STRUCTURAL BIOLOGIST: Elijah Boyd, SPINNING ROOM WORKER ACCEPTING MD: Dr. Wang ROOM: 153 NURSE CALL REPORT TO: [phone] THE FOLLOWING DOCUMENTS MUST ACCOMPANY PATIENT FOR TRANSFER: copy of chart, transfer MAR COPIED CHART: CM MOT INFO RECEIVED FROM: Khushboo Bryant PHYSICIANS ORDER/RECONCILED MED LIST: discharge order placed by [id number] DNR: n/a JOAN Mota was informed of MOT. MOT placed with packet's packet on chart. Call placed to pt's daughter Tenisha. Left message for her regarding acceptance.
[2020-04-24] MEDS ORDERED: ALBUMIN 25% 25GM 100ML 0.25 GM/ML BTL IV SCH (12:00)
--- NOTE | 2020-04-24 12:43 | NUR ---
Received call from pt's daughter Tenisha. She wants to see if we can try to get her mom into [facility] in [place] since it would be closer to family. Cm called and spoke to liaison for [facility] - Ms. Devlin [phone], who informed CM that they do not take pt's insurance. CM called Serafindelonte back and informed her. She said it was ok to transfer pt to [facility].
--- NOTE | 2020-04-24 15:20 | NUR ---
PT TRANSFERRED TO [facility]. PHONE AND TEETH WITH PT SLIPPERS ALSO. DAUGHTER KAREN NOTIFIED
--- NOTE | 2020-04-24 15:36 | NUR ---
Nutrition Intervention Note RD Recommendation(s) for Physician: -Continue TF of Vital AF 1.2. Recommend a goal rate of 40 mL/hr to better meet nutrition needs (provides 1152 kcal and 72 g protein) -Water/fluid management per MD -Pt may be fed at goal rate in reverse Trendelenburg with HOB elevated 25 degrees. Plan of Care: RD following, monitoring for tolerance and adequacy. TF rec's. Nutrition reason for involvement: follow up RD Assessment 04/24: Follow up. Chart reviewed. Pt remains on vent support with trach and PEG. Pt is tolerating TF and rate was increased to 60 mL/hr by MD. Current TF recommendations remains appropriate. Will continue to monitor. 04/21: Follow up. Pt remains intubated and sedated. Pt off Levophed this am, previously on 3 mcg/min. Pt tolerating TF at 35 ml/hr per RN, RN to advance to 40 ml/hr. No BM per RN, pt now on colace BID. Current TF remains appropriate. Chart reviewed. Will continue to monitor. 04/16: Follow up. Pt remains on mechanical ventilation and is off Levophed. Trach is possibly planned for Tuesday per chart. Pt continues to tolerate TF @ 40 mL/hr. Current recommendations remain appropriate and informed RN of RDs TF recommendation. Will continue to monitor. 04/14: Follow up. Pt remains intubated and sedated. Pt is off paralytic per RN. Pt is tolerating TF @ 40 mL/hr. Current recommendations remain appropriate. Will continue to monitor. 04/10: Follow up. Chart reviewed. Pt remains intubated and sedated. Pt is on Levophed at 1 mcg per MD note. Pt was tolerating TF @ 40 mL/hr, but RN mentioned pts tube feeding is at 20 mL/hr at this time since pt was just proned. Informed RN of tube feed recommendations. Will continue to monitor. 04/07: Follow up. Chart reviewed. Pt remains intubated and sedated. Pt is tolerating Glucerna TF @ 40 mL/hr at this time per RN. Recommend modifying TF to Vital AF 1.2 to better meet nutritional needs. Will continue to monitor 04/02: Follow up. Pt remains intubated and sedated with Versed and Fentanyl, no pressors. Pt tolerating trickle feeds while proned, recommend advancing to goal rate as pt currently in reverse Trendelenburg with HOB elevated- discussed with RN on unit. TF rec's remain appropriate, Dr. Whittington changed order to Glucerna 1.2 today. Chart reviewed. Will continue to monitor. (03/28/20) Pt is a 74 year old female admitted with acute respiratory distress and COVID-19. Pt was intubated this morning and tube feed order was placed. There are no reports of recent weight loss without trying and no reports of decreased appetite upon admission. Tube feed recommendations provided. RD to manage TF order per Dr. Walsh. Will continue to monitor. Principal Problems/Diagnoses: acute respiratory distress, COVID-19 PMH: type 2 diabetes GI: soft abdomen, last recorded BM 04/05, flatus present Skin: unstageable sacral pressure ulcer Labs: 04/24: Na 142, K 4.2, BUN 20, Cr 0.57, Glu 145, Ca 8.3 04/21: Na 141, K 3.1, BUN 15, Cr 0.54, Gluc 193, Ca 8.2 04/16: Na 141, K 4.1, BUN 26, Cr 0.56, Glu 171, Ca 7.8 04/14: Na 141, K 4.1, BUN 33, Cr 0.69, Glu 156, Ca 7.6 04/10: Na 140, K 3.7, BUN 23, Cr 0.73, Glu 186, Ca 8.5 04/07: Na 147, K 3.8, BUN 16, Cr 0.60, Glu 150, Ca 8.8 04/02: Na 143, K 4.2, BUN 35, Cr 0.69, Gluc 276, Phos 3.6, Mg 2, POC Gluc 225-238 (03/28/20) Na 148, K 3.5, BUN 37, Glu 201, Ca 8.8, AST 37 Meds: insulin, lasix, IV iron, colace, fentanyl Ht: 61 in Wt: 184 lbs (04/24) 194 lbs (04/21) 184 lbs (04/16) 195 lbs(04/13) 181 lbs (04/09) 184 lbs (04/07) 169.44 (04/02) 201.56 lbs (03/24) weight fluctuations noted, Suspect possible weight error BMI: 34.8 kg/m2 IBW: 105 lbs Malnutrition Evaluation (04/24/20) The patient does not meet criteria for a specified degree of malnutrition at this time. Will re-evaluate at follow-up as appropriate. Energy intake: TF meeting calorie and protein needs Weight loss: weight fluctuates noted Fat loss: unable to evaluate due to isolation precautions Muscle loss: unable to evaluate due to isolation precautions Supporting Evidence: Fluid accumulation: no edema per MD note Functional Status: unable to assess Nutrition Prescription (Diet Order): Vital AF at 60 ml/hr (provides 1728 kcal and 108 g protein) Estimated Nutritional Needs: 9037-4386 calories/day (22-25 kcal/kg IBW) 70- 95 g protein/day (1.5-2 g pro/kg IBW) Diet Adequacy: TF rate is meeting 145 % of estimated calorie needs and 113% of estimated protein needs Tolerance: tolerating TF Diet Education Needs Assessment: Diet education not indicated Nutrition Care Level: moderate Nutrition Diagnosis: Inadequate oral intake related to mechanical ventilation as evidenced by need for enteral nutrition. Goal: Patient will meet 75-100% of estimated needs by follow up Progress: pt is meeting >100% of estimated needs Interventions: - Composition, Rate, Route, Recommended Modifications Monitoring/Evaluation: -Total energy intake, Total protein intake, Formula/Solution, Weight change Signed: Angela Ackerman RD, LD
--- NOTE | 2020-04-24 23:24 | NUR ---
SPOKE TO PAUL WITH [employer]. 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 CONFIRMATION # [id number]
== END 2020-04-24 15:44 | DRG 4 ==
LOC: ER 08:29 → ERHOLD 12:57 → IMCU 14:49 → ICU 03-26 14:05
PROVIDERS: ADMIT Internal Medicine; ATTEND Internal Medicine
PROC: XW033F5 Introduction of Other New Technology Therapeutic Substance into Peripheral Vein, Percutaneous Approach, New Technology Group 5 (ICD-10-PCS; 2020-03-25)
PROC: XW033E5 Introduction of Remdesivir Anti-infective into Peripheral Vein, Percutaneous Approach, New Technology Group 5 (ICD-10-PCS; 2020-03-26)
PROC: 02HV33Z Insertion of Infusion Device into Superior Vena Cava, Percutaneous Approach (ICD-10-PCS; 2020-03-26)
PROC: B548ZZA Ultrasonography of Superior Vena Cava, Guidance (ICD-10-PCS; 2020-03-26)
PROC: 5A1955Z Respiratory Ventilation, Greater than 96 Consecutive Hours (ICD-10-PCS; principal; 2020-03-28)
PROC: 0BH18EZ Insertion of Endotracheal Airway into Trachea, Via Natural or Artificial Opening Endoscopic (ICD-10-PCS; 2020-03-28)
PROC: 30243K1 Transfusion of Nonautologous Frozen Plasma into Central Vein, Percutaneous Approach (ICD-10-PCS; 2020-04-17)
PROC: 30243N1 Transfusion of Nonautologous Red Blood Cells into Central Vein, Percutaneous Approach (ICD-10-PCS; 2020-04-17)
PROC: 3E043XZ Introduction of Vasopressor into Central Vein, Percutaneous Approach (ICD-10-PCS; 2020-04-17)
PROC: 0B110F4 Bypass Trachea to Cutaneous with Tracheostomy Device, Open Approach (ICD-10-PCS; 2020-04-18)
PROC: 5A1955Z Respiratory Ventilation, Greater than 96 Consecutive Hours (ICD-10-PCS; 2020-04-18)
PROC: 0DH63UZ Insertion of Feeding Device into Stomach, Percutaneous Approach (ICD-10-PCS; 2020-04-18)
DX: A41.89 Other specified sepsis (principal); J12.89 Other viral pneumonia; U07.1 COVID-19; E11.10 Type 2 diabetes mellitus with ketoacidosis without coma; R65.21 Severe sepsis with septic shock; I26.99 Other pulmonary embolism without acute cor pulmonale; G93.41 Metabolic encephalopathy; J69.0 Pneumonitis due to inhalation of food and vomit; J96.02 Acute respiratory failure with hypercapnia; J96.01 Acute respiratory failure with hypoxia; N17.9 Acute kidney failure, unspecified; E87.0 Hyperosmolality and hypernatremia; E87.3 Alkalosis; L89.150 Pressure ulcer of sacral region, unstageable; I10 Essential (primary) hypertension; D50.0 Iron deficiency anemia secondary to blood loss (chronic); E87.6 Hypokalemia; K20.90 Esophagitis, unspecified without bleeding; K29.70 Gastritis, unspecified, without bleeding; E03.9 Hypothyroidism, unspecified; E78.5 Hyperlipidemia, unspecified; Z90.49 Acquired absence of other specified parts of digestive tract; Z88.0 Allergy status to penicillin; E66.9 Obesity, unspecified; Z68.37 Body mass index [BMI] 37.0-37.9, adult; R00.1 Bradycardia, unspecified; E88.09 Other disorders of plasma-protein metabolism, not elsewhere classified; R79.89 Other specified abnormal findings of blood chemistry
CPT/HCPCS: 36415; 36569; 36600; 43246; 71045; 71260; 74018; 80048; 80053; 80061; 80202; 81001; 82550; 82553; 82570; 82607; 82728; 82746; 82805; 82947; 82948; 83036; 83540; 83605; 83735; 83935; 84100; 84156; 84295; 84300; 84466; 84484; 84520; 85025; 85045; 86850; 86900; 86920; 87040; 93005; 93306; 94002; 94003; 96372; 97139; 99251; 99284; J0330; J0456; J0461; J0696; J1100; J1650; J1756; J1815; J1817; J1940; J2250; J2543; J2930; J3010; J3370; J3480; J3486; J7030; J7040; J7050; J7070; J7799; P9016; P9017; P9047; Q9967; U0002